=== PATIENT | female | born 1970 | race Caucasian/White ===

== ENCOUNTER 2019-01-12 15:51 | Emergency (ER) | payer OTHER ==
[~2019-01-12] VITALS: Ht 162.6 cm; Wt 72.6 kg
--- OUTSIDE RECORDS SUMMARY | ~2019-01-12 | XMS | Encounter Summary ---
Demographics + + + | Address | [address] | | | [place] [address] | + + + | Home Phone | | + + + | Preferred Language | Unknown | + + + | Marital Status | | + + + | Presybeterian Affiliation | Unknown | + + + | Race | Unknown | + + + | Ethnic Group | Unknown | + + + Author + + + | Author | [facility] | | | and Michaelana | + + + | Organization | [facility] | | | and Michaelana | + + + | Address | Unknown | + + + | Phone | Unavailable | + + + Support + + +---------+ + | Name | Relationship | Address | Phone | + + +---------+ + | Benedicto Bain | ECON | Unknown | | + + +---------+ + | Selene Cohen | ECON | Unknown | | + + +---------+ + Care Team Providers + +------+ + | Care University Relations Vice President Name | Role | Phone | + +------+ + | Selene Francis PA-C | PCP | | + +------+ + Reason for Referral Diagnostic/Screening (Routine) +--------+--------+ + + + + | Status | Reason | Specialty | Diagnoses / | Referred By | Referred To | | | | | Procedures | Contact | Contact | +--------+--------+ + + + + | Closed | | Radiology | Diagnoses | | [facility] | | | | | Elevated | [place], | [address] | | | | | liver | [place], | [place], | | | | | enzymes | [employer] [address] | [place] | | | | | Esophageal | [address], [place] | [address] | | | | | varices | [address] [place] | Phone: | | | | | without | [place], [place] | [phone] | | | | | bleeding, | [address] | Fax: | | | | | unspecified | Phone: | [phone] | | | | | esophageal | [phone] | | | | | | varices type | Fax: | | | | | | (HCC) | [phone] | | | | | | Portal | | | | | | | hypertension | | | | | | | (HCC) | | | | | | | Abnormal CT | | | | | | | of liver | | | | | | | Procedures | | | | | | | MRI Liver w | | | | | | | wo Contrast | | | | | | | [place] MRI, | | | | | | | ABDOMEN, | | | | | | | COMBO | | | +--------+--------+ + + + + Diagnostic/Screening (Routine) +--------+--------+ + + + + | Status | Reason | Specialty | Diagnoses / | Referred By | Referred To | | | | | Procedures | Contact | Contact | +--------+--------+ + + + + | Closed | | Radiology | Diagnoses | | [facility] | | | | | Elevated | [place], | [address] | | | | | liver | [place], | [place], | | | | | enzymes | [employer] [address] | [place] | | | | | Esophageal | [place], [place] | [address] | | | | | varices | [address] | Phone: | | | | | without | [place], [place] | [phone] | | | | | bleeding, | [address] | Fax: | | | | | unspecified | Phone: | [phone] | | | | | esophageal | [phone] | | | | | | varices type | Fax: | | | | | | (HCC) | [phone] | | | | | | Portal | | | | | | | hypertension | | | | | | | (HCC) | | | | | | | Abnormal CT | | | | | | | of liver | | | | | | | Procedures | | | | | | | MRI Liver w | | | | | | | wo Contrast | | | | | | | GA MRI, | | | | | | | ABDOMEN, | | | | | | | COMBO | | | +--------+--------+ + + + + Reason for Visit Diagnostic/Screening (Routine) +--------+--------+ + + + + | Status | Reason | Specialty | Diagnoses / | Referred By | Referred To | | | | | Procedures | Contact | Contact | +--------+--------+ + + + + | Closed | | Radiology | Diagnoses | | [facility] | | | | | Elevated | [place], | [address] | | | | | liver | [place], | [place], | | | | | enzymes | [employer] [address] | [place] | | | | | Esophageal | [place], [place] | [address] | | | | | varices | [address] | Phone: | | | | | without | [place], [place] | [phone] | | | | | bleeding, | [address] | Fax: | | | | | unspecified | Phone: | [phone] | | | | | esophageal | [phone] | | | | | | varices type | Fax: | | | | | | (HCC) | [phone] | | | | | | Portal | | | | | | | hypertension | | | | | | | (HCC) | | | | | | | Abnormal CT | | | | | | | of liver | | | | | | | Procedures | | | | | | | MRI Liver w | | | | | | | wo Contrast | | | | | | | [place] MRI, | | | | | | | ABDOMEN, | | | | | | | COMBO | | | +--------+--------+ + + + + Encounter Details +--------+ + + + + | Date | Type | Department | Care Team | Description | +--------+ + + + + | 01/12/ | Hospital | [facility] | [facility], | Elevated liver | | 2019 | Encounter | [facility] MRI [address] | [place], EX[employer] [address] | enzymes; Esophageal | | | | [address] [place], | [place], [place] [address] | varices without | | | | [place] [address] | [place], [place] | bleeding, | | | | [phone] | [address] | unspecified | | | | | | esophageal varices | | | | | | type (HCC); Portal | | | | | | hypertension (HCC); | | | | | | Abnormal CT of liver | +--------+ + + + + Social History + +-------+ +--------+------+ | Tobacco Use | Types | Packs/Day | Years | Date | | | | | Used | | + +-------+ +--------+------+ | Never Smoker | | | | | + +-------+ +--------+------+ + +---+---+---+ | Smokeless Tobacco: | | | | | Never Used | | | | + +---+---+---+ + + +---------+ + | Alcohol Use | Drinks/We | oz/Week | Comments | | | ek | | | + + +---------+ + | Yes | | | once a month at the most | + + +---------+ + + + + | Sex Assigned at | Date Recorded | | | | + + + | Not on file | | + + + + + + + | Job Start Date | Occupation | Industry | + + + + | Not on file | Not on file | Not on file | + + + + + + + + | Travel History | Travel Start | Travel End | + + + + + + | No recent travel history available. | + + documented as of this encounter Plan of Treatment Not on filedocumented as of this encounter Procedures + +--------+ + + + | Procedure Name | Priori | Date/Time | Associated Diagnosis | Comments | | | ty | | | | + +--------+ + + + | MRI LIVER W WO | Routin | 01/12/2019 | Elevated liver | Results for this | | CONTRAST | e | 8:18 PDT | enzymes Esophageal | procedure are in the | | | | | varices without | results section. | | | | | bleeding, | | | | | | unspecified | | | | | | esophageal varices | | | | | | type (HCC) Portal | | | | | | hypertension (HCC) | | | | | | Abnormal CT of liver | | + +--------+ + + + documented in this encounter Results MRI Liver w wo Contrast (01/12/2019 8:18 PDT) + + | Specimen | + + | | + + + + + | Impressions | Performed At | + + + | Cirrhotic appearing liver with no definite focal lesion. | [facility] | | Findings of portal venous hypertension with significant narrowing of | | | the portal veins showing likely cavernous transformation, multiple | | | varices, and splenomegaly. Moderate ascites. Dictated and | | | Signed by: Jose Mcdowell MD Electronically signed: 01/12/2019 9:19 | | | AM | | + + + + + + | Narrative | Performed At | + + + | MRI LIVER W WO CONTRAST 01/12/2019 7:45 AM HISTORY: Abnormal CT | [facility] | | liver. COMPARISON: CT scan of the abdomen dated 01/08/2019. | | | PROTOCOL: Coronal T2, axial T2, axial T2 fat sat, axial T1 in phase | | | imaging, axial T1 out of phase imaging, axial diffusion weighted, | | | axial T1, axial T1 postcontrast, coronal T1 postcontrast, sagittal T1 | | | post contrast. Postcontrast images were acquired in the arterial, | | | portal venous, delayed, and hepatobiliary phases. The patient was | | | administered 8 cc Eovist. FINDINGS: Heart size is at the upper | | | limits of normal. The liver has a cirrhotic appearance with | | | nodular contour. No definite focal lesion is seen. The gallbladder is | | | surgically absent. Biliary ducts are unremarkable. The spleen is | | | significantly enlarged measuring 18.7 cm craniocaudally. The | | | pancreas demonstrates normal parenchyma and a normal pancreatic duct. | | | Adrenal glands are normal. The right kidney and visualized ureter | | | are normal. The left kidney and visualized ureter are normal. | | | The stomach is normal. Imaged small bowel and colon demonstrate no | | | acute findings. Aorta is nonaneurysmal. IVC is unremarkable. The | | | portal veins appear to be significantly thinned with likely cavernous | | | transformation. Multiple varices are observed medial to the spleen | | | and in the upper abdomen. No enlarged lymph nodes are visualized | | | within the omentum or retroperitoneum. There is moderate ascites. | | | Body wall soft tissue structures are normal. There are no acute | | | osseous abnormalities. | | + + + + + | Procedure Note | + + | Guerrero, Rad Results In - 01/12/2019 0922 PDT MRI LIVER W WO CONTRAST 01/12/2019 7:45 AM | | | | HISTORY: Abnormal CT liver. | | | | COMPARISON: CT scan of the abdomen dated 01/08/2019. | | | | PROTOCOL: Coronal T2, axial T2, axial T2 fat sat, axial T1 in phase imaging, | | axial T1 out of phase imaging, axial diffusion weighted, axial T1, axial T1 | | postcontrast, coronal T1 postcontrast, sagittal T1 post contrast. Postcontrast | | images were acquired in the arterial, portal venous, delayed, and hepatobiliary | | phases. The patient was administered 8 cc Eovist. | | | | FINDINGS: | | Heart size is at the upper limits of normal. | | | | The liver has a cirrhotic appearance with nodular contour. No definite focal | | lesion is seen. The gallbladder is surgically absent. Biliary ducts are | | unremarkable. | | | | The spleen is significantly enlarged measuring 18.7 cm craniocaudally. The | | pancreas demonstrates normal parenchyma and a normal pancreatic duct. Adrenal | | glands are normal. | | | | The right kidney and visualized ureter are normal. | | | | The left kidney and visualized ureter are normal. | | | | The stomach is normal. Imaged small bowel and colon demonstrate no acute | | findings. | | | | Aorta is nonaneurysmal. IVC is unremarkable. The portal veins appear to be | | significantly thinned with likely cavernous transformation. Multiple varices are | | observed medial to the spleen and in the upper abdomen. No enlarged lymph nodes | | are visualized within the omentum or retroperitoneum. | | | | There is moderate ascites. | | | | Body wall soft tissue structures are normal. There are no acute osseous | | abnormalities. | | | | IMPRESSION: | | Cirrhotic appearing liver with no definite focal lesion. | | | | Findings of portal venous hypertension with significant narrowing of the portal | | veins showing likely cavernous transformation, multiple varices, and | | splenomegaly. | | | | Moderate ascites. | | | | Dictated and Signed by: Jose Mcdowell MD | | Electronically signed: 01/12/2019 9:19 AM | + + + +---------+ + + | Performing | Address | City/State/Zipcode | Phone Number | | Organization | | | | + +---------+ + + | [facility] | | | | + +---------+ + + documented in this encounter Visit Diagnoses + + | Diagnosis | + + | Elevated liver enzymes Nonspecific elevation of levels of transaminase or lactic acid | | dehydrogenase (LDH) | + + | Esophageal varices without bleeding, unspecified esophageal varices type (HCC) | + + | Portal hypertension (HCC) Portal hypertension | + + | Abnormal CT of liver Nonspecific abnormal results of liver function study | + + documented in this encounter Administered Medications + +--------+ +-------+------+------+ | Medication Order | MAR | Action | Dose | Rate | Site | | | Action | Date | | | | + +--------+ +-------+------+------+ | gadoxetate (EOVIST) injection 8 | Given | 01/13/20 | 8 mLs | | | | mL 8 mL, Intravenous, ONCE PRN, | | 19 8:20 | | | | | Other, Starting 01/12/19 at | | PDT | | | | | 0820, For 1 dose, MRI | | | | | | + +--------+ +-------+------+------+ +---+---+ | | | +---+---+ documented in this encounter"
--- OUTSIDE RECORDS SUMMARY | ~2019-01-12 | XMS | Encounter Summary ---
Demographics + + + | Address | [address] | | | [place] [address] | + + + | Home Phone | | + + + | Preferred Language | Unknown | + + + | Marital Status | | + + + | Confucianist Affiliation | Unknown | + + + | Race | Unknown | + + + | Ethnic Group | Unknown | + + + Author + + + | Author | [facility] | | | and Michaelana | + + + | Organization | [facility] | | | and Michaelana [...] Team Providers + +------+ + | Care Oil Well Driller Name | Role | Phone | + +------+ + | Selene Francis PA-C | PCP | | + +------+ + Encounter Details +--------+ + + + + | Date | Type | Department | Care Team | Description | +--------+ + + + + | 10/10/ | Abstract | [facility] | Tanya | | | 2019 | | GASTROENTEROLOGY | MD [address] | | | | | [address] | Emeka Lamar | | | | | [address] | [place] [address] | | | | | [address] | | | | | | [phone] | | | +--------+ + + + [...] | + +--------+ + + + | EXTERNAL: | Routin | 12/25/2018 | | Results for this | | COLONOSCOPY | e | | | procedure are in the | | | | | | results section. | + +--------+ + + + documented in this encounter Results EXTERNAL: COLONOSCOPY (12/25/2018) + + + + + + | Component | Value | Ref Range | Performed | Pathologist | | | | | At | Signature | + + + + + + | Colonoscopy | See Full Report~ [facility] | | | | | | Dr. Nelson | | | | | Impression, | | | | | | External | | | | | + + + + + + documented in this encounter Visit Diagnoses Not on filedocumented in this encounter"
--- OUTSIDE RECORDS SUMMARY | ~2019-01-12 | XMS | Encounter Summary ---
Demographics + + + | Address | [address] | | | [place] [address] | + + + | Home Phone | | + + + | Preferred Language | Unknown | + + + | Marital Status | | + + + | Buddhism Affiliation | Unknown | + + + | Race | Unknown | + + + | Ethnic Group | Unknown | + + + Author + + + | Author | [facility] | | | and Michaelana | + + + | Organization | [facility] | | | and Michaelana [...] Team Providers + +------+ + | Care Awning Assembler Name | Role | Phone | + +------+ + | Selene Francis PA-C | PCP | | + +------+ + Reason for Visit Evaluate & Treat (Routine) + +--------+ + + + + | Status | Reason | Specialty | Diagnoses / | Referred By | Referred To | | | | | Procedures | Contact | Contact | + +--------+ + + + + | Authorized | | Gastroenterol | Diagnoses | Tito, | Leslie, | | | | ogy | Functional | [facility] | Deny Brody MD | | | | | diarrhea | [address] | [address], | | | | | Procedures | [place] | [place] [address] | | | | | CLINICAL ANALYST OFFICE | [place] [address] | [place], | | | | | VISIT | [place], | [place] [address] | | | | | | [place] [address] | Phone: | | | | | | Phone: | [phone] | | | | | | [phone] | Fax: | | | | | | Fax: | [phone] | | | | | | [phone] | | + +--------+ + + + + Encounter Details +--------+---------+ + + + | Date | Type | Department | Care Team | Description | +--------+---------+ + + + | 12/18/ | Office | [facility] | Melanie, | Diarrhea, | | 2019 | Visit | GASTROENTEROLOGY | BRIAN Dickson [address] | unspecified type | | | | [address] [place] | [place], [place] [address] | (Primary Dx); Fecal | | | | [address] [place], [place] | [place], [place] | urgency; Abdominal | | | | [address] | [address] | cramping; Heartburn; | | | | [phone] | | Black stool | +--------+---------+ + + + Social History + +-------+ +--------+------+ | Tobacco Use | Types | Packs/Day | Years | Date | | | | | Used | | + +-------+ +--------+------+ | Never Smoker | | | | | + +-------+ +--------+------+ + +---+---+---+ | Smokeless Tobacco: | | | | | Never Used | | | | + +---+---+---+ + + + | Sex Assigned at [...] Filed Vital Signs + + + + | Vital Sign | Reading | Time Taken | + + + + | Blood Pressure | 124/82 | 12/18/2018755 PDT | + + + + | Pulse | 77 | 12/18/2018755 PDT | + + + + | Temperature | 36.6 C (97.9 F) | 12/18/2018755 PDT | + + + + | Respiratory Rate | 14 | 12/18/2018755 PDT | + + + + | Oxygen Saturation | 99% | 12/18/2018755 PDT | + + + + | Inhaled Oxygen | - | - | | Concentration | | | + + + + | Weight | 73.6 kg (162 lb 4.1 | 12/18/2018755 PDT | | | oz) | | + + + + | Height | 162.6 cm (5' 4") | 12/18/2018755 PDT | + + + + | Body Mass Index | 27.85 | 12/18/2018755 PDT | + + + + documented in this encounter Patient Instructions Patient Instructions Yessi Navarro ARNP - 12/18/2018 8:00 PDTStart psyllium (Metamu cil) once daily. If psyllium not helping completely, try dicyclomine as needed. documented in this encounter Progress Notes Chelita Rordiguez RN - 12/18/2018 0800 PDTScheduled patient for EGD/Colon IVCS with Dr. Miguelito rich on Tuesday12/25/18. Reviewed medications and allergies, bowel prep instructions and proced ure instructions. Sent prescription to [facility] in [place]. Yessi VegaBRIAN - 12/18/2018 0800 P DT PATIENT NAME: Grecia Bain : 1970: AGE: 48 y.o. REFERRED BY: Selene Francis PA-C PRIMARY CARE: Selene Francis PA-C Subjective: CHIEF COMPLAINT: Grecia Bain is a 48 y.o. female referred by Selene Francis PA-C for evaluation and treatme nt of diarrhea and abdominal pain. HISTORY OF PRESENT ILLNESS: Patient states that about 2 months ago she started to have diarrhea. She has not been able to associate with any certain foods. She has issues with the diarrhea about once every week. There have been 8 issues over the last 2 months. She notes that the episodes are urgent liq uid diarrhea. There is no warning. It can come anytime throughout the days. She has taken Im odium to help. She states that there was 1 episode with diarrhea even after taking Imodium. Denies blood in the stool. She reports that between epidose of uncontrolled diarrhea, she has soft or diarrheal stools . She typically has 2-3 BM per day. There is typically not abdominal discomfort associated w ith these stools. Starting in August, the patient also reports increasing heartburn symptoms. She noted signif icant epigastric discomfort she was also having intermittent black stools at the time. She had been associated in the black stools with dietary changes. Denies the use of Pepto-Bismo l. Heartburn has improved since this time. She has started a dietary change to the Optivia diet. About 4 months ago. Denies family history of colon cancer. Denies personal or family history of autoimmune diseases. She denies new rashes, mouth sore s, or joint pains. MEDICAL, SURGICAL, AND PERSONAL HISTORY: BP 124/82 | Pulse 77 | Temp 36.6 C (97.9 F) (Temporal) | Resp 14 | Ht 1.626 m (5' 4 ") | Wt 73.6 kg (162 lb 4.1 oz) | SpO2 99% | BMI 27.85 kg/m No Known Allergies Past Medical History: Diagnosis Date Cervicalgia Diarrhea Encopresis Functional diarrhea HTN (hypertension) Spinal enthesopathy of cervical region (HCC) Urge and stress incontinence UTI (urinary tract infection) Vitamin D deficiency Past Surgical History: Procedure Laterality Date KNEE SURGERY Left 2012 Partial PARTIAL HYSTERECTOMY 2013 Family History Problem Relation Age of Onset [...] Not on file Tobacco Use Smoking status: Not on file Substance and Sexual Activity Alcohol use: Not on file Drug use: Not on file Sexual activity: Not on file Other Topics Concern Not on file Social History Narrative Not on file Review of Systems Constitutional: Negative for diaphoresis, fatigue, fever and unexpected weight change. HENT: Negative for congestion, hearing loss, mouth sores, rhinorrhea and trouble swallowing . Eyes: Negative for redness and visual disturbance. Respiratory: Negative for cough, choking, chest tightness, shortness of breath and wheezing . Cardiovascular: Negative for chest pain, palpitations and leg swelling. Gastrointestinal: Positive for abdominal pain and diarrhea. Negative for abdominal distenti on, anal bleeding, blood in stool, constipation, nausea, rectal pain and vomiting. Complains of heartburn and black stools. Endocrine: Denies enlarged thyroid Genitourinary: Negative for dysuria, flank pain and frequency. Musculoskeletal: Negative for arthralgias, back pain and joint swelling. Skin: Negative for color change and rash. Neurological: Negative for seizures, syncope, weakness, numbness and headaches. Hematological: Does not bruise/bleed easily. Denies anemia or enlarged lymph glands. Psychiatric/Behavioral: Negative for dysphoric mood. The patient is not nervous/anxious. Objective: Physical Exam Constitutional: She is oriented to person, place, and time. She appears well-developed and well-nourished. HENT: Head: Normocephalic and atraumatic. Eyes: EOM are normal. No scleral icterus. Neck: Normal range of motion. Neck supple. Cardiovascular: Normal rate, regular rhythm and normal heart sounds. Pulmonary/Chest: Effort normal and breath sounds normal. No respiratory distress. She has n o wheezes. Abdominal: Soft. Normal appearance and bowel sounds are normal. She exhibits no ascites and no mass. There is no splenomegaly or hepatomegaly. There is tenderness in the periumbilical area. There is no rigidity, no rebound, no guarding and negative Keller's sign. Musculoskeletal: Normal range of motion. She exhibits no edema or deformity. Neurological: She is alert and oriented to person, place, and time. Skin: Skin is warm and dry. No rash noted. Psychiatric: She has a normal mood and affect. Her behavior is normal. Nursing note and vitals reviewed. Abstract on 12/07/2018 Component Date Value Ref [...] 11/07/2018 6 0 - 20 mm/hr Final Assessment: 1. Diarrhea, unspecified type 2. Fecal urgency 3. Abdominal cramping 4. Heartburn 5. Black stool Plan: Patient to have EGD and colonoscopy for further evaluation. The procedural techniques, risk s, indications, and alternatives were discussed. Among the risks, are perforation, bleeding , infection, allergic/adverse reactions to medications, and cardiovascular complications. E ach of these could result in hospitalization, additional procedures (including surgery), or other life threatening complications. Patient verbalized understanding. Risk factors to col o-rectal cancer discussed with patient including smoking, obesity, excessive red meat ingest ion, advancing age and first degree family relative with history of colo-rectal cancer discu ssed with patient. Patient to call with any questions or concerns prior to procedure. Start dissolvable fiber supplement daily. Patient given a prescription for Bentyl to help with abdominal pain. Will follow up with results. Patient is [...] its content.Electronically signed by BRIAN Mancilla at 12/18 8:40 PDTdocumented in this encounter Plan of Treatment Not on filedocumented as of this encounter Visit Diagnoses + + | Diagnosis | + + | Diarrhea, unspecified type - Primary | + + | Fecal urgency | + + | Abdominal cramping Abdominal pain, unspecified site | + + | Heartburn | + + | Black stool Nonspecific abnormal finding in stool contents | + + documented in this encounter
--- OUTSIDE RECORDS SUMMARY | ~2019-01-12 | XMS | Encounter Summary ---
Demographics + + + | Address | [address] | | | [place] [address] | + + + | Home Phone | | + + + | Preferred Language | Unknown | + + + | Marital Status | | + + + | Zoroastrian Affiliation | Unknown | + + + | Race | Unknown | + + + | Ethnic Group | Unknown | + + + Author + + + | Author | [facility] | | | and Michaelana | + + + | Organization | [facility] | | | and [...] Team Providers + +------+ + | Care Telephone Switchboard Operator Name | Role | Phone | [...] | | unspecified | | [address], | | | | | type Fecal | | [address] | | | | | urgency | | [place], | | | | | Abdominal | | [place] [address] | | | | | cramping | | Phone: | | | | | Heartburn | | [phone] | | | | | Black stool | | Fax: | | | | | Procedures | | [phone] | | | | | IN | | | | | | | ESOPHAGOGAST | | | | | | | RODUODENOSCO | | | | | | | PY TRANSORAL | | | | | | | DIAGNOSTIC | | | | | | | IN EGD | | | | | | | TRANSORAL | | | | | | | BIOPSY | | | | | | | SINGLE/MULTI | | | | | | | PLE IN | | | | | | | COLONOSCOPY | | | | | | | FLX DX | | | | | | | W/COLLJ SPEC | | | | | | | WHEN PFRMD | | | | | | | IN | | | | | | | COLONOSCOPY | | | | | | | W/BIOPSY | | | | | | | SINGLE/MULTI | | | | | | | PLE IN | | | | | | | [...] + + | 12/25/ | Hospital | [facility] | Deny Nelson MD | Diarrhea, | | 2019 | Encounter | [facility] | [address], [place] | unspecified type; | | | | [address] | [address] [place], [place] | Fecal urgency; | | | | [place] | [address] | Abdominal cramping; | | | | [address] | | Heartburn; Black | | | | [phone] | | stool | +--------+ + + [...] | Blood Pressure | 110/65 | 12/25/2018 1145 PDT | + + + + | Pulse | 77 | 12/25/2018 1155 PDT | + + + + | Temperature | 36.2 C (97.2 F) | 12/25/2018 1012 PDT | + + + + | Respiratory Rate | 17 | 12/25/2018 1110 PDT | + + + + | Oxygen Saturation | 97% | 12/25/2018 1155 PDT | + + + + | Inhaled Oxygen | - | - | | Concentration | | | + + + + | Weight | 70.6 kg (155 lb 10.3 | 12/25/2018 1012 PDT | | | oz) | | + + + + | Height | 162.6 cm (5' 4") | 12/25/2018 1012 PDT | + + + + | Body Mass Index | 26.72 | 12/25/2018 1012 PDT | + + + + documented in this encounter Discharge Instructions Instructions Marti Carmichael RN - 12/25/2018 Recovery After Procedural Sedation [...] You can't be awakened Date Last Reviewed: 01/06/201619998744-1814 [employer] [address] [place] [address], [place] [address]. All righ ts reserved. This information is [...] daily | tablet | | 19 | | | tablet | as needed (abdominal [...] Results for this | | | | 0:00 PDT | | procedure are in the | | | | | | results section. | + +--------+ + + + | COLONOSCOPY | | 12/25/2018 | Diarrhea, | | | | | 11:05 PDT | unspecified type | | | | | | Fecal urgency | | | | | | Abdominal cramping | | | | | | Heartburn Black | | | | | | stool | | + +--------+ + + + | EGD | | 12/25/2018 | Diarrhea, | | | | | 11:05 PDT | unspecified type | | | | | | Fecal urgency | | | | | | Abdominal cramping | | | | | | Heartburn Black | | | | | | stool | | + +--------+ + + + | LACTOFERRIN, FECAL, | Routin | 12/25/2018 | | Results for this | | QUAL | e | 11:03 PDT | | procedure are in the | | | | | | results section. | + +--------+ + + + | CLOSTRIDIOIDES | Routin | 12/25/2018 | | Results for this | | DIFFICILE NAAT | e | 11:02 PDT | | procedure are in the | | REFLEX | | | | results section. | + +--------+ + + + | STOOL PATHOGENS, | Routin | 12/25/2018 | | Results for this | | NAAT, 6 TO 11 | e | 11:02 PDT | | procedure are in the | | TARGETS | | | | results section. | + +--------+ + + + | CLOSTRIDIOIDES | Routin | 12/25/2018 | | Results for this | | DIFFICILE NAAT | e | 11:02 PDT | | procedure are in the | | REFLEX TO TOX AG | | | | results section. | + +--------+ + + + | RESULT | Routin | 12/25/2018 | | Results for this | | (NON-ORD)[facility] | e | 11:02 PDT | | procedure are in the | | | | | | results section. | + +--------+ + + + | OVA AND PARASITE | Routin | 12/25/2018 | | Results for this | | EXAMINATION | e | 11:02 PDT | | procedure are in the | | | | | | results section. | + +--------+ + + + | CRYPTOSPORIDIUM AG | Routin | 12/25/2018 | | Results for this | | | e | 11:02 PDT | | procedure are in the | | | | | | results section. | + +--------+ + + + | GIARDIA AG, EIA, | Routin | 12/25/2018 | | Results for this | | STOOL | e | 11:02 PDT | | procedure are in the | | | | | | results section. | + +--------+ + + + | HELICOBACTER PYLORI | Routin | 12/25/2018 | | Results for this | | BIOPSY | e | 10:47 PDT | | procedure are in the | | | | | | results section. | + +--------+ + + + | EGD | Routin | 12/25/2018 | | Results for this | | | e | 10:30 PDT | | procedure are in the | | | | | | results section. | + +--------+ + + + | COLONOSCOPY | Routin | 12/25/2018 | | Results for this | | | e | 10:28 PDT | | procedure are in the | | | | | | results section. | + +--------+ + + + | SURGICAL PATHOLOGY | Routin | 12/25/2018 | | Results for this | | EXAM | e | 0:00 PDT | | procedure are in the | | | | | | results section. | + +--------+ + + + documented in this encounter Results LABS - EXTERNAL SCAN (01/02/2019 0:00 PDT) + + + | Narrative | Performed At | + + + | Ordered by an | | | unspecified provider. | | + + + Lactoferrin, Fecal, Qual (12/25/2018 11:03 PDT) + + + + + + | Component | Value | Ref Range | Performed | Pathologist | | | | | At | Signature | + + + + + + | Lactoferrin | Negative | Negative | [facility] | | | , Qual | | | [facility] | | | | | | MEDICAL | | | | | | CENTER - | | | | | | LABORATORY | | + + + + + + + + | Specimen | + + | Stool | + + + + + + + | Performing | Address | City/State/Zipcode | Phone Number | | Organization | | | | + + + + + | [facility] | [address] | [place] | [phone] | | [facility] | | [address] | | | - LABORATORY | | | | + + + + + RESULT REFLEX (12/25/2018 11:02 PDT) + + + + + + [...] | Specimen | + + | Stool | + + + + + | Narrative | Performed At | + + + | Performed at: 01 - [address] [address], | REFERENCE LAB | | [place] [id number] Electrical Products Engineer: Анна Oscar MD, | [facility] | | Phone: [phone] | | + + + + + + + + | Performing | Address | City/State/Zipcode | Phone Number | | Organization | | | | + + + + + | REFERENCE LAB | [address] | [place] [address] | [phone] | | [facility] | [address] | | | + + + + + Clostridioides difficile NAAT Reflex (12/25/2018 11:02 PDT) + + + + + + [...] | Specimen | + + | Stool | + + + + + + + | Performing | Address | City/State/Zipcode | Phone Number | | Organization | | | | + + + + + | [facility] | [address] | [place] | [phone] | | [facility] | | [address] | | | - LABORATORY | | | | + + + + + Ova and Parasite Examination (12/25/2018 11:02 PDT) + + + + + + [...] | Specimen | + + | Stool | + + + + + | Narrative | Performed At | + + + | Performed at: 01 - [facility] [address], | REFERENCE LAB | | [place] [id number] Electrical Products Engineer: Анна Oscar MD, | [facility] | | Phone: [phone] | | + + + + + + + + | Performing | Address | City/State/Zipcode | Phone Number | | Organization | | | | + + + + + | REFERENCE LAB | [address] | [place] [address] | [phone] | | [facility] | [address] | | | + + + + + Stool Pathogens, NAAT (12/25/2018 11:02 PDT) + + + + + + [...] | Specimen | + + | Stool | + + + + + + + | Performing | Address | City/State/Zipcode | Phone Number | | Organization | | | | + + + + + | [facility] | [address] | [place] | [phone] | | [facility] | | [address] | | | - LABORATORY | | | | + + + + + Giardia Ag, EIA, Stool (12/25/2018 11:02 PDT) + + + + + + | Component | Value | Ref Range | Performed | Pathologist | | | | | At | Signature | + + + + + + | Giardia | Negative | Negative | [facility] | | | Antigen, | | | [facility] | | | Stool | | | MEDICAL | | | | | | CENTER - | | | | | | LABORATORY | | + + + + + + + + | Specimen | + + | Stool | + + + + + + + | Performing | Address | City/State/Zipcode | Phone Number | | Organization | | | | + + + + + | [facility] | [address] | [place] | [phone] | | [facility] | | [address] | | | - LABORATORY | | | | + + + + + Cryptosporidium Ag (12/25/2018 11:02 PDT) + + + + + + | Component | Value | Ref Range | Performed | Pathologist | | | | | At | Signature | + + + + + + | Cryptospori | Negative | Negative | [facility] | | | dium | | | [facility] | | | Antigen | | | MEDICAL | | | | | | CENTER - | | | | | | LABORATORY | | + + + + + + + + | Specimen | + + | Stool | + + + + + + + | Performing | Address | City/State/Zipcode | Phone Number | | Organization | | | | + + + + + | [facility] | [address] | [place] | [phone] | | [facility] | | [address] | | | - LABORATORY | | | | + + + + + Helicobactor pylori Biopsy (12/25/2018 10:47 PDT) + + + + + + [...] | Specimen | + + | Tissue | + + + + + + + | Performing | Address | City/State/Zipcode | Phone Number | | Organization | | | | + + + + + | [facility] | [address] | [place] | [phone] | | [facility] | | [address] | | | - LABORATORY | | | | + + + + + EGD (12/25/2018 10:30 PDT) + + | Specimen | + + | | + + + + ---+ | Narrative | Performed At | + + ---+ | | [facility] | | GastroenterologyPatient Name: Grecia BainProcedure Date: 12/25/2018 | [facility] | | 10:30 AMMRN: [id number] #: [id number] of : | | | 1970Admit Type: AmbulatoryAge: 48Room: Endo Room 1Gender: | | | FemaleNote Status: FinalizedAttending MD: Deny Nelson , | | | MDProcedure: Upper GI | | | endoscopyIndications: Generalized abdominal pain, | | | DiarrheaProviders: Deny Nelson MD, Vanna Castro, | | | RN, Briana Constantino RN, Vianey | | | Leana Burns RN, Brittany Lopez RN, | | | Marc Marrero CMA, Baldemar | | | Gordo, TechnicianReferring MD: Selene Francis (Referring | | | MD)Medicines: Midazolam 5 mg IV, Meperidine 100 mg IV, | | | Benzocaine spray, Oxygen 4 | | | liters/min nasocannulaComplications: No immediate | | | complications. Estimated blood loss: Minimal.Procedure: | | | Pre-Anesthesia Assessment: - Prior to the procedure, a History | | | and Physical was performed, and patient medications, | | | allergies and sensitivities were reviewed. The patient's | | | tolerance of previous anesthesia was reviewed. - Prior to the | | | procedure, a History and Physical was performed, and patient | | | medications and allergies were reviewed. The patient is | | | competent. The risks and benefits of the procedure and the sedation | | | options and risks were discussed with the patient. All | | | questions were answered and informed consent was obtained. | | | Patient identification and proposed procedure were verified | | | by the physician, the nurse and the dye penetrant testing technician in the | | | endoscopy suite. Mental Status Examination: alert and | | | oriented. Airway Examination: normal oropharyngeal airway and neck | | | mobility and Mallampati Class II (the uvula but not tonsillar | | | pillars visualized). Respiratory Examination: clear to | | | auscultation. CV Examination: normal. Prophylactic | | | Antibiotics: The patient does not require prophylactic | | | antibiotics. Prior Anticoagulants: The patient has taken no | | | previous anticoagulant or antiplatelet agents. ASA Grade | | | Assessment: II - A patient with mild systemic disease. After reviewing | | | the risks and benefits, the patient was deemed in | | | satisfactory condition to undergo the procedure. The | | | anesthesia plan was to use moderate sedation / analgesia | | | (conscious sedation). Immediately prior to administration of | | [...] After reviewing the risks and benefits, the | | | patient was deemed in satisfactory condition to undergo the | | | procedure. - Immediately prior to administration of | | | medications, the patient was re-assessed for adequacy to | | | receive sedatives. - The heart rate, respiratory rate, oxygen | | | saturations, blood pressure, adequacy of pulmonary | | | ventilation, and response to care were monitored throughout | | | the procedure. - The physical status of the patient was | | | re-assessed after the procedure. After obtaining informed | | | consent, the endoscope was passed under direct vision. | | | Throughout the procedure, the patient's blood pressure, pulse, | | | and oxygen saturations were monitored continuously. The | | | Endoscope was introduced through the mouth, and advanced to | | | the third part of duodenum. The upper GI endoscopy was | | | accomplished without difficulty. The patient tolerated the | | | procedure well.Findings: The cricopharyngeus, upper third of | | | the esophagus and middle third of the esophagus were | | | normal. Grade II varices were found in the lower third of the | | | esophagus from 30-35 cm. They were medium in size. | | | The Z-line was regular and was found 35 cm from the incisors. | | | Moderate portal hypertensive gastropathy was found in the | | | cardia. Localized mildly erythematous mucosa without bleeding | | | was found in the gastric antrum. Biopsies were taken with a | | | cold forceps for Helicobacter pylori testing using CLOtest. | | | Verification of patient identification for the specimen was | | | done. Estimated blood loss was minimal. The duodenal bulb, | | | first portion of the duodenum, second portion of the | | | duodenum, area of the papilla and third portion of the duodenum were | | | normal. Biopsies for histology were taken with a cold forceps | | | for evaluation of celiac disease. Verification of patient | | | identification for the specimen was done. Estimated blood | | | loss was minimal. The retroflexed view confirmed previous | | | findings,Impression: - Normal cricopharyngeus, upper third of | | | esophagus and middle third of esophagus. - Grade II | | | esophageal varices. - Z-line regular, 35 cm from the | | | incisors. - Portal hypertensive gastropathy. - | | | Erythematous mucosa in the antrum. Biopsied. - Normal duodenal | | | bulb, first portion of the duodenum, second portion of the | | | duodenum, area of the papilla and third portion of the duodenum. | | | Biopsied. - The retroflexed view confirmed previous | | | findings,Recommendation: - Patient has a contact number | | | available for emergencies. The signs and symptoms of | | | potential delayed complications were discussed with the | | | patient. Return to normal activities tomorrow. Written discharge | | | instructions were provided to the patient. - | | | Discharge patient to home (ambulatory). - Resume previous diet | | | today. - Perform a colonoscopy today. - Continue | | | present medications. - No aspirin, ibuprofen, naproxen, or | | | other non-steroidal anti-inflammatory drugs for 7 days after | | | biopsy. - Await pathology results. - Return to nurse | | | practitioner at appointment to be scheduled. - Telephone GI | | | clinic for pathology results in 1 week.Deny Nelson MD12/25/2018 | | | 11:22:55 AMThis report has been signed electronically.Number of | | | Addenda: 0Note Initiated On: 12/25/2018 10:30 AMScope In: 10:47:23 | | | AMScope Out: 10:53:30 AM [facility], | | | [address] [place] [address] | | | - Await pathology results. [...] |Scope Out: 10:53:30 AM | | | [facility], [address], [place] | | | [address] | | + + ---+ + +---------+ + + | Performing | Address | City/State/Zipcode | Phone Number | | Organization | | | | + +---------+ + + | [facility] [place] | | | | + +---------+ + + COLONOSCOPY (12/25/2018 10:28 PDT) + + | Specimen | + + | | + + + + ---+ | Narrative | Performed At | + + ---+ | | [facility] | | GastroenterologyPatient Name: Grecia BainProshady Date: 12/25/2018 | [place] | | 10:28 AMMRN: [id number] #: [id number] of : | | | 1970Admit Type: AmbulatoryAge: 48Room: Endo Room 1Gender: | | | FemaleNote Status: FinalizedAttending MD: Deny Nelson , | | | MDProcedure: ColonoscopyIndications: | | | Chronic diarrheaProviders: Deny Nelson MD, [facility] | | | NIKA Castro, Briana Constantino, | | | RN, Vianey Burns RN, Marc Marrero CMA, Baldemar | | | Gordo TechnicianReferring | | | MD: Selene Francis (Referring MD)Medicines: | | | Midazolam 5 mg IV, Meperidine 100 mg IV, Oxygen 4 | | | liters/min | | | nasocannulaComplications: No immediate complications. | | | Estimated blood loss: Minimal.Procedure: Pre-Anesthesia | | | Assessment: - Prior to the procedure, a History and Physical | | | was performed, and patient medications, allergies and | | | sensitivities were reviewed. The patient's tolerance of | | | previous anesthesia was reviewed. - Prior to the procedure, a | | | History and Physical was performed, and patient medications | | | and allergies were reviewed. The patient is competent. The | | | risks and benefits of the procedure and the sedation options | | | and risks were discussed with the patient. All questions were | | | answered and informed consent was obtained. Patient identification | | | and proposed procedure were verified by the physician, the | | | nurse and the dye penetrant testing technician. Prophylactic Antibiotics: The | | | patient does not require prophylactic antibiotics. Prior | | | Anticoagulants: The patient has taken no previous | | | anticoagulant or antiplatelet agents. ASA Grade Assessment: II | | | - A patient with mild systemic disease. After reviewing the | | | risks and benefits, the patient was deemed in satisfactory | | | condition to undergo the procedure. The anesthesia plan was | | | to use moderate sedation / analgesia (conscious sedation). | | | Immediately prior to administration of medications, the | | | patient was re-assessed for adequacy to receive sedatives. | | | The heart rate, respiratory rate, oxygen saturations, blood | | | pressure, adequacy of pulmonary ventilation, and response to care were | | | monitored throughout the procedure. The physical status of | | | the patient was re-assessed after the procedure. - | | | After reviewing the risks and benefits, the patient was deemed in | | | satisfactory condition to undergo the procedure. - | | | Immediately prior to administration of medications, the patient was | | | re-assessed for adequacy to receive sedatives. - The | | | heart rate, respiratory rate, oxygen saturations, blood pressure, | | | adequacy of pulmonary ventilation, and response to care were | | | monitored throughout the procedure. - The physical | | | status of the patient was re-assessed after the procedure. | | | After I obtained informed consent, the scope was passed under direct | | | vision. Throughout the procedure, the patient's blood | | | pressure, pulse, and oxygen saturations were monitored | | | continuously. The Colonoscope was introduced through the anus | | | and advanced to the cecum, identified by the appendiceal | | | orifice, ileocecal valve and palpation. The colonoscopy was | | | performed without difficulty. The patient tolerated the procedure | | | well. The quality of the bowel preparation was | | | excellent.Findings: The perianal and digital rectal | | | examinations were normal. Pertinent negatives include normal | | | sphincter tone and no palpable rectal lesions. [...] for the specimen was done. Estimated blood | | | loss was minimal. The retroflexed view of the distal rectum | | | and anal verge was normal and showed no anal or rectal | | | abnormalities.Impression: - The entire examined colon is | | | normal. Biopsied. - The distal rectum and anal verge are | | | normal on retroflexion view.Recommendation: - Patient has a | | | contact number available for emergencies. The signs and | | | symptoms of potential delayed complications were discussed with the | | | patient. Return to normal activities tomorrow. Written | | | discharge instructions were provided to the patient. | | | - Discharge patient to home (ambulatory). - Resume previous | | | diet today. - Continue present medications. - No | | | aspirin, ibuprofen, naproxen, or other non-steroidal | | | anti-inflammatory drugs for 7 days after biopsy. - Await | | | pathology results. - Return to nurse practitioner at | | | appointment to be scheduled. - Telephone GI [...] Scope In: 10:55:28 AMScope Out: 11:09:49 AM [facility]. | | | [facility], [address] [place] [address] | | | [phone] | | | - Telephone GI clinic [...] |Scope Out: 11:09:49 AM | | | [facility]. [facility], [facility] [address], [place] | | | [address] | | + + ---+ + +---------+ + + | Performing | Address | City/State/Zipcode | Phone Number | | Organization | | | | + +---------+ + + | [facility] [place] | | | | + +---------+ + + Surgical Pathology Exam (12/25/2018 0:00 PDT) + + | Specimen | + + | | + + + + + | Narrative | Performed At | + + + | SPECIMEN(S): A DUODENAL BIOPSY SPECIMEN(S): B RANDOM COLON BIOPSY | [facility] | | SPECIMEN SOURCE: A. DUODENAL [...] Duodenal biopsy: - Benign duodenal mucosa with | | | focal mild acute duodenitis. - Preserved villous architecture. | | | - Negative for atypical features. B. Random colon biopsy: | | | - Benign colonic mucosa, negative for specific diagnostic | | | abnormality. JVR:[facility]:C2NR GROSS DESCRIPTION: Two specimens | | | are received in two containers, labeled "SC." A. The specimen, | | | labeled "SC, duodenal biopsy," is received in formalin and consists of | | | six, 0.3 to 0.4 cm hogan-pink fragments. Specimen is entirely | | | submitted in cassette (A1). B. The specimen, labeled "SC, | | | random colon biopsy," is received in formalin and consists of five, | | | 0.2 to 0.4 cm hogan fragments. Specimen is entirely submitted in | | | cassette (B1). AM (under the direct supervision of a pathologist) | | | The Gross Description was prepared using a voice recognition | | | system. The report was reviewed for accuracy; however, sound-alike | | | word errors, addition and/or deletions may occur. If there is any | | | question about this report, please contact Client Services. | | | PERFORMING LABORATORY: The technical component was performed by | | | [facility], [address] [place] [address] (Medical | | | Director: Shavonne Mathias MD; IA# [id number]). Professional | | | interpretation was performed by Nadir Lomeli | | | [facility], [address] [facility] [place], [place] | | | [address] (Wireline Supervisor: Deonte Marquez M.D.). | | | Diagnostician: Deonte Marquez MD Pathologist Electronically | | | Signed 12/26/2018 | | + + + + +---------+ + + | Performing | Address | City/State/Zipcode | Phone Number | | Organization | | | | + +---------+ + + | [facility] | | | | | [place] | | | | + +---------+ + [...] | | CONTINUOUS, Starting 12/25/18 | | PDT | | | | | at 1045, Pre-op | | | | | | + +---------+ +--------+-------+--------+ +---+---+ | | | +---+---+ + +-------+ +-------+---+---+ | meperidine (DEMEROL) 50 mg/mL | Given | 12/26/19 | 50 mg | | | | injection PRN, Starting Mon | | 19 10:44 | | | | | 12/25/18 at 1044 | | PDT | | | | + +-------+ +-------+---+---+ +-------+ +-------+---+---+ | Given | 12/26/19 | 50 mg | | | | | 19 10:44 | | | | | | PDT | | | | +-------+ +-------+---+---+ +---+---+ | | | +---+---+ + +-------+ +------+---+---+ | midazolam (VERSED) 5 mg/mL | Given | 12/26/19 | 1 mg | | | | injection PRN, Starting Mon | | 19 11:00 | | | | | 12/25/18 at 1046 | | PDT | | | | + +-------+ +------+---+---+ +-------+ +------+---+---+ | Given | 12/26/19 | 1 mg | | | | | 19 10:58 | | | | | | PDT | | | | +-------+ +------+---+---+ | Given | 12/26/19 | 1 mg | | | | | 19 10:54 | | | | | | PDT | | | | +-------+ +------+---+---+ [...]
--- OUTSIDE RECORDS SUMMARY | ~2019-01-12 | XMS | Encounter Summary ---
Demographics + + + | Address | [address] | | | [place] [address] | + + + | Home Phone | | + + + | Preferred Language | Unknown | + + + | Marital Status | | + + + | Temple Affiliation | Unknown | + + + | Race | Unknown | + + + | Ethnic Group | Unknown | + + + Author + + + | Author | [facility] | | | and Michaelana | + + + | Organization | [facility] | | | and Michaelana [...] Team Providers + +------+ + | Care House Registry Rn Name | Role | Phone | + +------+ + | Selene Francis PA-C | PCP | | + +------+ + Reason for Visit +--------+ + | Reason | Comments | +--------+ + | Other | CT | +--------+ + Encounter Details +--------+ + + + + | Date | Type | Department | Care Team | Description | +--------+ + + + + | 01/04/ | Telephone | [facility] [place] | [place], | Other ([place] ) | | 2019 | | GASTROENTEROLOGY | BRIAN Dickson [address] | | | | | [address] [place] | [place], [address] | | | | | [address] [place], [place] | [place], [place] | | | | | [address] | [address] | | | | | [phone] | | | +--------+ + + + [...]
--- OUTSIDE RECORDS SUMMARY | ~2019-01-12 | XMS | Encounter Summary ---
Demographics + + + | Address | [address] | | | [place] [address] | + + + | Home Phone | | + + + | Preferred Language | Unknown | + + + | Marital Status | | + + + | Sikh Affiliation | Unknown | + + + | Race | Unknown | + + + | Ethnic Group | Unknown | + + + Author + + + | Author | [facility] | | | and Michaelana | + + + | Organization | [facility] | | | and Michaelana [...] Team Providers + +------+ + | Care Package Car Driver Name | Role | Phone | + [...] [address] [place] | [place], [address] | | | | | [address] [place], [place] | [place], [place] | | | | | [address] | [address] | | | | | [phone] | | | +--------+ + + + [...]
--- OUTSIDE RECORDS SUMMARY | ~2019-01-12 | XMS | Encounter Summary ---
Demographics + + + | Address | [address] | | | [place] [address] | + + + | Home Phone | | + + + | Preferred Language | Unknown | + + + | Marital Status | | + + + | Rastafarian Affiliation | Unknown | + + + | Race | Unknown | + + + | Ethnic Group | Unknown | + + + Author + + + | Author | [facility] | | | and Michaelana | + + + | Organization | [facility] | | | and Michaelana [...] Team Providers + +------+ + | Care Fire Adjuster Name | Role | Phone | + [...] | | Elevated | [place], | [address] [place] | | | | | liver | [place], | [place], | | | | | enzymes | DESK EDITOR [address] | [place] [address] | | | | | Esophageal | [place], [place] | Phone: | | | | | varices | [address] [place] | [phone] | | | | | without | [place] | Fax: | | | | | bleeding, | [address] | [phone] | | | | | unspecified | Phone: | | | | | | esophageal | [phone] | | | | | | varices type | Fax: | | | | | | (HCC) | [phone] | | | | | | Portal [...] | | | | | | | [place] CT SCAN | | | | | | | OF ABDOMEN | | | | | | | CONTRAST | | | +--------+--------+ + + + + Diagnostic/Screening (Emergency) +--------+--------+ [...] | | Elevated | [place], | [address] [place] | | | | | liver | [place], | [place], | | | | | enzymes | DESK EDITOR [address] | [place] [address] | | | | | Esophageal | [place], [place] | Phone: | | | | | varices | [address] [place] | [phone] | | | | | without | [place] | Fax: | | | | | bleeding, | [address] | [phone] | | | | | unspecified | Phone: | | | | | | esophageal | [phone] | | | | | | varices type | Fax: | | | | | | (HCC) | [phone] | | | | | | Portal [...] | | | | | | | [place] CT SCAN | | | | | [...] | | Elevated | [place], | [address] [place] | | | | | liver | [place], | [place], | | | | | enzymes | DESK EDITOR [address] | [place] [address] | | | | | Esophageal | [place], [place] | Phone: | | | | | varices | [address] [place] | [phone] | | | | | without | [place] | Fax: | | | | | bleeding, | [address] | [phone] | | | | | unspecified | Phone: | | | | | | esophageal | [phone] | | | | | | varices type | Fax: | | | | | | (HCC) | [phone] | | | | | | Portal [...] | | | | | | | [place] CT SCAN | | | | | | | OF ABDOMEN | | | | | | | CONTRAST | | | +--------+--------+ + + + + Encounter Details +--------+ + + + + | Date | Type | Department | Care Team | Description | +--------+ + + + + | 01/08/ | Hospital | [facility] | [facility], | Elevated liver | | 2019 | Encounter | MED CTR CT [address] | [place], DESK EDITOR [address] | enzymes; Esophageal | | | | [place], | [place], [address] | varices without | | | | [place] [address] | [place], [place] | bleeding, | | | | [phone] | [address] | unspecified | | | | | [...] for this | | CONTRAST | | 13:40 PDT | enzymes Esophageal | procedure are [...] encounter Results CT Abdomen w Contrast (01/08/2019 13:40 PDT) + + | Specimen | + [...] | Guerrero, Rad Results In - 01/08/2019 1509 PDT | | TECHNIQUE: After administration of [...] 85 mL 85 mL, | | 19 13:39 | | | | | Intravenous, ONCE PRN, Other, for | | PDT | | | | | imaging CT study, Starting Mon | | | | | | | 01/08/19 at 1343, For 1 dose, | | | | | | | Radiology | | | | | | + +--------+ +--------+------+------+ +---+---+ | | | +---+---+ documented in this encounter"
--- OUTSIDE RECORDS SUMMARY | ~2019-01-12 | XMS | Clinical Summary ---
Demographics + + + | Address | [address] | | | [place] [address] | + + + | Home Phone | | + + + | Preferred Language | Unknown | + + + | Marital Status | | + + + | Alevism Affiliation | Unknown | + + + | Race | Unknown | + + + | Ethnic Group | Unknown | + + + Author + + + | Author | [facility] | | | and Michaelana | + + + | Organization | [facility] | | | and Michaelana [...] Team Providers + +------+ + | Care Harness Installer Name | Role | Phone | + +------+ + | Selene Farncis PA-C | PCP | | + +------+ [...] | | + + + +---------+------+------+-------+ | ibuprofen (ADVIL, | Take 200 mg by mouth | | 0 | | | Activ | | MOTRIN) 200 mg | EVERY 4 TO 6 HOURS | | | | | e | | tablet | NEEDED for Pain. | | | | | | + + + +---------+------+------+-------+ | dicyclomine | Take 1 tablet by | 120 | 2 | 09/3 | | Activ | | (BENTYL) 20 MG | mouth 4 times daily | tablet | | 0/20 | | e | | tablet | as needed (abdominal | | | 19 | | | | | cramping.). | | | | | | + + + +---------+------+------+-------+ | CALCIUM PO | Take 1 tablet by | | 0 | | | Activ | | | mouth Daily. | | | | | e | + + + +---------+------+------+-------+ | Multiple | Take by mouth | | 0 | | | Activ | | Vitamins-Minerals | nightly. | | | | | e | | (EMERGEN-C IMMUNE | | | | | | | | PO) | | | | | | | + + + +---------+------+------+-------+ | cholestyramine | Take 1 packet by | 180 | 3 | 10/1 | | Activ | | light (QUESTRAN) 4 g | mouth 2 times daily. | tablet | | 5/20 | | e | | packet | Recommended it be | | | 19 | | | | | taken with Metamucil | | | | | | | | if it causes | | | | | | | | constipation. | | | | | | + + + +---------+------+------+-------+ | propranolol | Take 1 tablet by | 90 | 2 | 10/1 | | Activ | | (INDERAL) 20 MG | mouth nightly. | tablet | | 5/20 | | e | | tablet | | | | 19 | | | + + + +---------+------+------+-------+ | sodium | Take 177 mLs by | 1 kit | 0 | 09/3 | 10/0 | Disco | | sulfate-potassium | mouth every 12 | | | 0/20 | 7/20 | ntinu | | sulfate-magnesium | hours. Take 1st | | | 19 | 19 | ed | | sulfate (SUPREP) | bottle of prep at 4 | | | | | | | oral solution | pm. Take 2nd bottle | | | | | | | | of prep at 8 pm. | | | | | | + + + +---------+------+------+-------+ | ondansetron | Take 1 tablet by | 2 | 0 | 09/3 | 10/0 | Disco | | (ZOFRAN) 4 mg tablet | mouth See Admin | tablet | | 0/20 | 7/20 | ntinu | | | Instructions. If | | | 19 | 19 | ed | | | Nausea stop bowel | | | | | | | | prep take 1 tablet | | | | | | | | wait 30 min. Resume | | | | | | | | prep may repeat X1 | | | | | | + + + +---------+------+------+-------+ Active Problems + + + | Problem | Noted Date | + + + | Diarrhea, unspecified type | 12/18/2018 | + + + + + | Overview: Added automatically from request for surgery | | [id number] | + + + + + | Fecal urgency | 12/18/2018 | + + + + + | Overview: Added automatically from request for surgery | | [id number] | + + + + + | Abdominal cramping | 12/18/2018 | + + + + + | Overview: Added automatically from request for surgery | | [id number] | + + + + + | Heartburn | 12/18/2018 | + + + + + | Overview: Added automatically from request for surgery | | [id number] | + + + + + | Black stool | 12/18/2018 | + + + + + | Overview: Added automatically from request for surgery | | [id number] | + + Encounters +--------+ + + + + | Date | Type | Specialty | Care Team | Description | +--------+ + + + + | 01/12/ | Hospital | Radiology | [facility], | Elevated liver | | 2019 | Encounter | | BRIAN Dickson | [...] | 01/09/ | Telephone | Gastroenterology | [facility], | MRI Recommendation | | 2018 | | | BRIAN Dickson | | +--------+ + + + + | 01/08/ | Hospital | Radiology | [facility], | Elevated liver | | 2018 [...] | 01/04/ | Telephone | Gastroenterology | [facility], | Other (CT ) | | 2018 | | | BRIAN Dickson | | +--------+ + + + + | 01/02/ | Office | Gastroenterology | [facility], | Elevated liver | | 2019 [...] | 01/02/ | Documentati | Gastroenterology | [facility], | | | 2018 | on | | BRIAN Dickson | [...] | 12/18/ | Office | Gastroenterology | [facility] | Diarrhea, | | 2018 | Visit | | BRIAN Dickson | unspecified type | | | | | | (Primary Dx); Fecal | | | | | | urgency; Abdominal | | | | | | cramping; Heartburn; | | | | | | Black stool | +--------+ + + + + | 12/07/ | Abstract | Gastroenterology | Tanya, | | | 2018 | | | MD Rohan | | +--------+ + + + + from [...] + | Blood Pressure | 138/72 | 01/02/20191022 PDT | + + + + | Pulse | 83 | 01/02/20191022 PDT | + + + + | Temperature | 36.5 C (97.7 F) | 01/02/20191022 PDT | + + + + | Respiratory Rate | 14 | 01/02/20191022 PDT | + + + + | Oxygen Saturation | 97% | 01/02/20191022 PDT | + + + + | Inhaled Oxygen | - | - | | Concentration | | | + + + + | Weight | 72.6 kg (160 lb 0.9 | 01/02/20191022 PDT | | | oz) | | + + + + | Height | 162.6 cm (5' 4") | 12/25/2018 1012 PDT | + + + + | Body Mass Index | 27.47 | 12/25/2018 1012 PDT | + + + + Plan of Treatment + + + + + | Health Maintenance | Due Date | Last Done | Comments | + + + + + | Vaccine: | | | | | Dtap/Tdap/Td (1 - | 2 | | | | Tdap) | | | | + + + + + | Cervical Cancer | | | | | Screening (Pap) | 3 | | | + + + + + | Breast Cancer | | | | | Screening | 8 | | | + + + + + | Vaccine: Influenza | | 12/22/2017, 12/29/2016, | | | (#1) | 9 | 12/27/2014, Additional history | | | | | [...] | LABS - EXTERNAL SCAN | | 11/13/2018 | | Results for this [...] | LABS - EXTERNAL SCAN | | 11/13/2018 | | Results for this [...] + + from Last 3 Months Results MRI Liver w wo Contrast (01/12/2019 [...] + + CT Abdomen w Contrast (01/08/2019 13:40 PDT) [...] +---------+ + + LABS - EXTERNAL SCAN (01/02/2019 0:00 PDT)Only the most recent of 4 results within the is included. + + + | Narrative [...] + | [facility] | [address] | [place] | [phone] | | [facility] | | [address] | | | - LABORATORY | | [...] difficile, | Toxigenic C. difficile | | [facility] | | | Interp | detected. Consider [...] | | | difficile, | | | STTracie JONATHAN | | | NAAT | | [...] + | [facility] | [address] | [place] | [phone] | | [facility] | | [address] | | | - LABORATORY | | [...] [address] | [place] | [phone] | | [facility] | | [address] | | | - LABORATORY | | [...] + + | Performed at: 01 - [facility] [address], | REFERENCE LAB | | [place] [id number] Waste Specialist: Анна Oscar MD, | [facility] | | Phone: [phone] | | + + + + + + + + | Performing | Address | City/State/Zipcode | Phone Number | | Organization | | | | + + + + + | REFERENCE LAB | [address] | [place] [address] | [phone] | | [facility] | Nallely Negrete | | | + + + + [...] + + | Performed at: 01 - [facility] [address], | REFERENCE LAB | | [place], [place] [id number] Waste Specialist: Анна Oscar MD, | [facility] | | Phone: [phone] | | + + + + + + + + | Performing | Address | City/State/Zipcode | Phone Number | | Organization | | | | + + + + + | REFERENCE LAB | [address] | [place] [address] | [phone] | | [facility] | [address] | | | + [...] + | [facility] | [address] | [place] | [phone] | | [facility] | | [address] | | | - LABORATORY | | [...] [address] | [place] | [phone] | | [facility] | | [address] | | | - LABORATORY | | [...] | r pylori Ag | | | ST[facility]ie JONATHAN | | | | | | [...] [address] | [place] | [phone] | | [facility] | | [address] | | | - LABORATORY | | | | + + + + + EGD (12/25/2018 10:30 PDT) + + | Specimen | + + | | + + + + ---+ | Narrative | Performed At | + + ---+ | | [facility] | | GastroenterologyPatient Name: Grecia BainProshady Date: 12/25/2018 | [facility] | | 10:30 AMMRN: [id number] #: [id number] of : | | | 1970Admit Type: [...] by the physician, the nurse and the fabrication technician in the | | | endoscopy [...] | | | AMScope Out: 10:53:30 AM [facility], | | | [facility] [place] [address] | | | - Await pathology results. [...] |Scope Out: 10:53:30 AM | | | [facility], [address] [place], [place] | | | [address] | | + + ---+ + +---------+ [...] BainTyrel Date: 12/25/2018 | [facility] | | 10:28 AMMRN: [id number] #: [id number] of : | | | 1970Admit Type: AmbulatoryAge: 48Room: Endo Room 1Gender: | | | FemaleNote Status: FinalizedAttending MD: Deny Nelson , | | | MDProcedure: ColonoscopyIndications: | | | Chronic diarrheaProviders: Deny Nelson MD, Vanna | | | NIKA Castro, Briana Constantino, | | | RN, Vianey Burns RN, Marc Marrero CMA, Baldemar | | | Gordo, TechnicianReferring | | | MD: Selene Francis [...] the | | | nurse and the fabrication technician. Prophylactic Antibiotics: The | | | [...] Scope In: 10:55:28 AMScope Out: 11:09:49 AM [facility]. | | | [facility], [address] [place] [address] | | | [phone] | | | - Telephone GI clinic [...] |Scope Out: 11:09:49 AM | | | [facility]. [facility], [address] [place] [address] | | | [address] | | + + ---+ + +---------+ [...] + | Colonoscopy | See Full Report~ [facility] | | | | | | Dr. Nelson | | | | | Impression, | | | | | | External | | | | | + + + + + + Surgical Pathology Exam (12/25/2018 0:00 [...] for specific diagnostic | | | abnormality. JVR:[facility]:C2NR GROSS DESCRIPTION: Two specimens | | | [...] component was performed by | | | [facility], [address] [place] [address] (Medical | | | Director: Shavonne Mathias MD; CLIA# [id number]). Professional | | | interpretation was performed by [facility] [place] | | | [address] | | | [address] (Video Network Engineer: Deonte Marquez M.D.). | | | Diagnostician: Deonte Marquez MD Pathologist Electronically | | | Signed 12/26/2018 | | + + + + +---------+ + + | Performing | Address | City/State/Zipcode | Phone Number | | Organization | | | | + +---------+ + + | [facility] | | | | | Station X | | | | + +---------+ + + PH, Stool (12/07/2018)Only the most recent of 2 results within the time period is included. + + | Specimen | + + [...] + + | Stool | + + Clostridium difficile (11/13/2018) + [...] + + | Stool | + + Electrolytes, Stool (11/13/2018) + [...] + + | Stool | + + Fecal leukocytes (11/13/2018) + [...] + + | Stool | + + Culture, Stool (11/13/2018) + [...] + + | Stool | + + Osmolality, Stool (11/13/2018) + [...] + + | Stool | + + External Lab: BUN (11/07/2018) [...] + +---------+ + + External Lab: Iron Total (11/07/2018) [...] | + +---------+ + + External Lab: TSH (11/07/2018) + +-------+ + + + | [...] | | | + +---------+ + + Tissue Transglutaminase (IgA + IgG) [...] + + | Blood | + + Lipid Panel (11/07/2018) + +---------+ [...] + + | Blood | + + Sedimentation Rate (11/07/2018) + [...] + + | Blood | + + from Last 3 Months Insurance [...] + +------+ | MODA | MODA | [id number] | | [phone] | [address] | PPO | | | [employer] | | [address] 9 | [address] | | | | [place] | | esent | | [place], | | | | [place] | | | | [place] [address] | | + +--------+ +--------+ + +------+ | [facility] | PHP | [id number] | 03/21/19 | [phone] | | PPO | | PLAN | [...] Person | Self | [birth year] | [address] | | | pearl/Reymundo | | 1971 | [phone] | [place] [address] | | | prabhjot | | | 7 (Home) | | | | | | | [phone] | | | | | | | 9 (Work) | | + +--------+ +--------+ + + Advance Directives Patient has advance care planning documents on file. For more information, please contact:[facility] [place] [address]
--- OUTSIDE RECORDS SUMMARY | ~2019-01-12 | XMS | Encounter Summary ---
Demographics + + + | Address | [address] | | | [place] [address] | + + + | Home Phone | | + + + | Preferred Language | Unknown | + + + | Marital Status | | + + + | Baptist Affiliation | Unknown | + + + | Race | Unknown | + + + | Ethnic Group | Unknown | + + + Author + + + | Author | [facility] | | | and Michaelana | + + + | Organization | [facility] | | | and Michaelana [...] Team Providers + +------+ + | Care Land Management Forester Name | Role | Phone | + [...] | Elevated | [place], | [address] | | | | | liver | [place], | [place], | | | | | enzymes | AUTO MECHANICS TEACHER [address] | [place] | | | | | Esophageal | [place], [place] | [address] | | | | | varices | [address] [place] | Phone: | | | | | without | [place], [place] | [phone] | | | | | bleeding, | [address] | Fax: | | | | | unspecified | Phone: | [phone] | | | | | esophageal | [phone] | | | | | | varices type | Fax: | | | | | | (HCC) | [phone] | | | | | | Portal [...] | | | | | | [place] MRI, | | | | | | [...] | Elevated | [place], | [address] | | | | | liver | [place], | [place], | | | | | enzymes | AUTO MECHANICS TEACHER [address] | [place] | | | | | Esophageal | [place], [place] | [address] | | | | | varices | [address] [place] | Phone: | | | | | without | [place], [place] | [phone] | | | | | bleeding, | [address] | Fax: | | | | | unspecified | Phone: | [phone] | | | | | esophageal | [phone] | | | | | | varices type | Fax: | | | | | | (HCC) | [phone] | | | | | | Portal [...] | | | | | | [place] MRI, | | | | | | [...] | Elevated | [place], | [address] | | | | | liver | [place], | [place], | | | | | enzymes | AUTO MECHANICS TEACHER [address] | [place] | | | | | Esophageal | [place], [place] | [address] | | | | | varices | [address] [place] | Phone: | | | | | without | [place] | [phone] | | | | | bleeding, | [address] | Fax: | | | | | unspecified | Phone: | [phone] | | | | | esophageal | [phone] | | | | | | varices type | Fax: | | | | | | (HCC) | [phone] | | | | | | Portal [...] | | | | | | [place] MRI, | | | | | | | ABDOMEN, | | | | | | | COMBO | | | +--------+--------+ + + + + Encounter Details +--------+ + + + + | Date | Type | Department | Care Team | Description | +--------+ + + + + | 01/12/ | Hospital | [facility] | [facility], | Elevated liver | | 2019 | Encounter | MED CTR MRI [address] | [place], AUTO MECHANICS TEACHER [address] | enzymes; Esophageal | | | | [place], | [place], [address] | varices without | | | | [place] [address] | [place] | bleeding, | | | | [phone] | [address] | unspecified | | | | | [...] 01/12/2019 7:45 AM HISTORY: Abnormal CT | [facility] | | liver. COMPARISON: CT scan [...]
--- OUTSIDE RECORDS SUMMARY | ~2019-01-12 | XMS | Encounter Summary ---
Demographics + + + | Address | [address] | | | [place] [address] | + + + | Home Phone | | + + + | Preferred Language | Unknown | + + + | Marital Status | | + + + | Gnosticism Affiliation | Unknown | + + + | Race | Unknown | + + + | Ethnic Group | Unknown | + + + Author + + + | Author | [facility] | | | and Michaelana | + + + | Organization | [facility] | | | and Michaelana [...] Team Providers + +------+ + | Care Band Teacher Name | Role | Phone | [...] | | | [address] [facility] | [place] | | | | | [address] [place] | [place] [address] | | | | | [address] | | | | | | [phone] | | | +--------+ + + + [...] + | Colonoscopy | See Full Report~ [facility] | | | | | | Dr. Nelson | | | | | Impression, | | | | | | External | | | | | + + + + + + documented in this encounter Visit Diagnoses Not on filedocumented in this encounter"
--- OUTSIDE RECORDS SUMMARY | ~2019-01-12 | XMS | Encounter Summary ---
Demographics + + + | Address | [address] | | | [place] [address] | + + + | Home Phone | | + + + | Preferred Language | Unknown | + + + | Marital Status | | + + + | Taoism Affiliation | Unknown | + + + | Race | Unknown | + + + | Ethnic Group | Unknown | + + + Author + + + | Author | [facility] | | | and Michaelana | + + + | Organization | [facility] | | | and [...] Team Providers + +------+ + | Care V Belt Finisher Name | Role | Phone | + [...] | | Elevated | [place], | [address] | | | | | liver | [place], | [place], | | | | | enzymes | FITTER MECHANIC [address] | [place] [address] | | | | | Esophageal | [place], [place] | Phone: | | | | | varices | [address] [place] | [phone] | | | | | without | [place], [place] | Fax: | | | | | bleeding, | [address] | [phone] | | | | | unspecified | Phone: | | | | | | esophageal | [phone] | | | | | | varices type | Fax: | | | | | | (HCC) | [phone] | | | | | | Portal [...] | | | | | | IN CT SCAN | | | | | [...] | | Elevated | [place], | [address] | | | | | liver | [place], | [place], | | | | | enzymes | FITTER MECHANIC [address] | [place] [address] | | | | | Esophageal | [place], [place] | Phone: | | | | | varices | [address] [place] | [phone] | | | | | without | [place], [place] | Fax: | | | | | bleeding, | [address] | [phone] | | | | | unspecified | Phone: | | | | | | esophageal | [phone] | | | | | | varices type | Fax: | | | | | | (HCC) | [phone] | | | | | | Portal [...] | | | | | | IN CT SCAN | | | | | [...] | | Elevated | [place], | [address] | | | | | liver | [place], | [place], | | | | | enzymes | FITTER MECHANIC [address] | [place] [address] | | | | | Esophageal | [place], [place] | Phone: | | | | | varices | [address] [place] | [phone] | | | | | without | [place], [place] | Fax: | | | | | bleeding, | [address] | [phone] | | | | | unspecified | Phone: | | | | | | esophageal | [phone] | | | | | | varices type | Fax: | | | | | | (HCC) | [phone] | | | | | | Portal [...] | | | | | | IN CT SCAN | | | | | | | OF ABDOMEN | | | | | | | CONTRAST | | | +--------+--------+ + + + + Encounter Details +--------+ + + + + | Date | Type | Department | Care Team | Description | +--------+ + + + + | 01/08/ | Hospital | [facility] | [facility], | Elevated liver | | 2019 | Encounter | [facility] [address] | [place], [employer] [address] | enzymes; Esophageal | | | | [place], | [place], [address] | varices without | | | | [place] [address] | [place], [place] | bleeding, | | | | [phone] | [id number] | unspecified | | | | | [...]
--- OUTSIDE RECORDS SUMMARY | ~2019-01-12 | XMS | Encounter Summary ---
Demographics + + + | Address | [address] | | | [place] [address] | + + + | Home Phone | | + + + | Preferred Language | Unknown | + + + | Marital Status | | + + + | Orthodox Affiliation | Unknown | + + + | Race | Unknown | + + + | Ethnic Group | Unknown | + + + Author + + + | Author | [facility] | | | and Michaelana | + + + | Organization | [facility] | | | and [...] Team Providers + +------+ + | Care Torch Heater Name | Role | Phone | + +------+ + | Selene Francis PA-C | PCP | | + +------+ + Encounter Details +--------+ + + + + | Date | Type | Department | Care Team | Description | +--------+ + + + + | 01/02/ | Documentati | [facility] [place] | [facility], | | | 2019 | on | GASTROENTEROLOGY | BRIAN Dickson [address] | | | | | [address] [place] | [place], [place] | | | | | [address] [place], [place] | [place], [place] | | | | | [address] | [address] | | | | | [phone] | | | +--------+ + + + [...] Progress Notes Faiza Ta CMA - 01/02/2019 1154 PDTLinked Brittany Jefferson in referral and let her k now this patient is needing a STAT CT so that she can work the referral now. She agreed. Eloisa bojorquez faxed lab orders to Jessica Cesar. documented in this encounter Plan of Treatment Not on filedocumented as of this encounter Visit Diagnoses Not on filedocumented in this encounter"
--- OUTSIDE RECORDS SUMMARY | ~2019-01-12 | XMS | Encounter Summary ---
Demographics + + + | Address | [address] | | | [place] [address] | + + + | Home Phone | | + + + | Preferred Language | Unknown | + + + | Marital Status | | + + + | Jew Affiliation | Unknown | + + + | Race | Unknown | + + + | Ethnic Group | Unknown | + + + Author + + + | Author | [facility] | | | and Michaelana | + + + | Organization | [facility] | | | and [...] Team Providers + +------+ + | Care Ceiling Insulation Blower Name | Role | Phone | + [...] | | unspecified | | [address], | | | | | type Fecal | | [place] | | | | | urgency | | [place], | | | | | Abdominal | | [place] [address] | | | | | cramping | | Phone: | | | | | Heartburn | | [phone] | | | | | Black stool | | Fax: | | | | | Procedures | | [phone] | | | | | DC | | | | | | | ESOPHAGOGAST | | | | | | | RODUODENOSCO | | | | | | | PY TRANSORAL | | | | | | | DIAGNOSTIC | | | | | | | DC EGD | | | | | | | TRANSORAL | | | | | | | BIOPSY | | | | | | | SINGLE/MULTI | | | | | | | PLE DC | | | | | | | COLONOSCOPY | | | | | | | FLX DX | | | | | | | W/COLLJ SPEC | | | | | | | WHEN PFRMD | | | | | | | DC | | | | | | | COLONOSCOPY | | | | | | | W/BIOPSY | | | | | | | SINGLE/MULTI | | | | | | | PLE DC | | | | | | | [...] + + | 12/25/ | Hospital | [facility] | Deny Nelson MD | Diarrhea, | | 2019 | Encounter | MED CTR MP INTRA OP | [address], [place] | unspecified type; | | | | [address] | [address] [place], [place] | Fecal urgency; | | | | [place], [place] | [address] | Abdominal cramping; | | | | [address] | | Heartburn; Black | | | | [phone] | | stool | +--------+ + + [...] You can't be awakened Date Last Reviewed: 01/06/201619996812-1387 [employer]. [address] [place] [address], [place] [address]. All righ ts reserved. This information is [...] + | [address] | [address] | [place] | [phone] | | [facility] | | [address] | | | - LABORATORY | | [...] | REFERENCE LAB | | [place] [phone] Food Service Driver: Анна Oscar MD, | [facility] | | Phone: [phone] | | + + + + + + + + | Performing | Address | City/State/Zipcode | Phone Number | | Organization | | | | + + + + + | REFERENCE LAB | [address] | [place] [address] | [phone] | | [facility] | Drive [...] + | [address] | [address] | [place] | [phone] | | [facility] | | [address] | | | - LABORATORY | | [...] | REFERENCE LAB | | [place] [phone] Food Service Driver: Анна Oscar MD, | [facility] | | Phone: [phone] | | + + + + + + + + | Performing | Address | City/State/Zipcode | Phone Number | | Organization | | | | + + + + + | REFERENCE LAB | [address] | [place] [address] | [phone] | | [facility] | Drive [...] + | [address] [facility] | [address] | [place] | [phone] | | [facility] | | [address] | | | - LABORATORY | | [...] [address] | [place] | [phone] | | [facility] | | [address] | | | - LABORATORY | | [...] | | | dium | | | [facility] | | | Antigen | [...] | + + + + + | [address] | [address] | [place] | [phone] | | [facility] | | [address] | | | - LABORATORY | | [...] + | [facility] [facility] | [address] | [place] | [phone] | | [facility] | | [address] | | | - LABORATORY | | | | + + + + + EGD (12/25/2018 10:30 PDT) + + | Specimen | + + | | + + + + ---+ | Narrative | Performed At | + + ---+ | | [facility] | | GastroenterologyPatient Name: Grecia BainProcedure Date: 12/25/2018 | [facility] | | 10:30 AMMRN: [id number] #: [id number] of : | | | 1970Admit Type: [...] by the physician, the nurse and the conveyor technician in the | | | endoscopy [...] | | | AMScope Out: 10:53:30 AM [facility], | | | [address] [place] [address] | | | - Await pathology results. [...] |Scope Out: 10:53:30 AM | | | [facility], [address] [place], [place] | | | [address] | | + + ---+ + +---------+ [...] 12/25/2018 | [facility] | | 10:28 AMMRN: [id number] #: [id number] of : | | | 1970Admit Type: Amb[age]Age: 48Room: Endo Room 1Gender: | | | FemaleNote Status: FinalizedAttending MD: Deny Nelson , | | | MDProcedure: ColonoscopyIndications: | | | Chronic diarrheaProviders: Deny Nelson MD, [facility] | | | NIKA Castro, Briana Constantino, [...] the | | | nurse and the conveyor technician. Prophylactic Antibiotics: The | | | [...] Scope In: 10:55:28 AMScope Out: 11:09:49 AM [facility]. | | | [facility], [address] [place] [address] | | | [phone] | | | - Telephone GI clinic [...] |Scope Out: 11:09:49 AM | | | [facility]. [facility], [facility] [address] [place], [place] | | | [address] | | + + ---+ + +---------+ [...] BIOPSY SPECIMEN(S): B RANDOM COLON BIOPSY | [place] [facility] | | SPECIMEN SOURCE: A. DUODENAL [...] for specific diagnostic | | | abnormality. JVR:[facility]:C2NR GROSS DESCRIPTION: Two specimens | | | [...] component was performed by | | | [employer], [address] [place] [address] (Medical | | | Director: Shavonne Mathias MD; IA# [id number]). Professional | | | interpretation was performed by Nadir Lomeli | | | [facility], [address] [place], [place] | | | [address] (Supervisor Welding Equipment Repairer: Deonte Marquez M.D.). | | | Diagnostician: Deonte Marquze MD Pathologist Electronically | | | Signed [...]
--- OUTSIDE RECORDS SUMMARY | ~2019-01-12 | XMS | Encounter Summary ---
Demographics + + + | Address | [address] | | | [place] [address] | + + + | Home Phone [...] Author | [facility] | | | and Michaelana | + + + | Organization | [facility] | | | and Michaelana [...] Team Providers + +------+ + | Care Transportation Dispatcher Name | Role | Phone | + [...] | | unspecified | | [address], | | | | | type Fecal | | [place] | | | | | urgency | | [place], | | | | | Abdominal | | [place] [address] | | | | | cramping | | Phone: | | | | | Heartburn | | [phone] | | | | | Black stool | | Fax: | | | | | Procedures | | [phone] | | | | | [place] | [...] | | | | | [place] | | | | | | [...] | | | | | [place]LE [place] | | | | | | [...] + + | 12/25/ | Surgery | [facility] | Deny Nelson MD | EGD | | 2019 | | MED CTR MP INTRA OP | [address], [place] | | | | | [address] | [address] [place], [place] | | | | | [place], [place] | [address] | | | | | [address] | | | | | | [phone] | | | +--------+---------+ + + + [...] + + | Pulse | 77 | 12/25/20181154 PDT | + + + + | Temperature | 36.2 C (97.2 F) | 12/25/20181011 PDT | + + + + | Respiratory Rate | 17 | 12/25/20180 PDT | + + + + | Oxygen Saturation | 97% | 12/25/20181154 PDT | + + + + | Inhaled Oxygen | - | - | | Concentration | | | + + + + | Weight | 70.6 kg (155 lb 10.3 | 12/25/20181011 PDT | | | oz) | | [...] You can't be awakened Date Last Reviewed: 01/06/201619991207-0074 [employer]. [address] [place] [address]. All righ ts reserved. This information is [...] [address] | [place] | [phone] | | [facility] | | [address] | | | - LABORATORY | | [...] + + | Performed at: 01 - [facility] [address] [address], | REFERENCE LAB | | [place], [place] [id number] Senior Mobile Web Developer: Анна Oscar MD, | [facility] | | Phone: [phone] | | + + + + + + + + | Performing | Address | City/State/Zipcode | Phone Number | | Organization | | | | + + + + + | REFERENCE LAB | [address] | [place] [address] | [phone] | | [facility] | Drive [...] ST. | [address] | [place], [place] | [phone] | | [facility] | | [address] | | | - LABORATORY | | [...] + + | Performed at: 01 - [facility] [address], | REFERENCE LAB | | [place], [place] [id number] Senior Mobile Web Developer: Анна Oscar MD, | [facility] | | Phone: [phone] | | + + + + + + + + | Performing | Address | City/State/Zipcode | Phone Number | | Organization | | | | + + + + + | REFERENCE LAB | [address] | [place] [address] | [phone] | | [facility] | Drive [address] | [place] | [phone] | | [facility] | | [address] | | | - LABORATORY | | [...] | | Antigen, | | | [address] | | | Stool | | [...] [address] | [place] | [phone] | | [facility] | | [address] | | | - LABORATORY | | [...] [address] | [place] | [phone] | | [facility] | | [address] | | | - LABORATORY | | [...] r pylori Ag | | | [address] | | [...] [address] | [place] | [phone] | | [facility] | | [address] | | | - LABORATORY | | | | + + + + + EGD (12/25/2018 10:30 PDT) + + | Specimen | + + | | + + + + ---+ | Narrative | Performed At | + + ---+ | | [facility] | | GastroenterologyPatient Name: Grecia BainProcedure Date: 12/25/2018 | [facility] | | 10:30 AMMRN: [id number] #: [id number] of : | | | 1970Admit Type: [...] CMA, Baldemar | | | Gordo TechnicianReferring MD: [...] by the physician, the nurse and the coding technician in the | | | endoscopy [...] | | | AMScope Out: 10:53:30 AM [facility], | | | [address] [place] [address] | | | - Await pathology results. [...] |Scope Out: 10:53:30 AM | | | [facility], [address] [place] [address] | | | [address] | | + + ---+ + +---------+ [...] 12/25/2018 | [facility] | | 10:28 AMMRN: [id number] #: [id number] of : | | | 1970Admit Type: [...] the | | | nurse and the coding technician. Prophylactic Antibiotics: The | | | [...] AM [facility]. | | | [facility], [address] [place] [address] | | | [phone] | | | - Telephone GI clinic [...] AM | | | [facility]. [facility], [facility] [address] [place], [place] | | | [address] | | + + ---+ + +---------+ [...] BIOPSY SPECIMEN(S): B RANDOM COLON BIOPSY | [place] [facility] | | SPECIMEN SOURCE: A. DUODENAL [...] for specific diagnostic | | | abnormality. JVR:[facility]:C2NR GROSS DESCRIPTION: Two specimens | | | [...] component was performed by | | | [facility], [address] [place] [address] (Medical | | | Director: Shavonne Mathias MD; IA# [id number]). Professional | | | interpretation was [facility] by [facility] | | | [address] | | | [address] (Eyeglass Lens Cutter: Ruth Batista. | | | Diagnostician: Deonte Marquez MD [...]
--- OUTSIDE RECORDS SUMMARY | ~2019-01-12 | XMS | Encounter Summary ---
Demographics + + + | Address | [address] | | | [place] [address] | + + + | Home Phone | | + + + | Preferred Language | Unknown | + + + | Marital Status | | + + + | Church Affiliation | Unknown | + + + | Race | Unknown | + + + | Ethnic Group | Unknown | + + + Author + + + | Author | [facility] | | | and Michaelana | + + + | Organization | [facility] | | [...] Team Providers + +------+ + | Care Personal Carer Name | Role | Phone | + [...] | | | | [address] [facility] | [place] | | | | | [address] | [place] [address] | | | | | [address] | | | | | | [phone] | | | +--------+ + + + [...] + + | Stool | + + PH, Stool (11/13/2018) + [...] + + + + | Result | 8- No White Blood | | | | | | Cells Seen. | | | | + + + + + + + + | Specimen | + + | Stool | + + Sedimentation Rate (11/07/2018) + [...]
--- OUTSIDE RECORDS SUMMARY | ~2019-01-12 | XMS | Encounter Summary ---
Demographics + + + | Address | [address] | | | [place] [address] | + + + | Home Phone | | + + + | Preferred Language | Unknown | + + + | Marital Status | | + + + | Nondenominational Affiliation | Unknown | + + + | Race | Unknown | + + + | Ethnic Group | Unknown | + + + Author + + + | Author | [facility] | | | and Michaelana | + + + | Organization | [facility] | | | and Michealana | + + + | Address | [...] Team Providers + +------+ + | Care Porcelain Enamel Installer Name | Role | Phone | [...] + + | 01/09/ | Telephone | [facility] [place] | [facility], | MRI Recommendation | | 2019 | | GASTROENTEROLOGY | BRIAN Dickson [address] | | | | | [address] [place] | [place], [address] | | | | | [address] [place], [place] | [place], [place] | | | | | [address] | [address] | | | | | [phone] | | | +--------+ + + + [...]
--- OUTSIDE RECORDS SUMMARY | ~2019-01-12 | XMS | Encounter Summary ---
Demographics + + + | Address | [address] | | | [place] [address] | + + + | Home Phone [...] Author | [facility] | | | and Michaelana | + + + | Organization | [facility] | [...] Team Providers + +------+ + | Care Chief Lifestyle Officer Name | Role | Phone | + +------+ + | Selene Francis PA-C | PCP | | + +------+ + Encounter Details +--------+ + + + + | Date | Type | Department | Care Team | Description | +--------+ + + + + | 01/02/ | Documentati | [facility] [place] | [facility], | | | 2019 | on | GASTROENTEROLOGY | BRIAN Dickson [address] | | | | | [address] [place] | [place], [address] | | | | | [address] [place], [place] | [place], [place] | | | | | [address] | [address] | | | | | [phone] | | | +--------+ + + + [...]
--- OUTSIDE RECORDS SUMMARY | ~2019-01-12 | XMS | Encounter Summary ---
Demographics + + + | Address | [address] | | | [place] [address] | + + + | Home Phone [...] [facility] | | | and Michaelana | + + + | Organization | [facility] | | | and [...] Team Providers + +------+ + | Care Rigging Helper Name | Role | Phone | [...] | | | | [address] [facility] | [place] | | | | | [address] | [place] [address] | | | | | [address] | | | | | | [phone] | | | +--------+ + + + [...]
--- OUTSIDE RECORDS SUMMARY | ~2019-01-12 | XMS | Encounter Summary ---
Demographics + + + | Address | [address] | | | [place] [address] | + + + | Home Phone | | + + + | Preferred Language | Unknown | + + + | Marital Status | | + + + | Presybeterian Affiliation | Unknown | + + + | Race | Unknown | + + + | Ethnic Group | Unknown | + + + Author + + + | Author | [facility] | | | and Michaelana | + + + | Organization | [facility] | | | [...] Team Providers + +------+ + | Care Hand Clerical Verifier Name | Role | Phone | + [...] | diarrhea | [address] | [address], | | | | | Procedures | [place] | [address] | | | | | HAND FILER BALANCE WHEEL OFFICE | [address] | [place], | | | | | VISIT | [place], | [place] [address] | | | | | | [place] [address] | Phone: | | | | | | Phone: | [phone] | | | | | | [phone] | Fax: | | | | | | Fax: | [phone] | | | | | | [phone] | | + +--------+ + + + + Encounter Details +--------+---------+ + + + | Date | Type | Department | Care Team | Description | +--------+---------+ + + + | 12/18/ | Office | [facility] | Melanie, | Diarrhea, | | 2019 | Visit | GASTROENTEROLOGY | BRIAN Dickson [address] | unspecified type | | | | [address] [place] | [place], [place] [address] | (Primary Dx); Fecal | | | | [address] [place], [place] | [place], [place] | urgency; Abdominal | | | | [address] | [address] | cramping; Heartburn; | | | | [phone] | | Black stool | +--------+---------+ + [...] Progress Notes Chelita Rodriguez RN - 12/18/2018 0800 PDTScheduled patient for EGD/Colon IVCS with Dr. Miguelito rich on Tuesday12/25/18. Reviewed medications and allergies, bowel prep instructions and proced ure instructions. Sent prescription to [facility] in [place]. Yessi VegaBRIAN - 12/18/2018 0800 P DT [...]
--- OUTSIDE RECORDS SUMMARY | ~2019-01-12 | XMS | Encounter Summary ---
Demographics + + + | Address | [address] | | | [place] [address] | + + + | Home Phone [...] | Author | [facility] | | | and Michaelana | + + + | Organization | [facility] | [...] Team Providers + +------+ + | Care Sociology Professor Name | Role | Phone | + [...] | Elevated | [place], | [address] | | | | | liver | [place], | [place], | | | | | enzymes | MACHINE ADJUSTER HELPER [address] | [place] | | | | | Esophageal | [place], [place] | [address] | | | | | varices | [address] [place] | Phone: | | | | | without | [place], [place] | [phone] | | | | | bleeding, | [address] | Fax: | | | | | unspecified | Phone: | [phone] | | | | | esophageal | [phone] | | | | | | varices type | Fax: | | | | | | (HCC) | [phone] | | | | | | Portal [...] | | | | | | [place] MRI, | | | | | | [...] | varices | [place], | [address] | | | | | without | MACHINE ADJUSTER HELPER [address] | [place], | | | | | bleeding, | [place], [place] | [place] | | | | | unspecified | [address] | [address] | | | | | esophageal | [place] | Phone: | | | | | varices type | [address] | [phone] | | | | | (HCC) | Phone: | Fax: | | | | | Portal | [phone] | [phone] | | | | | hypertension | Fax: | | | | | | (HCC) | [phone] | | | | | | Diarrhea, [...] | | | | | | [place] SONO | | | | | | | GUIDE NEEDLE | | | | | | | BIOPSY [place] | | | | | | [...] | | Elevated | [place], | [address] | | | | | liver | Y[place]i, | [place], | | | | | enzymes | MACHINE ADJUSTER HELPER [address] | [place] [address] | | | | | Esophageal | [place], [place] | Phone: | | | | | varices | [address] | [phone] | | | | | without | [place] | Fax: | | | | | bleeding, | [address] | [phone] | | | | | unspecified | Phone: | | | | | | esophageal | [phone] | | | | | | varices type | Fax: | | | | | | (HCC) | [phone] | | | | | | Portal [...] | | | | | | [place] CT SCAN | | | | | [...] | diarrhea | [address] | [address], | | | | | Procedures | [place] | [place] [address] | | | | | PERSONNEL OFFICER OFFICE | [address] | [place], | | | | | VISIT | ER[place] | [place] [address] | | | | | | [place] [address] | Phone: | | | | | | Phone: | [phone] | | | | | | [phone] | Fax: | | | | | | Fax: | [phone] | | | | | | [phone] | | + +--------+ + + + [...] [address] [place] | [place], [place] [address] | Dx); Esophageal | | | | [address] [place] | [place] | varices without | | | | [address] | [address] | bleeding, | | | | [phone] | | unspecified | | | | [...] + | Blood Pressure | 138/72 | 01/02/20193 PDT | + + + + | Pulse | 83 | 01/02/2019 1023 PDT | + + + + | Temperature | 36.5 C (97.7 F) | 01/02/2019 1023 PDT | + + + + | [...] | Height | - | - | + + + + | Body Mass Index | 27.47 | 12/25/2018 1012 PDT | + + + + documented in this encounter Progress Notes Melanie Yessi, MACHINE ADJUSTER HELPER - 01/02/2019 1030 PDTFormatting of this note might be different f rom the original. PATIENT NAME: Grecia Bain : [...] Procedure: COLONOSCOPY; Surgeon: Deny Nelson MD; Location: [facility] MEDICAL PROCEDURE UNIT KNEE SURGERY Left 2012 Partial PARTIAL HYSTERECTOMY 2013 UPPER GASTROINTESTINAL ENDOSCOPY N/A 12/25/2018 Procedure: EGD; Surgeon: Deny Nelson MD; Location: [facility] MEDICAL PROCEDURE UNIT Family History [...] Colonoscopy Impression, External 12/25/2018 See Full Report~ [facility] Dr. Nelson Final Admission on 12/25/2018, Discharged [...] Hepatitis B Surface Ag Hepatitis C Ab Jlrue-0-Chwuszmylkq, Total Mitochondrial Ab, M2 Antinuclear Ab, Titer [...] Hepatitis B Surface Ag Hepatitis C Ab Jykbu-1-Bytczntxjyx, Total Mitochondrial Ab, M2 Antinuclear Ab, Titer [...] Hepatitis B Surface Ag Hepatitis C Ab Olrap-6-Jbetkesrnow, Total Mitochondrial Ab, M2 Antinuclear Ab, Titer [...] Hepatitis B Surface Ag Hepatitis C Ab Lfdrm-2-Igpgqmqywkf, Total Mitochondrial Ab, M2 Antinuclear Ab, Titer [...] content.Electronically signed by BRIAN Mancilla at 01/02 15:49 PDTdocumented in this encounter Plan of Treatment + +--------+ + + | Name | Priori | Associated Diagnoses | Order Schedule | | | ty | | | + +--------+ + + | Hepatitis A Ab, IgM | Routin | Elevated liver | Expected: | | | e | enzymes Esophageal | 01/02/2019, Expires: | | | | varices without | 04/04/2019 | | | | bleeding, | | | | | unspecified | | | | | esophageal varices | | | | | type (HCC) Portal | | | | | hypertension (HCC) | | | | | Diarrhea, | | | | | unspecified type | | + +--------+ + + | Hepatitis B Core Ab, IgM | Routin | Elevated liver | Expected: | | | e | enzymes Esophageal | 01/02/2019, Expires: | | | | varices without | 05/02/2019 | | | | bleeding, | | | | | unspecified | | | | | esophageal varices | | | | | type (HCC) Portal | | | | | hypertension (HCC) | | | | | Diarrhea, | | | | | unspecified type | | + +--------+ + + | Hepatitis B Surface Ab | Routin | Elevated liver | Expected: | | | e | enzymes Esophageal | 01/02/2019, Expires: | | | | varices without | 05/02/2019 | | | | bleeding, | | | | | unspecified | | | | | esophageal varices | | | | | type (HCC) Portal | | | | | hypertension (HCC) | | | | | Diarrhea, | | | | | unspecified type | | + +--------+ + + | Hepatitis B Surface Ag | Routin | Elevated liver | Expected: | | | e | enzymes Esophageal | 01/02/2019, Expires: | | | | varices without | 05/02/2019 | | | | bleeding, | | | | | unspecified | | | | | esophageal varices | | | | | type (HCC) Portal | | | | | hypertension (HCC) | | | | | Diarrhea, | | | | | unspecified type | | + +--------+ + + | Hepatitis C Ab | Routin | Elevated liver | Expected: | | | e | enzymes Esophageal | 01/02/2019, Expires: | | | | varices without | 05/02/2019 | | | | bleeding, | | | | | unspecified | | | | | esophageal varices | | | | | type (HCC) Portal | | | | | hypertension (HCC) | | | | | Diarrhea, | | | | | unspecified type | | + +--------+ + + | Rvkue-9-Vzyywexwcdu, Total | Routin | Elevated liver | Expected: | | | e | enzymes Esophageal | 01/02/2019, Expires: | | | | varices without | 05/02/2019 | | | | bleeding, | | | | | unspecified | | | | | esophageal varices | | | | | type (HCC) Portal | | | | | hypertension (HCC) | | | | | Diarrhea, | | | | | unspecified type | | + +--------+ + + | Mitochondrial Ab, M2 | Routin | Elevated liver | Expected: | | | e | enzymes Esophageal | 01/02/2019, Expires: | | | | varices without | 04/04/2019 | | | | bleeding, | | | | | unspecified | | | | | esophageal varices | | | | | type (HCC) Portal | | | | | hypertension (HCC) | | | | | Diarrhea, | | | | | unspecified type | | + +--------+ + + | Antinuclear Ab, Titer + Pattern | Routin | Elevated liver | Expected: | | | e | enzymes Esophageal | 01/02/2019, Expires: | | | | varices without | 04/04/2019 | | | | bleeding, | | | | | unspecified | | | | | esophageal varices | | | | | type (HCC) Portal | | | | | hypertension (HCC) | | | | | Diarrhea, | | | | | unspecified type | | + +--------+ + + | Smooth Muscle Ab | Routin | Elevated liver | Expected: | | | e | enzymes Esophageal | 01/02/2019, Expires: | | | | varices without | 05/05/2019 | | | | bleeding, | | | | | unspecified | | | | | esophageal varices | | | | | type (HCC) Portal | | | | | hypertension (HCC) | | | | | Diarrhea, | | | | | unspecified type | | + +--------+ + + | Immunoglobulin G | Routin | Elevated liver | 1 Occurrences | | | e | enzymes Esophageal | starting 01/02/2019 | | | | varices without | until 01/03/2020 | | | | bleeding, | | | | | unspecified | | | | | esophageal varices | | | | | type (HCC) Portal | | | | | hypertension (HCC) | | | | | Diarrhea, | | | | | unspecified type | | + +--------+ + + | Liver and Kidney Microsome Type 1 | Routin | Elevated liver | 1 Occurrences | | Ab | e | enzymes Esophageal | starting 01/02/2019 | | | | varices without | until 01/03/2020 | | | | bleeding, | | | | | unspecified | | | | | esophageal varices | | | | | type (HCC) Portal | | | | | hypertension (HCC) | | | | | Diarrhea, | | | | | unspecified type | | + +--------+ + + | Ceruloplasmin | Routin | Elevated liver | Expected: | | | e | enzymes Esophageal | 01/02/2019, Expires: | | | | varices without | 05/02/2019 | | | | bleeding, | | | | | unspecified | | | | | esophageal varices | | | | | type (HCC) Portal | | | | | hypertension (HCC) | | | | | Diarrhea, | | | | | unspecified type | | + +--------+ + + | Protime INR | Routin | Elevated liver | Expected: | | | e | enzymes Esophageal | 01/02/2019, Expires: | | | | varices without | 05/02/2019 | | | | bleeding, | | | | | unspecified | | | | | esophageal varices | | | | | type (HCC) Portal | | | | | hypertension (HCC) | | | | | Diarrhea, | | | | | unspecified type | | + +--------+ + + | Alpha Fetoprotein, Tumor Marker | Routin | Elevated liver | Expected: | | | e | enzymes Esophageal | 01/02/2019, Expires: | | | | varices without | 05/02/2019 | | | | bleeding, | | | | | unspecified | | | | | esophageal varices | | | | | type (HCC) Portal | | | | | hypertension (HCC) | | | | | Diarrhea, | | | | | unspecified type | | + +--------+ + + | CBC with Differential | Routin | Elevated liver | 1 Occurrences | | | e | enzymes Esophageal | starting 01/02/2019 | | | | varices without | until 05/02/2019 | | | | bleeding, | | | | | unspecified | | | | | esophageal varices | | | | | type (HCC) Portal | | | | | hypertension (HCC) | | | | | Diarrhea, | | | | | unspecified type | | + +--------+ + + | Comprehensive Metabolic Panel | Routin | Elevated liver | Expected: | | | e | enzymes Esophageal | 01/02/2019, Expires: | | | | varices without | 05/02/2019 | | | | bleeding, | | | | | unspecified | | | | | esophageal varices | | | | | type (HCC) Portal | | | | | hypertension (HCC) | | | | | Diarrhea, | | | | | unspecified type | | + +--------+ + + | US Guided Liver Biopsy | Routin | Elevated liver | Expected: | | | e | enzymes Esophageal | 01/02/2019, Expires: | | | | varices without | 05/02/2019 | | | | bleeding, | | | | | unspecified | | | | | esophageal varices | | | | | type (HCC) Portal | | | | | hypertension (HCC) | | | | | Diarrhea, | | | | | unspecified type | | + +--------+ + + + +--------+ + + | Name | Priori | Associated Diagnoses | Order Schedule | | | ty | | | + +--------+ + + | Referral Liver Biopsy | Routin | Esophageal varices | Expected: 01/09/2019 | | | e | without bleeding, | (Approximate), | | | | unspecified | Expires: 01/02/2020 | | | | esophageal varices | | | | | type (HCC) Portal | | | | | hypertension (HCC) | | | | | Diarrhea, | | | | | unspecified type | | | | | Left upper quadrant | | | | | abdominal tenderness | | | | | without rebound | | | | | tenderness | | + +--------+ + + documented as of [...]
--- OUTSIDE RECORDS SUMMARY | ~2019-01-12 | XMS | Encounter Summary ---
Demographics + + + | Address | [address] | | | [place] [address] | + + + | Home Phone | | + + + | Preferred Language | Unknown | + + + | Marital Status | | + + + | Hinduism Affiliation | Unknown | + + + | Race | Unknown | + + + | Ethnic Group | Unknown | + + + Author + + + | Author | [facility] | | | and Michaelana | + + + | Organization | [facility] | | | and Michaelana [...] Team Providers + +------+ + | Care Cloth Washer Name | Role | Phone | + [...] | Elevated | [place], | [address] | | | | | liver | [place], | [place], | | | | | enzymes | CORROSION CONTROL ENGINEER [address] | [place] | | | | | Esophageal | [place], [place] | [address] | | | | | varices | [address] | Phone: | | | | | without | [place], [place] | [phone] | | | | | bleeding, | [address] | Fax: | | | | | unspecified | Phone: | [phone] | | | | | esophageal | [phone] | | | | | | varices type | Fax: | | | | | | (HCC) | [phone] | | | | | | Portal [...] | | | | | | | [place] MRI, | | | | | | [...] | varices | [place], | [address] | | | | | without | CORROSION CONTROL ENGINEER [address] | [place], | | | | | bleeding, | [place], [place] | [place] | | | | | unspecified | [address] [place] | [address] | | | | | esophageal | [place] | Phone: | | | | | varices type | [address] | [phone] | | | | | (HCC) | Phone: | Fax: | | | | | Portal | [phone] | [phone] | | | | | hypertension | Fax: | | | | | | (HCC) | [phone] | | | | | | Diarrhea, [...] | | | | | | | [place] SONO | | | | | | | GUIDE NEEDLE | | | | | | | BIOPSY [place] | | | | | | | [...] | | Elevated | [place], | [address] | | | | | liver | [place], | [place], | | | | | enzymes | CORROSION CONTROL ENGINEER [address] | [place] [address] | | | | | Esophageal | [place], [place] | Phone: | | | | | varices | [address] [place] | [phone] | | | | | without | [place], [place] | Fax: | | | | | bleeding, | [address] | [phone] | | | | | unspecified | Phone: | | | | | | esophageal | [phone] | | | | | | varices type | Fax: | | | | | | (HCC) | [phone] | | | | | | Portal [...] | | | | | | | [place] CT SCAN | | | | | [...] | diarrhea | 1100 | [address], | | | | | Procedures | [place] | [place] [address] | | | | | SWEAT BAND SEPARATOR OFFICE | [address] | [place], | | | | | VISIT | [place] | [place] [address] | | | | | | [place] [address] | Phone: | | | | | | Phone: | [phone] | | | | | | [phone] | Fax: | | | | | | Fax: | [phone] | | | | | | [phone] | | + +--------+ + + + [...] [address] [place] | [place], [place] [address] | Dx); Esophageal | | | | [address] | [place] | varices without | | | | [address] | [address] | bleeding, | | | | [phone] | | unspecified | | | | [...] in this encounter Progress Notes Melanie Yessi, CORROSION CONTROL ENGINEER - 01/02/2019 1030 PDTFormatting of this note [...] Procedure: COLONOSCOPY; Surgeon: Deny Nelson MD; Location: [facility] MEDICAL PROCEDURE UNIT KNEE SURGERY Left 2012 Partial PARTIAL HYSTERECTOMY 2013 UPPER GASTROINTESTINAL ENDOSCOPY N/A 12/25/2018 Procedure: EGD; Surgeon: Deny Nelson MD; Location: [facility] MEDICAL PROCEDURE UNIT Family History Problem [...] Colonoscopy Impression, External 12/25/2018 See Full Report~ [facility] Dr. Nelson Final Admission on 12/25/2018, [...] Hepatitis B Surface Ag Hepatitis C Ab Otpnm-9-Fhbeucucuei, Total Mitochondrial Ab, M2 Antinuclear Ab, Titer [...] Hepatitis B Surface Ag Hepatitis C Ab Jtilc-0-Ofkmmydkpji, Total Mitochondrial Ab, M2 Antinuclear Ab, Titer [...] Hepatitis B Surface Ag Hepatitis C Ab Jafyj-3-Dlyuptndsty, Total Mitochondrial Ab, M2 Antinuclear Ab, Titer [...] Hepatitis B Surface Ag Hepatitis C Ab Ynmaf-0-Yrmgneweyvn, Total Mitochondrial Ab, M2 Antinuclear Ab, Titer [...] | | + +--------+ + + | Fpfne-8-Yqmycygaoio, Total | Routin | Elevated liver | [...]
--- OUTSIDE RECORDS SUMMARY | ~2019-01-12 | XMS | Clinical Summary ---
Demographics + + + | Address | [address] | | | [place] [address] | + + + | Home Phone [...] | [facility] | | | and Michaelana | + + + | Organization | [facility] | | | and Michaelana | [...] Team Providers + +------+ + | Care Incoming Freight Clerk Name | Role | Phone | [...] automatically from request for surgery | | [id number] | + + + + + | Fecal urgency | 12/18/2018 | + + + + + | Overview: Added automatically from request for surgery | | [id number] | + + + + + | Abdominal cramping | 12/18/2018 | + + + + + | Overview: Added automatically from request for surgery | | [id number] | + + + + + | Heartburn | 12/18/2018 | + + + + + | Overview: Added automatically from request for surgery | | [id number] | + + + + + | Black stool | 12/18/2018 | + + + + + | Overview: Added automatically from request for surgery | | [id number] | + + Encounters +--------+ + + + + | Date | Type | Specialty | Care Team | Description | +--------+ + + + + | 01/12/ | Hospital | Radiology | [facility], | Elevated liver | | [...] | 01/09/ | Telephone | Gastroenterology | [facility], | MRI Recommendation | | 2018 | | | BRIAN Dickson | | +--------+ + + + + | 01/08/ | Hospital | Radiology | [facility], | Elevated liver | | 2018 [...] | 01/04/ | Telephone | Gastroenterology | [facility], | Other (CT ) | | 2018 | | | BRIAN Dickson | | +--------+ + + + + | 01/02/ | Office | Gastroenterology | [facility], | Elevated liver | | [...] | 01/02/ | Documentati | Gastroenterology | [facility], | | | 2018 | on [...] | 12/18/ | Office | Gastroenterology | [facility] | Diarrhea, | | 2018 | [...] + | [facility] | [address] | [place] | [phone] | | [facility] | | [address] | | | - LABORATORY | | [...] difficile, | Toxigenic C. difficile | | [facility] | | | Interp | [...] [address] | [place] | [phone] | | [facility] | | [address] | | | - LABORATORY | | [...] [address] | [place] | [phone] | | [facility] | | [address] | | | - LABORATORY | | [...] | REFERENCE LAB | | [place] [id number] Solar System Installer: Анна Oscar MD, | [facility] | | Phone: [phone] | | + + + + + + + + | Performing | Address | City/State/Zipcode | Phone Number | | Organization | | | | + + + + + | REFERENCE LAB | [address] | [place] [address] | [phone] | | [facility] | [address] [...] [address], | REFERENCE LAB | | [place], [place] [id number] Solar System Installer: Анна Oscar MD, | [facility] | | Phone: [phone] | | + + + + + + + + | Performing | Address | City/State/Zipcode | Phone Number | | Organization | | | | + + + + + | REFERENCE LAB | [address] | [place] [address] | [phone] | | [facility] | Drive [...] + | [facility] | [address] | [place] | [phone] | | [facility] | | [address] | | | - LABORATORY | | [...] [address] | [place] | [phone] | | [facility] | | [address] | | | - LABORATORY | | [...] [address] | [place] | [phone] | | [facility] | | [address] | | | - LABORATORY | | | | + + + + + EGD (12/25/2018 10:30 PDT) + + | Specimen | + + | | + + + + ---+ | Narrative | Performed At | + + ---+ | | [facility] | | GastroenterologyPatient Name: Grecia BainProshady Date: 12/25/2018 | [facility] | | 10:30 AMMRN: [id number] #: [id number] of : | | | 1970Admit Type: [...] by the physician, the nurse and the coating technician in the | | | endoscopy [...] | | | AMScope Out: 10:53:30 AM [facility], | | | [facility] [place] [address] | | | - Await pathology results. [...] |Scope Out: 10:53:30 AM | | | [facility], [address] [place], [place] | | | [address] | | + + ---+ + +---------+ [...] 12/25/2018 | [facility] | | 10:28 AMMRN: [id number] #: [id number] of : | | | 1970Admit Type: [...] the | | | nurse and the coating technician. Prophylactic Antibiotics: The | | | [...] Scope In: 10:55:28 AMScope Out: 11:09:49 AM [facility]. | | | [facility], [address] [place] [address] | | | [phone] | | | - Telephone GI clinic [...] |Scope Out: 11:09:49 AM | | | [facility]. [facility], [address] [place] [address] | | | [address] | | + + ---+ + +---------+ [...] + | Colonoscopy | See Full Report~ [facility] | | | | | | [...] for specific diagnostic | | | abnormality. JVR:[facility]:C2NR GROSS DESCRIPTION: Two specimens | | [...] component was performed by | | | [facility], [address] [place] [address] (Medical | | | Director: Shavonne Mathias MD; CLIA# [id number]). Professional | | | interpretation was performed by [facility] | | | [address] | | | [address] (Mapping Pilot: Deonte Marquez M.D.). | | | Diagnostician: Deonte Marquez MD Pathologist Electronically | | | Signed 12/26/2018 | | + + + + +---------+ + + | Performing | Address | City/State/Zipcode | Phone Number | | Organization | | | | + +---------+ + + | [facility] | | | | | [place] | | | | + +---------+ + [...] + +------+ | MODA | MODA | [id number] | | [phone] | [address] | PPO | | | [employer] | | [phone] | | | | [place] | | esent | | [place], | | | | [place] | | | | [place] [address] | | + +--------+ +--------+ + +------+ | [facility] | PHP | [id number] | 03/21/19 | [phone] | | PPO | | PLAN | [...] Person | Self | [birth year] | [address] | | | pearl/Reymundo | | 1971 | [phone] | [place] [address] | | | prabhjot | | | 7 (Home) | | | | | | | [phone] | | | | | | | 9 (Work) | | + +--------+ +--------+ + + Advance Directives Patient has advance care planning documents on file. For more information, please contact:[facility] [place] [address]
--- OUTSIDE RECORDS SUMMARY | ~2019-01-12 | XMS | Encounter Summary ---
Demographics + + + | Address | [address] | | | [place] [address] | + + + | Home Phone | | + + + | Preferred Language | Unknown | + + + | Marital Status | | + + + | Cheondoism Affiliation | Unknown | + + + | Race | Unknown | + + + | Ethnic Group | Unknown | + + + Author + + + | Author | [facility] | | | and Michaelana | + + + | Organization | [facility] | | | and Michaelana [...] Team Providers + +------+ + | Care Managing Partner Name | Role | Phone | + [...] | Telephone | [place] | [facility], | MRI Recommendation | | 2019 | | GASTROENTEROLOGY | BRIAN Dickson [address] | | | | | [address] [place] | [place], [place] [address] | | | | | [address] [place], [place] | [place], [place] | | | | | [address] | [address] | | | | | [phone] | | | +--------+ + + + [...]
--- OUTSIDE RECORDS SUMMARY | ~2019-01-12 | XMS | Encounter Summary ---
Demographics + + + | Address | [address] | | | [place] [address] | + + + | Home Phone [...] | Author | [facility] | | | and Michaelana | + + + | Organization | [facility] | | [...] Team Providers + +------+ + | Care Map Clerk Name | Role | Phone | [...] | | unspecified | | [address], | | | | | type Fecal | | [address] | | | | | urgency | | [place], | | | | | Abdominal | | [place] [address] | | | | | cramping | | Phone: | | | | | Heartburn | | [phone] | | | | | Black stool | | Fax: | | | | | Procedures | | [phone] | | | | | [place] | [...] | | | | | PLE [place] | | | | | | [...] | | | | | [place]LE [place] | | | | | | [...] + + | 12/25/ | Surgery | [facility] | Deny Nelson MD | EGD | | 2019 | | [facility] INTRA OP | [address], [place] | | | | | [address] | [address] [place], [place] | | | | | [place], [place] | [address] | | | | | [address] | | | | | | [phone] | | | +--------+---------+ + + + [...] You can't be awakened Date Last Reviewed: 01/06/201619990466-0519 [employer]. [address] [place] [id number]. All righ ts reserved. This information is [...] + | [address] [facility] | [address] | [place] | [phone] | | [facility] | | [address] | | | - LABORATORY | | [...] + + | Performed at: 01 - [facility] [address] [address], | REFERENCE LAB | | [place], [place] [id number] [employer] Architect: Анна Oscar MD, | [facility] | | Phone: [phone] | | + + + + + + + + | Performing | Address | City/State/Zipcode | Phone Number | | Organization | | | | + + + + + | REFERENCE LAB | [address] | [place] [address] | [phone] | | [facility] | [address] [...] [address] | [address] | [place], [place] | [phone] | | [facility] | | [address] | | | - LABORATORY | | [...] + + | Performed at: 01 - [facility] [address], | REFERENCE LAB | | [place], [place] [id number] [employer] Architect: Анна Oscar MD, | [facility] | | Phone: [phone] | | + + + + + + + + | Performing | Address | City/State/Zipcode | Phone Number | | Organization | | | | + + + + + | REFERENCE LAB | [address] | [place] [address] | [phone] | | [facility] | [address] [...] [address] | [place] | [phone] | | [facility] | | [address] | | | - LABORATORY | | [...] [address] | [place] | [phone] | | [facility] | | [address] | | | - LABORATORY | | [...] [address] | [place] | [phone] | | [facility] | | [address] | | | - LABORATORY | | [...] [address] | [place] | [phone] | | [facility] | | [address] | | | - LABORATORY | | | | + + + + + EGD (12/25/2018 10:30 PDT) + + | Specimen | + + | | + + + + ---+ | Narrative | Performed At | + + ---+ | | [facility] | | GastroenterologyPatient Name: Grecia BainProcedure Date: 12/25/2018 | [facility] | | 10:30 AMMRN: [id number] #: [id number] of : | | | 1970Admit Type: [...] by the physician, the nurse and the warehousing technician in the | | | endoscopy [...] | | | AMScope Out: 10:53:30 AM [facility], | | | [address] [place] [address] | | | - Await pathology results. [...] |Scope Out: 10:53:30 AM | | | [facility], [address] [place] [address] | | | [address] | | + + ---+ + +---------+ [...] 12/25/2018 | [facility] | | 10:28 AMMRN: [id number] #: [id number] of : | | | 1970Admit Type: [...] the | | | nurse and the warehousing technician. Prophylactic Antibiotics: The | | | [...] Scope In: 10:55:28 AMScope Out: 11:09:49 AM [facility]. | | | [facility], [address] [place] [address] | | | [phone] | | | - Telephone GI clinic [...] |Scope Out: 11:09:49 AM | | | [facility]. [facility], [facility] [place], [place] | | | [address] | | + + ---+ + +---------+ [...] BIOPSY SPECIMEN(S): B RANDOM COLON BIOPSY | [place] [facility] | | SPECIMEN SOURCE: A. DUODENAL [...] for specific diagnostic | | | abnormality. JVR:[facility]:C2NR GROSS DESCRIPTION: Two specimens | | [...] component was performed by | | | [facility], [address] [place] [address] (Medical | | | Director: Shavonne Mathias MD; IA# [id number]). Professional | | | [facility] | | | [address] | | | [address] (Chicken And Fish Butcher: Ruth Batista. | | | Diagnostician: Deonte [...]
[2019-01-12] MEDS ORDERED: PROPRANOLOL HCL20 MG PO (16:22)
== END 2019-01-12 17:44 | disposition short-term general hospital (02) ==
LOC: ED 15:51
DX: K92.0 Hematemesis (principal); K22.8 Other specified diseases of esophagus
CPT/HCPCS: 80053; 85025; 85610; 85730; 86850; 86900; 86901; 96365; 96375; 99291; C9113; J0696; J2354; J2405; J7030; J7050

== ENCOUNTER 2019-02-23 07:19 | Emergency (ER) | payer OTHER ==
[~2019-02-23] VITALS: Ht 162.6 cm; Wt 68.0 kg
--- OUTSIDE RECORDS SUMMARY | ~2019-02-23 | XMS | Encounter Summary ---
Demographics + + + | Address | [address] | | | [place] [address] | + + + | Home Phone | | + + + | Preferred Language | Unknown | + + + | Marital Status | | + + + | Orthodoxy Affiliation | Unknown | + + + | Race | Unknown | + + + | Ethnic Group | Unknown | + + + Author + + + | Author | [facility] | | | and [place] | + + + | Organization | [facility] | | | and [place] [...] Team Providers + +------+ + | Care Principal Accounts Clerk Name | Role | Phone | + +------+ + | Selene Francis PA-C | PCP | | + +------+ + Encounter Details +--------+ + + + + | Date | Type | Department | Care Team | Description | +--------+ + + + + | 12/07/ | Abstract | [facility] | Provider, | | | 2019 | | GASTROENTEROLOGY | MD [address] | | | | | [address] [facility] | Emeka Lamar | | | | | [address] [place] | [place] [address] | | | | | [address] | | | | | | [phone] | | | +--------+ + + + [...] | + +--------+ + + + | PH, STOOL | Routin | 12/07/2018 | | Results for this | | | e | | | procedure are in the | | | | | | results section. | + +--------+ + + + | CALPROTECTIN, STOOL | Routin | 11/13/2018 | | Results for this | | | e | | | procedure are in the | | | | | | results section. | + +--------+ + + + | CLOSTRIDIUM | Routin | 11/13/2018 | | Results for this | | DIFFICILE | e | | | procedure are in the | | | | | | results section. | + +--------+ + + + | ELECTROLYTES, STOOL | Routin | 11/13/2018 | | Results for this | | | e | | | procedure are in the | | | | | | results section. | + +--------+ + + + | FECAL LEUKOCYTES | ISSA | 11/13/2018 | | Results for this | | | | | | procedure are in the | | | | | | results section. | + +--------+ + + + | CULTURE, STOOL | Routin | 11/13/2018 | | Results for this | | | e | | | procedure are in the | | | | | | results section. | + +--------+ + + + | OSMOLALITY, STOOL | Routin | 11/13/2018 | | Results for this | | | e | | | procedure are in the | | | | | | results section. | + +--------+ + + + | PH, STOOL | Routin | 11/13/2018 | | Results for this | | | e | | | procedure are in the | | | | | | results section. | + +--------+ + + + | EXTERNAL LAB: BUN | Routin | 11/07/2018 | | Results for this | | | e | | | procedure are in the | | | | | | results section. | + +--------+ + + + | EXTERNAL LAB: | Routin | 11/07/2018 | | Results for this | | GLUCOSE | e | | | procedure are in the | | | | | | results section. | + +--------+ + + + | EXTERNAL LAB: GGT | Routin | 11/07/2018 | | Results for this | | | e | | | procedure are in the | | | | | | results section. | + +--------+ + + + | EXTERNAL LAB: ALT | Routin | 11/07/2018 | | Results for this | | | e | | | procedure are in the | | | | | | results section. | + +--------+ + + + | EXTERNAL LAB: AST | Routin | 11/07/2018 | | Results for this | | | e | | | procedure are in the | | | | | | results section. | + +--------+ + + + | EXTERNAL LAB: | Routin | 11/07/2018 | | Results for this | | ALKALINE PHOSPHATASE | e | | | procedure are in the | | | | | | results section. | + +--------+ + + + | EXTERNAL LAB: | Routin | 11/07/2018 | | Results for this | | BILIRUBIN, TOTAL | e | | | procedure are in the | | | | | | results section. | + +--------+ + + + | EXTERNAL LAB: | Routin | 11/07/2018 | | Results for this | | ALBUMIN | e | | | procedure are in the | | | | | | results section. | + +--------+ + + + | EXTERNAL LAB: | Routin | 11/07/2018 | | Results for this | | PROTEIN, TOTAL | e | | | procedure are in the | | | | | | results section. | + +--------+ + + + | EXTERNAL LAB: | Routin | 11/07/2018 | | Results for this | | CALCIUM | e | | | procedure are in the | | | | | | results section. | + +--------+ + + + | EXTERNAL LAB: CARBON | Routin | 11/07/2018 | | Results for this | | DIOXIDE | e | | | procedure are in the | | | | | | results section. | + +--------+ + + + | EXTERNAL LAB: | Routin | 11/07/2018 | | Results for this | | CHLORIDE | e | | | procedure are in the | | | | | | results section. | + +--------+ + + + | EXTERNAL LAB: | Routin | 11/07/2018 | | Results for this | | POTASSIUM | e | | | procedure are in the | | | | | | results section. | + +--------+ + + + | EXTERNAL LAB: SODIUM | Routin | 11/07/2018 | | Results for this | | | e | | | procedure are in the | | | | | | results section. | + +--------+ + + + | EXTERNAL LAB: IRON | Routin | 11/07/2018 | | Results for this | | TOTAL | e | | | procedure are in the | | | | | | results section. | + +--------+ + + + | EXTERNAL LAB: IRON | Routin | 11/07/2018 | | Results for this | | SATURATION | e | | | procedure are in the | | | | | | results section. | + +--------+ + + + | EXTERNAL LAB: IRON | Routin | 11/07/2018 | | Results for this | | BINDING CAPACITY | e | | | procedure are in the | | | | | | results section. | + +--------+ + + + | EXTERNAL LAB: | Routin | 11/07/2018 | | Results for this | | FERRITIN | e | | | procedure are in the | | | | | | results section. | + +--------+ + + + | EXTERNAL LAB: CBC | Routin | 11/07/2018 | | Results for this | | | e | | | procedure are in the | | | | | | results section. | + +--------+ + + + | EXTERNAL LAB: TSH | Routin | 11/07/2018 | | Results for this | | | e | | | procedure are in the | | | | | | results section. | + +--------+ + + + | EXTERNAL LAB: EGFR | Routin | 11/07/2018 | | Results for this | | | e | | | procedure are in the | | | | | | results section. | + +--------+ + + + | EXTERNAL LAB: | Routin | 11/07/2018 | | Results for this | | CREATININE | e | | | procedure are in the | | | | | | results section. | + +--------+ + + + | TISSUE | Routin | 11/07/2018 | | Results for this | | TRANSGLUTAMINASE | e | | | procedure are in the | | (IGA + IGG) | | | | results section. | + +--------+ + + + | LIPID PANEL | Routin | 11/07/2018 | | Results for this | | | e | | | procedure are in the | | | | | | results section. | + +--------+ + + + | SEDIMENTATION RATE | Routin | 11/07/2018 | | Results for this | | | e | | | procedure are in the | | | | | | results section. | + +--------+ + + + | CBC WITH | Routin | 11/07/2018 | | Results for this | | DIFFERENTIAL | e | | | procedure are in the | | | | | | results section. | + +--------+ + + + | C-REACTIVE PROTEIN | Routin | 11/07/2018 | | Results for this | | | e | | | procedure are in the | | | | | | results section. | + +--------+ + + + | COMPREHENSIVE | Routin | 11/07/2018 | | Results for this | | METABOLIC PANEL | e | | | procedure are in the | | | | | | results section. | + +--------+ + + + documented in this encounter Results PH, Stool (12/07/2018) + + | Specimen | + + | Stool - Stool | | specimen (specimen) | + + + + + | Narrative | Performed At | + + + | ERROR- DUPLICATE | | + + + Calprotectin, Stool (11/13/2018) + +-------+ + + + | Component | Value | Ref Range | Performed | Pathologist | | | | | At | Signature | + +-------+ + + + | CALPROTECTI | <16 | | | | | N FECAL | | | | | + +-------+ + + + + + | Specimen | + + | Stool - Stool | | specimen (specimen) | + + Clostridium difficile (11/13/2018) + + + + + + | Component | Value | Ref Range | Performed | Pathologist | | | | | At | Signature | + + + + + + | C DIFFICILE | Negative | | | | | | | | | | | INTERPRETAT | | | | | | ION | | | | | + + + + + + + + | Specimen | + + | Stool - Stool | | specimen (specimen) | + + Osmolality, Stool (11/13/2018) + +-------+ + + + | Component | Value | Ref Range | Performed | Pathologist | | | | | At | Signature | + +-------+ + + + | OSMO STOOL | 292 | 275 - 300 | | | + +-------+ + + + + + | Specimen | + + | Stool - Stool | | specimen (specimen) | + + Electrolytes, Stool (11/13/2018) + +-------+ + + + | Component | Value | Ref Range | Performed | Pathologist | | | | | At | Signature | + +-------+ + + + | Electrolyte | 96 | | | | | s, Fecal | | | | | + +-------+ + + + + + | Specimen | + + | Stool - Stool | | specimen (specimen) | + + PH, Stool (11/13/2018) + +-------+ + + + | Component | Value | Ref Range | Performed | Pathologist | | | | | At | Signature | + +-------+ + + + | PH STOOL | 8.5 | | | | + +-------+ + + + + + | Specimen | + + | Stool - Stool | | specimen (specimen) | + + Culture, Stool (11/13/2018) + + + + + + | Component | Value | Ref Range | Performed | Pathologist | | | | | At | Signature | + + + + + + | Result | 11/14/18- Normal Glory | | | | | | after overnight | | | | | | incubation. | | | | + + + + + + | Result | 11/15/18- No change in | | | | | | growth. No Salmonella, | | | | | | Shigella, Escherichia | | | | | | coli O157, | | | | | | Campylobacter, or | | | | | | Yersinia iscolaged. Not | | | | | | specificially tstd for | | | | | | other enteric pathogens. | | | | + + + + + + + + | Specimen | + + | Stool - Stool | | specimen (specimen) | + + Fecal leukocytes (11/13/2018) + + + + + + | Component | Value | Ref Range | Performed | Pathologist | | | | | At | Signature | + + + + + + | Result | 11-13-18- No White Blood | | | | | | Cells Seen. | | | | + + + + + + + + | Specimen | + + | Stool - Stool | | specimen (specimen) | + + Sedimentation Rate (11/07/2018) + +-------+ + + + | Component | Value | Ref Range | Performed | Pathologist | | | | | At | Signature | + +-------+ + + + | ESR | 6 | 0 - 20 mm/hr | | | + +-------+ + + + + + | Specimen | + + | Blood | + + CBC with Differential (11/07/2018) + +-------+ + + + | Component | Value | Ref Range | Performed | Pathologist | | | | | At | Signature | + +-------+ + + + | MCH | 27 | 27 - 33 | | | + +-------+ + + + | MCHC | 31 | 30 - 36 | | | + +-------+ + + + | Basophils % | 1.2 | 0 - 2 | | | + +-------+ + + + + + | Specimen | + + | Blood | + + Tissue Transglutaminase (IgA + IgG) (11/07/2018) + +-------+ + + + | Component | Value | Ref Range | Performed | Pathologist | | | | | At | Signature | + +-------+ + + + | Tissue | 0.3 | 0 - 7 | | | | Transglutam | | | | | | inase IgA | | | | | + +-------+ + + + | Tissue | <0.6 | 0 - 7 | | | | Transglutam | | | | | | inase IgG | | | | | + +-------+ + + + + + | Specimen | + + | Blood | + + C-Reactive Protein (11/07/2018) + +-------+ + + + | Component | Value | Ref Range | Performed | Pathologist | | | | | At | Signature | + +-------+ + + + | CRP | 2.5 | 0 - 5 mg/L | | | + +-------+ + + + + + | Specimen | + + | Blood | + + Comprehensive Metabolic Panel (11/07/2018) + +-------+ + + + | Component | Value | Ref Range | Performed | Pathologist | | | | | At | Signature | + +-------+ + + + | Anion Gap | 15 | 7 - 21 mmol/L | | | + +-------+ + + + | BUN/Creatin | 21 | 6 - 28.6 | | | | ine Ratio | | | | | + +-------+ + + + | Globulin | 2.1 | 1.8 - 3.5 | | | + +-------+ + + + | Albumin/Rosanna | 2 | 1.1 - 2.4 | | | | bulin Ratio | | | | | + +-------+ + + + + + | Specimen | + + | Blood | + + External Lab: BUN (11/07/2018) + +-------+ + + + | Component | Value | Ref Range | Performed | Pathologist | | | | | At | Signature | + +-------+ + + + | BUN, | 13 | 6 - 23 | EXTERNAL | | | External | | | LAB | | + +-------+ + + + + +---------+ + + | Performing | Address | City/State/Zipcode | Phone Number | | Organization | | | | + +---------+ + + | EXTERNAL LAB | | | | + +---------+ + + External Lab: Glucose (11/07/2018) + +-------+ + + + | Component | Value | Ref Range | Performed | Pathologist | | | | | At | Signature | + +-------+ + + + | Glucose, | 96 | 70 - 100 | EXTERNAL | | | External | | | LAB | | + +-------+ + + + + +---------+ + + | Performing | Address | City/State/Zipcode | Phone Number | | Organization | | | | + +---------+ + + | EXTERNAL LAB | | | | + +---------+ + + External Lab: GGT (11/07/2018) + +--------+ + + + | Component | Value | Ref Range | Performed | Pathologist | | | | | At | Signature | + +--------+ + + + | GGT, | 85 (A) | 5 - 80 | EXTERNAL | | | External | | | LAB | | + +--------+ + + + + +---------+ + + | Performing | Address | City/State/Zipcode | Phone Number | | Organization | | | | + +---------+ + + | EXTERNAL LAB | | | | + +---------+ + + External Lab: ALT (11/07/2018) + +--------+ + + + | Component | Value | Ref Range | Performed | Pathologist | | | | | At | Signature | + +--------+ + + + | ALT, | 55 (A) | 7 - 52 | EXTERNAL | | | External | | | LAB | | + +--------+ + + + + +---------+ + + | Performing | Address | City/State/Zipcode | Phone Number | | Organization | | | | + +---------+ + + | EXTERNAL LAB | | | | + +---------+ + + External Lab: AST (11/07/2018) + +--------+ + + + | Component | Value | Ref Range | Performed | Pathologist | | | | | At | Signature | + +--------+ + + + | AST, | 46 (A) | 13 - 39 | EXTERNAL | | | External | | | LAB | | + +--------+ + + + + +---------+ + + | Performing | Address | City/State/Zipcode | Phone Number | | Organization | | | | + +---------+ + + | EXTERNAL LAB | | | | + +---------+ + + External Lab: Alkaline Phosphatase (11/07/2018) + +---------+ + + + | Component | Value | Ref Range | Performed | Pathologist | | | | | At | Signature | + +---------+ + + + | ALP, | 260 (A) | 31 - 130 | EXTERNAL | | | External | | | LAB | | + +---------+ + + + + +---------+ + + | Performing | Address | City/State/Zipcode | Phone Number | | Organization | | | | + +---------+ + + | EXTERNAL LAB | | | | + +---------+ + + External Lab: Bilirubin, Total (11/07/2018) + +-------+ + + + | Component | Value | Ref Range | Performed | Pathologist | | | | | At | Signature | + +-------+ + + + | Bilirubin, | 0.7 | 0 - 1.2 | EXTERNAL | | | Total, | | | LAB | | | External | | | | | + +-------+ + + + + +---------+ + + | Performing | Address | City/State/Zipcode | Phone Number | | Organization | | | | + +---------+ + + | EXTERNAL LAB | | | | + +---------+ + + External Lab: Albumin (11/07/2018) + +-------+ + + + | Component | Value | Ref Range | Performed | Pathologist | | | | | At | Signature | + +-------+ + + + | Albumin, | 4.3 | 3.5 - 5 | EXTERNAL | | | External | | | LAB | | + +-------+ + + + + +---------+ + + | Performing | Address | City/State/Zipcode | Phone Number | | Organization | | | | + +---------+ + + | EXTERNAL LAB | | | | + +---------+ + + External Lab: Protein, Total (11/07/2018) + +-------+ + + + | Component | Value | Ref Range | Performed | Pathologist | | | | | At | Signature | + +-------+ + + + | Protein, | 6.4 | 6 - 8.3 | EXTERNAL | | | Total, | | | LAB | | | External | | | | | + +-------+ + + + + +---------+ + + | Performing | Address | City/State/Zipcode | Phone Number | | Organization | | | | + +---------+ + + | EXTERNAL LAB | | | | + +---------+ + + External Lab: Calcium (11/07/2018) + +-------+ + + + | Component | Value | Ref Range | Performed | Pathologist | | | | | At | Signature | + +-------+ + + + | Calcium, | 9.4 | 8.5 - 10.3 | EXTERNAL | | | External | | | LAB | | + +-------+ + + + + +---------+ + + | Performing | Address | City/State/Zipcode | Phone Number | | Organization | | | | + +---------+ + + | EXTERNAL LAB | | | | + +---------+ + + External Lab: Carbon Dioxide (11/07/2018) + +-------+ + + + | Component | Value | Ref Range | Performed | Pathologist | | | | | At | Signature | + +-------+ + + + | Carbon | 24 | 19 - 31 | EXTERNAL | | | Dioxide, | | | LAB | | | External | | | | | + +-------+ + + + + +---------+ + + | Performing | Address | City/State/Zipcode | Phone Number | | Organization | | | | + +---------+ + + | EXTERNAL LAB | | | | + +---------+ + + External Lab: Chloride (11/07/2018) + +-------+ + + + | Component | Value | Ref Range | Performed | Pathologist | | | | | At | Signature | + +-------+ + + + | Chloride, | 107 | 95 - 112 | EXTERNAL | | | External | | | LAB | | + +-------+ + + + + +---------+ + + | Performing | Address | City/State/Zipcode | Phone Number | | Organization | | | | + +---------+ + + | EXTERNAL LAB | | | | + +---------+ + + External Lab: Potassium (11/07/2018) + +-------+ + + + | Component | Value | Ref Range | Performed | Pathologist | | | | | At | Signature | + +-------+ + + + | Potassium, | 4.2 | 3.6 - 5.1 | EXTERNAL | | | External | | | LAB | | + +-------+ + + + + +---------+ + + | Performing | Address | City/State/Zipcode | Phone Number | | Organization | | | | + +---------+ + + | EXTERNAL LAB | | | | + +---------+ + + External Lab: Sodium (11/07/2018) + +-------+ + + + | Component | Value | Ref Range | Performed | Pathologist | | | | | At | Signature | + +-------+ + + + | Sodium, | 142 | 132 - 143 | EXTERNAL | | | External | | | LAB | | + +-------+ + + + + +---------+ + + | Performing | Address | City/State/Zipcode | Phone Number | | Organization | | | | + +---------+ + + | EXTERNAL LAB | | | | + +---------+ + + External Lab: CBC (11/07/2018) + + + + + + | Component | Value | Ref Range | Performed | Pathologist | | | | | At | Signature | + + + + + + | WBC, | 7.4 | 4.5 - 11 | EXTERNAL | | | External | | | LAB | | + + + + + + | HGB, | 11.3 (A) | 12 - 16 | EXTERNAL | | | External | | | LAB | | + + + + + + | HCT, | 35.9 (A) | 36 - 45 | EXTERNAL | | | External | | | LAB | | + + + + + + | PLT, | 410 | 140 - 440 | EXTERNAL | | | External | | | LAB | | + + + + + + | Neutrophils | 78 | 39 - 80 | EXTERNAL | | | %, | | | LAB | | | External | | | | | + + + + + + | Lymphocytes | 10.3 (A) | 24 - 44 | EXTERNAL | | | %, | | | LAB | | | External | | | | | + + + + + + | Monocytes | 7.1 | 0 - 12 | EXTERNAL | | | %, External | | | LAB | | + + + + + + | Eosinophils | 3.4 | 0 - 6 | EXTERNAL | | | %, | | | LAB | | | External | | | | | + + + + + + | RBC, | 4.18 | 3.8 - 5.1 | EXTERNAL | | | External | | | LAB | | + + + + + + | MCV, | 86 (A) | 35 - 45 | EXTERNAL | | | External | | | LAB | | + + + + + + | RDW, | 17.5 (A) | 10.5 - 15 | EXTERNAL | | | External | | | LAB | | + + + + + + + +---------+ + + | Performing | Address | City/State/Zipcode | Phone Number | | Organization | | | | + +---------+ + + | EXTERNAL LAB | | | | + +---------+ + + External Lab: DELL (11/07/2018) + +-------+ + + + | Component | Value | Ref Range | Performed | Pathologist | | | | | At | Signature | + +-------+ + + + | TSH, | 1.48 | 0.27 - 4.2 | EXTERNAL | | | External | | | LAB | | + +-------+ + + + + + | Specimen | + + | Blood | + + + +---------+ + + | Performing | Address | City/State/Zipcode | Phone Number | | Organization | | | | + +---------+ + + | EXTERNAL LAB | | | | + +---------+ + + External Lab: eGFR (11/07/2018) + +-------+ + + + | Component | Value | Ref Range | Performed | Pathologist | | | | | At | Signature | + +-------+ + + + | eGFR, | >60 | 60 - 99,999 | EXTERNAL | | | External | | | LAB | | + +-------+ + + + + + | Specimen | + + | Blood | + + + +---------+ + + | Performing | Address | City/State/Zipcode | Phone Number | | Organization | | | | + +---------+ + + | EXTERNAL LAB | | | | + +---------+ + + External Lab: Creatinine (11/07/2018) + +-------+ + + + | Component | Value | Ref Range | Performed | Pathologist | | | | | At | Signature | + +-------+ + + + | Creatinine, | 0.62 | 0.6 - 1.35 | EXTERNAL | | | External | | | LAB | | + +-------+ + + + + + | Specimen | + + | Blood | + + + +---------+ + + | Performing | Address | City/State/Zipcode | Phone Number | | Organization | | | | + +---------+ + + | EXTERNAL LAB | | | | + +---------+ + + Lipid Panel (11/07/2018) + +---------+ + + + | Component | Value | Ref Range | Performed | Pathologist | | | | | At | Signature | + +---------+ + + + | TIBC | 544 (A) | 245 - 400 ug/dL | | | + +---------+ + + + | TRANSFERRIN | 288.2 | 192.0 - 382.0 | | | | | | mg/dL | | | + +---------+ + + + + + | Specimen | + + | Blood | + + External Lab: Iron Total (11/07/2018) + + + + + + | Component | Value | Ref Range | Performed | Pathologist | | | | | At | Signature | + + + + + + | Iron, | 21.61 (A) | 37 - 160 | EXTERNAL | | | External | | | LAB | | + + + + + + + + | Specimen | + + | | + + + +---------+ + + | Performing | Address | City/State/Zipcode | Phone Number | | Organization | | | | + +---------+ + + | EXTERNAL LAB | | | | + +---------+ + + External Lab: Iron Saturation (11/07/2018) + +-------+ + + + | Component | Value | Ref Range | Performed | Pathologist | | | | | At | Signature | + +-------+ + + + | Iron | 4 (A) | 20 - 55 | EXTERNAL | | | Saturation, | | | LAB | | | External | | | | | + +-------+ + + + + + | Specimen | + + | | + + + +---------+ + + | Performing | Address | City/State/Zipcode | Phone Number | | Organization | | | | + +---------+ + + | EXTERNAL LAB | | | | + +---------+ + + External Lab: Iron Binding Capacity (11/07/2018) + +-------+ + + + | Component | Value | Ref Range | Performed | Pathologist | | | | | At | Signature | + +-------+ + + + | Iron | 522 | | EXTERNAL | | | Binding | | | LAB | | | Capacity, | | | | | | External | | | | | + +-------+ + + + + + | Specimen | + + | | + + + +---------+ + + | Performing | Address | City/State/Zipcode | Phone Number | | Organization | | | | + +---------+ + + | EXTERNAL LAB | | | | + +---------+ + + External Lab: Ferritin (11/07/2018) + + + + + + | Component | Value | Ref Range | Performed | Pathologist | | | | | At | Signature | + + + + + + | Ferritin, | 12.78 (A) | 13 - 150 | EXTERNAL | | | External | | | LAB | | + + + + + + + + | Specimen | + + | | + + + +---------+ + + | Performing | Address | City/State/Zipcode | Phone Number | | Organization | | | | + +---------+ + + | EXTERNAL LAB | | | | + +---------+ + + documented in this encounter Visit Diagnoses Not on filedocumented in this encounter"
--- OUTSIDE RECORDS SUMMARY | ~2019-02-23 | XMS | Encounter Summary ---
Demographics + + + | Address | [address] | | | [place] [address] | + + + | Home Phone | | + + + | Preferred Language | Unknown | + + + | Marital Status | | + + + | Episcopalian Affiliation | Unknown | + + + | Race | Unknown | + + + | Ethnic Group | Unknown | + + + Author + + + | Author | [facility] | | | and Michaelana | + + + | Organization | [facility] | | | and [...] Team Providers + +------+ + | Care Retail Office Associate Name | Role | Phone | + [...] | Elevated | [place], | [address] | | | | | liver | [place], | [place], | | | | | enzymes | [employer] [address] | [place] | | | | | Esophageal | [place], [place] | [address] | | | | | varices | [address] [place] | Phone: | | | | | without | [place], [place] | [phone] | | | | | bleeding, | [address] | Fax: | | | | | unspecified | Phone: | [phone] | | | | | esophageal | [phone] | | | | | | varices type | Fax: | | | | | | (HCC) | [phone] | | | | | | Portal [...] | | | | | | CT MRI, | | | | | | | ABDOMEN, | | | | | | | COMBO | | | +--------+--------+ + + + + Evaluate & Treat (Routine) + + + + + + + | Status | Reason | Specialty | Diagnoses / | Referred By | Referred To | | | | | Procedures | Contact | Contact | + + + + + + + | Authorized | Specialty | Gastroenterol | Diagnoses | | [facility] | | | Services | ogy / | Esophageal | [place], | Ultrasound | | | Required | Radiology | varices | [place], | [address] | | | | | without | [employer] [address] | [place], | | | | | bleeding, | [place], [place] | [place] | | | | | unspecified | [address] | [address] | | | | | esophageal | [place], [place] | Phone: | | | | | varices type | [address] | [phone] | | | | | (HCC) | Phone: | Fax: | | | | | Portal | [phone] | [phone] | | | | | hypertension | Fax: | | | | | | (HCC) | [phone] | | | | | | Diarrhea, [...] | | | | | | CT SONO | | | | | | | GUIDE NEEDLE | | | | | | | BIOPSY CT | | | | | | | BIOPSY LIVER | | | | | | | NEEDLE | | | | | | | PERCUTANEOUS | | | + + + + + + + Diagnostic/Screening (Emergency) +--------+--------+ + + + + | Status | Reason | Specialty | Diagnoses / | Referred By | Referred To | | | | | Procedures | Contact | Contact | +--------+--------+ + + + + | Closed | | Radiology | Diagnoses | | [facility] [address] | | | | | Elevated | [place], | [address] | | | | | liver | [place], | [place], | | | | | enzymes | [employer] [address] | [place] [address] | | | | | Esophageal | [place], [place] | Phone: | | | | | varices | [address] | [phone] | | | | | without | [place], [place] | Fax: | | | | | bleeding, | [address] | [phone] | | | | | unspecified | Phone: | | | | | | esophageal | [phone] | | | | | | varices type | Fax: | | | | | | (HCC) | [phone] | | | | | | Portal [...] | | | | | | CT CT SCAN | | | | | | | OF ABDOMEN | | | | | | | CONTRAST | | | +--------+--------+ + + + + Reason for Visit + + + | Reason | Comments | + + + | Follow-up | | + + + Evaluate & Treat (Routine) + +--------+ + + + + | Status | Reason | Specialty | Diagnoses / | Referred By | Referred To | | | | | Procedures | Contact | Contact | + +--------+ + + + + | Authorized | | Gastroenterol | Diagnoses | Tito | [place], | | | | ronny | Functional | [place] | Deny Brody MD | | | | | diarrhea | [address] | [address], | | | | | Procedures | [place] | [address] | | | | | COUNTER ATTENDANT OFFICE | [address] | [place], | | | | | VISIT | [place], | [place] [address] | | | | | | [place] [address] | Phone: | | | | | | Phone: | [phone] | | | | | | [phone] | Fax: | | | | | | Fax: | [phone] | | | | | | [phone] | | + +--------+ + + + + Encounter Details +--------+---------+ + + + | Date | Type | Department | Care Team | Description | +--------+---------+ + + + | 01/02/ | Office | [facility] [place] | [place], | Elevated liver | | 2019 | Visit | GASTROENTEROLOGY | BRIAN Dickson [address] | enzymes (Primary | | | | [address] [place] | [place], [place] [address] | Dx); Esophageal | | | | [address] | [place] | varices without | | | | [address] | [address] | bleeding, | | | | [phone] | | unspecified | | | | [...] | | | CT of liver | +--------+---------+ + + + Social History [...] + + + | Blood Pressure | 138/72 | 01/02/2019 10:23 AM | | | | | PDT | | + + + + + | Pulse | 83 | 01/02/2019 10:23 AM | | | | | PDT | | + + + + + | Temperature | 36.5 C (97.7 F) | 01/02/2019 10:23 AM | | | | | PDT | | + + + + + | Respiratory Rate | 14 | 01/02/2019 10:23 AM | | | | | PDT | | + + + + + | Oxygen Saturation | 97% | 01/02/2019 10:23 AM | | | | | PDT | | + + + + + | Inhaled Oxygen | - | - | | | Concentration | | | | + + + + + | Weight | 72.6 kg (160 lb 0.9 | 01/02/2019 10:23 AM | | | | oz) | PDT | | + + + + + | Height | - | - | | + + + + + | Body Mass Index | 27.47 | 12/25/2018 10:12 AM | | | | | PDT | | + + + + + documented in this encounter Progress Notes Yessi Navarro ARNP - 01/02/2019 10:30 AM PDTFormatting of this note might be differe nt from the original. PATIENT NAME: Grecia Bain : 1970: AGE: 48 y.o. REFERRED BY: Selene Francis PA-C PRIMARY CARE: Selene Francis PA-C Subjective: CHIEF COMPLAINT: Grecia Bain is a 48 y.o. female is here for a follow up. She is being seen today for follow up EGD and colonoscopy for diarrhea. HISTORY OF PRESENT ILLNESS: Patient here for follow up of EGD and colonoscopy. Patient denies any history of alcohol abuse. Denies personal or family history of autoimmune diseases. There is no known use or hepatotoxic medications or supplements. She gets mouth sores about 2 times per year. She continues to have issues with diarrhea. She has tried the bentyl and psyllium. The psyl lium caused worsening diarrhea. She has 5-6 loose stools per day. There are still days with uncontrolled diarrhea that causes fecal incontinence. There is no history diabetes or elevated cholesterol. Denies ascites, jaundice, hematemesis, peripheral edema, sleep changes, or confusion. MEDICAL, SURGICAL, AND PERSONAL HISTORY BP 138/72 | Pulse 83 | Temp 36.5 C (97.7 F) (Temporal) | Resp 14 | Wt 72.6 kg (160 lb 0.9 oz) | SpO2 97% | BMI 27.47 kg/m No Known Allergies Past Medical History: Diagnosis Date Cervicalgia Diarrhea Encopresis Functional diarrhea HTN (hypertension) PONV (postoperative nausea and vomiting) Spinal enthesopathy of cervical region (HCC) Urge and stress incontinence UTI (urinary tract infection) Vitamin D deficiency Wears contact lenses Past Surgical History: Procedure Laterality Date COLONOSCOPY N/A 12/25/2018 Procedure: COLONOSCOPY; Surgeon: Deny Nelson MD; Location: [facility] KNEE SURGERY Left 2012 Partial PARTIAL HYSTERECTOMY 2013 UPPER GASTROINTESTINAL ENDOSCOPY N/A 12/25/2018 Procedure: EGD; Surgeon: Deny Nelson MD; Location: [facility] Family History Problem Relation Age of Onset Heart attack Father Other (see comment) Father Pre-Diabetic Other (see comment) Sister Benign Lump removed from breast Prostate cancer Maternal Grandfather Heart attack Paternal Grandfather Social History Socioeconomic History Marital status: Spouse name: Not on file Number of children: Not on file Years of education: Not on file Highest education level: Not on file Social Needs Financial resource strain: Not on file Food insecurity - worry: Not on file Food insecurity - inability: Not on file Transportation needs - medical: Not on file Transportation needs - non-medical: Not on file Occupational History Not on file Tobacco Use Smoking status: Never Smoker Smokeless tobacco: Never Used Substance and Sexual Activity Alcohol use: Yes Comment: once a month at the most Drug use: Never Sexual activity: Not on file Other Topics Concern Not on file Social History Narrative Not on file Review of Systems Constitutional: Negative for chills, fever and unexpected weight change. Respiratory: Negative for cough, shortness of breath and wheezing. Cardiovascular: Negative for chest pain, palpitations and leg swelling. Gastrointestinal: Negative except as stated above Objective: Physical Exam Constitutional: She is oriented to person, place, and time. She appears well-developed and well-nourished. HENT: Head: Normocephalic and atraumatic. Abdominal: Soft. Bowel sounds are normal. She exhibits no ascites. There is no splenomegaly or hepatomegaly. There is tenderness in the left upper quadrant. There is no rebound, no gu arding and negative Keller's sign. Palpable abnormality in the LUQ. Possible splenomegaly vs mass. Musculoskeletal: Normal range of motion. She exhibits no edema or deformity. Neurological: She is alert and oriented to person, place, and time. Skin: Skin is warm and dry. Psychiatric: She has a normal mood and affect. Her speech is normal and behavior is normal. Nursing note and vitals reviewed. Abstract on 12/28/2018 Component Date Value Ref Range Status Colonoscopy Impression, External 12/25/2018 See Full Report~ [facility] Dr. Nelson Final Admission on 12/25/2018, Discharged on 12/25/2018 Component Date Value Ref Range Status Helicobacter pylori Ag 12/25/2018 Negative Negative Final Cryptosporidium Antigen 12/25/2018 Negative Negative Final Campylobacter, NAAT 12/25/2018 Not Detected Not Detected Final Salmonella, NAAT 12/25/2018 Not Detected Not Detected Final Shigella NAAT 12/25/2018 Not Detected Not Detected Final Vibrio, NAAT 12/25/2018 Not Detected Not Detected Final Yersinia enterocolitica, NAAT 12/25/2018 Not Detected Not Detected Final Shigatoxin 1 12/25/2018 Negative Negative Final Shigatoxin 2 12/25/2018 Negative Negative Final Giardia Antigen, Stool 12/25/2018 Negative Negative Final Lactoferrin, Qual 12/25/2018 Negative Negative Final Ova + Parasite Exam 12/25/2018 Final report Final These results were obtained using wet preparation(s) and trichrome stained smear. This test does not include testing for Cryptosporidium parvum, Cyclospora, or Microsporidia. C. difficile, Interp 12/25/2018 Negative Negative Final No Toxigenic C. difficile detected. Consider other causes of Diarrhea. Repeat testing shoul d not be performed within 7 days. C. difficile, NAAT 12/25/2018 Negative Final Result 12/25/2018 Comment Final No ova, cysts, or parasites seen. One negative specimen does not rule out the possibility of a parasitic infection. Abstract on 12/07/2018 Component Date Value Ref Range Status Ferritin, External 11/07/2018 12.78* 13 - 150 Final Iron Binding Capacity, External 11/07/2018 522 Final Iron Saturation, External 11/07/2018 4* 20 - 55 Final Iron, External 11/07/2018 21.61* 37 - 160 Final TIBC 11/07/2018 544* 245 - 400 ug/dL Final TRANSFERRIN 11/07/2018 288.2 192.0 - 382.0 mg/dL Final Result 11/13/2018 11-13-18- No White Blood Cells Seen. Final Result 11/13/2018 11/14/18- Normal Glory after overnight incubation. Final Result 11/13/2018 11/15/18- No change in growth. No Salmonella, Shigella, Escherichia co li O157, Campylobacter, or Yersinia iscolaged. Not specificially tstd for other enteric path ogens. Final PH STOOL 11/13/2018 8.5 Final Electrolytes, Fecal 11/13/2018 96 Final OSMO STOOL 11/13/2018 292 275 - 300 Final C DIFFICILE INTERPRETATION 11/13/2018 Negative Final CALPROTECTIN FECAL 11/13/2018 <16 Final Creatinine, External 11/07/2018 0.62 0.6 - 1.35 Final eGFR, External 11/07/2018 >60 60 - 99,999 Final TSH, External 11/07/2018 1.48 0.27 - 4.2 Final WBC, External 11/07/2018 7.4 4.5 - 11 Final HGB, External 11/07/2018 11.3* 12 - 16 Final HCT, External 11/07/2018 35.9* 36 - 45 Final PLT, External 11/07/2018 410 140 - 440 Final Neutrophils %, External 11/07/2018 78 39 - 80 Final Lymphocytes %, External 11/07/2018 10.3* 24 - 44 Final Monocytes %, External 11/07/2018 7.1 0 - 12 Final Eosinophils %, External 11/07/2018 3.4 0 - 6 Final RBC, External 11/07/2018 4.18 3.8 - 5.1 Final MCV, External 11/07/2018 86* 35 - 45 Final RDW, External 11/07/2018 17.5* 10.5 - 15 Final Sodium, External 11/07/2018 142 132 - 143 Final Potassium, External 11/07/2018 4.2 3.6 - 5.1 Final Chloride, External 11/07/2018 107 95 - 112 Final Carbon Dioxide, External 11/07/2018 24 19 - 31 Final Calcium, External 11/07/2018 9.4 8.5 - 10.3 Final Protein, Total, External 11/07/2018 6.4 6 - 8.3 Final Albumin, External 11/07/2018 4.3 3.5 - 5 Final Bilirubin, Total, External 11/07/2018 0.7 0 - 1.2 Final ALP, External 11/07/2018 260* 31 - 130 Final AST, External 11/07/2018 46* 13 - 39 Final ALT, External 11/07/2018 55* 7 - 52 Final GGT, External 11/07/2018 85* 5 - 80 Final Glucose, External 11/07/2018 96 70 - 100 Final BUN, External 11/07/2018 13 6 - 23 Final Anion Gap 11/07/2018 15 7 - 21 mmol/L Final BUN/Creatinine Ratio 11/07/2018 21 6 - 28.6 Final Globulin 11/07/2018 2.1 1.8 - 3.5 Final Albumin/Globulin Ratio 11/07/2018 2 1.1 - 2.4 Final CRP 11/07/2018 2.5 0 - 5 mg/L Final Tissue Transglutaminase IgA 11/07/2018 0.3 0 - 7 Final Tissue Transglutaminase IgG 11/07/2018 <0.6 0 - 7 Final MCH 11/07/2018 27 27 - 33 Final MCHC 11/07/2018 31 30 - 36 Final Basophils % 11/07/2018 1.2 0 - 2 Final ESR 11/07/2018 6 0 - 20 mm/hr Final EGD 12/25/2018: Impression: - Normal cricopharyngeus, upper third of esophagus and middle third of esophagus. - Grade II esophageal varices. - Z-line regular, 35 cm from the incisors. - Portal hypertensive gastropathy. - Erythematous mucosa in the antrum. Biopsied. - Normal duodenal bulb, first portion of the duodenum, second portion of the duodenum, area of the papilla and third portion of the duodenum. Biopsied. - The retroflexed view confirmed previous findings, Colonoscopy 12/25/2018: Impression: - The entire examined colon is normal. Biopsied. - The distal rectum and anal verge are normal on retroflexion view. Pathology : FINAL PATHOLOGIC DIAGNOSIS: A. Duodenal biopsy: - Benign duodenal mucosa with focal mild acute duodenitis. - Preserved villous architecture. - Negative for atypical features. B. Random colon biopsy: - Benign colonic mucosa, negative for specific diagnostic abnormality. Assessment: 1. Elevated liver enzymes Hepatitis A Ab, IgM Hepatitis B Core Ab, IgM Hepatitis B Surface Ab Hepatitis B Surface Ag Hepatitis C Ab [id number], Total Mitochondrial Ab, M2 Antinuclear Ab, Titer + Pattern Smooth Muscle Ab Immunoglobulin G Liver and Kidney Microsome Type 1 Ab Ceruloplasmin Protime INR Alpha Fetoprotein, Tumor Marker CBC with Differential Comprehensive Metabolic Panel US Guided Liver Biopsy CT Abdomen w Contrast CANCELED: Referral Liver Biopsy 2. Esophageal varices without bleeding, unspecified esophageal varices type (HCC) Hepatiti s A Ab, IgM Hepatitis B Core Ab, IgM Hepatitis B Surface Ab Hepatitis B Surface Ag Hepatitis C Ab [id number], Total Mitochondrial Ab, M2 Antinuclear Ab, Titer + Pattern Smooth Muscle Ab Immunoglobulin G Liver and Kidney Microsome Type 1 Ab Ceruloplasmin Protime INR Alpha Fetoprotein, Tumor Marker CBC with Differential Comprehensive Metabolic Panel US Guided Liver Biopsy CT Abdomen w Contrast Referral Liver Biopsy CANCELED: Referral Liver Biopsy 3. Portal hypertension (HCC) Hepatitis A Ab, IgM Hepatitis B Core Ab, IgM Hepatitis B Surface Ab Hepatitis B Surface Ag Hepatitis C Ab [id number], Total Mitochondrial Ab, M2 Antinuclear Ab, Titer + Pattern Smooth Muscle Ab Immunoglobulin G Liver and Kidney Microsome Type 1 Ab Ceruloplasmin Protime INR Alpha Fetoprotein, Tumor Marker CBC with Differential Comprehensive Metabolic Panel US Guided Liver Biopsy CT Abdomen w Contrast Referral Liver Biopsy CANCELED: Referral Liver Biopsy 4. Diarrhea, unspecified type Hepatitis A Ab, IgM Hepatitis B Core Ab, IgM Hepatitis B Surface Ab Hepatitis B Surface Ag Hepatitis C Ab [id number], Total Mitochondrial Ab, M2 Antinuclear Ab, Titer + Pattern Smooth Muscle Ab Immunoglobulin G Liver and Kidney Microsome Type 1 Ab Ceruloplasmin Protime INR Alpha Fetoprotein, Tumor Marker CBC with Differential Comprehensive Metabolic Panel US Guided Liver Biopsy CT Abdomen w Contrast Referral Liver Biopsy CANCELED: Referral Liver Biopsy 5. Left upper quadrant abdominal tenderness without rebound tenderness CT Abdomen w Contra st Referral Liver Biopsy CANCELED: Referral Liver Biopsy Plan: Ordered a STAT CT scan due to abnormality palpated in LUQ. Suspect mass vs speelenomegaly. Ordered labs to determine if evidence and/or cause of liver pathology present. Due to esophageal varices and portal hypertensive gastropathy, ordered liver biopsy to help determine cause of possible liver disease. Will follow up with results. Patient is to call with any question or concerns. Any fevers, chills, chest pain, SOB or other serious symptoms patient is to call the office or go to ER . CC: Selene Francis PA-C This note was dictated using voice recognition software. Please contact me if there are an y questions regarding its content.Electronically signed by BRIAN Mancilla at 01/02 3:49 PM PDTdocumented in this encounter Plan of Treatment + +---------+--------+ + + | Name | Type | Priori | Associated Diagnoses | Order Schedule | | | | ty | | | + +---------+--------+ + + | Hepatitis A Ab, IgM | Lab | Routin | Elevated liver | Expected: | | | | e | enzymes Esophageal | 01/02/2019, Expires: | | | | | varices without | 04/04/2019 | | | | | bleeding, | | | | | | unspecified | | | | | | esophageal varices | | | | | | type (HCC) Portal | | | | | | hypertension (HCC) | | | | | | Diarrhea, | | | | | | unspecified type | | + +---------+--------+ + + | Hepatitis B Core Ab, | Lab | Routin | Elevated liver | Expected: | | IgM | | e | enzymes Esophageal | 01/02/2019, Expires: | | | | | varices without | 05/02/2019 | | | | | bleeding, | | | | | | unspecified | | | | | | esophageal varices | | | | | | type (HCC) Portal | | | | | | hypertension (HCC) | | | | | | Diarrhea, | | | | | | unspecified type | | + +---------+--------+ + + | Hepatitis B Surface | Lab | Routin | Elevated liver | Expected: | | Ab | | e | enzymes Esophageal | 01/02/2019, Expires: | | | | | varices without | 05/02/2019 | | | | | bleeding, | | | | | | unspecified | | | | | | esophageal varices | | | | | | type (HCC) Portal | | | | | | hypertension (HCC) | | | | | | Diarrhea, | | | | | | unspecified type | | + +---------+--------+ + + | Hepatitis B Surface | Lab | Routin | Elevated liver | Expected: | | Ag | | e | enzymes Esophageal | 01/02/2019, Expires: | | | | | varices without | 05/02/2019 | | | | | bleeding, | | | | | | unspecified | | | | | | esophageal varices | | | | | | type (HCC) Portal | | | | | | hypertension (HCC) | | | | | | Diarrhea, | | | | | | unspecified type | | + +---------+--------+ + + | Hepatitis C Ab | Lab | Routin | Elevated liver | Expected: | | | | e | enzymes Esophageal | 01/02/2019, Expires: | | | | | varices without | 05/02/2019 | | | | | bleeding, | | | | | | unspecified | | | | | | esophageal varices | | | | | | type (HCC) Portal | | | | | | hypertension (HCC) | | | | | | Diarrhea, | | | | | | unspecified type | | + +---------+--------+ + + | [id number]-9-Kcgmnknqovo, | Lab | Routin | Elevated liver | Expected: | | Total | | e | enzymes Esophageal | 01/02/2019, Expires: | | | | | varices without | 05/02/2019 | | | | | bleeding, | | | | | | unspecified | | | | | | esophageal varices | | | | | | type (HCC) Portal | | | | | | hypertension (HCC) | | | | | | Diarrhea, | | | | | | unspecified type | | + +---------+--------+ + + | Mitochondrial Ab, M2 | Lab | Routin | Elevated liver | Expected: | | | | e | enzymes Esophageal | 01/02/2019, Expires: | | | | | varices without | 04/04/2019 | | | | | bleeding, | | | | | | unspecified | | | | | | esophageal varices | | | | | | type (HCC) Portal | | | | | | hypertension (HCC) | | | | | | Diarrhea, | | | | | | unspecified type | | + +---------+--------+ + + | Antinuclear Ab, | Lab | Routin | Elevated liver | Expected: | | Titer + Pattern | | e | enzymes Esophageal | 01/02/2019, Expires: | | | | | varices without | 04/04/2019 | | | | | bleeding, | | | | | | unspecified | | | | | | esophageal varices | | | | | | type (HCC) Portal | | | | | | hypertension (HCC) | | | | | | Diarrhea, | | | | | | unspecified type | | + +---------+--------+ + + | Smooth Muscle Ab | Lab | Routin | Elevated liver | Expected: | | | | e | enzymes Esophageal | 01/02/2019, Expires: | | | | | varices without | 05/05/2019 | | | | | bleeding, | | | | | | unspecified | | | | | | esophageal varices | | | | | | type (HCC) Portal | | | | | | hypertension (HCC) | | | | | | Diarrhea, | | | | | | unspecified type | | + +---------+--------+ + + | Immunoglobulin G | Lab | Routin | Elevated liver | 1 Occurrences | | | | e | enzymes Esophageal | starting 01/02/2019 | | | | | varices without | until 01/03/2020 | | | | | bleeding, | | | | | | unspecified | | | | | | esophageal varices | | | | | | type (HCC) Portal | | | | | | hypertension (HCC) | | | | | | Diarrhea, | | | | | | unspecified type | | + +---------+--------+ + + | Liver and Kidney | Lab | Routin | Elevated liver | 1 Occurrences | | Microsome Type 1 Ab | | e | enzymes Esophageal | starting 01/02/2019 | | | | | varices without | until 01/03/2020 | | | | | bleeding, | | | | | | unspecified | | | | | | esophageal varices | | | | | | type (HCC) Portal | | | | | | hypertension (HCC) | | | | | | Diarrhea, | | | | | | unspecified type | | + +---------+--------+ + + | Ceruloplasmin | Lab | Routin | Elevated liver | Expected: | | | | e | enzymes Esophageal | 01/02/2019, Expires: | | | | | varices without | 05/02/2019 | | | | | bleeding, | | | | | | unspecified | | | | | | esophageal varices | | | | | | type (HCC) Portal | | | | | | hypertension (HCC) | | | | | | Diarrhea, | | | | | | unspecified type | | + +---------+--------+ + + | Protime INR | Lab | Routin | Elevated liver | Expected: | | | | e | enzymes Esophageal | 01/02/2019, Expires: | | | | | varices without | 05/02/2019 | | | | | bleeding, | | | | | | unspecified | | | | | | esophageal varices | | | | | | type (HCC) Portal | | | | | | hypertension (HCC) | | | | | | Diarrhea, | | | | | | unspecified type | | + +---------+--------+ + + | Alpha Fetoprotein, | Lab | Routin | Elevated liver | Expected: | | Tumor Marker | | e | enzymes Esophageal | 01/02/2019, Expires: | | | | | varices without | 05/02/2019 | | | | | bleeding, | | | | | | unspecified | | | | | | esophageal varices | | | | | | type (HCC) Portal | | | | | | hypertension (HCC) | | | | | | Diarrhea, | | | | | | unspecified type | | + +---------+--------+ + + | CBC with | Lab | Routin | Elevated liver | 1 Occurrences | | Differential | | e | enzymes Esophageal | starting 01/02/2019 | | | | | varices without | until 05/02/2019 | | | | | bleeding, | | | | | | unspecified | | | | | | esophageal varices | | | | | | type (HCC) Portal | | | | | | hypertension (HCC) | | | | | | Diarrhea, | | | | | | unspecified type | | + +---------+--------+ + + | Comprehensive | Lab | Routin | Elevated liver | Expected: | | Metabolic Panel | | e | enzymes Esophageal | 01/02/2019, Expires: | | | | | varices without | 05/02/2019 | | | | | bleeding, | | | | | | unspecified | | | | | | esophageal varices | | | | | | type (HCC) Portal | | | | | | hypertension (HCC) | | | | | | Diarrhea, | | | | | | unspecified type | | + +---------+--------+ + + | US Guided Liver | Imaging | Routin | Elevated liver | Expected: | | Biopsy | | e | enzymes Esophageal | 01/02/2019, Expires: | | | | | varices without | 05/02/2019 | | | | | bleeding, | | | | | | unspecified | | | | | | esophageal varices | | | | | | type (HCC) Portal | | | | | | hypertension (HCC) | | | | | | Diarrhea, | | | | | | unspecified type | | + +---------+--------+ + + + + +--------+ + + | Name | Type | Priori | Associated Diagnoses | Order Schedule | | | | ty | | | + + +--------+ + + | Referral Liver | Outpatient | Routin | Esophageal varices | Expected: 01/09/2019 | | Biopsy | Referral | e | without bleeding, | (Approximate), | | | | | unspecified | Expires: 01/02/2020 | | | | | esophageal varices [...] | | | tenderness | | + + +--------+ + + documented as of this encounter Results MRI Liver w wo [...] diffusion weighted, axial T1, axial | | [id number], coronal T1 postcontrast, sagittal T1 post contrast. [...] | + + | Elevated liver enzymes - Primary Nonspecific elevation of levels of transaminase or | | lactic acid dehydrogenase (LDH) | + + | Esophageal varices without bleeding, unspecified esophageal varices type (HCC) | + + | Portal hypertension (HCC) Portal hypertension | + + | Diarrhea, unspecified type | + + | Left upper quadrant abdominal tenderness without rebound tenderness | + + | Abnormal CT of liver Nonspecific abnormal results of liver function study | + + documented in this encounter"
--- OUTSIDE RECORDS SUMMARY | ~2019-02-23 | XMS | Encounter Summary ---
Demographics + + + | Address | [address] | | | [place] [address] | + + + | Home Phone | | + + + | Preferred Language | Unknown | + + + | Marital Status | | + + + | Hindu Affiliation | Unknown | + + + | Race | Unknown | + + + | Ethnic Group | Unknown | + + + Author + + + | Author | [facility] | | | and Michaelana | + + + | Organization | [facility] | | | and [...] Team Providers + +------+ + | Care Counseling Director Name | Role | Phone | [...] | | unspecified | | [address], | | | | | type Fecal | | [address] | | | | | urgency | | [place], | | | | | Abdominal | | [place] [address] | | | | | cramping | | Phone: | | | | | Heartburn | | [phone] | | | | | Black stool | | Fax: | | | | | Procedures | | [phone] | | | | | [place] | | | | | | | ESOPHAGOGAST | | | | | | | RODUODENOSCO | | | | | | | PY TRANSORAL | | | | | | | DIAGNOSTIC | | | | | | | [place] EGD | | | | | | | TRANSORAL | | | | | | | BIOPSY | | | | | | | SINGLE/MULTI | | | | | | | PLE [place] | | | | | | | COLONOSCOPY | | | | | | | FLX DX | | | | | | | W/COLLJ SPEC | | | | | | | WHEN PFRMD | | | | | | | [place] | | | | | | | COLONOSCOPY | | | | | | | W/BIOPSY | | | | | | | SINGLE/MULTI | | | | | | | PLE [place] | | | | | | | [...] + + | 12/25/ | Surgery | [facility] | Deny Nelson MD | EGD | | 2019 | | MED CTR MP INTRA OP | [address], [place] | | | | | [address] | [address] [place], [place] | | | | | [place], [place] | [address] | | | | | [address] | | | | | | [phone] | | | +--------+---------+ + + + [...] You can't be awakened Date Last Reviewed: 01/06/201619991299-7530 [employer]. [address] [place] [address]. All righ ts reserved. This information is [...] Vitamins-Minerals | nightly. | | | | | | (EMERGEN-C IMMUNE | | | [...] [address] | [place] | [phone] | | [facility] | | [address] | | | - LABORATORY | | [...] [address], | REFERENCE LAB | | [place] [id number] Marriage Performer: Анна Oscar MD, Phone: | [facility] | | [phone] | | + + + + + + + + | Performing | Address | City/State/Zipcode | Phone Number | | Organization | | | | + + + + + | REFERENCE LAB | [address] | [place] [address] | [phone] | | [facility] | Drive [facility] | | | + + + + [...] [address] | [place] | [phone] | | [facility] | | [address] | | | - LABORATORY | | [...] | REFERENCE LAB | | [place] [id number] Marriage Performer: Анна Oscar MD, Phone: | [facility] | | [phone] | | + + + + + + + + | Performing | Address | City/State/Zipcode | Phone Number | | Organization | | | | + + + + + | REFERENCE LAB | [address] | [place] [address] | [phone] | | [facility] | Drive [...] ST. | [address] | [place], [place] | [phone] | | [facility] | | [address] | | | - LABORATORY | | [...] + | [facility] | [address] | [place] | [phone] | | [facility] | | [address] | | | - LABORATORY | | [...] | | | dium | | | STrTacie CASTILLO | | | Antigen | | [...] ST. | [address] | [place], [place] | [phone] | | [facility] | | [address] | | | - LABORATORY | | [...] + | [address] | [address] | [place] | [phone] | | [facility] | | [address] | | | - LABORATORY | | | | + + + + + EGD (12/25/2018 10:30 AM PDT) + + | Specimen | + + | | + + + + -+ | Narrative | Performed At | + + -+ | | [facility] | | GastroenterologyPatient Name: Grecia BainProcedure Date: 12/25/2018 | [facility] | | 10:30 AMMRN: [id number] #: [id number] of : | | | 1970Admit Type: [...] by the physician, the nurse and the bicycle technician in the | | | endoscopy [...] AMScope Out: | | | 10:53:30 AM [facility], [address] [facility], | | | [place] [address] | | | - Resume previous diet [...] |Scope Out: 10:53:30 AM | | | [facility], [address] , [place] | | | [address] | | + + -+ + +---------+ [...] 12/25/2018 | [facility] | | 10:28 AMMRN: [id number] #: [id number] of : | | | 1970Admit Type: AmbulatoryAge: 48Room: Endo Room 1Gender: | | | FemaleNote Status: FinalizedAttending MD: Deny Nelson , | | | MDProcedure: ColonoscopyIndications: Chronic | | | diarrheaProviders: Deny Nelson MD, Vanna Castro RN, | | | Briana Constantino RN, Vianey L. | | | NIKA Burns, Marc Marrero [...] by the physician, the nurse and the bicycle technician. | | | Prophylactic Antibiotics: The [...] Scope In: 10:55:28 AMScope Out: 11:09:49 AM [facility] | | | [facility], [address] [place] [address] | | | [phone] | | | anti-inflammatory drugs for 7 [...] Out: 11:09:49 AM | | | [facility], [address] [place] | | | [address] | | + + -+ + +---------+ [...] for specific diagnostic abnormality. | | | JVR:[facility]:C2NR GROSS DESCRIPTION: Two specimens are received [...] LABORATORY: The technical component was performed by [facility] | | | [employer], [address] [place] [address] (Software Packaging Engineer: | | | Shavonne Mathias MD; CLIA# [id number]). Professional interpretation was | | | performed by [facility], [facility] | | | [place], [address] [place] [address] (Medical | | | Director: Deonte Marquez M.D.). Diagnostician: Deonte Garcia | | | Alma RAY Pathologist Electronically Signed 12/26/2018 | | + + + + +---------+ + + | Performing | Address | City/State/[facility] | Phone Number | | [...] PRN, Nausea, Vomiting, | | | Starting Tue12/25/18 at 1153, | | | First line agent. Use PO option | | | unless NPO status or unable to | | | tolerate., Post-op/Phase II | | + +---+ | | | + +---+ documented in this encounter
--- OUTSIDE RECORDS SUMMARY | ~2019-02-23 | XMS | Encounter Summary ---
Demographics + + + | Address | [address] | | | [place] [address] | + + + | Home Phone | | + + + | Preferred Language | Unknown | + + + | Marital Status | | + + + | Yazidism Affiliation | Unknown | + + + | Race | Unknown | + + + | Ethnic Group | Unknown | + + + Author + + + | Author | [facility] | | | and Michaelana | + + + | Organization | [facility] | | | and [...] Team Providers + +------+ + | Care Electrical Timing Device Calibrator Name | Role | Phone | + [...] | | | | [address] [facility] | E[place]ka [place]ar | | | | | [address] [place] | [place] [address] | | | | | [address] | | | | | | [phone] | | | +--------+ + + + [...] + | Colonoscopy | See Full Report~ [facility] | | | | | | Dr. Nelson | | | | | Impression, | | | | | | External | | | | | + + + + + + documented in this encounter Visit Diagnoses Not on filedocumented in this encounter"
--- OUTSIDE RECORDS SUMMARY | ~2019-02-23 | XMS | Encounter Summary ---
Demographics + + + | Address | [address] | | | [place] [address] | + + + | Home Phone | | + + + | Preferred Language | Unknown | + + + | Marital Status | | + + + | Religion Affiliation | Unknown | + + + | Race | Unknown | + + + | Ethnic Group | Unknown | + + + Author + + + | Author | [facility] | | | and Michaelana | + + + | Organization | [facility] [...] Team Providers + +------+ + | Care Spot Welder Name | Role | Phone | + +------+ + | Selene Francis PA-C | PCP | | + +------+ + Reason for Visit + + + | Reason | Comments | + + + | MRI Recommendation | | + + + Encounter Details +--------+ + + + + | Date | Type | Department | Care Team | Description | +--------+ + + + + | 01/09/ | Telephone | [facility] [place] | [facility], | MRI Recommendation | | 2019 | | GASTROENTEROLOGY | BRIAN Dickson [address] | | | | | [address] [place] | [place], [address] | | | | | [address] [place], [place] | [place], [place] | | | | | [address] | [address] | | | | | [phone] | | | +--------+ + + + [...]
--- OUTSIDE RECORDS SUMMARY | ~2019-02-23 | XMS | Encounter Summary ---
Demographics + + + | Address | [address] | | | [place] [address] | + + + | Home Phone [...] | Organization | [facility] | | | and Michaelana | [...] Team Providers + +------+ + | Care Grease Maker Head Name | Role | Phone | + [...] | | varices | | [address], | | | | | without | | [place] | | | | | bleeding, | | [place], | | | | | unspecified | | [place] [address] | | | | | esophageal | | Phone: | | | | | varices type | | [phone] | | | | | (HCC) | | Fax: | | | | | Acute | | [phone] | | | | | gastrointest | [...] Description | +--------+---------+ + + + | 01/24/ | Surgery | [facility] | Deny Nelson MD | EGD | | 2019 | | MED CTR MP INTRA OP | [address], [place] | | | | | [address] | [address] [place] | | | | | [place], [place] | [address] | | | | | [address] | | | | | | [phone] | | | +--------+---------+ + + + [...] + + + | Blood Pressure | 116/75 | 01/24/2019 3:15 PM | | | | | PST | | + + + + + | Pulse | 72 | 01/24/2019 3:15 PM | | | | | PST | | + + + + + | Temperature | 36 C (96.8 F) | 01/24/2019 2:55 PM | | | | | PST | | + + + + + | Respiratory Rate | 12 | 01/24/2019 2:55 PM | | | | | PST | | + + + + + | Oxygen Saturation | 97% | 01/24/2019 3:15 PM | | | | | PST | | + + + + + | Inhaled Oxygen | - | - | | | Concentration | | | | + + + + + | Weight | 73.4 kg (161 lb 13.1 | 01/24/2019 11:49 AM | | | | oz) | PST | | + + + + + | Height | 162.6 cm (5' 4") | 01/24/2019 11:49 AM | | | | | PST | | + + + + + | Body Mass Index | 27.78 | 01/24/2019 11:49 AM | | | | | PST | | + + + + + documented in this encounter Discharge Instructions Instructions Deanna Webb RN - 01/24/2019 Recovery After Procedural Sedation (Adult) You have [...] You can't be awakened Date Last Reviewed: 01/06/201619991102-7233 [employer] [address] [place] [address]. All righ ts reserved. This information is [...] packet by | 180 | 3 | /15/20 | | | light (QUESTRAN) 4 g | mouth 2 times daily. | tablet | | 19 | | | packet | Recommended it be [...] + + + +---------+ + + | omeprazole | Take 40 mg by mouth | | 0 | | | | (PRILOSEC) 40 MG | every morning | | | | | | capsule | (before breakfast). | | | | | + + + +---------+ + + | potassium chloride | Take 20 mEq by mouth | | 0 | | | | (KLOR-CON) 10 MEQ | Daily. | | | | | | ER tablet | | | [...] + + documented in this encounter Results EGD (01/24/2019 2:31 PM PST) + + | Specimen | + + | | + + + + -+ | Narrative | Performed At | + + -+ | | [facility] | | GastroenterologyPatient Name: Grecia BainProcedure Date: 01/24/2019 | [facility] | | 2:31 PMMRN: [id number] #: [id number] of : | | | 1970Admit Type: AmbulatoryAge: 48Room: Endo Room 1Gender: | | | FemaleNote Status: FinalizedAttending MD: Deny Nelson , | | | MDProcedure: Upper GI endoscopyIndications: | | | Esophageal varices, Follow-up of esophageal varices, For | | | therapy of esophageal varicesProviders: | | | Deny Nelson MD, Briana Constantino RN, Baldemar Caro, | | | Converting Supervisor, Arturo Sommers MD (Anesthesia Staff)Referring | | [...] | | | the anesthesiologist and the chief technician x ray in the endoscopy suite. | | | [...] PMScope In: 2:44:21 PMScope Out: 2:52:03 PM [facility]. | | | [facility], [address] [place] [address] | | | [phone] | | | symptoms of potential delayed [...] |Scope Out: 2:52:03 PM | | | [facility]. [facility], [address] [place] [address] | | | [address] | | + + -+ + +---------+ [...] varices type (HCC) | + + | Acute gastrointestinal hemorrhage Hemorrhage of gastrointestinal tract, unspecified | + + | Portal hypertension (HCC) Portal hypertension | + + | Other diseases of stomach and duodenum | + + | Hematemesis, presence of nausea not specified | + + documented in this encounter Admitting Diagnoses + + | Diagnosis | + + | Esophageal varices without bleeding, unspecified esophageal varices type (HCC) | + + | Acute gastrointestinal hemorrhage Hemorrhage of gastrointestinal tract, unspecified | + + | Portal hypertension (HCC) Portal hypertension | + + | Other diseases of stomach and duodenum | + + | Hematemesis, presence of nausea not specified | + + documented in this encounter Administered Medications + +--------+---------+------+------+------+ | Medication Order | MAR | Action | Dose | Rate | Site | | | Action | Date | | | | + +--------+---------+------+------+------+ + +---+ | albuterol-ipratropium 2.5-0.5 | | | mg/3 mL nebulizer solution 3 mL | | | 3 mL, Nebulization, ONCE PRN, | | | Wheezing, Starting Tue01/24/19 at | | | 1149, For 1 dose, Pre-op | | + +---+ | | | + +---+ | albuterol-ipratropium 2.5-0.5 | | | mg/3 mL nebulizer solution 3 mL | | | 3 mL, Nebulization, ONCE PRN, | | | Wheezing, Shortness of Breath, | | | Starting 01/24/19 at 1459, For | | | 1 dose, Recovery/Phase I | | + +---+ | | | + +---+ | dextrose 50% injection 12.5-25 | | | g 12.5-25 g, Intravenous, EVERY | | | 15 MIN PRN, Low Blood Sugar, Give | | | 12.5g (25 mL) IV if blood | | | glucose 50-69 mg/dL. Give 25g | | | (50 mL) IV if blood glucose < 50, | | | Starting 01/24/19 at 1149, | | | Repeat in 15 min if blood glucose | | | remains < 70 mg/dL. Repeat | | | blood glucose in 30 min once | | | blood glucose > 70., Pre-op | | + +---+ | | | + +---+ | dextrose 50% injection 12.5-25 | | | g 12.5-25 g, Intravenous, EVERY | | | 15 MIN PRN, Low Blood Sugar, For | | | hypoglycemia. Give 12.5g (25ml) | | | IV if blood glucose 50-69 | | | mg/dL. Give 25g (50ml) IV if | | | blood glucose < 50, Starting Wed | | | 01/24/19 at 1459, Give over 2 min. | | | Repeat in 15 min if blood | | | glucose remains < 70 mg/dL. | | | Repeat blood glucose in 30 min | | | once blood glucose > 70., | | | Recovery/Phase I | | + +---+ | | | + +---+ | lactated ringers (LR) infusion | | | at 100 mL/hr, Intravenous, | | | CONTINUOUS, Starting 01/24/19 | | | at 1215, Pre-op | | + +---+ | | | + +---+ + +---------+ +---+---+---+ | lactated ringers (LR) infusion | New [...] | | | | | + +---------+ +---+---+---+ +---------+ +---+-------+---+ | New Bag | 01/25/20 | | 100 | | | | 19 12:37 | | mL/hr | | | | PM PST | | | | +---------+ +---+-------+---+ + +---+ | | | + +---+ | ondansetron (ZOFRAN ODT) | | | disintegrating tablet 4 mg 4 mg, | | | Oral, EVERY 6 HOURS PRN, Nausea, | | | Vomiting, Starting Tue01/24/19 | | | at 1459, First line agent, | | | Post-op/Phase II | | + +---+ | | | + +---+ | ondansetron (ZOFRAN) injection | | | 4 mg 4 mg, Oral, EVERY 4 HOURS | | | PRN, Nausea, Vomiting, Starting | | | Tue01/24/19 at 1459, | | | Recovery/Phase I | | + +---+ | | | + +---+ | ondansetron (ZOFRAN) injection | | | 4 mg 4 mg, Intravenous, ONCE | | | PRN, Nausea, Starting Tue01/24/19 | | | at 1459, For 1 dose, | | | Post-op/Phase II | | + +---+ | | | + +---+ | ondansetron (ZOFRAN) injection | | | 4 mg 4 mg, Intravenous, EVERY 6 | | | HOURS PRN, Nausea, Vomiting, | | | Starting Tue01/24/19 at 1459, | | | First line agent. Use PO option | | | unless NPO status or unable to | | | tolerate., Post-op/Phase II | | + +---+ | | | + +---+ | sodium chloride 0.9% (NS) | | | infusion at 10-100 mL/hr, | | | Intravenous, CONTINUOUS, Starting | | | Tue01/24/19 at 1215, TKO. Use | | | this instead of LR if patient is | | | on dialysis., Pre-op | | + +---+ | | | + +---+ documented in this encounter
--- OUTSIDE RECORDS SUMMARY | ~2019-02-23 | XMS | Encounter Summary ---
Demographics + + + | Address | [address] | | | [place] [address] | + + + | Home Phone | | + + + | Preferred Language | Unknown | + + + | Marital Status | | + + + | Zoroastrianism Affiliation | Unknown | + + + | Race | Unknown | + + + | Ethnic Group | Unknown | + + + Author + + + | Author | [facility] | | | and Michaelana | + + + | Organization | [facility] | | | and Michaelana [...] Team Providers + +------+ + | Care Winemaker Name | Role | Phone | + [...] | Telephone | [facility] [place] | [facility], | MRI Recommendation | | 2019 | | GASTROENTEROLOGY | BRIAN [address]on [address] | | | | | [address] [place] | [place], [address] | | | | | [address] [place], [place] | [place], [place] | | | | | [address] | [address] | | | | | [phone] | | | +--------+ + + + [...]
--- OUTSIDE RECORDS SUMMARY | ~2019-02-23 | XMS | Encounter Summary ---
Demographics + + + | Address | [address] | | | [place] [address] | + + + | Home Phone | | + + + | Preferred Language | Unknown | + + + | Marital Status | | + + + | Caodaism Affiliation | Unknown | + + + | Race | Unknown | + + + | Ethnic Group | Unknown | + + + Author + + + | Author | [facility] | | | and Michaelana | + + + | Organization | [facility] | | | and Michaelana [...] Team Providers + +------+ + | Care Coater Slate Name | Role | Phone | + +------+ + | Selene Francis PA-C | PCP | | + +------+ + Encounter Details +--------+ + + + + | Date | Type | Department | Care Team | Description | +--------+ + + + + | 01/02/ | Documentati | [facility] [place] | [facility], | | | 2019 | on | GASTROENTEROLOGY | BRIAN [address]on [address] | | | | | [address] [place] | [place], [address] | | | | | [address] [place], [place] | [place], [place] | | | | | [address] | [address] | | | | | [phone] | | | +--------+ + + + [...] She agreed. [facility] documented in this encounter Plan of Treatment Not on filedocumented as of this encounter Visit Diagnoses Not on filedocumented in this encounter"
--- OUTSIDE RECORDS SUMMARY | ~2019-02-23 | XMS | Encounter Summary ---
Demographics + + + | Address | [address] | | | [place] [address] | + + + | Home Phone | | + + + | Preferred Language | Unknown | + + + | Marital Status | | + + + | Scientologist Affiliation | Unknown | + + + | Race | Unknown | + + + | Ethnic Group | Unknown | + + + Author + + + | Author | [facility] | | | and Michaelana | + + + | Organization | [facility] | | | [...] Providers + +------+ + | Care House Carpenter Name | Role | Phone | + +------+ + | Selene Francis PA-C | PCP | | + +------+ + Reason for Visit + + + | Reason | Comments | + + + | Labs Only | Does Dr. Nelson need labs prior to her procedure. | + + + Encounter Details +--------+ + + + + | Date | Type | Department | Care Team | Description | +--------+ + + + + | 01/18/ | Telephone | [facility] | Deny Nelson MD | Labs Only (Does | | 2019 | | GASTROENTEROLOGY | [address], [place] | Leslie need labs | | | | [address] [place] | [address] [place] | prior to her | | | | [address] [place] | [address] | procedure.) | | | | [address] | | | | | | [phone] | | | +--------+ + + + [...]
--- OUTSIDE RECORDS SUMMARY | ~2019-02-23 | XMS | Encounter Summary ---
Demographics + + + | Address | [address] | | | [place] [address] | + + + | Home Phone | | + + + | Preferred Language | Unknown | + + + | Marital Status | | + + + | Taoist Affiliation | Unknown | + + + | Race | White | + + + | Ethnic Group | Not or | + + + Author + + + | Author | [facility] | + + + | Organization | [facility] | + + + | Address | Unknown | + + + | Phone | Unavailable | + + + Support + + + + + | Name | Relationship | Address | Phone | + + + + + | Benedicto Bain | ECON | [address] | | | | | [place] | | | | | [address] | | + + + + + Care Team Providers + +------+ + | Care Fox Raiser Name | Role | Phone | + +------+ + PCP | Unavailable | + +------+ + Encounter Details +--------+ + + + + | Date | Type | Department | Care Team | Description | +--------+ + + + + | 01/17/ | Abstract | [facility] | Clinic, | | | 2019 | | [place] [facility] [address] | Gastroenterology | | | | | [place] | | | | | | Mailcode: OC8D | | | | | | [place] [facility] | | | | | | and Healing, | | | | | | [address] | | | | | | [place], [place] | | | | | | [address] | | | | | | [phone] | | | +--------+ + + + [...] | | | | | [address] [place], | | | | | | [place] [address] | | | | | | [phone] | | | | | | | | +--------+---------+ + + + documented as of this encounter Visit Diagnoses Not on filedocumented in this encounter"
--- OUTSIDE RECORDS SUMMARY | ~2019-02-23 | XMS | Encounter Summary ---
Demographics + + + | Address | [address] | | | [place] [address] | + + + | Home Phone | | + + + | Preferred Language | Unknown | + + + | Marital Status | | + + + | Anabaptist Affiliation | Unknown | + + + | Race | Unknown | + + + | Ethnic Group | Unknown | + + + Author + + + | Author | [facility] | | | and Michaelana | + + + | Organization | [facility] | | | and Michaelana [...] Team Providers + +------+ + | Care Extras Casting Director Name | Role | Phone | [...] 2019 | | GASTROENTEROLOGY | [address], [place] | with Dr. Nelson) | | | | [address] [place] | [address] [place], [place] | | | | | [address] [place], [place] | [address] | | | | | [address] | | | | | | [phone] | | | +--------+ + + + [...]
--- OUTSIDE RECORDS SUMMARY | ~2019-02-23 | XMS | Encounter Summary ---
Demographics + + + | Address | [address] | | | [place] [address] | + + + | Home Phone | | + + + | Preferred Language | Unknown | + + + | Marital Status | | + + + | Anabaptism Affiliation | Unknown | + + + | Race | Unknown | + + + | Ethnic Group | Unknown | + + + Author + + + | Author | [facility] | | | and Michaelana | + + + | Organization | [facility] | | | and [...] Team Providers + +------+ + | Care Roof Painter Name | Role | Phone | + +------+ + | Selene Francis PA-C | PCP | | + +------+ + Reason for Referral Evaluate & Treat (Urgent) + + + + + + + | Status | Reason | Specialty | Diagnoses / | Referred By | Referred To | | | | | Procedures | Contact | Contact | + + + + + + + | Authorized | Specialty | Gastroenterol | Diagnoses | | Suni, | | | Services | ogy | Other | Melanie, | MD Ankush | | | Required | | cirrhosis of | Yessi, | [address] | | | | | liver (HCC) | GAME DEVELOPER [address] | | | | | | [place], [place] | [place], [place] | | | | | | [address] [place] | [address] | | | | | | [place], [place] | Phone: | | | | | | [address] | [phone] | | | | | | Phone: | Fax: | | | | | | [phone] | [phone] | | | | | | Fax: | | | | | | | [phone] | | + + + + + + + Reason for Visit + + + | Reason | Comments | + + + | Referral | | + + + Encounter Details +--------+ + + + + | Date | Type | Department | Care Team | Description | +--------+ + + + + | 01/13/ | Telephone | [facility] [place] | [place], | Referral | | 2019 | | GASTROENTEROLOGY | BRIAN Dickson [address] | | | | | [address] [place] | [place], [place] [address] | | | | | [address] [place], [place] | [place], [place] | | | | | [address] | [address] | | | | | [phone] | | | +--------+ + + + [...] as of this encounter Plan of Treatment + + +--------+ + + | Name | Type | Priori | Associated Diagnoses | Order Schedule | | | | ty | | | + + +--------+ + + | Referral [facility] | Outpatient | Routin | Other cirrhosis of | Expected: 01/15/2019 | | Hepatology | Referral | e | liver (HCC) | (Approximate), | | | | | | Expires: 01/15/2020 | + + +--------+ + + documented as of this encounter Visit Diagnoses + + | Diagnosis | + + | Other cirrhosis of liver (HCC) | + + documented in this encounter"
--- OUTSIDE RECORDS SUMMARY | ~2019-02-23 | XMS | Clinical Summary ---
Demographics + + + | Address | [address] | | | [place] [address] | + + + | Home Phone [...] [facility] | | | and Michaelana [...] Team Providers + +------+ + | Care Solid Waste Landfill Technician Name | Role | Phone | + +------+ + | Sleene Francis PA-C | PCP | | + [...] | | | informationPatient | | | not taking. Reported | | | on 01/24/2019 12:03 | | | PM | +---+ + + + +--------+---+------+---+-------+ | propranolol | Take 1 tablet by | 90 | 2 | 12/19 | | Activ | | (INDERAL) 20 MG | mouth nightly. | tablet | | 08/07 | | e | | tablet | | | | 19 | | | + + +--------+---+------+---+-------+ +---+ + | | Additional | | | informationPatient | | | taking differently: | | | 20 mg Oral 2 TIMES | | | DAILY, Reason: Not | | | Available, Reported | | | on 01/24/2019 3:18 | | | PM | +---+ + + + +---+---+---+---+-------+ | omeprazole | Take 40 mg by mouth | | 0 | | | Activ | | (PRILOSEC) 40 MG | every morning | | | | | e | | capsule | (before breakfast). | | | | | | + + +---+---+---+---+-------+ | potassium chloride | Take 20 mEq by mouth | | 0 | | | Activ | | (KLOR-CON) 10 MEQ | Daily. | | | | | e | | ER tablet | | | | | | | + + +---+---+---+---+-------+ | furosemide (LASIX) | Take 40 mg by mouth | | 0 | | | Activ | | 20 mg tablet | 2 times daily. | | | | | e | + + +---+---+---+---+-------+ Active Problems + + + | Problem | Noted Date | + + + | Esophageal varices without bleeding, unspecified esophageal | 01/23/2019 | | varices type | | + + + + + | Overview: Added automatically from request for surgery | | [id number] | + + + + + | Acute gastrointestinal hemorrhage | 01/23/2019 | + + + + + | Overview: Added automatically from request for surgery | | [id number] | + + + + + | Portal hypertension | 01/23/2019 | + + + + + | Overview: Added automatically from request for surgery | | [id number] | + + + + + | Other diseases of stomach and duodenum | 01/23/2019 | + + + + + | Overview: Added automatically from request for surgery | | [id number] | + + + + + | Hematemesis, presence of nausea not specified | 01/23/2019 | + + + + + | Overview: Added automatically from request for surgery | | [id number] | + + + + + | Cirrhosis of liver | 01/15/2019 | + + + | Diarrhea, unspecified type | 12/18/2018 | + + + + + | Overview: Added automatically from request for surgery | | [id number] | + + + + + | Fecal urgency | 12/18/2018 | + + + + + | Overview: Added automatically from request for surgery | | [id number] | + + + + + | Abdominal cramping | 12/18/2018 | + + + + + | Overview: Added automatically from request for surgery | | [id number] | + + + + + | Heartburn | 12/18/2018 | + + + + + | Overview: Added automatically from request for surgery | | [id number] | + + + + + | Black stool | 12/18/2018 | + + + + + | Overview: Added automatically from request for surgery | | [id number] | + + Encounters +--------+ + + + + | Date | Type | Specialty | Care Team | Description | +--------+ + + + + | 02/22/ | Telephone | Gastroenterology | Deny Nelson MD | Procedure (EGD ) | | 2018 | | | | | +--------+ + + + + | 01/30/ | Telephone | Gastroenterology | Melanie, | Fawad | | 2018 | | | BRIAN Dickson | | +--------+ + + + + | 01/29/ | Documentati | Gastroenterology | Deny Nelson MD | | | 2018 | on | | | | +--------+ + + + + | 01/26/ | Telephone | Gastroenterology | Lori Navarro [...] | 01/15/ | Telephone | Gastroenterology | [facility], | Referral | | 2018 | | | BRIAN Dickson | | +--------+ + + + + | 01/13/ | Telephone | Gastroenterology | [facility], | Referral | | 2018 | | | BRIAN Dickson | | +--------+ + + + + | 01/12/ | Hospital | Radiology | [facility], | Elevated liver | | 2018 [...] | 01/09/ | Telephone | Gastroenterology | [facility], | MRI Recommendation | | 2018 | | | BRIAN Dickson | | +--------+ + + + + | 01/08/ | Hospital | Radiology | [facility], | Elevated liver | | 2019 [...] | 01/04/ | Telephone | Gastroenterology | [facility], | Other (CT ) | | 2019 | | | BRIAN Dickson | | +--------+ + + + + | 01/02/ | Office | Gastroenterology | [facility], | Elevated liver | | 2019 [...] | 01/02/ | Documentati | Gastroenterology | [facility], | | | 2019 | on | | BRIAN Dickson | | +--------+ + + + + | 12/28/ | Abstract | Gastroenterology | Provider, | | | 2019 | | | MD Rohan | | [...] | 12/18/ | Office | Gastroenterology | [facility] | Diarrhea, | | 2018 | Visit | | BRIAN Dickson | unspecified type | | | | | | (Primary Dx); Fecal | | | | | | urgency; Abdominal | | | | | | cramping; Heartburn; | | | | | | Black stool | +--------+ + + + + | 12/07/ | Abstract | Gastroenterology | Provider, | [...] + from Last 3 Months Results EGD (01/24/2019 2:31 PM PST) + + | Specimen | + + | | + + + + -+ | Narrative | Performed At | + + -+ | | [facility] | | GastroenterologyPatient Name: Grecia Stacy Date: 01/24/2019 | [place] | | 2:31 PMMRN: [id number] #: [id number] of : | | | 1970Admit Type: AmbulatoryAge: 48Room: Endo Room 1Gender: | | | FemaleNote Status: FinalizedAttending MD: Deny Nelson , | | | MDProcedure: Upper GI endoscopyIndications: | | | Esophageal varices, Follow-up of esophageal varices, For | | | therapy of esophageal varicesProviders: | | | Deny Nelson MD, Briana Constantino RN, Baldemar Caro, | | | Soap Inspector, Arturo Sommers MD (Anesthesia Staff)Referring | | [...] | | | the anesthesiologist and the ct scan technician in the endoscopy suite. | | [...] PMScope In: 2:44:21 PMScope Out: 2:52:03 PM [facility]. | | | [facility] [place] [address] | | | [phone] | | | symptoms of potential delayed [...] |Scope Out: 2:52:03 PM | | | [facility], [address], [place] | | | [address] | | + + -+ + +---------+ [...] diffusion weighted, axial T1, axial | | [id number], coronal T1 postcontrast, sagittal T1 post contrast. [...] + + LABS - EXTERNAL SCAN (01/02/2019 12:00 AM PDT)Only the most recent of 3 results within the time period is included. [...] [address] | [place] | [phone] | | [facility] | | [address] | | | - LABORATORY | | [...] difficile, | Toxigenic C. difficile | | [facility] | | | Interp | detected. Consider [...] [address] | [place] | [phone] | | [facility] | | [address] | | | - LABORATORY | | [...] | | 1 | | | [facility] | | | | | | MEDICAL [...] [address] | [place] | [phone] | | [facility] | | [address] | | | - LABORATORY | | [...] [address] [address], | REFERENCE LAB | | [place], [place] [id number] Rn Team Leader: Анна Oscar MD, Phone: | [facility] | | [phone] | | + + + + + + + + | Performing | Address | City/State/Zipcode | Phone Number | | Organization | | | | + + + + + | REFERENCE LAB | [address] [facility] | [place] [address] | [phone] | | [facility] | Drive [...] - May Uriosteg[phone], | REFERENCE LAB | | [place] [id number] Rn Team Leader: Анна Oscar MD, Phone: | [facility] | | [phone] | | + + + + + + + + | Performing | Address | City/State/Zipcode | Phone Number | | Organization | | | | + + + + + | REFERENCE LAB | [address] | [place] [address] | [phone] | | [facility] | Drive [...] | + + + + + | [facility] | [address] | [place] | [phone] | | [facility] | | [address] | | | - LABORATORY | | [...] + | [facility] | [address] | [place] | [phone] | | [facility] | | [address] | | | - LABORATORY | | [...] [address] | [place] | [phone] | | [facility] | | [address] | | | - LABORATORY | | | | + + + + + EGD (12/25/2018 10:30 AM PDT) + + | Specimen | + + | | + + + + -+ | Narrative | Performed At | + + -+ | | [facility] | | GastroenterologyPatient Name: Grecia Kumar Date: 12/25/2018 | [place] | | 10:30 AMMRN: [id number] #: [id number] of : | | | 1970Admit Type: [...] by the physician, the nurse and the ct scan technician in the | | | endoscopy [...] AMScope Out: | | | 10:53:30 AM [facility], [address] [facility], | | | [place] [address] | | | - Resume previous diet [...] |Scope Out: 10:53:30 AM | | | [facility], [address] [facility], [place], [place] | | | [address] | | + + -+ + +---------+ + + | Performing | Address | City/State/[facility]code | Phone Number | | Organization [...] 12/25/2018 | [place] | | 10:28 AMMRN: [id number] #: [id number] of : | | | 1970Admit Type: AmbulatoryAge: 48Room: Endo Room 1Gender: | | | FemaleNote Status: FinalizedAttending MD: Deny Nelson , | | | MDProcedure: ColonoscopyIndications: Chronic | | | diarrheaProviders: Deny Nelson MD, Vanna Castro RN, | | | Briana Constantino RN, Vianey Dueñas | | | NIKA Burns, Marc Marrero INSPECTOR AIDE, Baldemar | | | Gordo TechnicianReferring MD: Selene Francis (Referring | | [...] by the physician, the nurse and the ct scan technician. | | | Prophylactic Antibiotics: The [...] Scope In: 10:55:28 AMScope Out: 11:09:49 AM [facility] | | | [facility], [address] [place] [address] | | | [phone] | | | anti-inflammatory drugs for 7 [...] |Scope Out: 11:09:49 AM | | | [facility], [address] [place] [address] | | | [address] | | + + -+ + +---------+ + + | Performing | Address | City/State/[facility]code | Phone Number | | Organization [...] + | Colonoscopy | See Full Report~ SM | | | | | | Dr. [...] for specific diagnostic abnormality. | | | JVR:[facility]:C2NR GROSS DESCRIPTION: Two specimens [...] LABORATORY: The technical component was performed by [facility] | | | [employer], [address] [place] [address] (Director Biologics: | | | Shavonne Mathias MD; CLIA# [id number]). Professional interpretation was | | | performed by [facility], [facility] | | | [place], [facility] [place] [address] (Medical | | | Director: Deonte Marquez [...] | + +---------+ + + PH, Stool (12/07/2018) + + | Specimen | + + | Stool - Stool | | specimen (specimen) | + + + + + | Narrative | Performed At | + + + | ERROR- DUPLICATE | | + + + from Last 3 Months Insurance [...] + +------+ | MODA | MODA | [id number] | | [phone] | [address] | PPO | | | [employer] | | [phone] | [phone] | | | | [place] | | esent | | [place], | | | | [place] | | | | [place] [address] | | + +--------+ +--------+ + +------+ | [facility] | PHP | [phone] | 03/21/19 | [phone] | | PPO | | PLAN | [...] Person | Self | [birth year] | [address] | | | al/Reymundo | | 1971 | [phone] | [place] [address] | | | prabhjot | | | 7 (Home) | | | | | | | [phone] | | | | | | | 9 (Work) | | + +--------+ +--------+ + + Advance Directives + + + + + | Type | Date Recorded | Patient | Explanation | | | | News Editor | | + + + + + | Power of | | | | | Calliope Player | | | | + + + + + | Advance | 12/25/2018 9:30 | | | | Directive | AM | | | + + + + +
--- OUTSIDE RECORDS SUMMARY | ~2019-02-23 | XMS | Encounter Summary ---
Demographics + + + | Address | [address] | | | [place] [address] | + + + | Home Phone [...] Organization | [facility] | | | and Michaelana [...] Team Providers + +------+ + | Care Athletic Turf Worker Name | Role | Phone | [...] + | 01/18/ | Telephone | [facility] | Deny Nelson MD | Labs Only (Does | | 2019 | | GASTROENTEROLOGY | [address], [place] | Leslie need labs | | | | [address] [place] | [address] [place] | prior to her | | | | [address] [place] | [address] | procedure.) | | | | [address] | | | | | | [phone] | | | +--------+ + + + [...]
--- OUTSIDE RECORDS SUMMARY | ~2019-02-23 | XMS | Encounter Summary ---
Demographics + + + | Address | [address] | | | [place] [address] | + + + | Home Phone [...] + | Organization | [facility] | | | and Michaelana [...] Providers + +------+ + | Care Senior Engineering Specialist Name | Role | Phone | + [...] | Telephone | [facility] [place] | [facility] | | 2019 | | GASTRO[facility]OLOGY | BRIAN Dickson [address] | | | | | [address] [place] | [place], [place] [address] | | | | | [address] [place], [place] | [place], [place] | | | | | [address] | [address] | | | | | [phone] | | | +--------+ + + + [...]
--- OUTSIDE RECORDS SUMMARY | ~2019-02-23 | XMS | Encounter Summary ---
Demographics + + + | Address | [address] | | | [place] [address] | + + + | Home Phone [...] | Author | [facility] | | | and Michaelana | + + + | Organization | [facility] | | | and Michaelana [...] Team Providers + +------+ + | Care Ore Smelter Name | Role | Phone | + [...] | | | | [address] [facility] | [place] | | | | | [address] [place] [address] | [place] [address] | | | | | [address] | | | | | | [phone] | | | +--------+ + + + [...]
--- OUTSIDE RECORDS SUMMARY | ~2019-02-23 | XMS | Encounter Summary ---
Demographics + + + | Address | [address] | | | [place] [address] | + + + | Home Phone [...] | Organization | [facility] | | | and Michaelana [...] Team Providers + +------+ + | Care Photograph Inspector Name | Role | Phone | + [...] | | varices | | [address], | | | | | without | | [place] [address] | | | | | bleeding, | | [place], | | | | | unspecified | | [place] [address] | | | | | esophageal | | Phone: | | | | | varices type | | [phone] | | | | | (HCC) | | Fax: | | | | | Acute | | [phone] | | | | | gastrointest | [...] | | | | | | | MA | | | | | | | ESOPHAGOGAST | | | | | | | RODUODENOSCO | | | | | | | PY TRANSORAL | | | | | | | DIAGNOSTIC | | | | | | | MA EGD | | | | | | | TRANSORAL | | | | | | | BIOPSY | | | | | | | SINGLE/MULTI | | | | | | | PLE MA EGD | | | | | | | BAND | | | | | | | LIGATION | | | | | | | ESOPHGEAL/GA | | | | | | | STRIC | | | | | | | VARICES MA | | | | | | | [...] + + | 01/24/ | Surgery | [facility] | Deny Nelson MD | EGD | | 2019 | | MED CTR MP INTRA OP | [address], [place] | | | | | [address] | [address] [place] | | | | | [place], [place] | [address] | | | | | [address] | | | | | | [phone] | | | +--------+---------+ + + + [...] You can't be awakened Date Last Reviewed: 01/06/201619994176-7958 [employer]. [address] [place] [address]. All righ ts reserved. This information is [...] 01/24/2019 | [facility] | | 2:31 PMMRN: [id number] #: [id number] of : | | | 1970Admit Type: AmbulatoryAge: 48Room: Endo Room 1Gender: | | | FemaleNote Status: FinalizedAttending MD: Deny Nelson , | | | MDProcedure: Upper GI endoscopyIndications: | | | Esophageal varices, Follow-up of esophageal varices, For | | | therapy of esophageal varicesProviders: | | | Deny Nelson MD, Briana Constantino RN, Baldemar Caro, | | | Staging Technician, Arturo Sommers MD (Anesthesia Staff)Referring | | [...] | | | the anesthesiologist and the garage door service technician in the endoscopy suite. | | [...] PMScope In: 2:44:21 PMScope Out: 2:52:03 PM [facility]. | | | [facility], [address] [place] [address] | | | [phone] | | | symptoms of potential delayed [...] |Scope Out: 2:52:03 PM | | | [facility]. [facility], [address] [place] [address] | | | [address] | | + + -+ + +---------+ [...]
--- OUTSIDE RECORDS SUMMARY | ~2019-02-23 | XMS | Encounter Summary ---
Demographics + + + | Address | [address] | | | [place] [address] | + + + | Home Phone | | + + + | Preferred Language | Unknown | + + + | Marital Status | | + + + | Hoahaoism Affiliation | Unknown | + + + | Race | Unknown | + + + | Ethnic Group | Unknown | + + + Author + + + | Author | [facility] | | | and Michaelana | + + + | Organization | [facility] | | | and Michaelana | [...] Team Providers + +------+ + | Care District Sales Leader Name | Role | Phone | [...] [address] [place] | [place], [place] [address] | | | | | [address] [place], [place] | [place], [place] | | | | | [address] | [address] | | | | | [phone] | | | +--------+ + + + [...]
--- OUTSIDE RECORDS SUMMARY | ~2019-02-23 | XMS | Encounter Summary ---
Demographics + + + | Address | [address] | | | [place] [address] | + + + | Home Phone [...] | Organization | [facility] | | | and [...] Team Providers + +------+ + | Care Rn Outpatient Surgery Name | Role | Phone | + [...] | | Elevated | [place], | [address] [place] | | | | | liver | [place], | [place], | | | | | enzymes | COMPUTER HARDWARE DESIGNER [address] | [place] [address] | | | | | Esophageal | [place], [place] | Phone: | | | | | varices | [address] [place] | [phone] | | | | | without | [place], [place] | Fax: | | | | | bleeding, | [address] | [phone] | | | | | unspecified | Phone: | | | | | | esophageal | [phone] | | | | | | varices type | Fax: | | | | | | (HCC) | [phone] | | | | | | Portal [...] | | | | | | | DC CT SCAN | | | | | [...] | | Elevated | [place], | [address] [place] | | | | | liver | [place], | [place], | | | | | enzymes | COMPUTER HARDWARE DESIGNER [address] | [place] [address] | | | | | Esophageal | [place], [place] | Phone: | | | | | varices | [address] [place] | [phone] | | | | | without | [place], [place] | Fax: | | | | | bleeding, | [address] | [phone] | | | | | unspecified | Phone: | | | | | | esophageal | [phone] | | | | | | varices type | Fax: | | | | | | (HCC) | [phone] | | | | | | Portal [...] | | | | | | | DC CT SCAN | | | | | | | OF ABDOMEN | | | | | | | CONTRAST | | | +--------+--------+ + + + + Encounter Details +--------+ + + + + | Date | Type | Department | Care Team | Description | +--------+ + + + + | 01/08/ | Hospital | [facility] | [facility], | Elevated liver | | 2019 | Encounter | MED CTR [address] | CARMEN DicksonP [address] | enzymes; Esophageal | | | | [place], | [place], [place] [address] | varices without | | | | [place] [address] | [place], [place] | bleeding, | | | | [phone] | [address] | unspecified | | | | | [...] packet by | 180 | 3 | 10/15/20 | | | light (QUESTRAN) 4 g [...]
--- OUTSIDE RECORDS SUMMARY | ~2019-02-23 | XMS | Encounter Summary ---
Demographics + + + | Address | [address] | | | [place] [address] | + + + | Home Phone | | + + + | Preferred Language | Unknown | + + + | Marital Status | | + + + | Anabaptism Affiliation | Unknown | + + + | Race | Unknown | + + + | Ethnic Group | Unknown | + + + Author + + + | Author | [facility] | | | and Michaelana | + + + | Organization | [facility] | | | and Michaelana [...] Team Providers + +------+ + | Care Ground Water Pump Installer Name | Role | Phone | + +------+ + | Selene Francis PA-C | PCP | | + +------+ + Encounter Details +--------+ + + + + | Date | Type | Department | Care Team | Description | +--------+ + + + + | 01/29/ | Documentati | [facility] | Deny Nelson MD | | | 2019 | on | GASTROENTEROLOGY | [address], [place] | | | | | [address] [place] | [address] [place], [place] | | | | | [address] [place], [place] | [address] | | | | | [address] | | | | | | [phone] | | | +--------+ + + + [...]
--- OUTSIDE RECORDS SUMMARY | ~2019-02-23 | XMS | Encounter Summary ---
Demographics + + + | Address | [address] | | | [place] [address] | + + + | Home Phone | | + + + | Preferred Language | Unknown | + + + | Marital Status | | + + + | Voodoo Affiliation | Unknown | + + + | Race | Unknown | + + + | Ethnic Group | Unknown | + + + Author + + + | Author | [facility] | | | and Michaelana | + + + | Organization | [facility] | | | and [...] Team Providers + +------+ + | Care Back End Architect Name | Role | Phone | + [...] | Elevated | [place], | [address] | | | | | liver | [place], | [place], | | | | | enzymes | YOKE SETTER [address] | [place] | | | | | Esophageal | [place], [place] | [address] | | | | | varices | [address] [place] | Phone: | | | | | without | [place], [place] | [phone] | | | | | bleeding, | [address] | Fax: | | | | | unspecified | Phone: | [phone] | | | | | esophageal | [phone] | | | | | | varices type | Fax: | | | | | | (HCC) | [phone] | | | | | | Portal [...] | | | | | | IN MRI, | | | | | | [...] | varices | [place], | [address] | | | | | without | YOKE SETTER [address] | [place], | | | | | bleeding, | [place], [place] | [place] | | | | | unspecified | [address] [place] | [address] | | | | | esophageal | [place], [place] | Phone: | | | | | varices type | [address] | [phone] | | | | | (HCC) | Phone: | Fax: | | | | | Portal | [phone] | [phone] | | | | | hypertension | Fax: | | | | | | (HCC) | [phone] | | | | | | Diarrhea, [...] | | | | | | IN SONO | | | | | | | GUIDE NEEDLE | | | | | | | BIOPSY IN | | | | | | [...] | | Elevated | [place], | [address] | | | | | liver | [place], | [place], | | | | | enzymes | YOKE SETTER [address] | [place] [address] | | | | | Esophageal | [place], [place] | Phone: | | | | | varices | [address] [place] | [phone] | | | | | without | [place], [place] | Fax: | | | | | bleeding, | [address] | [phone] | | | | | unspecified | Phone: | | | | | | esophageal | [phone] | | | | | | varices type | Fax: | | | | | | (HCC) | [phone] | | | | | | Portal [...] | diarrhea | 1100 | [address], | | | | | Procedures | [facility] | [place] [address] [address] | | | | | MANAGER HRIS OFFICE | [address] | [place], | | | | | VISIT | [place], | [place] [address] | | | | | | [place] [address] | Phone: | | | | | | Phone: | [phone] | | | | | | [phone] | Fax: | | | | | | Fax: | [phone] | | | | | | [phone] | | + +--------+ + + + [...] [address] [place] | [place], [place] [address] | Dx); Esophageal | | | | [address] | [place] | varices without | | | | [address] | [address] | bleeding, | | | | [phone] | | unspecified | | | | [...] Procedure: COLONOSCOPY; Surgeon: Deny Nelson MD; Location: [facility] MEDICAL PROCEDURE UN[facility] KNEE SURGERY Left 2012 Partial PARTIAL HYSTERECTOMY 2013 UPPER GASTROINTESTINAL ENDOSCOPY N/A 12/25/2018 Procedure: EGD; Surgeon: Deny Nelson MD; Location: [facility] MEDICAL PROCEDURE [facility] Family History Problem [...] Colonoscopy Impression, External 12/25/2018 See Full Report~ [facility] Dr. Nelson Final Admission on 12/25/2018, Discharged [...] Hepatitis B Surface Ag Hepatitis C Ab Mhnfc-8-Fydlhvmskkw, Total Mitochondrial Ab, M2 Antinuclear Ab, Titer [...] Hepatitis B Surface Ag Hepatitis C Ab Colqb-6-Ktlhapxjjml, Total Mitochondrial Ab, M2 Antinuclear Ab, Titer [...] Hepatitis B Surface Ag Hepatitis C Ab Hmwwc-5-Eumznwaoegc, Total Mitochondrial Ab, M2 Antinuclear Ab, Titer [...] Hepatitis B Surface Ag Hepatitis C Ab Xpkxk-8-Lcqrtfutvpo, Total Mitochondrial Ab, M2 Antinuclear Ab, Titer [...] | | + +---------+--------+ + + | Opscz-3-Prscxqhbsbd, | Lab | Routin | Elevated liver [...] diffusion weighted, axial T1, axial | | Y9fhsyyvjaiobz, coronal T1 postcontrast, sagittal T1 post contrast. [...]
--- OUTSIDE RECORDS SUMMARY | ~2019-02-23 | XMS | Encounter Summary ---
Demographics + + + | Address | [address] | | | [place] [address] | + + + | Home Phone [...] | Author | [facility] | | | and Michaelana | + + + | Organization | [facility] | [...] Team Providers + +------+ + | Care Dope Edger Name | Role | Phone | + [...] | varices | | [address], | | | | | without | | [place] [address] | | | | | bleeding, | | [place], | | | | | unspecified | | [place] [address] | | | | | esophageal | | Phone: | | | | | varices type | | [phone] | | | | | (HCC) | | Fax: | | | | | Acute | | [phone] | | | | | gastrointest | [...] | | | | | | | LA | | | | | | | ESOPHAGOGAST | | | | | | | RODUODENOSCO | | | | | | | PY TRANSORAL | | | | | | | DIAGNOSTIC | | | | | | | LA EGD | | | | | | | TRANSORAL | | | | | | | BIOPSY | | | | | | | SINGLE/MULTI | | | | | | | PLE LA EGD | | | | | | | BAND | | | | | | | LIGATION | | | | | | | ESOPHGEAL/GA | | | | | | | STRIC | | | | | | | VARICES LA | | | | | | | [...] + + | 01/24/ | Hospital | [facility] | Deny Nelson MD | Esophageal varices | | 2019 | Encounter | MED CTR MP INTRA OP | [address], [place] | without bleeding, | | | | [address] | [address] [place], [place] | unspecified | | | | [place], [place] | [address] | esophageal varices | | | | [address] | | type (HCC); Acute | | | | [phone] | | gastrointestinal | | | | [...] You can't be awakened Date Last Reviewed: 01/06/201619997112-3613 [employer]. [address] [place] [address]. All righ ts reserved. This information is [...] | | GastroenterologyPatient Name: Grecia BainProshady Date: 01/24/2019 | [facility] | | 2:31 PMMRN: [id number] #: [id number] of : | | | 1970Admit Type: AmbulatoryAge: 48Room: Endo Room 1Gender: | | | FemaleNote Status: FinalizedAttending MD: Deny Nelson , | | | MDProcedure: Upper GI endoscopyIndications: | | | Esophageal varices, Follow-up of esophageal varices, For | | | therapy of esophageal varicesProviders: | | | Deny Nelson MD, Briana Constantino RN, Baldemar Caro, | | | Pharmacy Operations Coordinator, Arturo Sommers MD (Anesthesia Staff)Referring | | [...] | | | the anesthesiologist and the lab animal technician in the endoscopy suite. | | [...] PMScope In: 2:44:21 PMScope Out: 2:52:03 PM [facility]. | | | [facility], [address] [place] [address] | | | [phone] | | | symptoms of potential delayed [...] |Scope Out: 2:52:03 PM | | | [facility]. [facility], [facility] [place], [place] | | | [address] | | + + -+ + +---------+ [...] PRN, Nausea, Vomiting, Starting | | | 01/24/19 at 1459, | | | Recovery/Phase I [...]
--- OUTSIDE RECORDS SUMMARY | ~2019-02-23 | XMS | Encounter Summary ---
Demographics + + + | Address | [address] | | | [place] [address] | + + + | Home Phone | | + + + | Preferred Language | Unknown | + + + | Marital Status | | + + + | Pentecostal Affiliation | Unknown | + + + | Race | White | + + + | Ethnic Group | Not or | + + + Author + + + | Author | [facility] | + + + | Organization | [facility] | + + + | Address | Unknown | + + + | Phone | Unavailable | + + + Support + + + + + | Name | Relationship | Address | Phone | + + + + + | Benedicto Bain | ECON | [address] | | | | | [place] | | | | | [address] | | + + + + + Care Team Providers + +------+ + | Care Gold Leaf Laborer Name | Role | Phone | + +------+ + PCP | Unavailable | + +------+ + Encounter Details +--------+ + + + + | Date | Type | Department | Care Team | Description | +--------+ + + + + | 01/17/ | Abstract | Digestive Health | Clinic, | | | 2019 | | [place] [facility] [address] | Gastroenterology | | | | | [address] | | | | | | Mailcode: OC8D | | | | | | [place] [facility] | | | | | | and Healing, | | | | | | Building [address] | | | | | | [place], [place] | | | | | | [address] | | | | | | [phone] | | | +--------+ + + + [...] | 2019 | Visit | | [address] | | | | | | [place], | | | | | | [place] [address] | | | | | | [phone] | | | | | | | | +--------+---------+ + + + documented as of this encounter Visit Diagnoses Not on filedocumented in this encounter"
--- OUTSIDE RECORDS SUMMARY | ~2019-02-23 | XMS | Encounter Summary ---
Demographics + + + | Address | [address] | | | [place] [address] | + + + | Home Phone | | + + + | Preferred Language | Unknown | + + + | Marital Status | | + + + | Yarsanism Affiliation | Unknown | + + + | Race | Unknown | + + + | Ethnic Group | Unknown | + + + Author + + + | Author | [facility] | | | and Michaelana | + + + | Organization | [facility] | | | and [...] Team Providers + +------+ + | Care Diesel Mechanic Helper Name | Role | Phone | [...] | | unspecified | | [address], | | | | | type Fecal | | [place] [address] | | | | | urgency | | [place], | | | | | Abdominal | | [place] [address] | | | | | cramping | | Phone: | | | | | Heartburn | | [phone] | | | | | Black stool | | Fax: | | | | | Procedures | | [phone] | | | | | [place] | | | | | | | ESOPHAGOGAST | | | | | | | RODUODENOSCO | | | | | | | PY TRANSORAL | | | | | | | DIAGNOSTIC | | | | | | | [place] EGD | | | | | | | TRANSORAL | | | | | | | BIOPSY | | | | | | | SINGLE/MULTI | | | | | | | PLE [place] | | | | | | | COLONOSCOPY | | | | | | | FLX DX | | | | | | | W/COLLJ SPEC | | | | | | | WHEN PFRMD | | | | | | | [place] | | | | | | | COLONOSCOPY | | | | | | | W/BIOPSY | | | | | | | SINGLE/MULTI | | | | | | | PLE [place] | | | | | | | [...] + + | 12/25/ | Hospital | [facility] | Deny Nelson MD | Diarrhea, | | 2019 | Encounter | MED CTR MP INTRA OP | [address], [place] | unspecified type; | | | | [address] | [address] [place], [place] | Fecal urgency; | | | | [place], [place] | [address] | Abdominal cramping; | | | | [address] | | Heartburn; Black | | | | [phone] | | stool | +--------+ + + [...] You can't be awakened Date Last Reviewed: 01/06/201619993635-8952 [employer]. [address] [place] [address]. All righ ts reserved. This information is [...] [address] | [place] | [phone] | | [facility] | | [address] | | | - LABORATORY | | [...] [address], | REFERENCE LAB | | [place], [place] [id number] Crown Buffer: Анна Oscar MD, Phone: | [facility] | | [phone] | | + + + + + + + + | Performing | Address | City/State/Zipcode | Phone Number | | Organization | | | | + + + + + | REFERENCE LAB | [address] | [place] [address] | [phone] | | [facility] | Drive [...] difficile, | Toxigenic C. difficile | | [facility] | | | Interp | detected. Consider [...] [address] | [place] | [phone] | | [facility] | | [address] | | | - LABORATORY | | [...] [address], | REFERENCE LAB | | [place], [place] [id number] Crown Buffer: Анна Oscar MD, Phone: | [facility] | | [phone] | | + + + + + + + + | Performing | Address | City/State/Zipcode | Phone Number | | Organization | | | | + + + + + | REFERENCE LAB | [address] | [place] [address] | [phone] | | [facility] | Drive [...] [address] | [place] | [phone] | | [facility] | | [address] | | | - LABORATORY | | [...] | | | Antigen, | | | [facility] | | | Stool | | | [...] | + + + + + | [address] | [address] | [place] | [phone] | | [facility] | | [address] | | | - LABORATORY | | [...] [address] | [place] | [phone] | | [facility] | | [address] | | | - LABORATORY | | [...] ST. | [address] | [place] | [phone] | | [facility] | | [address] | | | - LABORATORY | | | | + + + + + EGD (12/25/2018 10:30 AM PDT) + + | Specimen | + + | | + + + + -+ | Narrative | Performed At | + + -+ | | [facility] | | GastroenterologyPatient Name: Grecia BainTyrel Date: 12/25/2018 | [facility] | | 10:30 AMMRN: [id number] #: [id number] of : | | | 1970Admit Type: AmbulatoryAge: 48Room: Endo Room 1Gender: | | | FemaleNote Status: FinalizedAttending MD: Deny Nelson , | | | MDProcedure: Upper GI endoscopyIndications: | | | Generalized abdominal pain, DiarrheaProviders: Deny Rainey | | | MD Leslie, Vanna Castro RN, Briana Constantino, | | | RN, Vianey Burns RN, Brittany Lopez, NIKA, | | | Marc Marrero CMA, Baldemar [...] by the physician, the nurse and the optical lab technician in the | | | endoscopy [...] AMScope Out: | | | 10:53:30 AM [facility], [address] [facility], | | | [place] [address] | | | - Resume previous diet [...] |Scope Out: 10:53:30 AM | | | [facility], [address] [facility], [place], [place] | | | [address] | | + + -+ + +---------+ [...] | [facility] | | GastroenterologyPatient Name: Grecia BainProjamesure Date: 12/25/2018 | [facility] | | 10:28 AMMRN: [id number] #: [id number] of : | | | 1970Admit Type: [...] by the physician, the nurse and the optical lab technician. | | | Prophylactic Antibiotics: The [...] Scope In: 10:55:28 AMScope Out: 11:09:49 AM [facility] | | | [facility], [address] [place] [address] | | | [phone] | | | anti-inflammatory drugs for 7 [...] |Scope Out: 11:09:49 AM | | | [facility], [address] [facility], [place], [place] | | | [address] | | + + -+ + +---------+ [...] for specific diagnostic abnormality. | | | JVR:[facility]:C2NR GROSS DESCRIPTION: Two specimens are received [...] LABORATORY: The technical component was performed by [facility] | | | [place], [address] [place] [address] (Idea Man: | | | Shavonne Mathias MD; IA# [id number]). Professional interpretation was | | | performed by [place], [facility] | | | [place], [address] [place] [address] (Medical | | | Director: Deonte Marquez [...]
--- OUTSIDE RECORDS SUMMARY | ~2019-02-23 | XMS | Encounter Summary ---
Demographics + + + | Address | [address] | | | [place] [address] | + + + | Home Phone | | + + + | Preferred Language | Unknown | + + + | Marital Status | | + + + | Islam Affiliation | Unknown | + + + | Race | Unknown | + + + | Ethnic Group | Unknown | + + + Author + + + | Author | [facility] | | | and Michaelana | + + + | Organization | [facility] | | | and [...] Team Providers + +------+ + | Care Spring Salvage Worker Name | Role | Phone | [...] | diarrhea | 1100 | [address] [place], | | | | | Procedures | [facility] | [place] [address] | | | | | DOCUMENT IMAGING SPECIALIST OFFICE | [address] | [place], | | | | | VISIT | [place], | [place] [address] | | | | | | [place] [address] | Phone: | | | | | | Phone: | [phone] | | | | | | [phone] | Fax: | | | | | | Fax: | [phone] | | | | | | [phone] | | + +--------+ + + + [...] [address] [place] | [place], [place] [address] | (Primary Dx); Fecal | | | | [address] [place], [place] | [place], [place] | urgency; Abdominal | | | | [address] | [address] | cramping; Heartburn; | | | | [phone] | | Black stool | +--------+---------+ + [...] and pr ocedure instructions. Sent prescription to [facility] in [place]. Electronically si gned by Chelita Rodriguez RN [...]
--- OUTSIDE RECORDS SUMMARY | ~2019-02-23 | XMS | Encounter Summary ---
Demographics + + + | Address | [address] | | | [place] [address] | + + + | Home Phone | | + + + | Preferred Language | Unknown | + + + | Marital Status | | + + + | Moravian Affiliation | Unknown | + + + | Race | Unknown | + + + | Ethnic Group | Unknown | + + + Author + + + | Author | [facility] | | | and Michaelana | + + + | Organization | [facility] | | | and [...] Providers + +------+ + | Care Building Construction Engineer Name | Role | Phone | + [...] 2019 | | GASTROENTEROLOGY | [address], [place] | | | | | [address] [place] | [address] [place], [place] | | | | | [address] [place], [place] | [address] | | | | | [address] | | | | | | [phone] | | | +--------+ + + + [...]
--- OUTSIDE RECORDS SUMMARY | ~2019-02-23 | XMS | Encounter Summary ---
Demographics + + + | Address | [address] | | | [place] [address] | + + + | Home Phone [...] | Author | [facility] | | | and Michaelana | + + + | Organization | [facility] | | | and Michaelana [...] Team Providers + +------+ + | Care Crawler Dragline Operator Name | Role | Phone | [...] 2019 | | GASTROENTEROLOGY | [address], [place] | with Dr. Nelson) | | | | [address] [place] | [address] [place], [place] | | | | | [address] [place], [place] | [address] | | | | | [address] | | | | | | [phone] | | | +--------+ + + + [...]
--- OUTSIDE RECORDS SUMMARY | ~2019-02-23 | XMS | Encounter Summary ---
Demographics + + + | Address | [address] | | | [place] [address] | + + + | Home Phone [...] | Organization | [facility] | | | and [...] Team Providers + +------+ + | Care Staff Electrical Engineer Name | Role | Phone | [...] [address] [place] | [place], [place] | | | | | [address] [place], [place] | [place], [place] | | | | | [address] | [address] | | | | | [phone] | | | +--------+ + + + [...]
--- OUTSIDE RECORDS SUMMARY | ~2019-02-23 | XMS | Encounter Summary ---
Demographics + + + | Address | [address] | | | [place] [address] | + + + | Home Phone [...] | Organization | [facility] | | | and [...] Team Providers + +------+ + | Care Washer Off Name | Role | Phone | + +------+ + | Selene Francis PA-C | PCP | | + +------+ + Encounter Details +--------+ + + + + | Date | Type | Department | Care Team | Description | +--------+ + + + + | 01/02/ | Documentati | [facility] | [facility], | | | 2019 | on | GASTROENTEROLOGY | BRIAN Dickson [address] | | | | | [address] [place] | [place], [place] | | | | | [address] [place], [place] | [place], [place] | | | | | [address] | [address] | | | | | [phone] | | | +--------+ + + + [...] She agreed. Also [facility]. documented in this encounter Plan of Treatment Not on filedocumented as of this encounter Visit Diagnoses Not on filedocumented in this encounter"
--- OUTSIDE RECORDS SUMMARY | ~2019-02-23 | XMS | Encounter Summary ---
Demographics + + + | Address | [address] | | | [place] [address] | + + + | Home Phone | | + + + | Preferred Language | Unknown | + + + | Marital Status | | + + + | Temple Affiliation | Unknown | + + + | Race | Unknown | + + + | Ethnic Group | Unknown | + + + Author + + + | Author | [facility] | | | and Michaelana | + + + | Organization | [facility] | | | and [...] Team Providers + +------+ + | Care Special Education Secretary Name | Role | Phone | + [...] + | 01/25/ | Telephone | [facility] | Deny Nelson MD | Medication | | 2019 | | GASTROENTEROLOGY | [address] [place], [place] | Management | | | | [address] [place] | [address] [place], [place] | | | | | 210 [place], [place] | [address] | | | | | [address] | | | | | | [phone] | | | +--------+ + + + [...]
--- OUTSIDE RECORDS SUMMARY | ~2019-02-23 | XMS | Encounter Summary ---
Demographics + + + | Address | [address] | | | [place] [address] | + + + | Home Phone [...] + | Organization | [facility] | | | [...] Team Providers + +------+ + | Care Mate Relief Name | Role | Phone | + [...] | | Elevated | [place], | [address] [place] | | | | | liver | [place], | [place], | | | | | enzymes | TISSUE REWINDER [address] | [place] [address] | | | | | Esophageal | [place], [place] | Phone: | | | | | varices | [address] [place] | [phone] | | | | | without | [place], [place] | Fax: | | | | | bleeding, | [address] | [phone] | | | | | unspecified | Phone: | | | | | | esophageal | [phone] | | | | | | varices type | Fax: | | | | | | (HCC) | [phone] | | | | | | Portal [...] | | | | | | | NE CT SCAN | | | | | [...] | | Elevated | [place], | [address] [place] | | | | | liver | [place], | [place], | | | | | enzymes | TISSUE REWINDER [address] | [place] [address] | | | | | Esophageal | [place], [place] | Phone: | | | | | varices | [address] [place] | [phone] | | | | | without | [place], [place] | Fax: | | | | | bleeding, | [address] | [phone] | | | | | unspecified | Phone: | | | | | | esophageal | [phone] | | | | | | varices type | Fax: | | | | | | (HCC) | [phone] | | | | | | Portal [...] | | | | | | | NE CT SCAN | | | | | | | OF ABDOMEN | | | | | | | CONTRAST | | | +--------+--------+ + + + + Encounter Details +--------+ + + + + | Date | Type | Department | Care Team | Description | +--------+ + + + + | 01/08/ | Hospital | [facility] | [facility], | Elevated liver | | 2019 | Encounter | MED CTR [address] | CARMEN DicksonP [address] | enzymes; Esophageal | | | | [place], | [place], [place] | varices without | | | | [place] [address] | [place], [place] | bleeding, | | | | [phone] | [address] | unspecified | | | | | [...]
--- OUTSIDE RECORDS SUMMARY | ~2019-02-23 | XMS | Encounter Summary ---
Demographics + + + | Address | [address] | | | [place] [address] | + + + | Home Phone | | + + + | Preferred Language | Unknown | + + + | Marital Status | | + + + | Denominational Affiliation | Unknown | + + + | Race | Unknown | + + + | Ethnic Group | Unknown | + + + Author + + + | Author | [facility] | | | and Michaelana | + + + | Organization | [facility] | | | and Michaelana | [...] Team Providers + +------+ + | Care Claims Representative Name | Role | Phone | + [...] [address] [place] | [place], [address] | | | | | [address] [place], [place] | [place], [place] | | | | | [address] | [address] | | | | | [phone] | | | +--------+ + + + [...]
--- OUTSIDE RECORDS SUMMARY | ~2019-02-23 | XMS | Encounter Summary ---
Demographics + + + | Address | [address] | | | [place] [address] | + + + | Home Phone | | + + + | Preferred Language | Unknown | + + + | Marital Status | | + + + | Advent Affiliation | Unknown | + + + | Race | Unknown | + + + | Ethnic Group | Unknown | + + + Author + + + | Author | [facility] | | | and Michaelana | + + + | Organization | [facility] | | [...] Team Providers + +------+ + | Care Nursing Faculty Name | Role | Phone | + [...] + | 01/25/ | Telephone | [facility] | Deny Nelson MD | Medication | | 2019 | | GASTROENTEROLOGY | [address] [place], [place] | Management | | | | [address] [place] | [address] [place], [place] | | | | | 210 [place], [place] | [address] | | | | | [address] | | | | | | [phone] | | | +--------+ + + + [...]
--- OUTSIDE RECORDS SUMMARY | ~2019-02-23 | XMS | Encounter Summary ---
Demographics + + + | Address | [address] | | | [place] [address] | + + + | Home Phone [...] | Organization | [facility] | | | and [...] Team Providers + +------+ + | Care Card Game Operator Name | Role | Phone | [...] 2018 | | GASTROENTEROLOGY | [address] [place], [place] | schedule EGD) | | | | [address] [place] | 210 [place], [place] | | | | | 210 [place], [place] | [address] | | | | | [address] | | | | | | [phone] | | | +--------+ + + + [...]
--- OUTSIDE RECORDS SUMMARY | ~2019-02-23 | XMS | Encounter Summary ---
Demographics + + + | Address | [address] | | | [place] [address] | + + + | Home Phone | | + + + | Preferred Language | Unknown | + + + | Marital Status | | + + + | Buddhist Affiliation | Unknown | + + + | Race | Unknown | + + + | Ethnic Group | Unknown | + + + Author + + + | Author | [facility] [place] | | | and [place]ana | + + + | Organization | [facility] [...] Providers + +------+ + | Care Business Analytics Manager Name | Role | Phone | [...] [address] [place] | [place], [address] | | | | | [address] [place], [place] | [place], [place] | | | | | [address] | [address] | | | | | [phone] | | | +--------+ + + + [...]
--- OUTSIDE RECORDS SUMMARY | ~2019-02-23 | XMS | Encounter Summary ---
Demographics + + + | Address | [address] | | | [place] [address] | + + + | Home Phone [...] + | Organization | [facility] [place] | | [...] Team Providers + +------+ + | Care Dinkey Driver Name | Role | Phone | [...] | Telephone | [facility] [place] | [facility], | Referral | | 2019 | | GASTROENTEROLOGY | BRIAN Dickson [address] | | | | | [address] [place] [address] | [place], [address] | | | | | [address] [place], [place] | [place], [place] | | | | | [address] | [address] | | | | | [phone] | | | +--------+ + + + [...]
--- OUTSIDE RECORDS SUMMARY | ~2019-02-23 | XMS | Encounter Summary ---
Demographics + + + | Address | [address] | | | [place] [address] | + + + | Home Phone | | + + + | Preferred Language | Unknown | + + + | Marital Status | | + + + | Yazidism Affiliation | Unknown | + + + | Race | Unknown | + + + | Ethnic Group | Unknown | + + + Author + + + | Author | [facility] [place] | | | and Michaelana | + + + | Organization | [facility] [place] | | | [...] Team Providers + +------+ + | Care Tractor Driver Teamster Name | Role | Phone | + [...] | | | | [address] [facility] | Emeka Lamar | | | | | [address] [place] [place] [place] | [place] [address] | | | | | [address] | | | | | | [phone] | | | +--------+ + + + [...] + | Colonoscopy | See Full Report~ [facility] | | | | | | Dr. Nelson | | | | | Impression, | | | | | | External | | | | | + + + + + + documented in this encounter Visit Diagnoses Not on filedocumented in this encounter"
--- OUTSIDE RECORDS SUMMARY | ~2019-02-23 | XMS | Encounter Summary ---
Demographics + + + | Address | [address] | | | [place] [address] | + + + | Home Phone | | + + + | Preferred Language | Unknown | + + + | Marital Status | | + + + | Spiritism Affiliation | Unknown | + + + | Race | Unknown | + + + | Ethnic Group | Unknown | + + + Author + + + | Author | [facility] [place] | | | and [place]ana | + + + | Organization | [facility] [place] | | | and Michaelana | + + + | Address | Unknown | + + + | Phone | Unavailable | + + + Support + + +---------+ + | Name | Relationship | Address | Phone | + + +---------+ + | Benedicto Bani | ECON | Unknown | | + + +---------+ + | Selene Cohen | ECON | Unknown | | + + +---------+ + Care Team Providers + +------+ + | Care Ward Secretary Name | Role | Phone | [...] | | varices | | [address], | | | | | without | | [address] | | | | | bleeding, | | [place], | | | | | unspecified | | [place] [address] | | | | | esophageal | | Phone: | | | | | varices type | | [phone] | | | | | (HCC) | | Fax: | | | | | Acute | | [phone] | | | | | gastrointest | [...] | | | | | | | [place] | | | | | | | ESOPHAGOGAST | | | | | | | RODUODENOSCO | | | | | | | PY TRANSORAL | | | | | | | DIAGNOSTIC | | | | | | | ND EGD | | | | | | | TRANSORAL | | | | | | | BIOPSY | | | | | | | SINGLE/MULTI | | | | | | | PLE ND EGD | | | | | | | BAND | | | | | | | LIGATION | | | | | | | ESOPHGEAL/GA | | | | | | | STRIC | | | | | | | VARICES ND | | | | | | | [...] + + | 01/24/ | Anesthesia | [facility] | Arturo Sommers | | | 2019 | Event | MED CTR MP INTRA OP | [address] | | | | | [address] | [address] [facility] | | | | | [place] | [place] [address] | | | | | [address] | [phone] | | | | | [phone] | | | +--------+ + + + [...] Deanna Webb RN | | IV | [id number] catheter system; | NIKA Mcleod | | [...]
--- OUTSIDE RECORDS SUMMARY | ~2019-02-23 | XMS | Encounter Summary ---
Demographics + + + | Address | [address] | | | [place] [address] | + + + | Home Phone [...] Organization | [facility] [place] | | | and Michaelana [...] Team Providers + +------+ + | Care Vp Product Marketing Name | Role | Phone | + [...] | diarrhea | 1100 | [address] [place], | | | | | Procedures | [facility] | [address] | | | | | MANAGER SALES AND MARKETING OFFICE | [address] | [place], | | | | | VISIT | [place], | [place] [address] | | | | | | [place] [address] | Phone: | | | | | | Phone: | [phone] | | | | | | [phone] | Fax: | | | | | | Fax: | [phone] | | | | | | [phone] | | + +--------+ + + + [...] [address] [place] [address] | [place], [address] | (Primary Dx); Fecal | | | | [address] [place], [place] | [place], [place] | urgency; Abdominal | | | | [address] | [address] | cramping; Heartburn; | | | | [phone] | | Black stool | +--------+---------+ + [...] and pr ocedure instructions. Sent prescription to [facility] in [place]. Electronically si gned by Chelita Rodriguez RN [...]
--- OUTSIDE RECORDS SUMMARY | ~2019-02-23 | XMS | Clinical Summary ---
Demographics + + + | Address | [address] | | | [place] [address] | + + + | Home Phone | | + + + | Preferred Language | Unknown | + + + | Marital Status | | + + + | Latter-Day Affiliation | Unknown | + + + | Race | Unknown | + + + | Ethnic Group | Unknown | + + + Author + + + | Author | [facility] [place] | | | and [place]ana | + + + | Organization | [facility] [place] | | [...] Team Providers + +------+ + | Care I O Psychologist Name | Role | Phone | + [...] automatically from request for surgery | | [id number] | + + + + + | Acute gastrointestinal hemorrhage | 01/23/2019 | + + + + + | Overview: Added automatically from request for surgery | | [id number] | + + + + + | Portal hypertension | 01/23/2019 | + + + + + | Overview: Added automatically from request for surgery | | [id number] | + + + + + | Other diseases of stomach and duodenum | 01/23/2019 | + + + + + | Overview: Added automatically from request for surgery | | [id number] | + + + + + | Hematemesis, presence of nausea not specified | 01/23/2019 | + + + + + | Overview: Added automatically from request for surgery | | [id number] | + + + + + | Cirrhosis of liver | 01/15/2019 | + + + | Diarrhea, unspecified type | 12/18/2018 | + + + + + | Overview: Added automatically from request for surgery | | [id number] | + + + + + | Fecal urgency | 12/18/2018 | + + + + + | Overview: Added automatically from request for surgery | | [id number] | + + + + + | Abdominal cramping | 12/18/2018 | + + + + + | Overview: Added automatically from request for surgery | | [id number] | + + + + + | Heartburn | 12/18/2018 | + + + + + | Overview: Added automatically from request for surgery | | [id number] | + + + + + | Black stool | 12/18/2018 | + + + + + | Overview: Added automatically from request for surgery | | [id number] | + + Encounters +--------+ + + [...] | 01/15/ | Telephone | Gastroenterology | [facility], | Referral | | 2018 | | | BRIAN Dickson | | +--------+ + + + + | 01/13/ | Telephone | Gastroenterology | [facility], | Referral | | 2018 | | | BRIAN Dickson | | +--------+ + + + + | 01/12/ | Hospital | Radiology | [facility], | Elevated liver | | 2018 [...] | 01/09/ | Telephone | Gastroenterology | [facility], | MRI Recommendation | | 2018 | | | BRIAN Dickson | | +--------+ + + + + | 01/08/ | Hospital | Radiology | [facility], | Elevated liver | | 2019 [...] | 01/04/ | Telephone | Gastroenterology | [facility], | Other (CT ) | | 2019 | | | BRIAN Dickson | | +--------+ + + + + | 01/02/ | Office | Gastroenterology | [facility], | Elevated liver | | 2019 [...] | 01/02/ | Documentati | Gastroenterology | [facility], | | | 2019 | on [...] | 12/18/ | Office | Gastroenterology | [facility] | Diarrhea, | | 2018 | [...] 01/24/2019 | [facility] | | 2:31 PMMRN: [id number] #: [id number] of : | | | 1970Admit Type: AmbulatoryAge: 48Room: Endo Room 1Gender: | | | FemaleNote Status: FinalizedAttending MD: Deny Nelson , | | | MDProcedure: Upper GI endoscopyIndications: | | | Esophageal varices, Follow-up of esophageal varices, For | | | therapy of esophageal varicesProviders: | | | Deny Nelson MD, Briana Constantino RN, Baldemar Caro, | | | Train Driver, Arturo Sommers MD (Anesthesia Staff)Referring | | [...] | | | the anesthesiologist and the instrument and controls technician in the endoscopy suite. | | [...] PMScope In: 2:44:21 PMScope Out: 2:52:03 PM [facility]. | | | [facility], [facility] [place] [address] | | | [phone] | | | symptoms of potential delayed [...] |Scope Out: 2:52:03 PM | | | [facility], [address], [place] | | | [address] | | + + -+ + +---------+ [...] diffusion weighted, axial T1, axial | | [id number], coronal T1 postcontrast, sagittal T1 post contrast. [...] [address] | [place] | [phone] | | [facility] | | [address] | | | - LABORATORY | | [...] difficile, | Toxigenic C. difficile | | [facility] | | | Interp | detected. Consider [...] [address] | [place] | [phone] | | [facility] | | [address] | | | - LABORATORY | | [...] [address] | [place] | [phone] | | [facility] | | [address] | | | - LABORATORY | | [...] [address], | REFERENCE LAB | | [place], [place] [address] Insights Manager: Анна Oscar MD, Phone: | [facility] | | [phone] | | + + + + + + + + | Performing | Address | City/State/Zipcode | Phone Number | | Organization | | | | + + + + + | REFERENCE LAB | [address] [facility] [address] [facility] [address] | [place] [address] | [phone] | | [facility] | Drive [...] - May Uriosteg[phone], | REFERENCE LAB | | [place] [id number] Insights Manager: Анна Oscar MD, Phone: | [facility] | | [phone] | | + + + + + + + + | Performing | Address | City/State/Zipcode | Phone Number | | Organization | | | | + + + + + | REFERENCE LAB | [address] | [place] [address] | [phone] | | [facility] | Drive [...] | + + + + + | [facility] | [address] | [place] | [phone] | | [facility] | | [address] | | | - LABORATORY | | [...] + | [facility] | [address] | [place] | [phone] | | [facility] | | [address] | | | - LABORATORY | | [...] [address] | [place] | [phone] | | [facility] | | [address] | | | - LABORATORY | | | | + + + + + EGD (12/25/2018 10:30 AM PDT) + + | Specimen | + + | | + + + + -+ | Narrative | Performed At | + + -+ | | [facility] | | GastroenterologyPatient Name: Grecia Kumar Date: 12/25/2018 | [facility] | | 10:30 AMMRN: [id number] #: [id number] of : | | | 1970Admit Type: [...] by the physician, the nurse and the instrument and controls technician in the | | | endoscopy [...] AMScope Out: | | | 10:53:30 AM [facility], [address] [facility], | | | [place] [address] | | | - Resume previous diet [...] |Scope Out: 10:53:30 AM | | | [facility], [address] [facility], [place], [place] | | | [address] | | + + -+ + +---------+ [...] 12/25/2018 | [facility] | | 10:28 AMMRN: [id number] #: [id number] of : | | | 1970Admit Type: AmbulatoryAge: 48Room: Endo Room 1Gender: | | | FemaleNote Status: FinalizedAttending MD: Deny Nelson , | | | MDProcedure: ColonoscopyIndications: Chronic | | | diarrheaProviders: Deny Nelson MD, Vanna Castro RN, | | | Briana Constantino RN, Vianey Dueñas | | | NIKA Burns, Marc Marrero LINEN CHECKER, Baldemar | | | Gordo TechnicianReferring MD: [...] by the physician, the nurse and the instrument and controls technician. | | | Prophylactic Antibiotics: The [...] Scope In: 10:55:28 AMScope Out: 11:09:49 AM [facility] | | | [facility], [address] [place] [address] | | | [phone] | | | anti-inflammatory drugs for 7 [...] |Scope Out: 11:09:49 AM | | | [facility], [address] [place] [address] | | | [address] | | + + -+ + +---------+ [...] LABORATORY: The technical component was performed by [employer] | | | [employer], [address] [place] [address] (Chief Gauger: | | | Shavonne Mathias MD; CLIA# [id number]). Professional interpretation was | | | performed by [employer], [facility] | | | [place], [facility] [place] [address] (Medical | | | Director: Deonte Marquez [...] + +------+ | MODA | MODA | [id number] | | [phone] | [address] | PPO | | | [employer] | | [address] | 9 | [address] | | | | [place] | | esent | | [place], | | | | [place] | | | | [place] [address] | | + +--------+ +--------+ + +------+ | [facility] | PHP | [phone] | 03/21/19 | [phone] | | PPO [...] Person | Self | [birth year] | | [address] | | | al/Reymundo | | 1971 | [phone] | [place] [address] | | | prabhjot | | | 7 (Home) | | | | | | | [phone] | | | | | | | 9 (Work) | | + +--------+ +--------+ + + Advance Directives + + + + + | Type | Date Recorded | Patient | Explanation | | | | Main Line Assembler | | + + + + + | Power of | | | | | Senior Oracle Adf Developer | | | | + + + + + | Advance | 12/25/2018 9:30 | | | | Directive | AM | | | + + + + +
--- OUTSIDE RECORDS SUMMARY | ~2019-02-23 | XMS | Encounter Summary ---
Demographics + + + | Address | [address] | | | [place] [address] | + + + | Home Phone [...] | [facility] [place] | | | and Michaelana [...] Team Providers + +------+ + | Care Jack Spooler Tender Name | Role | Phone | + [...] | Elevated | [place], | [address] | | | | | liver | [place], | [place], | | | | | enzymes | RADIO COMMUNICATION COORDINATOR [address] | [place] | | | | | Esophageal | [place], [place] | [address] | | | | | varices | [address] [place] | Phone: | | | | | without | [place], [place] | [phone] | | | | | bleeding, | [address] | Fax: | | | | | unspecified | Phone: | [phone] | | | | | esophageal | [phone] | | | | | | varices type | Fax: | | | | | | (HCC) | [phone] | | | | | | Portal [...] | | | | | | | [place] MRI, | | | | | | [...] | Elevated | [place], | [address] | | | | | liver | [place], | [place], | | | | | enzymes | RADIO COMMUNICATION COORDINATOR [address] | [place] | | | | | Esophageal | [place], [place] | [address] | | | | | varices | [address] [place] | Phone: | | | | | without | [place], [place] | [phone] | | | | | bleeding, | [address] | Fax: | | | | | unspecified | Phone: | [phone] | | | | | esophageal | [phone] | | | | | | varices type | Fax: | | | | | | (HCC) | [phone] | | | | | | Portal [...] | | | | | | | [place] MRI, | | | | | | | ABDOMEN, | | | | | | | COMBO | | | +--------+--------+ + + + + Encounter Details +--------+ + + + + | Date | Type | Department | Care Team | Description | +--------+ + + + + | 01/12/ | Hospital | [facility] | [facility], | Elevated liver | | 2019 | Encounter | MED CTR MRI [address] | [place], RADIO COMMUNICATION COORDINATOR [address] | enzymes; Esophageal | | | | [address] [place], | [place], [address] | varices without | | | | [place] [address] | [place], [place] | bleeding, | | | | [phone] | [address] | unspecified | | | | | [...] diffusion weighted, axial T1, axial | | [id number], coronal T1 postcontrast, sagittal T1 post contrast. [...]
--- OUTSIDE RECORDS SUMMARY | ~2019-02-23 | XMS | Encounter Summary ---
Demographics + + + | Address | [address] | | | [place] [address] | + + + | Home Phone [...] | Organization | [facility] [place] [...] Team Providers + +------+ + | Care Living Manager Name | Role | Phone | [...] | | varices | | [address], | | | | | without | | [address] | | | | | bleeding, | | [place], | | | | | unspecified | | [place] [address] | | | | | esophageal | | Phone: | | | | | varices type | | [phone] | | | | | (HCC) | | Fax: | | | | | Acute | | [phone] | | | | | gastrointest | [...] | | | | | | | [place] | | | | | | | ESOPHAGOGAST | | | | | | | RODUODENOSCO | | | | | | | PY TRANSORAL | | | | | | | DIAGNOSTIC | | | | | | | NV EGD | | | | | | | TRANSORAL | | | | | | | BIOPSY | | | | | | | SINGLE/MULTI | | | | | | | PLE NV EGD | | | | | | | BAND | | | | | | | LIGATION | | | | | | | ESOPHGEAL/GA | | | | | | | STRIC | | | | | | | VARICES NV | | | | | | | [...] + + | 01/24/ | Hospital | [facility] | Deny Nelson MD | Esophageal varices | | 2019 | Encounter | MED CTR MP INTRA OP | [address], [place] | without bleeding, | | | | [address] | [address] [place], [place] | unspecified | | | | [place], [place] | [address] | esophageal varices | | | | [address] | | type (HCC); Acute | | | | [phone] | | gastrointestinal | | | | [...] You can't be awakened Date Last Reviewed: 01/06/201619998326-9254 [employer]. [address] [place] [address]. All righ ts reserved. This information is [...] 01/24/2019 | [facility] | | 2:31 PMMRN: [id number] #: [id number] of : | | | 1970Admit Type: AmbulatoryAge: 48Room: Endo Room 1Gender: | | | FemaleNote Status: FinalizedAttending MD: Deny Nelson , | | | MDProcedure: Upper GI endoscopyIndications: | | | Esophageal varices, Follow-up of esophageal varices, For | | | therapy of esophageal varicesProviders: | | | Deny Nelson MD, Briana Constantino RN, Baldemar Caro, | | | Clinical Laboratory Medical Director, Arturo Sommers MD (Anesthesia Staff)Referring | | [...] | | | the anesthesiologist and the lighting technician in the endoscopy suite. | | [...] 2:44:21 PMScope Out: 2:52:03 PM [facility]. | | | [facility], [address] [place] [address] | | | [phone] | | | symptoms of potential delayed [...] |Scope Out: 2:52:03 PM | | | [facility]. [facility], [facility] [place], [place] | | | [address] | | + + -+ + +---------+ [...]
--- OUTSIDE RECORDS SUMMARY | ~2019-02-23 | XMS | Encounter Summary ---
Demographics + + + | Address | [address] | | | [place] [address] | + + + | Home Phone | | + + + | Preferred Language | Unknown | + + + | Marital Status | | + + + | Islam Affiliation | Unknown | + + + | Race | Unknown | + + + | Ethnic Group | Unknown | + + + Author + + + | Author | [facility] [place] | | | and Michaelana | + + + | Organization | [facility] [place] | [...] Team Providers + +------+ + | Care Linen Room Worker Name | Role | Phone | [...] 2019 | | GASTROENTEROLOGY | [address] [place], [place] [address] | | | | | [address] [place] [address] | [address] [place], [place] | | | | | [address] [place], [place] | [address] | | | | | [address] | | | | | | [phone] | | | +--------+ + + + [...]
--- OUTSIDE RECORDS SUMMARY | ~2019-02-23 | XMS | Clinical Summary ---
Demographics + + + | Address | [address] | | | [place] [address] | + + + | Home Phone [...] + + | Author | [facility] | + + + | Organization | [facility] | + + + | Address | Unknown | + + + | Phone | Unavailable | + + + Support + + + + + | Name | Relationship | Address | Phone | + + + + + | Benedicto Bain | ECON | [address] | | | | | [place] | | | | | [address] | | + + + + + Care Team Providers + +------+ + | Care Completions Engineer Name | Role | Phone | + +------+ + | Selene Francis | PCP | | + +------+ + Source Comments [facility] is fully live on both [facility] and [facility] Allergies Not on File Medications Not [...] | | 2020 | Visit | | [address] | | | | | | [place], | | | | | | [place] [address] | | | | | | [phone] | | | | | | | [...] [employer] | MODA | [phone] | | [phone] | [address] | PPO | | | [address] | | [address] | [address] | [address] | | | | [place] | | esent | | [place], | | | | [place] | | | | [place] [address] | | + +--------+ +--------+ + +------+ | [facility] | PROVID | [phone] | 10/20/19 | [phone] | [address] | PPO | | | ENCE | | [address] | [address] | [address] | | | | CHOICE | | sent | | [place], | | | | [place] | | | | [place] [address] | | + +--------+ +--------+ + +------+ + +--------+ +--------+ + + | Guarantor Name | Accoun | Relation to | Date | Phone | Billing Address | | | t Type | Patient | of | | | | | | | | | | + +--------+ +--------+ + + | Grecia Bain | Person | Self | [birth year] | [address] | | | pearl/[place]ymundo | | 1971 | [phone] | [place] [address] | | | prabhjot | | | 7 (Home) | | | | | | | [phone] | | | | | | | 9 (Work) | | + +--------+ +--------+ + +"
--- OUTSIDE RECORDS SUMMARY | ~2019-02-23 | XMS | Encounter Summary ---
Demographics + + + | Address | [address] | | | [place] [address] | + + + | Home Phone | | + + + | Preferred Language | Unknown | + + + | Marital Status | | + + + | Restorationism Affiliation | Unknown | + + + | Race | Unknown | + + + | Ethnic Group | Unknown | + + + Author + + + | Author | [facility] [place] | | | and Michaelana | + + + | Organization | [facility] [place] | | | and [...] Team Providers + +------+ + | Care Movie Editor Name | Role | Phone | + [...] | | varices | | [address], | | | | | without | | [address] | | | | | bleeding, | | [place], | | | | | unspecified | | [place] [address] | | | | | esophageal | | Phone: | | | | | varices type | | [phone] | | | | | (HCC) | | Fax: | | | | | Acute | | [phone] | | | | | gastrointest | [...] | | | | | | | MS | | | | | | | ESOPHAGOGAST | | | | | | | RODUODENOSCO | | | | | | | PY TRANSORAL | | | | | | | DIAGNOSTIC | | | | | | | MS EGD | | | | | | | TRANSORAL | | | | | | | BIOPSY | | | | | | | SINGLE/MULTI | | | | | | | PLE MS EGD | | | | | | | BAND | | | | | | | LIGATION | | | | | | | ESOPHGEAL/GA | | | | | | | STRIC | | | | | | | VARICES MS | | | | | | | [...] + | 01/24/ | Anesthesia | [facility] | Arturo Sommers | | | 2019 | Event | MED CTR MP INTRA OP | [address] | | | | | [address] | [address] | | | | | [place] | [place] [address] | | | | | [address] | [phone] | | | | | [phone] | | | +--------+ + + + + Anesthesia Record + + + + + | Procedure Name | Responsible | Anesthesia Start | Anesthesia Stop Time | | | Anesthesiologist | Time | | + + + + + | EGD (N/A Mouth) | Atruro Sommers, | 01/24/19 1435 | 01/24/19 1456 [...] Deanna Webb RN | | IV | ivwg-pon-nzlxqv catheter system; | N[facility]A [facility] | | [...]
--- OUTSIDE RECORDS SUMMARY | ~2019-02-23 | XMS | Encounter Summary ---
Demographics + + + | Address | [address] | | | [place] [address] | + + + | Home Phone | | + + + | Preferred Language | Unknown | + + + | Marital Status | | + + + | Islam Affiliation | Unknown | + + + | Race | Unknown | + + + | Ethnic Group | Unknown | + + + Author + + + | Author | [facility] | | | and Michaelana | + + + | Organization | [facility] | | [...] Team Providers + +------+ + | Care Foreign Service Officer Name | Role | Phone | [...] cirrhosis of | [place], | [address] | | | | | liver (HCC) | CLINICAL PROJECT MANAGER [address] | | | | | | [place], [place] | [place], [place] | | | | | | [address] [place] | [address] | | | | | | [place], [place] | Phone: | | | | | | [address] | [phone] | | | | | | Phone: | Fax: | | | | | | [phone] | [phone] | | | | | | Fax: | | | | | | | [phone] | | + + + + + [...] [address] [place] | [place], [place] [address] | | | | | 210 [place], [place] | [place] | | | | | [address] | [address] | | | | | [phone] | | | +--------+ + + + [...]
--- OUTSIDE RECORDS SUMMARY | ~2019-02-23 | XMS | Encounter Summary ---
Demographics + + + | Address | [address] | | | [place] [address] | + + + | Home Phone | | + + + | Preferred Language | Unknown | + + + | Marital Status | | + + + | Mormonism Affiliation | Unknown | + + + | Race | Unknown | + + + | Ethnic Group | Unknown | + + + Author + + + | Author | [facility] | | | and Michaelana | + + + | Organization | [facility] | | | and [...] Team Providers + +------+ + | Care Printing Bindery Assistant Name | Role | Phone | [...] [address] [place] | [place], [place] [address] | | | | | 210 [place], [place] | [place], [place] | | | | | [address] | [address] | | | | | [phone] | | | +--------+ + + + [...]
--- OUTSIDE RECORDS SUMMARY | ~2019-02-23 | XMS | Encounter Summary ---
Demographics + + + | Address | [address] | | | [place] [address] | + + + | Home Phone | | + + + | Preferred Language | Unknown | + + + | Marital Status | | + + + | Bahai Affiliation | Unknown | + + + | Race | Unknown | + + + | Ethnic Group | Unknown | + + + Author + + + | Author | [facility] | | | and Michaelana | + + + | Organization | [facility] | | | and [...] Team Providers + +------+ + | Care Brick Tosser Name | Role | Phone | + [...] [address] [place] | [place], [place] [address] | | | | | [address] [place], [place] | [place], [place] | | | | | [address] | [address] | | | | | [phone] | | | +--------+ + + + [...]
--- OUTSIDE RECORDS SUMMARY | ~2019-02-23 | XMS | Encounter Summary ---
Demographics + + + | Address | [address] | | | [place] [address] | + + + | Home Phone | | + + + | Preferred Language | Unknown | + + + | Marital Status | | + + + | Holiness Affiliation | Unknown | + + + | Race | Unknown | + + + | Ethnic Group | Unknown | + + + Author + + + | Author | [facility] | | | and Michaelana | + + + | Organization | [facility] [...] Team Providers + +------+ + | Care Reversal Print Inspector Name | Role | Phone | + +------+ + | Selene Francis PA-C | PCP | | + +------+ + Encounter Details +--------+ + + + + | Date | Type | Department | Care Team | Description | +--------+ + + + + | 01/29/ | Documentati | [facility] | Deny Nelson MD | | | 2019 | on | GASTROENTEROLOGY | [address], [place] | | | | | [address] [place] | [address] [place], [place] | | | | | 210 [place], [place] | [address] | | | | | [address] | | | | | | [phone] | | | +--------+ + + + [...]
--- OUTSIDE RECORDS SUMMARY | ~2019-02-23 | XMS | Encounter Summary ---
Demographics + + + | Address | [address] | | | [place] [address] | + + + | Home Phone | | + + + | Preferred Language | Unknown | + + + | Marital Status | | + + + | Protestant Affiliation | Unknown | + + + | Race | Unknown | + + + | Ethnic Group | Unknown | + + + Author + + + | Author | [facility] | | | and Michaelana | + + + | Organization | [facility] | [...] Team Providers + +------+ + | Care End Finder Twisting Department Name | Role | Phone | + [...] 2018 | | GASTROENTEROLOGY | [address] [place], [place] | schedule EGD) | | | | [address] [place] | [address] [place], [place] | | | | | 210 [place], [place] | [address] | | | | | [address] | | | | | | [phone] | | | +--------+ + + + [...]
--- OUTSIDE RECORDS SUMMARY | ~2019-02-23 | XMS | Encounter Summary ---
Demographics + + + | Address | [address] | | | [place] [address] | + + + | Home Phone [...] + + | Organization | [facility] | | | and [...] Team Providers + +------+ + | Care Assistant Grocery Name | Role | Phone | + [...] | | unspecified | | [address], | | | | | type Fecal | | [place] [address] | | | | | urgency | | [place], | | | | | Abdominal | | [place] [address] | | | | | cramping | | Phone: | | | | | Heartburn | | [phone] | | | | | Black stool | | Fax: | | | | | Procedures | | [phone] | | | | | [place] | [...] + + | 12/25/ | Surgery | [facility] | Deny Nelson MD | EGD | | 2019 | | MED CTR MP INTRA OP | [address], [place] | | | | | [address] | [address] [place], [place] | | | | | [place], [place] | [address] | | | | | [address] | | | | | | [phone] | | | +--------+---------+ + + + [...] You can't be awakened Date Last Reviewed: 01/06/201619995384-2402 [employer]. [address] [place] [address]. All righ ts reserved. This information is [...] [address] | [place] | [phone] | | [facility] | | [address] | | | - LABORATORY | | [...] [address], | REFERENCE LAB | | [place] [id number] Electroless Plater: Анна Oscar MD, Phone: | [facility] | | [phone] | | + + + + + + + + | Performing | Address | City/State/Zipcode | Phone Number | | Organization | | | | + + + + + | REFERENCE LAB | [address] | [place] [address] | [phone] | | [facility] | Drive [facility] | | | + + + + [...] [address] | [place] | [phone] | | [facility] | | [address] | | | - LABORATORY | | [...] | REFERENCE LAB | | [place] [id number] Electroless Plater: Анна Oscar MD, Phone: | [facility] | | [phone] | | + + + + + + + + | Performing | Address | City/State/Zipcode | Phone Number | | Organization | | | | + + + + + | REFERENCE LAB | [address] | [place] [address] | [phone] | | [facility] | Drive [...] ST. | [address] | [place], [place] | [phone] | | [facility] | | [address] | | | - LABORATORY | | [...] [address] | [place] | [phone] | | [facility] | | [address] | | | - LABORATORY | | [...] ST. | [address] | [place], [place] | [phone] | | [facility] | | [address] | | | - LABORATORY | | [...] + | [address] | [address] | [place] | [phone] | | [facility] | | [address] | | | - LABORATORY | | | | + + + + + EGD (12/25/2018 10:30 AM PDT) + + | Specimen | + + | | + + + + -+ | Narrative | Performed At | + + -+ | | [facility] | | GastroenterologyPatient Name: Grecia BainProcedure Date: 12/25/2018 | [facility] | | 10:30 AMMRN: [id number] #: [id number] of : | | | 1970Admit Type: [...] by the physician, the nurse and the aviation safety equipment technician in the | | | endoscopy [...] AMScope Out: | | | 10:53:30 AM [facility], [address] [facility], | | | [place] [address] | | | - Resume previous diet [...] |Scope Out: 10:53:30 AM | | | [facility], [address] , [place] | | | [address] | | + + -+ + +---------+ [...] 12/25/2018 | [facility] | | 10:28 AMMRN: [id number] #: [id number] of : | | | 1970Admit Type: [...] by the physician, the nurse and the aviation safety equipment technician. | | | Prophylactic Antibiotics: The [...] Scope In: 10:55:28 AMScope Out: 11:09:49 AM [facility] | | | [facility], [address] [place] [address] | | | [phone] | | | anti-inflammatory drugs for 7 [...] Out: 11:09:49 AM | | | [facility], [address] [place] | | | [address] | | + + -+ + +---------+ [...] BIOPSY SPECIMEN(S): B RANDOM COLON BIOPSY | [place] PATHOLOGY | | SPECIMEN SOURCE: A. DUODENAL [...] for specific diagnostic abnormality. | | | JVR:[facility]:C2NR GROSS DESCRIPTION: Two specimens are [...] LABORATORY: The technical component was performed by [facility] | | | [facility], [address] [place] [address] (Burnisher: | | | Shavonne Mathias MD; CLIA# [id number]). Professional interpretation was | | | performed by [facility], [facility] | | | [place], [address] [place] [address] (Medical | | | Director: Deonte Marquez M.D.). Diagnostician: Deonte Garcia | | | Alma RAY Pathologist Electronically Signed 12/26/2018 | | + + + + +---------+ + + | Performing | Address | City/State/[facility] Centercode | Phone Number | [...]
--- OUTSIDE RECORDS SUMMARY | ~2019-02-23 | XMS | Encounter Summary ---
Demographics + + + | Address | [address] | | | [place] [address] | + + + | Home Phone | | + + + | Preferred Language | Unknown | + + + | Marital Status | | + + + | Anabaptism Affiliation | Unknown | + + + | Race | Unknown | + + + | Ethnic Group | Unknown | + + + Author + + + | Author | [facility] | | | and Michaelana | + + + | Organization | [facility] | | | and [...] Team Providers + +------+ + | Care Inspection Machine Tender Name | Role | Phone | [...] | Elevated | [place], | [address] | | | | | liver | [place], | [place], | | | | | enzymes | CENSUS TAKER [address] | [place] | | | | | Esophageal | [place], [place] | [address] | | | | | varices | [address] [place] | Phone: | | | | | without | [place], [place] | [phone] | | | | | bleeding, | [address] | Fax: | | | | | unspecified | Phone: | [phone] | | | | | esophageal | [phone] | | | | | | varices type | Fax: | | | | | | (HCC) | [phone] | | | | | | Portal [...] | | | | | | [place] MRI, | | | | | | [...] | Elevated | [place], | [address] | | | | | liver | [place], | [place], | | | | | enzymes | CENSUS TAKER [address] | [place] | | | | | Esophageal | [place], [place] | [address] | | | | | varices | [address] [place] | Phone: | | | | | without | [place], [place] | [phone] | | | | | bleeding, | [address] | Fax: | | | | | unspecified | Phone: | [phone] | | | | | esophageal | [phone] | | | | | | varices type | Fax: | | | | | | (HCC) | [phone] | | | | | | Portal [...] | | | | | | [place] MRI, | | | | | | | ABDOMEN, | | | | | | | COMBO | | | +--------+--------+ + + + + Encounter Details +--------+ + + + + | Date | Type | Department | Care Team | Description | +--------+ + + + + | 01/12/ | Hospital | [facility] | [facility], | Elevated liver | | 2019 | Encounter | MED CTR MRI [address] | [place], CENSUS TAKER [address] | enzymes; Esophageal | | | | [place], | [place], [place] [address] | varices without | | | | [place] [address] | [place] | bleeding, | | | | [phone] | [address] | unspecified | | | | | [...] diffusion weighted, axial T1, axial | | [id number], coronal T1 postcontrast, sagittal T1 post contrast. [...]
--- OUTSIDE RECORDS SUMMARY | ~2019-02-23 | XMS | Encounter Summary ---
Demographics + + + | Address | [address] | | | [place] [address] | + + + | Home Phone [...] Organization | [facility] [...] Team Providers + +------+ + | Care Duco Polisher Name | Role | Phone | + [...] | | unspecified | | [address], | | | | | type Fecal | | [place] [address] | | | | | urgency | | [place], | | | | | Abdominal | | [place] [address] | | | | | cramping | | Phone: | | | | | Heartburn | | [phone] | | | | | Black stool | | Fax: | | | | | Procedures | | [phone] | | | | | [place] | [...] | | | | | PLE [place] | | | | | | [...] | | | | | PLE LA | | | | | | [...] + + | 12/25/ | Hospital | [facility] | Deny Nelson MD | Diarrhea, | | 2019 | Encounter | MED CTR MP INTRA OP | [address], [place] | unspecified type; | | | | [address] | [address] [place], [place] | Fecal urgency; | | | | [place], [place] | [address] | Abdominal cramping; | | | | [address] | | Heartburn; Black | | | | [phone] | | stool | +--------+ + + [...] You can't be awakened Date Last Reviewed: 01/06/201619997917-1687 [employer]. [address] [place] [address]. All righ ts reserved. This information is [...] [address] | [place] | [phone] | | [facility] | | [address] | | | - LABORATORY | | [...] [place] [address], | REFERENCE LAB | | [place], [place] [address] Sheepskin Pickler: Анна Oscar MD, Phone: | [facility] | | [phone] | | + + + + + + + + | Performing | Address | City/State/Zipcode | Phone Number | | Organization | | | | + + + + + | REFERENCE LAB | [address] [facility] | [place] [address] | [phone] | | [facility] | Drive [...] difficile, | Toxigenic C. difficile | | [facility] | | | Interp | [...] [address] | [place] | [phone] | | [facility] | | [address] | | | - LABORATORY | | [...] [address], | REFERENCE LAB | | [place], [place] [address] Sheepskin Pickler: Анна Oscar MD, Phone: | [facility] | | [phone] | | + + + + + + + + | Performing | Address | City/State/Zipcode | Phone Number | | Organization | | | | + + + + + | REFERENCE LAB | [address] | [place] [address] | [phone] | | [facility] | Drive [...] [address] | [place] | [phone] | | [facility] | | [address] | | | - LABORATORY | | [...] | | | Antigen, | | | [facility] | | | Stool | [...] [address] | [place] | [phone] | | [facility] | | [address] | | | - LABORATORY | | [...] [address] | [place] | [phone] | | [facility] | | [address] | | | - LABORATORY | | [...] ST. | [address] | [place] | [phone] | | [facility] | | [address] | | | - LABORATORY | | | | + + + + + EGD (12/25/2018 10:30 AM PDT) + + | Specimen | + + | | + + + + -+ | Narrative | Performed At | + + -+ | | [facility] | | GastroenterologyPatient Name: Grecia BainTyrel Date: 12/25/2018 | [facility] | | 10:30 AMMRN: [id number] #: [id number] of : | | | 1970Admit Type: [...] by the physician, the nurse and the broadcast operations technician in the | | | endoscopy [...] | 10:53:30 AM [facility], [address] [facility], | | | [place] [address] | | | - Resume previous diet [...] | | | [facility], [address] [facility], [place], [place] | | | [address] | | + + -+ + +---------+ [...] 12/25/2018 | [facility] | | 10:28 AMMRN: [id number] #: [id number] of : | | | 1970Admit Type: [...] by the physician, the nurse and the broadcast operations technician. | | | Prophylactic Antibiotics: The [...] 11:09:49 AM [facility] | | | [facility], [address] [place] [address] | | | [phone] | | | anti-inflammatory drugs for 7 [...] | | | [facility], [address] [facility], [place], [place] | | | [address] | | + + -+ + +---------+ [...] for specific diagnostic abnormality. | | | JVR:[facility]:C2NR GROSS DESCRIPTION: Two specimens are received [...] LABORATORY: The technical component was performed by [facility] | | | [facility], [address] [place] [address] (Deputy District Customs Director: | | | Shavonne Mathias MD; IA# [id number]). Professional interpretation was | | | performed by [facility], [facility] | | | [place], [address] [place] [address] (Medical | | | Director: Deonte Marquez [...]
--- OUTSIDE RECORDS SUMMARY | ~2019-02-23 | XMS | Clinical Summary ---
Demographics + + + | Address | [address] | | | [place] [address] | + + + | Home Phone [...] + + | Author | [facility] | + + + | Organization | [facility] | + + + | Address | Unknown | + + + | Phone | Unavailable | + + + Support + + + + + | Name | Relationship | Address | Phone | + + + + + | Benedicto Bain | ECON | [address] | | | | | [place] | | | | | [address] | | + + + + + Care Team Providers + +------+ + | Care Financial Accounting Analyst Name | Role | Phone | + +------+ + | Selene Francis | PCP | | + +------+ + Source Comments [facility] is fully live on both [facility] Ambulatory and [facility] InPatient.[facility] Allergies Not on [...] | | 2020 | Visit | | [address] | | | | | | [place], | | | | | | [place] [address] | | | | | | [phone] | | | | | | | [...] [employer] | MODA | [phone] | | [phone] | [address] | PPO | | | [employer]EBB | | [address] | [address] | | | | [place] | | esent | | [place], | | | | [place] | | | | [place] [address] | | + +--------+ +--------+ + +------+ | [facility] | PROVID | [phone] | 10/20/19 | [phone] | [address] | PPO | | | ENCE | | [address] | [address] | [address] | | | | CHOICE | | sent | | [place], | | | | [place] | | | | [place] [address] | | + +--------+ +--------+ + +------+ + +--------+ +--------+ + + | Guarantor Name | Accoun | Relation to | Date | Phone | Billing Address | | | t Type | Patient | of | | | | | | | | | | + +--------+ +--------+ + + | Grecia Bain | Person | Self | [birth year] | [address] | | | pearl/Reymundo | | 1971 | [phone] | [place] [address] | | | prabhjot | | | 7 (Home) | | | | | | | [phone] | | | | | | | 9 (Work) | | + +--------+ +--------+ + +"
[~2019-02-23 07:19] MED LIST: PROPRANOLOL HCL20 MG PO
[2019-02-23] MEDS ORDERED: OMEPRAZOLE20 MG PO (07:40)
[2019-02-23] MEDS ORDERED: LASIX40 MG PO (07:41)
[2019-02-23] MEDS ORDERED: K-TAB ER20 MEQ PO (07:41)
[2019-02-23] MEDS ORDERED: IRON18 MG PO (07:42)
[2019-02-23] MEDS ORDERED: VITAMIN C250 MG PO (07:42)
[2019-02-23] MEDS ORDERED: ALDACTONE25 MG PO (07:43)
[2019-02-23] MEDS ORDERED: BACTRIM DS TAB1 EACH PO (10:32)
[2019-02-23] MEDS ORDERED: ULTRAM50 MG PO (10:32)
== END 2019-02-23 11:08 | disposition home or self-care (01) ==
LOC: ED 07:19
DX: N39.0 Urinary tract infection, site not specified (principal); Z79.899 Other long term (current) drug therapy
CPT/HCPCS: 80053; 81001; 83690; 85025; 87077; 87088; 87186; 96374; 96375; 99284-25; J2270; J2405; J7030

== ENCOUNTER 2019-03-17 20:22 | Emergency (ER) | payer OTHER ==
[~2019-03-17] VITALS: Ht 162.6 cm; Wt 61.7 kg
--- OUTSIDE RECORDS SUMMARY | ~2019-03-17 | XMS | Encounter Summary ---
Demographics + + + | Address | [address] | | | [place] [address] | + + + | Home Phone | | + + + | Preferred Language | Unknown | + + + | Marital Status | | + + + | Hindu Affiliation | Unknown | + + + | Race | Unknown | + + + | Ethnic Group | Unknown | + + + Author + + + | Author | [facility] | | | and [place] | + + + | Organization | [facility] | | | and [...] Team Providers + +------+ + | Care Jammer Operator Name | Role | Phone | + +------+ + | Selene Francis PA-C | PCP | | + +------+ + Reason for Visit Auth/Cert +--------+--------+ + + + + | Status | Reason | Specialty | Diagnoses / | Referred By | Referred To | | | | | Procedures | Contact | Contact | +--------+--------+ + + + + | | | | Diagnoses | | Harri, | | | | | Diarrhea, | | Deny E, MD | | | | | unspecified | | [address], | | | | | type Fecal | | [address] | | | | | urgency | | [place], | | | | | Abdominal | | [place] [address] | | | | | cramping | | Phone: | | | | | Heartburn | | [phone] | | | | | Black stool | | Fax: | | | | | Procedures | | [phone] | | | | | [place] | | | | | | | ESOPHAGOGAST | | | | | | | RODUODENOSCO | | | | | | | PY TRANSORAL | | | | | | | DIAGNOSTIC | | | | | | | [place] EGD | | | | | | | TRANSORAL | | | | | | | BIOPSY | | | | | | | SINGLE/MULTI | | | | | | | PLE [place] | | | | | | | COLONOSCOPY | | | | | | | FLX DX | | | | | | | W/COLLJ SPEC | | | | | | | WHEN PFRMD | | | | | | | [place] | | | | | | | COLONOSCOPY | | | | | | | W/BIOPSY | | | | | | | SINGLE/MULTI | | | | | | | PLE [place] | | | | | | | COLSC FLX | | | | | | | W/RMVL OF | | | | | | | TUMOR POLYP | | | | | | | LESION SNARE | | | | | | | TQ EGD | | | | | | | COLONOSCOPY | | | +--------+--------+ + + + + Encounter Details +--------+---------+ + + + | Date | Type | Department | Care Team | Description | +--------+---------+ + + + | 12/25/ | Surgery | [facility] | Deny Nelson MD | EGD | | 2019 | | [facility] | [address], [place] [address] | | | | | [address] | [address] [place], [place] | | | | | [place], [place] | [address] | | | | | [address] | | | | | | [phone] | | | +--------+---------+ + + + Social History + +-------+ [...] + +---------+ + | Alcohol Use | Drinks/Week | oz/Week | Comments | + + +---------+ + | Yes | | | once a month at the | | | | | most | + + +---------+ + + [...] + + documented as of this encounter Last Filed Vital Signs + + + + + | Vital Sign | Reading | Time Taken | Comments | + + + + + | Blood Pressure | 110/65 | 12/25/2018 11:45 AM | | | | | PDT | | + + + + + | Pulse | 77 | 12/25/2018 11:55 AM | | | | | PDT | | + + + + + | Temperature | 36.2 C (97.2 F) | 12/25/2018 10:12 AM | | | | | PDT | | + + + + + | Respiratory Rate | 17 | 12/25/2018 11:10 AM | | | | | PDT | | + + + + + | Oxygen Saturation | 97% | 12/25/2018 11:55 AM | | | | | PDT | | + + + + + | Inhaled Oxygen | - | - | | | Concentration | | | | + + + + + | Weight | 70.6 kg (155 lb 10.3 | 12/25/2018 10:12 AM | | | | oz) | PDT | | + + + + + | Height | 162.6 cm (5' 4") | 12/25/2018 10:12 AM | | | | | PDT | | + + + + + | Body Mass Index | 26.72 | 12/25/2018 10:12 AM | | | | | PDT | | + + + + + documented in this encounter Discharge Instructions Marti Montalvo RN - 12/25/2018 Recovery After Procedural Sedation (Adult) You have been given medicine by vein to make you sleep during your procedure. This may have included both a pain medicine and sleeping medicine. Most of the effects have worn off. But you may still have some drowsiness for the next 6 to 8 hours. Home care Follow these guidelines when you get home: For the next 8 hours, you should be watched by a responsible adult. This person should [place] sure your condition is not getting worse. Don't drink any alcoholfor the next [address], operate dangerous machinery,make important business or personal decisions , or sign legal documentsduring the next 24 hours. Note: Your healthcare provider may tell you not to take any medicine by mouth for pain or s leep in the next 4 hours. These medicines may react with the medicines you were given in the hospital. This could cause a much stronger response than usual. Follow-up care Follow up with your healthcare provider if you are not alert and back to your usual level o f activity within 12 hours. When to seek medical advice Call your healthcare provider right away if any of these occur: Drowsiness gets worse Weakness or dizziness gets worse Repeated vomiting You can't be awakened Date Last Reviewed: 01/06/201619996057-6459 [employer]. [address] [place] [address]. All righ ts reserved. This information is not intended as a substitute for professional medical care. Always follow your healthcare professional's instructions. documented in this encounter Medications at Time of Discharge + + + +---------+ + + | Medication | Sig | Dispensed | Refills | Start | End Date | | | | | | Date | | + + + +---------+ + + | acetaminophen | Take 325 mg by mouth | | 0 | | | | (TYLENOL) 325 mg | EVERY 4 TO 6 HOURS | | | | | | tablet | NEEDED for Pain. | | | | | + + + +---------+ + + | CALCIUM PO | Take 1 tablet by | | 0 | | | | | mouth Daily. | | | | | + + + +---------+ + + | dicyclomine | Take 1 tablet by | 120 | 2 | 12/19/19 | | | (BENTYL) 20 MG | mouth 4 times daily | tablet | | 19 | 9 | | tablet | as needed (abdominal | | | | | | | cramping.). | | | | | + + + +---------+ + + | ibuprofen (ADVIL, | Take 200 mg by mouth | | 0 | | | | MOTRIN) 200 mg | EVERY 4 TO 6 HOURS | | | | 9 | | tablet | NEEDED for Pain. | | | | | + + + +---------+ + + | Multiple | Take by mouth | | 0 | | | | Vitamins-Minerals | nightly. | | | | 9 | | (ZULEYMAN-C IMMUNE | | | | | | | PO) | | | | | | + + + +---------+ + + documented as of this encounter Plan of Treatment Not on filedocumented as of this encounter Procedures + +--------+ + + + | Procedure Name | Priori | Date/Time | Associated Diagnosis | Comments | | | ty | | | | + +--------+ + + + | LABS - EXTERNAL SCAN | | 01/02/2019 | | Results for this | | | | 12:00 AM | | procedure are in the | | | | PDT | | results section. | + +--------+ + + + | LACTOFERRIN, FECAL, | Routin | 12/25/2018 | | Results for this | | QUAL | e | 11:03 AM | | procedure are in the | | | | PDT | | results section. | + +--------+ + + + | CLOSTRIDIOIDES | Routin | 12/25/2018 | | Results for this | | DIFFICILE NAAT | e | 11:02 AM | | procedure are in the | | REFLEX | | PDT | | results section. | + +--------+ + + + | STOOL PATHOGENS, | Routin | 12/25/2018 | | Results for this | | NAAT, 6 TO 11 | e | 11:02 AM | | procedure are in the | | TARGETS | | PDT | | results section. | + +--------+ + + + | CLOSTRIDIOIDES | Routin | 12/25/2018 | | Results for this | | DIFFICILE NAAT | e | 11:02 AM | | procedure are in the | | REFLEX TO TOX AG | | PDT | | results section. | + +--------+ + + + | RESULT | Routin | 12/25/2018 | | Results for this | | (NON-ORD)[facility] | e | 11:02 AM | | procedure are in the | | | | PDT | | results section. | + +--------+ + + + | OVA AND PARASITE | Routin | 12/25/2018 | | Results for this | | EXAMINATION | e | 11:02 AM | | procedure are in the | | | | PDT | | results section. | + +--------+ + + + | CRYPTOSPORIDIUM AG | Routin | 12/25/2018 | | Results for this | | | e | 11:02 AM | | procedure are in the | | | | PDT | | results section. | + +--------+ + + + | GIARDIA AG, EIA, | Routin | 12/25/2018 | | Results for this | | STOOL | e | 11:02 AM | | procedure are in the | | | | PDT | | results section. | + +--------+ + + + | HELICOBACTER PYLORI | Routin | 12/25/2018 | | Results for this | | BIOPSY | e | 10:47 AM | | procedure are in the | | | | PDT | | results section. | + +--------+ + + + | COLONOSCOPY | | 12/25/2018 | Diarrhea, | | | | | 10:40 AM | unspecified type | | | | | PDT | Fecal urgency | | | | | | Abdominal cramping | | | | | | Heartburn Black | | | | | | stool | | + +--------+ + + + | EGD | | 12/25/2018 | Diarrhea, | | | | | 10:40 AM | unspecified type | | | | | PDT | Fecal urgency | | | | | | Abdominal cramping | | | | | | Heartburn Black | | | | | | stool | | + +--------+ + + + | EGD | Routin | 12/25/2018 | | Results for this | | | e | 10:30 AM | | procedure are in the | | | | PDT | | results section. | + +--------+ + + + | COLONOSCOPY | Routin | 12/25/2018 | | Results for this | | | e | 10:28 AM | | procedure are in the | | | | PDT | | results section. | + +--------+ + + + | SURGICAL PATHOLOGY | Routin | 12/25/2018 | | Results for this | | EXAM | e | 12:00 AM | | procedure are in the | | | | PDT | | results section. | + +--------+ + + + documented in this encounter Results LABS - EXTERNAL SCAN (01/02/2019 12:00 AM PDT) + + + | Narrative | Performed At | + + + | Ordered by an | | | unspecified provider. | | + + + Lactoferrin, Fecal, Qual (12/25/2018 11:03 AM PDT) + + + + + + | Component | Value | Ref Range | Performed | Pathologist | | | | | At | Signature | + + + + + + | Lactoferrin | Negative | Negative | [facility] | | | , Qual | | | [facility] | | | | | | MEDICAL | | | | | | CENTER - | | | | | | LABORATORY | | + + + + + + + + | Specimen | + + | Stool - Stool | | specimen (specimen) | + + + + + + + | Performing | Address | City/State/Zipcode | Phone Number | | Organization | | | | + + + + + | [facility] | [address] | [place] | [phone] | | [facility] | | [address] | | | - LABORATORY | | | | + + + + + RESULT REFLEX (12/25/2018 11:02 AM PDT) + + + + + + | Component | Value | Ref Range | Performed | Pathologist | | | | | At | Signature | + + + + + + | Result | CommentComment: No ova, | | REFERENCE | | | | cysts, or parasites | | LAB [facility] | | | | seen.One negative | | - [facility] | | | | specimen does not rule | | | | | | out the possibility of | | | | | | aparasitic infection. | | | | + + + + + + + + | Specimen | + + | Stool - Stool | | specimen (specimen) | + + + + + | Narrative | Performed At | + + + | Performed at: 01 - [facility] [address], | REFERENCE LAB | | [place], [place] [id number] Eyelet Punch Operator: Анна Oscar MD, Phone: | [facility] | | [phone] | | + + + + + + + + | Performing | Address | City/State/Zipcode | Phone Number | | Organization | | | | + + + + + | REFERENCE LAB | [address] | [place] [address] | [phone] | | [facility] | Drive [facility] | | | + + + + + Clostridioides difficile NAAT Reflex (12/25/2018 11:02 AM PDT) + + + + + + | Component | Value | Ref Range | Performed | Pathologist | | | | | At | Signature | + + + + + + | C. | NegativeComment: No | Negative | [facility] | | | difficile, | Toxigenic C. difficile | | [facility] | | | Interp | detected. Consider other | | MEDICAL | | | | causes of Diarrhea. | | CENTER - | | | | Repeat testing should | | LABORATORY | | | | not be performed within | | | | | | 7 days. | | | | + + + + + + | C. | Negative | | [facility] | | | difficile, | | | [facility] | | | NAAT | | | MEDICAL | | | | | | CENTER - | | | | | | LABORATORY | | + + + + + + + + | Specimen | + + | Stool - Stool | | specimen (specimen) | + + + + + + + | Performing | Address | City/State/Zipcode | Phone Number | | Organization | | | | + + + + + | [facility] | [address] | [place] | [phone] | | [facility] | | [address] | | | - LABORATORY | | | | + + + + + Ova and Parasite Examination (12/25/2018 11:02 AM PDT) + + + + + + | Component | Value | Ref Range | Performed | Pathologist | | | | | At | Signature | + + + + + + | Ova + | Final reportComment: | | REFERENCE | | | Parasite | These results were | | LAB [facility] | | | Exam | obtained using wet | | - [facility] | | | | preparation(s) and | | | | | | trichromestained smear. | | | | | | This test does not | | | | | | include testing for | | | | | | Cryptosporidiumparvum, | | | | | | Cyclospora, or | | | | | | Microsporidia. | | | | + + + + + + + + | Specimen | + + | Stool - Stool | | specimen (specimen) | + + + + + | Narrative | Performed At | + + + | Performed at: 01 - [facility] [address], | REFERENCE LAB | | [place] [id number] Eyelet Punch Operator: Анна Oscar MD, Phone: | [facility] | | [phone] | | + + + + + + + + | Performing | Address | City/State/Zipcode | Phone Number | | Organization | | | | + + + + + | REFERENCE LAB | [address] [facility] | [place] [address] | [phone] | | [facility] | [address] | | | + + + + + Stool Pathogens, NAAT (12/25/2018 11:02 AM PDT) + + + + + + | Component | Value | Ref Range | Performed | Pathologist | | | | | At | Signature | + + + + + + | Campylobact | Not Detected | Not Detected | [facility] | | | er, NAAT | | | [facility] | | | | | | MEDICAL | | | | | | CENTER - | | | | | | LABORATORY | | + + + + + + | Salmonella, | Not Detected | Not Detected | [facility] | | | NAAT | | | [facility] | | | | | | MEDICAL | | | | | | CENTER - | | | | | | LABORATORY | | + + + + + + | Shigella | Not Detected | Not Detected | [facility] | | | NAAT | | | [facility] | | | | | | MEDICAL | | | | | | CENTER - | | | | | | LABORATORY | | + + + + + + | Vibrio, | Not Detected | Not Detected | [facility] | | | NAAT | | | [facility] | | | | | | MEDICAL | | | | | | CENTER - | | | | | | LABORATORY | | + + + + + + | Yersinia | Not Detected | Not Detected | [facility] | | | enterocolit | | | [facility] | | | ica, NAAT | | | MEDICAL | | | | | | CENTER - | | | | | | LABORATORY | | + + + + + + | Shigatoxin | Negative | Negative | [facility] | | | 1 | | | [facility] | | | | | | MEDICAL | | | | | | CENTER - | | | | | | LABORATORY | | + + + + + + | Shigatoxin | Negative | Negative | [facility] | | | 2 | | | [facility] | | | | | | MEDICAL | | | | | | CENTER - | | | | | | LABORATORY | | + + + + + + + + | Specimen | + + | Stool - Stool | | specimen (specimen) | + + + + + + + | Performing | Address | City/State/Zipcode | Phone Number | | Organization | | | | + + + + + | [facility] | [address] | [place] | [phone] | | [facility] | | [address] | | | - LABORATORY | | | | + + + + + Giardia Ag, EIA, Stool (12/25/2018 11:02 AM PDT) + + + + + + | Component | Value | Ref Range | Performed | Pathologist | | | | | At | Signature | + + + + + + | Giardia | Negative | Negative | [facility] | | | Antigen, | | | [facility] | | | Stool | | | MEDICAL | | | | | | CENTER - | | | | | | LABORATORY | | + + + + + + + + | Specimen | + + | Stool - Stool | | specimen (specimen) | + + + + + + + | Performing | Address | City/State/Zipcode | Phone Number | | Organization | | | | + + + + + | [facility] | [address] | [place] | [phone] | | [facility] | | [address] | | | - LABORATORY | | | | + + + + + Cryptosporidium Ag (12/25/2018 11:02 AM PDT) + + + + + + | Component | Value | Ref Range | Performed | Pathologist | | | | | At | Signature | + + + + + + | Cryptospori | Negative | Negative | [facility] | | | dium | | | [facility] | | | Antigen | | | MEDICAL | | | | | | CENTER - | | | | | | LABORATORY | | + + + + + + + + | Specimen | + + | Stool - Stool | | specimen (specimen) | + + + + + + + | Performing | Address | City/State/Zipcode | Phone Number | | Organization | | | | + + + + + | [facility] | [address] | [place] | [phone] | | [facility] | | [address] | | | - LABORATORY | | | | + + + + + Helicobactor pylori Biopsy (12/25/2018 10:47 AM PDT) + + + + + + | Component | Value | Ref Range | Performed | Pathologist | | | | | At | Signature | + + + + + + | Helicobacte | Negative | Negative | [facility] | | | r pylori Ag | | | [facility] | | | | | | MEDICAL | | | | | | CENTER - | | | | | | LABORATORY | | + + + + + + + + | Specimen | + + | Tissue - Specimen | | from stomach | | (specimen) | + + + + + + + | Performing | Address | City/State/Zipcode | Phone Number | | Organization | | | | + + + + + | [facility] | [address] | [place] | [phone] | | [facility] | | [address] | | | - LABORATORY | | | | + + + + + EGD (12/25/2018 10:30 AM PDT) + + | Specimen | + + | | + + + + -+ | Narrative | Performed At | + + -+ | | [facility] | | GastroenterologyPatient Name: Grecia Vizcainocedalma Date: 12/25/2018 | [facility] | | 10:30 AMMRN: [id number] #: [id number] of : | | | 1970Admit Type: AmbulatoryAge: 48Room: Endo Room 1Gender: | | | FemaleNote Status: FinalizedAttending MD: Deny Nelson , | | | MDProcedure: Upper GI endoscopyIndications: | | | Generalized abdominal pain, DiarrheaProviders: Deny Rainey | | | MD Leslie, Vanna Castro RN, Briana Constantino, | | | RN, Vianey Burns RN, Brittany Lopez RN, | | | Marc Marrero CMA, Baldemar Caro, | | | TechnicianReferring MD: Selene Francis (Referring MD)Medicines: | | | Midazolam 5 mg IV, Meperidine 100 mg IV, Benzocaine | | | spray, Oxygen 4 liters/min | | | nasocannulaComplications: No immediate complications. Estimated | | | blood loss: Minimal.Procedure: Pre-Anesthesia Assessment: | | | - Prior to the procedure, a History and Physical was performed, and | | | patient medications, allergies and sensitivities were reviewed. | | | The patient's tolerance of previous anesthesia was reviewed. | | | - Prior to the procedure, a History and Physical was performed, | | | and patient medications and allergies were reviewed. The | | | patient is competent. The risks and benefits of the procedure | | | and the sedation options and risks were discussed with the | | | patient. All questions were answered and informed consent was | | | obtained. Patient identification and proposed procedure were | | | verified by the physician, the nurse and the electrical test technician in the | | | endoscopy suite. Mental Status Examination: alert and oriented. | | | Airway Examination: normal oropharyngeal airway and neck | | | mobility and Mallampati Class II (the uvula but not tonsillar pillars | | | visualized). Respiratory Examination: clear to auscultation. CV | | | Examination: normal. Prophylactic Antibiotics: The patient | | | does not require prophylactic antibiotics. Prior | | | Anticoagulants: The patient has taken no previous anticoagulant | | | or antiplatelet agents. ASA Grade Assessment: II - A patient | | | with mild systemic disease. After reviewing the risks and | | | benefits, the patient was deemed in satisfactory condition to | | | undergo the procedure. The anesthesia plan was to use moderate | | | sedation / analgesia (conscious sedation). Immediately prior to | | | administration of medications, the patient was re-assessed for | | | adequacy to receive sedatives. The heart rate, respiratory | | | rate, oxygen saturations, blood pressure, adequacy of pulmonary | | | ventilation, and response to care were monitored throughout | | | the procedure. The physical status of the patient was | | | re-assessed after the procedure. - After reviewing the risks and | | | benefits, the patient was deemed in satisfactory condition to | | | undergo the procedure. - Immediately prior to administration of | | | medications, the patient was re-assessed for adequacy to | | | receive sedatives. - The heart rate, respiratory rate, oxygen | | | saturations, blood pressure, adequacy of pulmonary ventilation, | | | and response to care were monitored throughout the procedure. | | | - The physical status of the patient was re-assessed after the | | | procedure. After obtaining informed consent, the endoscope was | | | passed under direct vision. Throughout the procedure, the | | | patient's blood pressure, pulse, and oxygen saturations were | | | monitored continuously. The Endoscope was introduced through | | | the mouth, and advanced to the third part of duodenum. The | | | upper GI endoscopy was accomplished without difficulty. The | | | patient tolerated the procedure well.Findings: The | | | cricopharyngeus, upper third of the esophagus and middle third of | | | the esophagus were normal. Grade II varices were found in the | | | lower third of the esophagus from 30-35 cm. They were medium | | | in size. The Z-line was regular and was found 35 cm from the | | | incisors. Moderate portal hypertensive gastropathy was found in | | | the cardia. Localized mildly erythematous mucosa without | | | bleeding was found in the gastric antrum. Biopsies were taken | | | with a cold forceps for Helicobacter pylori testing using | | | CLOtest. Verification of patient identification for the | | | specimen was done. Estimated blood loss was minimal. The | | | duodenal bulb, first portion of the duodenum, second portion of the | | | duodenum, area of the papilla and third portion of the duodenum | | | were normal. Biopsies for histology were taken with a cold | | | forceps for evaluation of celiac disease. Verification of | | | patient identification for the specimen was done. Estimated | | | blood loss was minimal. The retroflexed view confirmed previous | | | findings,Impression: - Normal cricopharyngeus, upper third of | | | esophagus and middle third of esophagus. - Grade II | | | esophageal varices. - Z-line regular, 35 cm from the incisors. | | | - Portal hypertensive gastropathy. - Erythematous mucosa | | | in the antrum. Biopsied. - Normal duodenal bulb, first portion | | | of the duodenum, second portion of the duodenum, area of the | | | papilla and third portion of the duodenum. Biopsied. - | | | The retroflexed view confirmed previous findings,Recommendation: | | | - Patient has a contact number available for emergencies. The signs | | | and symptoms of potential delayed complications were discussed | | | with the patient. Return to normal activities tomorrow. Written | | | discharge instructions were provided to the patient. - | | | Discharge patient to home (ambulatory). - Resume previous diet | | | today. - Perform a colonoscopy today. - Continue present | | | medications. - No aspirin, ibuprofen, naproxen, or other | | | non-steroidal anti-inflammatory drugs for 7 days after biopsy. | | | - Await pathology results. - Return to nurse practitioner | | | at appointment to be scheduled. - Telephone GI clinic for | | | pathology results in 1 week.Deny Nelson MD12/25/2018 11:22:55 | | | AMThis report has been signed electronically.Number of Addenda: 0Note | | | Initiated On: 12/25/2018 10:30 AMScope In: 10:47:23 AMScope Out: | | | 10:53:30 AM [facility], [address], | | | [place] [address] | | | - Resume previous diet today. | | | - Perform a colonoscopy today. | | | - Continue present medications. | | | - No aspirin, ibuprofen, naproxen, or other non-steroidal | | | anti-inflammatory drugs for 7 days after biopsy. | | | - Await pathology results. | | | - Return to nurse practitioner at appointment to be scheduled. | | | - Telephone GI clinic for pathology results in 1 week. | | |Deny Nelson MD | | |12/25/2018 11:22:55 AM | | |This report has been signed electronically. | | |Number of Addenda: 0 | | |Note Initiated On: 12/25/2018 10:30 AM | | |Scope In: 10:47:23 AM | | |Scope Out: 10:53:30 AM | | | [facility], [address] [facility] [place], [place] | | | [address] | | + + -+ + +---------+ + + | Performing | Address | City/State/Zipcode | Phone Number | | Organization | | | | + +---------+ + + | [facility] | | | | + +---------+ + + COLONOSCOPY (12/25/2018 10:28 AM PDT) + + | Specimen | + + | | + + + + -+ | Narrative | Performed At | + + -+ | | [facility] | | GastroenterologyPatient Name: Grecia Kumar Date: 12/25/2018 | [facility] | | 10:28 AMMRN: [id number] #: [id number] of : | | | 1970Admit Type: AmbulatoryAge: 48Room: Endo Room 1Gender: | | | FemaleNote Status: FinalizedAttending MD: Deny Nelson , | | | MDProcedure: ColonoscopyIndications: Chronic | | | diarrheaProviders: Deny Nelson MD, Vanna Castro RN, | | | Briana Constantino RN, Vianey Dueñas | | | NIKA Burns, Marc Marrero CMA, Baldemar | | | Gordo, TechnicianReferring MD: Selene Francis (Referring | | | MD)Medicines: Midazolam 5 mg IV, Meperidine 100 mg IV, | | | Oxygen 4 liters/min | | | nasocannulaComplications: No immediate complications. Estimated | | | blood loss: Minimal.Procedure: Pre-Anesthesia Assessment: | | | - Prior to the procedure, a History and Physical was performed, and | | | patient medications, allergies and sensitivities were reviewed. | | | The patient's tolerance of previous anesthesia was reviewed. | | | - Prior to the procedure, a History and Physical was performed, | | | and patient medications and allergies were reviewed. The | | | patient is competent. The risks and benefits of the procedure | | | and the sedation options and risks were discussed with the | | | patient. All questions were answered and informed consent was | | | obtained. Patient identification and proposed procedure were | | | verified by the physician, the nurse and the electrical test technician. | | | Prophylactic Antibiotics: The patient does not require | | | prophylactic antibiotics. Prior Anticoagulants: The patient has taken | | | no previous anticoagulant or antiplatelet agents. ASA Grade | | | Assessment: II - A patient with mild systemic disease. After | | | reviewing the risks and benefits, the patient was deemed in | | | satisfactory condition to undergo the procedure. The anesthesia | | | plan was to use moderate sedation / analgesia (conscious | | | sedation). Immediately prior to administration of medications, | | | the patient was re-assessed for adequacy to receive sedatives. | | | The heart rate, respiratory rate, oxygen saturations, blood | | | pressure, adequacy of pulmonary ventilation, and response to care were | | | monitored throughout the procedure. The physical status of the | | | patient was re-assessed after the procedure. - After | | | reviewing the risks and benefits, the patient was deemed in | | | satisfactory condition to undergo the procedure. - Immediately | | | prior to administration of medications, the patient was | | | re-assessed for adequacy to receive sedatives. - The heart rate, | | | respiratory rate, oxygen saturations, blood pressure, adequacy | | | of pulmonary ventilation, and response to care were monitored | | | throughout the procedure. - The physical status of the patient | | | was re-assessed after the procedure. After I obtained informed | | | consent, the scope was passed under direct vision. Throughout | | | the procedure, the patient's blood pressure, pulse, and oxygen | | | saturations were monitored continuously. The Colonoscope was | | | introduced through the anus and advanced to the cecum, identified by | | | the appendiceal orifice, ileocecal valve and palpation. The | | | colonoscopy was performed without difficulty. The patient | | | tolerated the procedure well. The quality of the bowel | | | preparation was excellent.Findings: The perianal and digital | | | rectal examinations were normal. Pertinent negatives include | | | normal sphincter tone and no palpable rectal lesions. The colon | | | (entire examined portion) appeared normal. Biopsies for | | | histology were taken with a cold forceps from the ascending colon, | | | transverse colon, descending colon and sigmoid colon for | | | evaluation of microscopic colitis. Verification of patient | | | identification for the specimen was done. Estimated blood loss | | | was minimal. The retroflexed view of the distal rectum and anal | | | verge was normal and showed no anal or rectal | | | abnormalities.Impression: - The entire examined colon is normal. | | | Biopsied. - The distal rectum and anal verge are normal on | | | retroflexion view.Recommendation: - Patient has a contact number | | | available for emergencies. The signs and symptoms of potential | | | delayed complications were discussed with the patient. Return | | | to normal activities tomorrow. Written discharge instructions | | | were provided to the patient. - Discharge patient to home | | | (ambulatory). - Resume previous diet today. - Continue | | | present medications. - No aspirin, ibuprofen, naproxen, or other | | | non-steroidal anti-inflammatory drugs for 7 days after biopsy. | | | - Await pathology results. - Return to nurse practitioner | | | at appointment to be scheduled. - Telephone GI clinic for | | | pathology results in 1 week. - Telephone GI clinic if | | | symptomatic.Deny Nelson MD12/25/2018 11:26:03 AMThis report has | | | been signed electronically.Number of Addenda: 0Note Initiated On: | | | 12/25/2018 10:28 AMScope Withdrawal Time: 0 hours 9 minutes 55 seconds | | | Scope In: 10:55:28 AMScope Out: 11:09:49 AM [facility] | | | [facility], [address] [place] [id number] | | | [phone] | | | anti-inflammatory drugs for 7 days after biopsy. | | | - Await pathology results. | | | - Return to nurse practitioner at appointment to be scheduled. | | | - Telephone GI clinic for pathology results in 1 week. | | | - Telephone GI clinic if symptomatic. | | |Deny Nelson MD | | |12/25/2018 11:26:03 AM | | |This report has been signed electronically. | | |Number of Addenda: 0 | | |Note Initiated On: 12/25/2018 10:28 AM | | |Scope Withdrawal Time: 0 hours 9 minutes 55 seconds | | |Scope In: 10:55:28 AM | | |Scope Out: 11:09:49 AM | | | [facility], [address] [facility] [place], [place] | | | [address] | | + + -+ + +---------+ + + | Performing | Address | City/State/Zipcode | Phone Number | | Organization | | | | + +---------+ + + | [facility] | | | | + +---------+ + + Surgical Pathology Exam (12/25/2018 12:00 AM PDT) + + | Specimen | + + | | + + + + + | Narrative | Performed At | + + + | SPECIMEN(S): A DUODENAL BIOPSY SPECIMEN(S): B RANDOM COLON BIOPSY | [facility] | | SPECIMEN SOURCE: A. DUODENAL BIOPSY B. RANDOM COLON BIOPSY | [facility] | | CLINICAL HISTORY: R19.7 (diarrhea, unspecified), R10.9 (unspecified | | | abdominal pain), R12 (heartburn), K92.1 (melena) MICROSCOPIC | | | DESCRIPTION: Histologic sections of all submitted blocks are examined | | | by light microscopy. These findings, together with the gross | | | examination, support the pathologic diagnosis. FINAL PATHOLOGIC | | | DIAGNOSIS: A. Duodenal biopsy: - Benign duodenal mucosa with focal | | | mild acute duodenitis. - Preserved villous architecture. - | | | Negative for atypical features. B. Random colon biopsy: - | | | Benign colonic mucosa, negative for specific diagnostic abnormality. | | | JVR:[place]:C2NR GROSS DESCRIPTION: Two specimens are received | | | in two containers, labeled "SC." A. The specimen, labeled "SC, | | | duodenal biopsy," is received in formalin and consists of six, 0.3 to | | | 0.4 cm hogan-pink fragments. Specimen is entirely submitted in | | | cassette (A1). B. The specimen, labeled "SC, random colon | | | biopsy," is received in formalin and consists of five, 0.2 to 0.4 cm | | | hogan fragments. Specimen is entirely submitted in cassette (B1). AM | | | (under the direct supervision of a pathologist) The Gross | | | Description was prepared using a voice recognition system. The | | | report was reviewed for accuracy; however, sound-alike word errors, | | | addition and/or deletions may occur. If there is any question about | | | this report, please contact Client Services. PERFORMING | | | LABORATORY: The technical component was performed by [facility] | | | [facility], [address] [place] [address] (Superintendent Plant Protection: | | | Shavonne Mathias MD; CLIA# [id number]). Professional interpretation was | | | performed by [facility], [facility] | | | [place], [address] [place] [id number] (Medical | | | Director: Deonte Marquez M.D.). Diagnostician: Deonte Garcia | | | Alma RAY Pathologist Electronically Signed 12/26/2018 | | + + + + +---------+ + + | Performing | Address | City/State/[facility] | Phone Number | | Organization | | | | + +---------+ + + | [facility] | | | | | [facility] | | | | + +---------+ + + documented in this encounter Visit Diagnoses + + | Diagnosis | + + | Diarrhea, unspecified type | + + | Fecal urgency | + + | Abdominal cramping Abdominal pain, unspecified site | + + | Heartburn | + + | Black stool Nonspecific abnormal finding in stool contents | + + documented in this encounter Admitting Diagnoses + + | Diagnosis | + + | Diarrhea, unspecified type | + + | Fecal urgency | + + | Abdominal cramping Abdominal pain, unspecified site | + + | Heartburn | + + | Black stool Nonspecific abnormal finding in stool contents | + + documented in this encounter Administered Medications + +---------+ +--------+-------+--------+ | Medication Order | MAR | Action | Dose | Rate | Site | | | Action | Date | | | | + +---------+ +--------+-------+--------+ | lactated ringers (LR) infusion | New Bag | 12/26/19 | 1,000 | 100 | Right | | at 100 mL/hr, Intravenous, | | 19 10:40 | mLs | mL/hr | Arm | | CONTINUOUS, Starting Tue12/25/18 | | AM PDT | | | | | at 1045, Pre-op | | | | | | + +---------+ +--------+-------+--------+ +---+---+ | | | +---+---+ + +-------+ +-------+---+---+ | meperidine (DEMEROL) 50 mg/mL | Given | 12/26/19 | 50 mg | | | | injection PRN, Starting Tue | | 19 10:44 | | | | | 12/25/18 at 1044 | | AM PDT | | | | + +-------+ +-------+---+---+ +-------+ +-------+---+---+ | Given | 12/26/19 | 50 mg | | | | | 19 10:44 | | | | | | AM PDT | | | | +-------+ +-------+---+---+ +---+---+ | | | +---+---+ + +-------+ +------+---+---+ | midazolam (VERSED) 5 mg/mL | Given | 12/26/19 | 1 mg | | | | injection PRN, Starting Mon | | 19 11:00 | | | | | 12/25/18 at 1046 | | AM PDT | | | | + +-------+ +------+---+---+ +-------+ +------+---+---+ | Given | 12/26/19 | 1 mg | | | | | 19 10:58 | | | | | | AM PDT | | | | +-------+ +------+---+---+ | Given | 12/26/19 | 1 mg | | | | | 19 10:54 | | | | | | AM PDT | | | | +-------+ +------+---+---+ + +---+ | | | + +---+ | ondansetron (ZOFRAN ODT) | | | disintegrating tablet 4 mg 4 mg, | | | Oral, EVERY 6 HOURS PRN, Nausea, | | | Vomiting, Starting 12/25/18 | | | at 1153, First line agent, | | | Post-op/Phase II | | + +---+ | | | + +---+ | ondansetron (ZOFRAN) injection | | | 4 mg 4 mg, Oral, EVERY 4 HOURS | | | PRN, Nausea, Vomiting, Starting | | | 12/25/18 at 1153, | | | Recovery/Phase I | | + +---+ | | | + +---+ | ondansetron (ZOFRAN) injection | | | 4 mg 4 mg, Intravenous, EVERY 6 | | | HOURS PRN, Nausea, Vomiting, | | | Starting 12/25/18 at 1153, | | | First line agent. Use PO option | | | unless NPO status or unable to | | | tolerate., Post-op/Phase II | | + +---+ | | | + +---+ documented in this encounter
--- OUTSIDE RECORDS SUMMARY | ~2019-03-17 | XMS | Encounter Summary ---
Demographics + + + | Address | [address] | | | [place] [address] | + + + | Home Phone | | + + + | Preferred Language | Unknown | + + + | Marital Status | | + + + | Episcopal Affiliation | Unknown | + + + | Race | Unknown | + + + | Ethnic Group | Unknown | + + + Author + + + | Author | [facility] | | | and [place] | + + + | Organization | [facility] | | | and [place] | [...] Team Providers + +------+ + | Care Enthone Solder Stripper Name | Role | Phone | + +------+ + | Selene Francis PA-C | PCP | | + +------+ + Encounter Details +--------+ + + + + | Date | Type | Department | Care Team | Description | +--------+ + + + + | 01/29/ | Documentati | [facility] | Deny Nelson MD | | | 2019 | on | GASTROENTEROLOGY | [address], [place] | | | | | [address] [place] | [address] [place], [place] | | | | | [address] [place], [place] | [address] | | | | | [address] | | | | | | [phone] | | | +--------+ + + + + Social [...] + + documented as of this encounter Progress Notes Deny Nelson MD - 01/29/2019 5:34 PM PST Subjective: Patient ID: Grecia Bain is a 48 y.o. female. Summary of clinical events and phone calls. The patient underwent repeat Upper endoscopy on January. At that time 2 bands were placed across A column of esophageal varices. She had significant portal hypertensive gastr opathy. The patient at that time complained of Increasing abdominal girth, ascites and into lerance to Aldactone with a headache. She will was placed on Lasix 20 mg a day.Laboratory results were obtained from January 17. The patient's hemoglobin was 9 Potassium was 4.4And liver biochemistries were within normal limits except for elevation in alkaline phosphatase at 142. The patient was told to increase her Lasix to 40 mg in the morning. In addition she will i s to increase her potassium to 20 mg a day . Phone call with Dr. Jo her PCP 01/29 stated that her hemoglobin is down to 8.6. Sh cesilia apparently has had no further signs of bleeding. She continues to complain of a headache and no response to the increased dose of Lasix .Apparently her electrolytes were normal but her SGOT and ALT have in creased somewhat and her alkaline phosphatase is up to 207.Given th e fact that she is continuing to complain of headaches despite discontinuation of Aldactone I recommended Reinstituting the same With careful monitoring of her electrolytes.As she is f james to respond to increase diuresis Perhaps ultrasound-guided Paracentesis Might be approp riate.Although Dr. Jo reported that her clotting parameters were within normal limits I voiced some hesitation with respect to Pursuing the same.If you show signs of further bioc hemical or physical deterioration evaluation at [facility] before March 16 would be appropriate .Etiology of the patient's liver disease is unclear at this time as I do not have the resul ts for the appropriate work-up that was instituted by Tricia Navarro on 01/02/2019 documented in this enc ounter Plan of Treatment Not on filedocumented as of this encounter Visit Diagnoses Not on filedocumented in this encounter"
--- OUTSIDE RECORDS SUMMARY | ~2019-03-17 | XMS | Encounter Summary ---
Demographics + + + | Address | [address] | | | [place] [address] | + + + | Home Phone | | + + + | Preferred Language | Unknown | + + + | Marital Status | | + + + | Episcopal Affiliation | Unknown | + + + | Race | White | + + + | Ethnic Group | Not or | + + + Author + + + | Author | [facility] | + + + | Organization | [facility] | + + + | Address | Unknown | + + + | Phone | Unavailable | + + + Support + + + + + | Name | Relationship | Address | Phone | + + + + + | Benedicto Bain | ECON | [address] | | | | | [place] | | | | | [address] | | + + + + + Care Team Providers + +------+ + | Care Supervisor Computer Operations Name | Role | Phone | + +------+ + PCP | Unavailable | + +------+ + Encounter Details +--------+ + + + + | Date | Type | Department | Care Team | Description | +--------+ + + + + | 01/17/ | Abstract | [facility] | Clinic, | | | 2019 | | [place] [facility] [address] | Gastroenterology | | | | | [address] | | | | | | Mailcode: OC8D | | | | | | [place] [facility] | | | | | | and Healing, | | | | | | [address] | | | | | | [place], [place] | | | | | | [address] | | | | | | [phone] | | | +--------+ + + + + Social History + +-------+ +--------+------+ | Tobacco Use | Types | Packs/Day | Years | Date | | | | | Used | | + +-------+ +--------+------+ | Never Assessed | | | | | + +-------+ +--------+------+ + + + | Sex Assigned at [...] as of this encounter Plan of Treatment +--------+---------+ + + + | Date | Type | Specialty | Care Team | Description | +--------+---------+ + + + | 04/04/ | Office | Hepatology | Luigi Caro MD | | | 2019 | Visit | | [address] | | | | | | [place], | | | | | | [place] [address] | | | | | | [phone] | | | | | | | | +--------+---------+ + + + documented as of this encounter Visit Diagnoses Not on filedocumented in this encounter"
--- OUTSIDE RECORDS SUMMARY | ~2019-03-17 | XMS | Encounter Summary ---
Demographics + + + | Address | [address] | | | [place] [address] | + + + | Home Phone | | + + + | Preferred Language | Unknown | + + + | Marital Status | | + + + | Religion Affiliation | Unknown | + + + | Race | Unknown | + + + | Ethnic Group | Unknown | + + + Author + + + | Author | [facility] | | | and [place] | + + + | Organization | [facility] | | | and [place] [...] Team Providers + +------+ + | Care Entrepreneurship Program Director Name | Role | Phone | + +------+ + | Selene Francis PA-C | PCP | | + +------+ + Encounter Details +--------+ + + + + | Date | Type | Department | Care Team | Description | +--------+ + + + + | 01/02/ | Documentati | [facility] | [facility], | | | 2019 | on | GASTROENTEROLOGY | [address] | | | | | [address] [place] | [place], [place] [address] | | | | | [address] [place], [place] | [place], [place] | | | | | [address] | [address] | | | | | [phone] | | | +--------+ + + + [...] documented as of this encounter Progress Notes Faiza Ta CMA - 01/02/2019 11:54 AM PDTLinked Brittany Jefferson in referral and let h er know this patient is needing a STAT CT so that she can work the referral now. She agreed. [facility] documented in this encounter Plan of Treatment Not on filedocumented as of this encounter Visit Diagnoses Not on filedocumented in this encounter"
--- OUTSIDE RECORDS SUMMARY | ~2019-03-17 | XMS | Encounter Summary ---
Demographics + + + | Address | [address] | | | [place] [address] | + + + | Home Phone | | + + + | Preferred Language | Unknown | + + + | Marital Status | | + + + | Lutheran Affiliation | Unknown | + + + | Race | Unknown | + + + | Ethnic Group | Unknown | + + + Author + + + | Author | [facility] | | | and [place]ana | + + + | Organization | [facility] | | | and Michaelana [...] Team Providers + +------+ + | Care Hospital Nurse Name | Role | Phone | + +------+ + | Selene Francis PA-C | PCP | | + +------+ + Reason for Referral Diagnostic/Screening (Emergency) +--------+--------+ + + + + | Status | Reason | Specialty | Diagnoses / | Referred By | Referred To | | | | | Procedures | Contact | Contact | +--------+--------+ + + + + | Closed | | Radiology | Diagnoses | | [address] | | | | | Elevated | [place], | [address] | | | | | liver | [place], | [place], | | | | | enzymes | [employer] [address] | [place] [address] | | | | | Esophageal | [place], [place] | Phone: | | | | | varices | [address] | [phone] | | | | | without | [place], [place] | Fax: | | | | | bleeding, | [address] | [phone] | | | | | unspecified | Phone: | | | | | | esophageal | [phone] | | | | | | varices type | Fax: | | | | | | (HCC) | [phone] | | | | | | Portal | | | | | | | hypertension | | | | | | | (HCC) | | | | | | | Diarrhea, | | | | | | | unspecified | | | | | | | type Left | | | | | | | upper | | | | | | | quadrant | | | | | | | abdominal | | | | | | | tenderness | | | | | | | without | | | | | | | rebound | | | | | | | tenderness | | | | | | | Procedures | | | | | | | CT Abdomen w | | | | | | | Contrast | | | | | | | DE CT SCAN | | | | | | | OF ABDOMEN | | | | | | | CONTRAST | | | +--------+--------+ + + + + Reason for Visit Diagnostic/Screening (Emergency) +--------+--------+ + + + + | Status | Reason | Specialty | Diagnoses / | Referred By | Referred To | | | | | Procedures | Contact | Contact | +--------+--------+ + + + + | Closed | | Radiology | Diagnoses | | [address] | | | | | Elevated | [place], | [address] | | | | | liver | [place], | [place], | | | | | enzymes | [address] | [place] [address] | | | | | Esophageal | [place], [place] | Phone: | | | | | varices | [address] | [phone] | | | | | without | [place], [place] | Fax: | | | | | bleeding, | [address] | [phone] | | | | | unspecified | Phone: | | | | | | esophageal | [phone] | | | | | | varices type | Fax: | | | | | | (HCC) | [phone] | | | | | | Portal | | | | | | | hypertension | | | | | | | (HCC) | | | | | | | Diarrhea, | | | | | | | unspecified | | | | | | | type Left | | | | | | | upper | | | | | | | quadrant | | | | | | | abdominal | | | | | | | tenderness | | | | | | | without | | | | | | | rebound | | | | | | | tenderness | | | | | | | Procedures | | | | | | | CT Abdomen w | | | | | | | Contrast | | | | | | | DE CT SCAN | | | | | | | OF ABDOMEN | | | | | | | CONTRAST | | | +--------+--------+ + + + + Encounter Details +--------+ + + + + | Date | Type | Department | Care Team | Description | +--------+ + + + + | 01/08/ | Hospital | [facility] | [facility], | Elevated liver | | 2019 | Encounter | [facility] [address] | [address] | enzymes; Esophageal | | | | [place], | [place], [address] | varices without | | | | [place] [address] | [place], [place] | bleeding, | | | | [phone] | [address] | unspecified | | | | | | esophageal varices | | | | | | type (HCC); Portal | | | | | | hypertension (HCC); | | | | | | Diarrhea, | | | | | | unspecified type; | | | | | | Left upper quadrant | | | | | | abdominal tenderness | | | | | | without rebound | | | | | | tenderness | +--------+ + + + + Social [...] + + documented as of this encounter Medications at Time of Discharge [...] + + + +---------+ + + | propranolol | Take 1 tablet by | 90 | 2 | 10/15/20 | | | (INDERAL) 20 MG | mouth nightly. | tablet | | 19 | | | tablet | | | | | | + + + +---------+ + + | cholestyramine | Take 1 packet by | 180 | 3 | 01/03/20 | | | light (QUESTRAN) 4 g | mouth 2 times daily. | tablet | | 19 | 9 | | packet | Recommended it be | | | | | | | taken with Metamucil | | | | | | | if it causes | | | | | | | constipation. | | | | | + + [...] | | | | 9 | | (EMERGEN-C IMMUNE | | | | | | [...] | + +--------+ + + + | CT ABDOMEN W | STAT | 01/08/2019 | Elevated liver | Results for this | | CONTRAST | | 1:40 PM | enzymes Esophageal | procedure are in the | | | | PDT | varices without | results section. | | | | | bleeding, | | | | | | unspecified | | | | | | esophageal varices | | | | | | type (HCC) Portal | | | | | | hypertension (HCC) | | | | | | Diarrhea, | | | | | | unspecified type | | | | | | Left upper quadrant | | | | | | abdominal tenderness | | | | | | without rebound | | | | | | tenderness | | + +--------+ + + + documented in this encounter Results CT Abdomen w Contrast (01/08/2019 1:40 PM PDT) + + | Specimen | + + | | + + + + | Addenda | + + | Addendum by Valdemar Cintron MD on 01/31/2019 9:14 AM ADDENDUM: The | | patient reports no history of cholecystectomy. The gallbladder is not clearly | | identified, likely due to complete decompression. Evaluation is also somewhat limited | | due to ascites and multiple enlarged venous structures in the region of the | | gallbladder fossa. Dictated and Signed by: Valdemar Cintron MD Electronically | | signed: 01/31/2019 9:11 AM | + + + + + | Impressions | Performed At | + + + | Nodular contour of the liver likely representing hepatic | [facility] | | cirrhosis. No definite mass lesion identified. 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 Cannot exclude underlying mass lesion and/or | | | lymphadenopathy. Follow-up MRI liver/ MRCP may be helpful for further | | | characterization. Dictated and Signed by: Valdemar Cintron MD | | | Electronically signed: 01/08/2019 3:06 PM | | + + + + + + | Narrative | Performed At | + + + | TECHNIQUE: After administration of 85 mL Omnipaque 350 | [facility] | | intravenously, axial CT imaging was obtained through the abdomen with | | | coronal and sagittal reformats. At least one of the following CT | | | dose optimization techniques were used: Automated exposure control; | | | Adjustment of mA and/or kV according to patient size; Use of | | | iterative reconstruction technique. CLINICAL INFORMATION: palpable | | | mass vs spelomegaly LUQ COMPARISON: None available. FINDINGS: | | | LUNGS: Bases are clear. BONES: No acute osseous abnormality. | | | No osteoblastic or osteolytic lesion. ABDOMEN: Abdominal wall: | | | Unremarkable. Liver: Nodular contour the liver without definite | | | mass lesion identified. Gallbladder: Surgically absent. Pancreas: No | | | mass or ductal dilatation. Spleen: Severe splenomegaly. | | | Adrenals: No nodule. Kidneys: No soft tissue mass. No lithiasis or | | | hydronephrosis. Ureters: Imaged ureters are unremarkable. Bowel: | | | Suggestion of mild duodenal wall thickening, 2nd and 3rd segments, | | | likely related to portal vein obstruction. No evidence of bowel | | | obstruction. Peritoneum/retroperitoneum: Mild ascites. No free air. | | | Vessels: There is diffuse heterogeneous signal intensity throughout | | | the brandon hepatis region with obstruction of the portal vein. | | | Numerous dilated venous structures are noted, most notable at the | | | upper abdomen and distal esophagus. Recannulization of the umbilical | | | vein. | | + + + + + | Procedure Note | + + | Guerrero, Rad Results In - 01/08/2019 3:09 PM PDT | | TECHNIQUE: After administration of 85 mL Omnipaque 350 intravenously, axial CT | | imaging was obtained through the abdomen with coronal and sagittal reformats. | | | | At least one of the following CT dose optimization techniques were | | used: Automated exposure control; Adjustment of mA and/or kV according | | to patient size; Use of iterative reconstruction technique. | | | | CLINICAL INFORMATION: palpable mass vs spelomegaly LUQ | | | | COMPARISON: None available. | | | | FINDINGS: | | | | LUNGS: Bases are clear. | | | | BONES: No acute osseous abnormality. No osteoblastic or osteolytic lesion. | | | | ABDOMEN: | | Abdominal wall: Unremarkable. | | | | Liver: Nodular contour the liver without definite mass lesion identified. | | Gallbladder: Surgically absent. | | Pancreas: No mass or ductal dilatation. | | Spleen: Severe splenomegaly. | | | | Adrenals: No nodule. | | Kidneys: No soft tissue mass. No lithiasis or hydronephrosis. | | Ureters: Imaged ureters are unremarkable. | | | | Bowel: Suggestion of mild duodenal wall thickening, 2nd and 3rd segments, likely | | related to portal vein obstruction. No evidence of bowel obstruction. | | Peritoneum/retroperitoneum: Mild ascites. No free air. | | Vessels: There is diffuse heterogeneous signal intensity throughout the brandon | | hepatis region with obstruction of the portal vein. Numerous dilated venous | | structures are noted, most notable at the upper abdomen and distal esophagus. | | Recannulization of the umbilical vein. | | | | | | IMPRESSION: | | | | Nodular contour of the liver likely representing hepatic cirrhosis. No definite | | mass lesion identified. 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 Cannot exclude | | underlying mass lesion and/or lymphadenopathy. Follow-up MRI liver/ MRCP may be | | helpful for further characterization. | | | | Dictated and Signed by: Valdemar Cintron MD | | Electronically signed: 01/08/2019 3:06 PM | + + + +---------+ + + [...] (HCC) Portal hypertension | + + | Diarrhea, unspecified type | + + | Left upper quadrant abdominal tenderness without rebound tenderness | + + documented in this encounter Administered Medications + +--------+ +--------+------+------+ | Medication Order | MAR | Action | Dose | Rate | Site | | | Action | Date | | | | + +--------+ +--------+------+------+ | iohexol (OMNIPAQUE 350) 350 | Given | 01/09/20 | 85 mLs | | | | mg/mL injection 85 mL 85 mL, | | 19 1:39 | | | | | Intravenous, ONCE PRN, Other, for | | PM PDT | | | | | imaging CT study, Starting Mon | | | | | | | 01/08/19 at 1343, For 1 dose, | | | | | | | Radiology | | | | | | + +--------+ +--------+------+------+ +---+---+ | | | +---+---+ documented in this encounter"
--- OUTSIDE RECORDS SUMMARY | ~2019-03-17 | XMS | Encounter Summary ---
Demographics + + + | Address | [address] | | | [place] [address] | + + + | Home Phone | | + + + | Preferred Language | Unknown | + + + | Marital Status | | + + + | Mandaen Affiliation | Unknown | + + + | Race | Unknown | + + + | Ethnic Group | Unknown | + + + Author + + + | Author | [facility] | | | and Michaelana | + + + | Organization | [facility] | | | and Michaelana | [...] Team Providers + +------+ + | Care [employer] Cle[employer] Supervisor Name | Role | Phone | + [...] | [place], | | | | | Esophageal | | Deny E MD | | | | | varices | | [address], | | | | | without | | [address] | | | | | bleeding, | | [place], | | | | | unspecified | | [place] [address] | | | | | esophageal | | Phone: | | | | | varices type | | [phone] | | | | | (HCC) | | Fax: | | | | | Portal | | [phone] | | | | | hypertensive | | | | | | | gastropathy | | | | | | | (HCC) | | | | | | | Procedures | | | | | | | GA | | | | | | | ESOPHAGOGAST | | | | | | | RODUODENOSCO | | | | | | | PY TRANSORAL | | | | | | | DIAGNOSTIC | | | | | | | GA EGD | | | | | | | TRANSORAL | | | | | | | BIOPSY | | | | | | | SINGLE/MULTI | | | | | | | PLE GA EGD | | | | | | | BAND | | | | | | | LIGATION | | | | | | | ESOPHGEAL/GA | | | | | | | STRIC | | | | | | | VARICES GA | | | | | | | ANESTHESIA | | | | | | | UPPER GI | | | | | | | ENDOSCOPIC | | | | | | | PX NOS EGD | | | +--------+--------+ + + + + Encounter Details +--------+ + + + + | Date | Type | Department | Care Team | Description | +--------+ + + + + | 03/06/ | [facility]est[facility] | [facility] | Fermin Sol | | | 2019 | Event | MED CTR [facility] INTRA OP | MD Serg [address] | | | | | [address] | [place] | | | | | [place] | [address] | | | | | [address] | | | | | | [phone] | [place], | | | | | | Emmett Durand MD | | | | | | [address] | | | | | | [place] | | | | | | [address] | | | | | | | | +--------+ + + + + Anesthesia Record + + + + + | Procedure Name | Responsible | Anesthesia Start | Anesthesia Stop Time | | | Anesthesiologist | Time | | + + + + + | EGD (N/A Mouth) | Fermin Ulrich Sweta, | 03/06/19 1213 | 03/06/19 1235 | | | MD | | | + + + + + +----+---+ + + | Da | T | Event | Comment | | te | i | | | | | m | | | | | e | | | +----+---+ + + | 12 | 1 | | | | /1 | 2 | | | | 7/ | 0 | | | | 20 | 2 | | | | 19 | | | | +----+---+ + + | | 1 | An Checkout | Pre-use anesthesia machine/equipment checkout. | | | 2 | | | | | 0 | | | | | 3 | | | +----+---+ + + | | 1 | An Start | Reassessment prior to anesthesia induction/procedure. | | | 2 | | | | | 1 | | | | | 3 | | | +----+---+ + + | | 1 | Pre-Procedu | | | | 2 | ral Timeout | | | | 1 | Completed | | | | 8 | | | +----+---+ + + | | 1 | An | | | | 2 | Induction | | | | 1 | | | | | 8 | | | +----+---+ + + | | 1 | First | | | | 2 | Inc/Proc St | | | | 1 | | | | | 8 | | | +----+---+ + + | | 1 | Breathing | | | | 2 | Spontaneous | | | | 2 | ly | | | | 2 | | | +----+---+ + + | | 1 | Breathing | | | | 2 | Spontaneous | | | | 3 | ly | | | | 2 | | | +----+---+ + + | | 1 | An Stop | Patient handed off to recovery nurse. | | | 3 | | | | | 5 | | | +----+---+ + + +------+ | Meds | +------+ + +--------+ | Name | Total | + +--------+ | lidocaine 2% | 40 mg | + +--------+ | propofol | 250 mg | + +--------+ | lactated ringers (LR) infusion | 800 mL | + +--------+ + + | Name | + + | O2 Flow Rate (L/Min) | + + + + | No blood administrations on file. | + + +--------+ + + + | Type | Details | Placement | Removal | +--------+ + + + | Periph | 03/06/19; 1112; Left; | 03/06/19 1112 by | 03/06/19 1313 by | | eral | Antecubital; [id number] | Jazzmine Felton RN | Stefani Rodriguez, | | IV | catheter system; 20 gauge; no | | RN | | | longer indicated, removed per | | | | | policy/procedure, catheter/device | | | | | intact; 03/06/19; 1313 | | | +--------+ + + + documented in this encounter Social History + +-------+ +--------+------+ | Tobacco [...] Visit Diagnoses Not on filedocumented in this encounter Administered Medications + +--------+ +-------+------+------+ | Medication Order | MAR | Action | Dose | Rate | Site | | | Action | Date | | | | + +--------+ +-------+------+------+ | lidocaine (PF) 2% injection | Given | 03/06/20 | 40 mg | | | | Intravenous, PRN, Starting Tue | | 19 12:18 | | | | | 19 at 1218, Anesthesia | | PM PST | | | | | Intra-op | | | | | | + +--------+ +-------+------+------+ +---+---+ | | | +---+---+ + +-------+ +-------+---+---+ | propofol (DIPRIVAN) injection | Given | 03/06/20 | 50 mg | | | | Intravenous, PRN, Starting Tue | | 19 12:28 | | | | | 03/06/19 at 1218, Anesthesia | | PM PST | | | | | Intra-op | | | | | | + +-------+ +-------+---+---+ +-------+ +--------+---+---+ | Given | 03/06/20 | 100 mg | | | | | 19 12:22 | | | | | | PM PST | | | | +-------+ +--------+---+---+ | Given | 03/06/20 | 100 mg | | | | | 19 12:18 | | | | | | PM PST | | | | +-------+ +--------+---+---+ +---+---+ | | | +---+---+ documented in this encounter"
--- OUTSIDE RECORDS SUMMARY | ~2019-03-17 | XMS | Clinical Summary ---
Demographics + + + | Address | [address] | | | [place] [id number] | + + + | Home Phone | | + + + | Preferred Language | Unknown | + + + | Marital Status | | + + + | Holiness Affiliation | Unknown | + + + | Race | Unknown | + + + | Ethnic Group | Unknown | + + + Author + + + | Author | [facility] | | | and [place] | + + + | Organization | [facility] | | | and Michaelana [...] Team Providers + +------+ + | Care Gaggerman Name | Role | Phone | + +------+ + | Selene Francis PA-C | PCP | | + +------+ + Allergies No Known Allergies Medications + + + +---------+------+------+-------+ | Medication | Sig | Dispensed | Refills | Star | End | Statu | | | | | | t | Date | s | | | | | | Date | | | + + + +---------+------+------+-------+ | acetaminophen | Take 325 mg by mouth | | 0 | | | Activ | | (TYLENOL) 325 mg | EVERY 4 TO 6 HOURS | | | | | e | | tablet | NEEDED for Pain. | | | | | | + + + +---------+------+------+-------+ | CALCIUM PO | Take 1 tablet by | | 0 | | | Activ | | | mouth Daily. | | | | | e | + + + +---------+------+------+-------+ | propranolol | Take 1 tablet by | 90 | 2 | / | | Activ | | (INDERAL) 20 MG | mouth nightly. | tablet | | 5/20 | | e | | tablet | | | | 19 | | | + + + +---------+------+------+-------+ +---+ + | | Additional | | | informationPatient | | | taking differently: | | | 20 mg Oral 2 TIMES | | | DAILY, Reason: Not | | | Available, Reported | | | on 01/24/2019 3:18 | | | PM | +---+ + + + +--------+---+------+------+-------+ | omeprazole | Take 20 mg by mouth | | 0 | | | Activ | | (PRILOSEC) 40 MG | 2 times daily. | | | | | e | | capsule | | | | | | | + + +--------+---+------+------+-------+ | potassium chloride | Take 20 mEq by mouth | | 0 | | | Activ | | (KLOR-CON) 10 MEQ | Daily. | | | | | e | | ER tablet | | | | | | | + + +--------+---+------+------+-------+ | furosemide (LASIX) | Take 40 mg by mouth | | 0 | | | Activ | | 20 mg tablet | 2 times daily. 40 mg | | | | | e | | | in morning and 20 | | | | | | | | mg at noon | | | | | | + + +--------+---+------+------+-------+ | spironolactone | Take 25 mg by mouth | | 0 | | | Activ | | (ALDACTONE) 25 mg | 2 times daily. | | | | | e | | tablet | | | | | | | + + +--------+---+------+------+-------+ | ferrous sulfate | Take 325 mg by mouth | | 0 | | | Activ | | 325 mg tablet | daily (with | | | | | e | | | breakfast). | | | | | | + + +--------+---+------+------+-------+ | ascorbic acid | Take 250 mg by mouth | | 0 | | | Activ | | (VITAMIN C) 250 MG | Daily. | | | | | e | | tablet | | | | | | | + + +--------+---+------+------+-------+ | Multiple | Take by mouth | | 0 | | / | Disco | | Vitamins-Minerals | nightly. | | | | 09/07 | ntinu | | (EMERGEN-C IMMUNE | | | | | 19 | ed | | PO) | | | | | | (Ther | | | | | | | | apy | | | | | | | | compl | | | | | | | | eted) | + + +--------+---+------+------+-------+ | cholestyramine | Take 1 packet by | 180 | 3 | 12/19 | 02/18 | Disco | | light (QUESTRAN) 4 g | mouth 2 times daily. | tablet | | / | 09/07 | ntinu | | packet | Recommended it be | | | 19 | 19 | ed | | | taken with Metamucil | | | | | (Ther | | | if it causes | | | | | apy | | | constipation. | | | | | compl | | | | | | | | eted) | + + +--------+---+------+------+-------+ Active Problems + + + | Problem | Noted Date | + + + | Portal hypertensive gastropathy | 03/01/2019 | + + + + + | Overview: Added automatically from request for surgery | | [id number] | + + + + + | Esophageal varices without bleeding, unspecified esophageal | 01/23/2019 | | varices type | | + + + + + | Overview: Added automatically from request for surgery | | [id number] | + + + + + | Acute gastrointestinal hemorrhage | 01/23/2019 | + + + + + | Overview: Added automatically from request for surgery | | [id number] | + + + + + | Portal hypertension | 01/23/2019 | + + + + + | Overview: Added automatically from request for surgery | | [id number] | + + + + + | Other diseases of stomach and duodenum | 01/23/2019 | + + + + + | Overview: Added automatically from request for surgery | | [id number] | + + + + + | Hematemesis, presence of nausea not specified | 01/23/2019 | + + + + + | Overview: Added automatically from request for surgery | | [id number] | + + + + + | Cirrhosis of liver | 01/15/2019 | + + + | Diarrhea, unspecified type | 12/18/2018 | + + + + + | Overview: Added automatically from request for surgery | | [id number] | + + + + + | Fecal urgency | 12/18/2018 | + + + + + | Overview: Added automatically from request for surgery | | [id number] | + + + + + | Abdominal cramping | 12/18/2018 | + + + + + | Overview: Added automatically from request for surgery | | [id number] | + + + + + | Heartburn | 12/18/2018 | + + + + + | Overview: Added automatically from request for surgery | | [id number] | + + + + + | Black stool | 12/18/2018 | + + + + + | Overview: Added automatically from request for surgery | | [id number] | + + Encounters +--------+ + + + + | Date | Type | Specialty | Care Team | Description | +--------+ + + + + | 03/12/ | Imaging | Radiology | Tanya, | | | 2018 | Exam | | MD Rohan | | +--------+ + + + + | 03/06/ | Anesthesia | | Fermin Sol | | | 2018 | Event | | MD Conchita Ulrich | | | | | | Emmett Durand MD | | +--------+ + + + + | 03/06/ | Surgery | | Deny Nelson MD | EGD | | 2018 | | | | | +--------+ + + + + | 03/06/ | Hospital | | Deny Nelson MD | Portal hypertensive | | 2018 | Encounter | | | gastropathy (HCC); | | | | | | Esophageal varices | | | | | | without bleeding, | | | | | | unspecified | | | | | | esophageal varices | | | | | | type (HCC) | +--------+ + + + + | 02/22/ | Telephone | Gastroenterology | Deny Nelson MD | Procedure (EGD ) | | 2018 | | | | | +--------+ + + + + | 01/30/ | Telephone | Gastroenterology | Lori Navarro | | 2018 | | | BRIAN Dickson | | +--------+ + + + + | 01/29/ | Documentati | Gastroenterology | Deny Nelson MD | | | 2018 | on | | | | +--------+ + + + + | 01/26/ | [facility] | BRIAN Dickson | | +--------+ + + + + | 01/25/ | Telephone | Gastroenterology | Deny Nelosn MD | Medication | | 2018 | | | | Management | +--------+ + + + + | 01/24/ | Anesthesia | | Arturo Sommers | | | 2018 | Event | | [address] | | +--------+ + + + + | 01/24/ | Surgery | | Deny Nelson MD | EGD | | 2018 | | | | | +--------+ + + + + | 01/24/ | Hospital | | Deny Nelson MD | Esophageal varices | | 2018 | Encounter | | | without bleeding, | | | | | | unspecified | | | | | | esophageal varices | | | | | | type (HCC); Acute | | | | | | gastrointestinal | | | | | | hemorrhage; Portal | | | | | | hypertension (HCC); | | | | | | Other diseases of | | | | | | stomach and | | | | | | duodenum; | | | | | | Hematemesis, | | | | | | presence of nausea | | | | | | not specified | +--------+ + + + + | 01/18/ | Telephone | Gastroenterology | Deny Nelson MD | Labs Only (Does | | 2018 | | | | Leslie need labs | | | | | | prior to her | | | | | | procedure.) | +--------+ + + + + | 01/17/ | Telephone | Gastroenterology | Deny Nelson MD | Procedure (Egd/Prop | | 2018 | | | | with Dr. Nelson) | +--------+ + + + + | 01/15/ | Telephone | Gastroenterology | Deny Nelson MD | Procedure (needs to | | 2018 | | | | schedule EGD) | +--------+ + + + + | 01/15/ | Telephone | Gastroenterology | [facility], | Referral | | 2018 | | | BRIAN Dickson | | +--------+ + + + + | 01/13/ | Telephone | Gastroenterology | Melanie, | Referral | | 2018 | | | BRIAN Dickson | | +--------+ + + + + | 01/12/ | Hospital | Radiology | [facility], | Elevated liver | | 2018 | Encounter | | BRIAN Dickson | enzymes; Esophageal | | | | | | varices without | | | | | | bleeding, | | | | | | unspecified | | | | | | esophageal varices | | | | | | type (HCC); Portal | | | | | | hypertension (HCC); | | | | | | Abnormal CT of liver | +--------+ + + + + | 01/09/ | Telephone | Gastroenterology | [facility], | MRI Recommendation | | 2018 | | | BRIAN Dickson | | +--------+ + + + + | 01/08/ | Hospital | Radiology | [facility], | Elevated liver | | 2018 | Encounter | | BRIAN Dickson | enzymes; Esophageal | | | | | | varices without | | | | | | bleeding, | [...] tenderness | +--------+ + + + + | 01/04/ | Telephone | Gastroenterology | [facility], | Other (CT ) | | 2019 | | | BRIAN Dickson | | +--------+ + + + + | 01/02/ | Office | Gastroenterology | [facility], | Elevated liver | | 2019 | Visit | | BRIAN Dickson | enzymes (Primary | | | | | | Dx); Esophageal | | | | | | varices without | | | | | | bleeding, | [...] rebound | | | | | | tenderness; Abnormal | | | | | | CT of liver | +--------+ + + + + | 01/02/ | Documentati | Gastroenterology | [facility], | | | 2019 | on | | BRIAN Dickson | | +--------+ + + + + | 12/28/ | Abstract | Gastroenterology | Provider, | | | 2018 | | | MD Rohan | | +--------+ + + + + | 12/25/ | Surgery | | Deny Nelson MD | EGD | | 2018 | | | | | +--------+ + + + + | 12/25/ | Hospital | | Deny Nelson MD | Diarrhea, | | 2018 | Encounter | | | unspecified type; | | | | | | Fecal urgency; | | | | | | Abdominal cramping; | | | | | | Heartburn; Black | | | | | | stool | +--------+ + + + + | 12/18/ | Office | Gastroenterology | [facility], | Diarrhea, | | 2018 | Visit | | BRIAN Dickson | unspecified type | | | | | | (Primary Dx); Fecal | | | | | | urgency; Abdominal | | | | | | cramping; Heartburn; | | | | | | Black stool | +--------+ + + + + from Last 3 Months Family History + + +------+ + | Medical History | Relation | Name | Comments | + + +------+ + | Heart attack | Father | | | + + +------+ + | Other (see comment) | Father | | Pre-Diabetic | + + +------+ + | Prostate cancer | Maternal | | | | | Grandfath | | | | | er | | | + + +------+ + | Heart attack | Paternal | | | | | Grandfath | | | | | er | | | + + +------+ + | Other (see comment) | Sister | | Benign Lump removed from breast | + + +------+ + + +------+--------+ + | Relation | Name | Status | Comments | + +------+--------+ + | Father | | Alive | | + +------+--------+ + | Maternal Grandfather | | | | + +------+--------+ + | Mother | | Alive | | + +------+--------+ + | Paternal Grandfather | | | | + +------+--------+ + | Sister | | | | + +------+--------+ + Social History + +-------+ +--------+------+ | [...] recent travel history available. | + + Last Filed Vital Signs + + + + + | Vital Sign | Reading | Time Taken | Comments | + + + + + | Blood Pressure | 108/59 | 03/06/2019 1:00 PM | | | | | PST | | + + + + + | Pulse | 65 | 03/06/2019 1:00 PM | | | | | PST | | + + + + + | Temperature | 36.4 C (97.5 F) | 03/06/2019 12:33 PM | | | | | PST | | + + + + + | Respiratory Rate | 15 | 03/06/2019 1:00 PM | | | | | PST | | + + + + + | Oxygen Saturation | 100% | 03/06/2019 1:00 PM | | | | | PST | | + + + + + | Inhaled Oxygen | - | - | | | Concentration | | | | + + + + + | Weight | 66.4 kg (146 lb 6.2 | 03/06/2019 10:53 AM | | | | oz) | PST | | + + + + + | Height | 162.6 cm (5' 4") | 03/06/2019 10:53 AM | | | | | PST | | + + + + + | Body Mass Index | 25.13 | 03/06/2019 10:53 AM | | | | | PST | | + + + + + Plan of Treatment + + + + + | Health Maintenance | Due Date | Last Done | Comments | + + + + + | Vaccine: | | | | | Pneumococcal 19-64 | 9 | | | | (1 of 1 - PPSV23) | | | | + + + + + | Vaccine: | | | | | Dtap/Tdap/Td (1 - | 4 | | | | Tdap) | | | | + + + + + | Cervical Cancer | | | | | Screening (Pap) | 3 | | | + + + + + | Breast Cancer | | | | | Screening | 8 | | | + + + + + | Vaccine: Influenza | Completed | 01/12/2019, 12/22/2017, | | | | | 12/29/2016, Additional history | | | | | exists | | + + + + + Procedures + +--------+ + + + | Procedure Name | Priori | Date/Time | Associated Diagnosis | Comments | | | ty | | | | + +--------+ + + + | EGD | | 03/06/2019 | Esophageal varices | | | | | 12:12 PM | without bleeding, | | | | | PST | unspecified | | | | | | esophageal varices | | | | | | type (HCC) Portal | | | | | | hypertensive | | | | | | gastropathy (HCC) | | + +--------+ + + + | [facility] UPPER GI | Routin | 03/06/2019 | | Results for this | | ENDOSCOPY,EXAM | e | 12:07 PM | | procedure are in the | | | | PST | | results section. | + +--------+ + + + | CT ABDOMEN PELVIS W | Routin | 02/28/2019 | | Results for this | | CONTRAST | e | 12:00 AM | | procedure are in the | | | | PST | | results section. | + +--------+ + + + | IMAGING REPORT - | | 02/28/2019 | | Results for this | | EXTERNAL SCAN | | 12:00 AM | | procedure are in the | | | | PST | | results section. | + +--------+ + + + | LABS - EXTERNAL SCAN | | 02/27/2019 | | Results for this | | | | 12:00 AM | | procedure are in the | | | | PST | | results section. | + +--------+ + + + | EGD | | 01/24/2019 | Esophageal varices | | | | | 2:35 PM | without bleeding, | | | | | PST | unspecified | | | | | | esophageal varices | | | | | | type (HCC) Acute | | | | | | gastrointestinal | | | | | | hemorrhage Portal | | | | | | hypertension (HCC) | | | | | | Other diseases of | | | | | | stomach and duodenum | | | | | | Hematemesis, | | | | | | presence of nausea | | | | | | not specified | | + +--------+ + + + | EGD | Routin | 01/24/2019 | | Results for this | | | e | 2:31 PM | | procedure are in the | | | | PST | | results section. | + +--------+ + + + | DIAGNOSTIC REPORT - | | 01/13/2019 | | Results for this | | EXTERNAL SCAN | | 12:00 AM | | procedure are in the | | | | PDT | | results section. | + +--------+ + + + | MRI LIVER W WO | Routin | 01/12/2019 | Elevated liver | Results for this | | CONTRAST | e | 8:18 AM | enzymes Esophageal | procedure are in [...] section. | + +--------+ + + + from Last 3 Months Results EGD (03/06/2019 12:07 PM PST) + + | Specimen | + + | | + + + + ----+ | Narrative | Performed At | + + ----+ | [facility] | [facility] | | [facility]Patient Name: Grecia Bain | NICOLA | | LeeProcedure Date: 03/06/2019 12:07 PMMRN: [id number] Number: | | | [id number] of : 1970Note Status: FinalizedAttending MD: | | | Deny Nelson , MDProcedure Type: Upper GI | | | endoscopyIndications: Esophageal varices, Follow-up | | | of esophageal varices, For | | | therapy of esophageal varicesReferring MD: Selene | | | Tito (Referring MD)Medicines: Propofol per | | | AnesthesiaComplications: No immediate complications. | | | Estimated blood loss: | | | Minimal.Procedure: Pre-Anesthesia Assessment: - Prior to | | | the procedure, a History and Physical was performed, and | | | patient medications, allergies and sensitivities were reviewed. The | | | patient's tolerance of previous anesthesia was reviewed. - | | | Prior to the procedure, a History and Physical was performed, and | | | patient medications and allergies were reviewed. The patient is | | | competent. The risks and benefits of the procedure and the | | | sedation options and risks were discussed with the patient. All | | | questions were answered and informed consent was obtained. | | | Patient identification and proposed procedure were verified by | | | the physician, the nurse, the anesthesiologist and the | | | public health sanitarian technician in the endoscopy suite. Mental Status Examination: | | | alert and oriented. Airway Examination: normal oropharyngeal | | | airway and neck mobility and Mallampati Class II (the uvula but | | | not tonsillar pillars visualized). Prophylactic Antibiotics: | | | The patient does not require prophylactic antibiotics. Prior | | | Anticoagulants: The patient has taken no previous anticoagulant or | | | antiplatelet agents. ASA Grade Assessment: III - A patient with | | | severe systemic disease. After reviewing the risks and | | | benefits, the patient was deemed in satisfactory condition to | | | undergo the procedure. The anesthesia plan was to use monitored | | | anesthesia care (MAC). Immediately prior to administration of | | | medications, the patient was re-assessed for adequacy to | | | receive sedatives. The heart rate, respiratory rate, oxygen | | | saturations, blood pressure, adequacy of pulmonary ventilation, and | | | response to care were monitored throughout the procedure. The | | | physical status of the patient was re-assessed after the | | | procedure. - After reviewing the risks and benefits, the patient | | | was deemed in satisfactory condition to undergo the procedure. | | | - Using IV propofol under the supervision of an | | | anesthesiologist was determined to be medically necessary for | | | this procedure based on severe comorbidity (greater than ASA | | | Grade II) and patient's history of problems with anesthesia. | | | - Immediately prior to administration of medications, the patient | | | was re-assessed for adequacy to receive sedatives. - The | | | heart rate, respiratory rate, oxygen saturations, blood pressure, | | | adequacy of pulmonary ventilation, and response to care were | | | monitored throughout the procedure. - The physical status | | | of the patient was re-assessed after the procedure. After | | | obtaining informed consent, the endoscope was passed under direct | | | vision. Throughout the procedure, the patient's blood pressure, | | | pulse, and oxygen saturations were monitored continuously. The | | | Endoscope was introduced through the mouth, and advanced to the | | | third part of duodenum. The upper GI endoscopy was | | | accomplished without difficulty. The patient tolerated the | | | procedure well.Findings: The upper third of the esophagus and | | | middle third of the esophagus were normal. Three columns | | | of non-bleeding grade III varices were found in the lower third | | | of the esophagus, 32 to 35 cm from the incisors. They were large | | | in size. Stigmata of recent bleeding were evident and red af[place] | | | signs were present. Scarring from prior treatment was visible. | | | The varices appeared larger than they were at prior exam. Four | | | bands were successfully placed on 2 columns 2 bands per column | | | with complete eradication, 2 bands placed at 35 cm 2 bands | | | placed at 32 cm resulting in deflation of varices. There was no | | | bleeding at the end of the maneuver. Estimated blood loss was | | | minimal. Moderate portal hypertensive gastropathy was found in | | | the cardia and in the gastric fundus. The duodenal bulb, | | | first portion of the duodenum, second portion of the duodenum, | | | area of the papilla and third portion of the duodenum were | | | normal. The retroflexed view confirmed previous | | | findings,Impression: - Normal upper third of esophagus and | | | middle third of esophagus. - Recently bleeding grade III | | | esophageal varices. Completely eradicated. Banded. - | | | Portal hypertensive gastropathy. - Normal duodenal bulb, first | | | portion of the duodenum, second portion of the duodenum, area | | | of the papilla and third portion of the duodenum. - The | | | retroflexed view confirmed previous findings, - No specimens | | | collected.Recommendation: - Patient has a contact number | | | available for emergencies. The signs and symptoms of potential | | | delayed complications were discussed with the patient. Return | | | to normal activities tomorrow. Written discharge instructions | | | were provided to the patient. - Discharge patient to home | | | (ambulatory). - Full liquid diet today.Deny Nelson | | | 03/06/2019 12:41:49 PMThis report has been signed | | | electronically.Note Initiated On: 03/06/2019 12:07 PMNumber of | | | Addenda: 0 [facility] | | | - Patient has a contact number available for emergencies. The signs and | | | symptoms of potential delayed complications were discussed with the | | | patient. Return to normal activities tomorrow. Written discharge | | | instructions were provided to the patient. | | | - Discharge patient to home (ambulatory). | | | - Full liquid diet today. | | |Deny Nelson MD | | |03/06/2019 12:41:49 PM | | |This report has been signed electronically. | | |Note Initiated On: 03/06/2019 12:07 PM | | |Number of Addenda: 0 | | | [facility] | | + + ----+ + +---------+ + + | Performing | Address | City/State/Zipcode | Phone Number | | Organization | | | | + +---------+ + + | [facility] | | | | + +---------+ + + IMAGING REPORT - EXTERNAL SCAN (02/28/2019 12:00 AM PST) + + + | Narrative | Performed At | + + + | Ordered by an | | | unspecified provider. | | + + + CT Abdomen Pelvis w Contrast (02/28/2019 12:00 AM PST) + + | Specimen | + + | | + + + + + | Narrative | Performed At | + + + | External films for comparison only | [facility] | | | | | No results will be in the chart. | | + + + + +---------+ + + | Performing | Address | City/State/Zipcode | Phone Number | | Organization | | | | + +---------+ + + | [facility] | | | | + +---------+ + + LABS - EXTERNAL SCAN (02/27/2019 12:00 AM PST)Only the most recent of 4 results within the time period is included. + + + | Narrative | Performed At | + + + | Ordered by an | | | unspecified provider. | | + + + EGD (01/24/2019 2:31 PM PST) + + | Specimen | + + | | + + + + -+ | Narrative | Performed At | + + -+ | | [facility] | | GastroenterologyPatient Name: Grecia Vizcainocedalma Date: 01/24/2019 | [facility] | | 2:31 PMMRN: [id number] #: [id number] of : | | | 1970Admit Type: AmbulatoryAge: 48Room: Endo Room 1Gender: | | | FemaleNote Status: FinalizedAttending MD: Deny Nelson , | | | MDProcedure: Upper GI endoscopyIndications: | | | Esophageal varices, Follow-up of esophageal varices, For | | | therapy of esophageal varicesProviders: | | | Deny Nelson MD, Briana Constantino RN, Baldemar Caro, | | | Vegetable Picker, Arturo Sommers MD (Anesthesia Staff)Referring | | | MD: Selene Francis (Referring MD)Medicines: | | | Propofol per AnesthesiaComplications: No immediate | | | complications. Estimated blood loss: None.Procedure: | | | Pre-Anesthesia Assessment: - Prior to the procedure, a History | | | and Physical was performed, and patient medications, allergies | | | and sensitivities were reviewed. The patient's tolerance of | | | previous anesthesia was reviewed. - Prior to the procedure, a | | | History and Physical was performed, and patient medications and | | | allergies were reviewed. The patient is competent. The risks | | | and benefits of the procedure and the sedation options and | | | risks were discussed with the patient. All questions were | | | answered and informed consent was obtained. Patient identification and | | | proposed procedure were verified by the physician, the nurse, | | | the anesthesiologist and the public health sanitarian technician in the endoscopy suite. | | | Mental Status Examination: alert and oriented. Airway | | | Examination: normal oropharyngeal airway and neck mobility and | | | Mallampati Class II (the uvula but not tonsillar pillars | | | visualized). Prophylactic Antibiotics: The patient does not | | | require prophylactic antibiotics. Prior Anticoagulants: The | | | patient has taken no previous anticoagulant or antiplatelet | | | agents. ASA Grade Assessment: III - A patient with severe | | | systemic disease. After reviewing the risks and benefits, the patient | | | was deemed in satisfactory condition to undergo the procedure. | | | The anesthesia plan was to use monitored anesthesia care (MAC). | | | Immediately prior to administration of medications, the | | | patient was re-assessed for adequacy to receive sedatives. The | | | heart rate, respiratory rate, oxygen saturations, blood | | | pressure, adequacy of pulmonary ventilation, and response to | | | care were monitored throughout the procedure. The physical | | | status of the patient was re-assessed after the procedure. - | | | After reviewing the risks and benefits, the patient was deemed in | | | satisfactory condition to undergo the procedure. - Using IV | | | propofol under the supervision of an anesthesiologist was | | | determined to be medically necessary for this procedure based on | | | severe comorbidity (greater than ASA Grade II). - | | | Immediately prior to administration of medications, the patient was | | | re-assessed for adequacy to receive sedatives. - The heart | | | rate, respiratory rate, oxygen saturations, blood pressure, | | | adequacy of pulmonary ventilation, and response to care were monitored | | | throughout the procedure. - The physical status of the | | | patient was re-assessed after the procedure. After obtaining | | | informed consent, the endoscope was passed under direct vision. | | | Throughout the procedure, the patient's blood pressure, pulse, | | | and oxygen saturations were monitored continuously. The Endoscope was | | | introduced through the mouth, and advanced to the third part | | | of duodenum. The upper GI endoscopy was accomplished without | | | difficulty. The patient tolerated the procedure well.Findings: | | | The cricopharyngeus, upper third of the esophagus and middle | | | third of the esophagus were normal. Grade II varices were | | | found in the lower third of the esophagus. Two bands were | | | successfully placed with incomplete eradication of varices. | | | There was no bleeding during, and at the end, of the procedure. | | | A post variceal banding scar was found at the lower esophageal | | | sphincter. The scar tissue was healthy in appearance. Moderate | | | portal hypertensive gastropathy was found in the cardia and in | | | the gastric fundus. Diffuse moderately erythematous mucosa | | | without bleeding was found on the greater curvature of the | | | stomach. The duodenal bulb, first portion of the duodenum, | | | second portion of the duodenum, area of the papilla and third | | | portion of the duodenum were normal. The retroflexed view | | | confirmed previous findings,Impression: - Normal | | | cricopharyngeus, upper third of esophagus and middle third of | | | esophagus. - Grade II esophageal varices. Incompletely | | | eradicated. Banded. - Scar at the lower esophageal sphincter. | | | - Portal hypertensive gastropathy. - Erythematous mucosa in | | | the greater curvature. - Normal duodenal bulb, first portion of | | | the duodenum, second portion of the duodenum, area of the | | | papilla and third portion of the duodenum. - The retroflexed | | | view confirmed previous findings, - No specimens | | | collected.Recommendation: - Patient has a contact number | | | available for emergencies. The signs and symptoms of potential | | | delayed complications were discussed with the patient. Return | | | to normal activities tomorrow. Written discharge instructions | | | were provided to the patient. - Discharge patient to home | | | (ambulatory). - Full liquid diet today. - Continue present | | | medications. - Repeat upper endoscopy in 1 month for | | | surveillance. - Return to liver clinic as previously | | | scheduled.Deny Nelson MD01/24/2019 3:00:59 PMThis report has been | | | signed electronically.Number of Addenda: 0Note Initiated On: 01/24/2019 | | | 2:31 PMScope In: 2:44:21 PMScope Out: 2:52:03 PM [facility]. | | | [facility], [address] [place] [address] | | | [phone] | | | symptoms of potential delayed complications were discussed with the | | | patient. Return to normal activities tomorrow. Written discharge | | | instructions were provided to the patient. | | | - Discharge patient to home (ambulatory). | | | - Full liquid diet today. | | | - Continue present medications. | | | - Repeat upper endoscopy in 1 month for surveillance. | | | - Return to liver clinic as previously scheduled. | | |Deny Nelson MD | | |01/24/2019 3:00:59 PM | | |This report has been signed electronically. | | |Number of Addenda: 0 | | |Note Initiated On: 01/24/2019 2:31 PM | | |Scope In: 2:44:21 PM | | |Scope Out: 2:52:03 PM | | | [facility]. [facility], [address] [place], [place] | | | [address] | | + + -+ + +---------+ + + | Performing | Address | City/State/Zipcode | Phone Number | | Organization | | | | + +---------+ + + | [facility] | | | | + +---------+ + + DIAGNOSTIC REPORT - EXTERNAL SCAN (01/13/2019 12:00 AM PDT) + + + | Narrative | Performed At | + + + | Ordered by an | | | unspecified provider. | | + + + MRI Liver w wo Contrast (01/12/2019 8:18 AM PDT) + + | Specimen | + + | | + + + + | Addenda | + + | Addendum by Jose Mcdowell MD on 01/31/2019 9:09 AM The gallbladder is not well seen | | and may be collapsed. Dictated and Signed by: Jose Mcdowell MD Electronically | | signed: 01/31/2019 9:06 AM | + + + + + [...] 01/12/2019 7:45 AM HISTORY: Abnormal CT | [facility] | | liver. COMPARISON: CT scan [...] | Guerrero, Rad Results In - 01/12/2019 9:22 AM PDT MRI LIVER W WO CONTRAST 01/12/2019 7:45 | | AMHISTORY: Abnormal CT liver.COMPARISON: CT scan of the abdomen dated | | 01/08/2019.PROTOCOL: Coronal T2, axial T2, axial T2 fat sat, axial T1 in phase | | imaging,axial T1 out of phase imaging, axial diffusion weighted, axial T1, axial | | H1lapopffqyhza, coronal T1 postcontrast, sagittal T1 post contrast. Postcontrastimages | | were acquired in the arterial, portal venous, delayed, and hepatobiliaryphases. The | | patient was administered 8 cc Eovist.FINDINGS:Heart size is at the upper limits of | | normal.The liver has a cirrhotic appearance with nodular contour. No definite | | focallesion is seen. The gallbladder is surgically absent. Biliary ducts | | areunremarkable.The spleen is significantly enlarged measuring 18.7 cm craniocaudally. | | Thepancreas demonstrates normal parenchyma and a normal pancreatic duct. Adrenalglands | | are normal.The right kidney and visualized ureter are normal.The left kidney and | | visualized ureter are normal.The stomach is normal. Imaged small bowel and colon | | demonstrate no acutefindings.Aorta is nonaneurysmal. IVC is unremarkable. The portal | | veins appear to besignificantly thinned with likely cavernous transformation. Multiple | | varices areobserved medial to the spleen and in the upper abdomen. No enlarged lymph | | nodesare visualized within the omentum or retroperitoneum.There is moderate ascites.Body | | wall soft tissue structures are normal. There are no acute | | osseousabnormalities.IMPRESSION: Cirrhotic appearing liver with no definite focal | | lesion.Findings of portal venous hypertension with significant narrowing of the | | portalveins showing likely cavernous transformation, multiple varices, | | andsplenomegaly.Moderate ascites.Dictated and Signed by: Jose Mcdowell MD Electronically | | signed: 01/12/2019 9:19 AM | |The right kidney and visualized ureter are normal. | | | |The left kidney and visualized ureter are normal. | | | |The stomach is normal. Imaged small bowel and colon demonstrate no acute | |findings. | | | |Aorta is nonaneurysmal. IVC is unremarkable. The portal veins appear to be | |significantly thinned with likely cavernous transformation. Multiple varices are | |observed medial to the spleen and in the upper abdomen. No enlarged lymph nodes | |are visualized within the omentum or retroperitoneum. | | | |There is moderate ascites. | | | |Body wall soft tissue structures are normal. There are no acute osseous | |abnormalities. | | | |IMPRESSION: | |Cirrhotic appearing liver with no definite focal lesion. | | | |Findings of portal venous hypertension with significant narrowing of the portal | |veins showing likely cavernous transformation, multiple varices, and | |splenomegaly. | | | |Moderate ascites. | | | |Dictated and Signed by: Jose Mcdowell MD | | Electronically signed: 01/12/2019 9:19 AM | + + + +---------+ + + | Performing | Address | City/State/Zipcode | Phone Number | | Organization | | | | + +---------+ + + | [facility] | | | | + +---------+ + + CT Abdomen w Contrast (01/08/2019 1:40 PM [...] Poorly marginated heterogeneous signal intensity throughout the barndon hepatis | | region, likely cavernous transformation [...] | | | + +---------+ + + Lactoferrin, Fecal, Qual (12/25/2018 11:03 AM PDT) + + + + + + | Component | Value | Ref Range | Performed | Pathologist | | | | | At | Signature | + + + + + + | Lactoferrin | Negative | Negative | [facility] | | | , Qual | | | [facility] | | | | | | MEDICAL [...] + | [facility] | [address] | [place] | [phone] | | [facility] | | [address] | | | - LABORATORY | | [...] | Toxigenic C. difficile | | [facility] | | | Interp | detected. Consider [...] | | difficile, | | | [facility] | | | [facility] | | | [...] ST. | [address] | [place] | [phone] | | [facility] | | [address] | | | - LABORATORY | | [...] | er, [facility] | | | [facility] | | | | | | MEDICAL | | | | | | CENTER - | | | | | | LABORATORY | | + + + + + + | Salmonella, | Not Detected | Not Detected | [facility] | | | [facility] | | | [facility] | | | | | | [facility]ICAL | | | | | | CENTER - | | | | | | LABORATORY | | + + + + + + | Shigella | Not Detected | Not Detected | [facility] | | | [facility] | | | [facility] | | | | | | MEDICAL | | | | | | CENTER - | | | | | | LABORATORY | | + + + + + + | Vibrio, | Not Detected | Not Detected | [facility] | | | [facility] | | | [facility] | | | | | | MEDICAL | | | | | | CENTER - | | | | | | LABORATORY | | + + + + + + | Yersinia | Not Detected | Not Detected | [facility] | | | enterocolit | | | [facility] | | | ica, NAAT | | | MEDICAL | | | | | | CENTER - | | | | | | LABORATORY | | + + + + + + | Shigatoxin | Negative | Negative | [facility] | | | 1 | | | [facility] | | | | | | MEDICAL | | | | | | CENTER - | | | | | | LABORATORY | | + + + + + + | Shigatoxin | Negative | Negative | [facility] | | | 2 | | | [facility] | | | | | | MEDICAL [...] ST. | [address] | [place] | [phone] | | [facility] | | [address] | | | - LABORATORY | | [...] [address], | REFERENCE LAB | | [place] [id number] Bronc Breaker: Анна Oscar MD, Phone: | [facility] | | [phone] | | + + + + + + + + | Performing | Address | City/State/Zipcode | Phone Number | | Organization | | | | + + + + + | REFERENCE LAB | [address] | [place] [address] | [phone] | | [facility] | [address] | | | + [...] - May [address] [address], | REFERENCE LAB | | [place] [id number] Bronc Breaker: Анна Oscar MD, Phone: | [facility] | | [phone] | | + + + + + + + + | Performing | Address | City/State/Zipcode | Phone Number | | Organization | | | | + + + + + | REFERENCE LAB | [address] | [place] [address] | [phone] | | [facility] | Drive [...] | | | dium | | | [facility] | | | Antigen | | | [...] + | [facility] | [address] | [place] | [phone] | | [facility] | | [address] | | | - LABORATORY | | [...] | | Antigen, | | | [facility] | | | Stool | | | [...] ST. | [address] | [place] | [phone] | | [facility] | | [address] | | | - LABORATORY | | [...] r pylori Ag | | | [facility] | | | | | | MEDICAL [...] [address] | [place] | [phone] | | [facility] | | [address] | | | - LABORATORY | | | | + + + + + EGD (12/25/2018 10:30 AM PDT) + + | Specimen | + + | | + + + + -+ | Narrative | Performed At | + + -+ | | [facility] | | GastroenterologyPatient Name: Grecia BainTyrel Date: 12/25/2018 | [facility] | | 10:30 AMMRN: [id number] #: [id number] of : | | | 1970Admit Type: [...] by the physician, the nurse and the public health sanitarian technician in the | | | endoscopy [...] AMScope Out: | | | 10:53:30 AM [facility], [address] [facility], | | | [place] [address] | | | - Resume previous diet [...] |Scope Out: 10:53:30 AM | | | [facility], [address] [facility], [place], [place] | | | [address] | | + + -+ + +---------+ + + | Performing | Address | City/State/[facility] Centercode | Phone Number | | Organization | | | | + +---------+ + + | [facility] | | | | + +---------+ + + COLONOSCOPY (12/25/2018 10:28 AM PDT) + + | Specimen | + + | | + + + + -+ | Narrative | Performed At | + + -+ | | [facility] | | GastroenterologyPatient Name: Grecia BainProcedalma Date: 12/25/2018 | [facility] | | 10:28 AMMRN: [id number] #: [id number] of : | | | 1970Admit Type: [...] MD: Selene Francis (Referring | | | )Medicines: Midazolam 5 mg IV, Meperidine 100 mg [...] by the physician, the nurse and the public health sanitarian technician. | | | Prophylactic Antibiotics: The [...] Scope In: 10:55:28 AMScope Out: 11:09:49 AM [facility] | | | [facility], [facility] [place] [address] | | | [phone] | | | anti-inflammatory drugs for 7 [...] |Scope Out: 11:09:49 AM | | | [facility], [address] [facility], [place], [place] | | | [address] | | + + -+ + +---------+ + + | Performing | Address | City/State/Zipcode | Phone Number | | Organization | | | | + +---------+ + + | [facility] | | | | + +---------+ + + EXTERNAL: COLONOSCOPY (12/25/2018) + + + + + + | Component | Value | Ref Range | Performed | Pathologist | | | | | At | Signature | + + + + + + | Colonoscopy | See Full Report~ [facility] | | | | | | Dr. Nelson | | | | | Impression, | | | | | | External | | | | | + + + + + + Surgical Pathology Exam (12/25/2018 12:00 AM PDT) + + | Specimen | + + | | + + + + + | Narrative | Performed At | + + + | SPECIMEN(S): A DUODENAL BIOPSY SPECIMEN(S): B RANDOM COLON BIOPSY | [facility] | | SPECIMEN SOURCE: A. DUODENAL [...] for specific diagnostic abnormality. | | | JVR:[facility]:C2NR GROSS DESCRIPTION: Two specimens are received | [...] LABORATORY: The technical component was performed by [facility] | | | [employer], [address] [place] [address] (Horse Identifier: | | | Shavonne Mathias MD; CLIA# [id number]). Professional interpretation was | | | performed by [employer], [facility] | | | [address] [address] (Medical | | | Director: Ruth Batista. Diagnostician: Deonte Garcia | | | Alma RAY Pathologist Electronically Signed 12/26/2018 | | + + + + +---------+ + + | Performing | Address | City/State/Zipcode | Phone Number | | Organization | | | | + +---------+ + + | [facility] | | | | | [facility] | | | | + +---------+ + + from Last 3 Months Insurance + +--------+ +--------+ + +------+ | Payer | Benefi | Subscriber | Effect | Phone | Address | Type | | | t Plan | ID | marvin | | | | | | / | | Dates | | | | | | Group | | | | | | + +--------+ +--------+ + +------+ | MODA | MODA | [id number] | | [phone] | [address] | PPO | | | OE[employer] | | [phone] | [phone] | | | | [place] | | esent | | [place], | | | | [place] | | | | [place] [address] | | + +--------+ +--------+ + +------+ | [facility] | PHP | [id number] | 03/21/19 | [phone] | | PPO | | PLAN | PERSON | | 18-Pre | 5 | | | | | [place] | | sent | | | | | | OPEN | | | | | | | | OPTION | | | | | | + +--------+ +--------+ + +------+ + +--------+ +--------+ + + | Guarantor Name | Accoun | Relation to | Date | Phone | Billing Address | | | t Type | Patient | of | | | | | | | | | | + +--------+ +--------+ + + | Grecia Bain | Person | Self | [birth year] | [address] | | | al/Reymundo | | 1971 | [phone] | [place] [address] | | | prabhjot | | | 7 (Home) | | | | | | | [phone] | | | | | | | 9 (Work) | | + +--------+ +--------+ + + Advance Directives + + + + + | Type | Date Recorded | 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
--- OUTSIDE RECORDS SUMMARY | ~2019-03-17 | XMS | Encounter Summary ---
Demographics + + + | Address | [address] | | | [place] [address] | + + + | Home Phone | | + + + | Preferred Language | Unknown | + + + | Marital Status | | + + + | Latter Day Affiliation | Unknown | + + + | Race | Unknown | + + + | Ethnic Group | Unknown | + + + Author + + + | Author | [facility] | | | and [place] | + + + | Organization | [facility] | | | and [...] Team Providers + +------+ + | Care Seating And Mobility Technologist Name | Role | Phone | + [...] | | unspecified | | [address], | | | | | type Fecal | | [address] | | | | | urgency | | [place], | | | | | Abdominal | | [place] [address] | | | | | cramping | | Phone: | | | | | Heartburn | | [phone] | | | | | Black stool | | Fax: | | | | | Procedures | | [phone] | | | | | [place] | | | | | | | ESOPHAGOGAST | | | | | | | RODUODENOSCO | | | | | | | PY TRANSORAL | | | | | | | DIAGNOSTIC | | | | | | | [place] EGD | | | | | | | TRANSORAL | | | | | | | BIOPSY | | | | | | | SINGLE/MULTI | | | | | | | PLE [place] | | | | | | | COLONOSCOPY | | | | | | | FLX DX | | | | | | | W/COLLJ SPEC | | | | | | | WHEN PFRMD | | | | | | | [place] | | | | | | | COLONOSCOPY | | | | | | | W/BIOPSY | | | | | | | SINGLE/MULTI | | | | | | | PLE [place] | | | | | | | [...] + + | 12/25/ | Hospital | [facility] | Deny Nelson MD | Diarrhea, | | 2019 | Encounter | [facility] | [address], [place] | unspecified type; | | | | [address] | [address] [place], [place] | Fecal urgency; | | | | [place], [place] | [address] | Abdominal cramping; | | | | [address] | | Heartburn; Black | | | | [phone] | | stool | +--------+ + + + + Social [...] documented in this encounter Discharge Instructions Marti Mnotalvo RN - 12/25/2018 Recovery After Procedural Sedation [...] You can't be awakened Date Last Reviewed: 01/06/201619999942-5491 [employer]. [address] [place] [address]. All righ ts reserved. This information is [...] [address] | [place] | [phone] | | [facility] | | [address] | | | - LABORATORY | | [...] + + | Performed at: 01 - Jamila [address] [address], | REFERENCE LAB | | [place], [place] [id number] Trolley Car Overhauler: Анна Oscar MD, Phone: | [facility] | | [phone] | | + + + + + + + + | Performing | Address | City/State/Zipcode | Phone Number | | Organization | | | | + + + + + | REFERENCE LAB | [address] [facility] | [place] [address] | [phone] | | [facility] | Drive [...] difficile, | Toxigenic C. difficile | | [facility] | | | Interp | detected. Consider [...] + + | [facility] | [address] | [place] | [phone] | | [facility] | | [address] | | | - LABORATORY | | [...] + + | Performed at: 01 - Jamila [address], | REFERENCE LAB | | [place], [place] [id number] Trolley Car Overhauler: Анна Oscar MD, Phone: | [facility] | | [phone] | | + + + + + + + + | Performing | Address | City/State/Zipcode | Phone Number | | Organization | | | | + + + + + | REFERENCE LAB | [address] | [place] [address] | [phone] | | [facility] | Drive [...] | | | 2 | | | [facility] | | | | | | MEDICAL [...] [address] | [place] | [phone] | | [facility] | | [address] | | | - LABORATORY | | [...] | | | Antigen, | | | [address]acie [address]I | | | Stool | | [...] + + | [facility] | [address] | [place] | [phone] | | [facility] | | [address] | | | - LABORATORY | | [...] | | dium | | | [facility] | | | Antigen | | [...] + + + + + | [facility]. | [address] | [place] | [phone] | | [facility] | | [address] | | | - LABORATORY | | [...] [address] | [place] | [phone] | | [facility] | | [address] | | | - LABORATORY | | | | + + + + + EGD (12/25/2018 10:30 AM PDT) + + | Specimen | + + | | + + + + -+ | Narrative | Performed At | + + -+ | | [facility] | | GastroenterologyPatient Name: Grecia BainTyrel Date: 12/25/2018 | [facility] | | 10:30 AMMRN: [id number] #: [id number] of : | | | 1970Admit Type: [...] by the physician, the nurse and the landfill gas technician in the | | | endoscopy [...] AMScope Out: | | | 10:53:30 AM [facility], [address] [facility], | | | [place] [address] | | | - Resume previous diet [...] |Scope Out: 10:53:30 AM | | | [facility], [address] [facility], [place], [place] | | | [address] | | + + -+ + +---------+ [...] | [facility] | | GastroenterologyPatient Name: Grecia BainProshady Date: 12/25/2018 | [facility] | | 10:28 AMMRN: [id number] #: [id number] of : | | | 1970Admit Type: [...] by the physician, the nurse and the landfill gas technician. | | | Prophylactic Antibiotics: The [...] Scope In: 10:55:28 AMScope Out: 11:09:49 AM [facility] | | | [facility], [facility] [place] [address] | | | [phone] | | | anti-inflammatory drugs for 7 [...] |Scope Out: 11:09:49 AM | | | [facility], [address] [facility], [place], [place] | | | [address] | | + + -+ + +---------+ [...] for specific diagnostic abnormality. | | | JVR:[facility]:C2NR GROSS DESCRIPTION: Two specimens are received | [...] LABORATORY: The technical component was performed by [facility] | | | [employer], [address] [place] [address] (Recycling Crew Supervisor: | | | Shavonne Mathias MD; IA# [id number]). Professional interpretation was | | | performed by [facility], [facility] | | | [facility], [address] [place] [address] (Medical | | | Director: Deonte Marquez M.D.). Diagnostician: Deonte Garcia | | | Alma RAY Pathologist Electronically Signed 12/26/2018 | | + + + + +---------+ + + | Performing | Address | City/State/[facility] | Phone Number | | Organization | [...] mL/hr | Arm | | CONTINUOUS, Starting 12/25/18 | | AM PDT | | | | | at 1045, Pre-op | | | | | | + +---------+ +--------+-------+--------+ +---+---+ | | | +---+---+ + +-------+ +-------+---+---+ | meperidine (DEMEROL) 50 mg/mL | Given | 12/26/19 | 50 mg | | | | injection PRN, Starting Mon | | 19 10:44 | | | [...]
--- OUTSIDE RECORDS SUMMARY | ~2019-03-17 | XMS | Encounter Summary ---
Demographics + + + | Address | [address] | | | [place] [address] | + + + | Home Phone | | + + + | Preferred Language | Unknown | + + + | Marital Status | | + + + | Sabianism Affiliation | Unknown | + + + | Race | Unknown | + + + | Ethnic Group | Unknown | + + + Author + + + | Author | [facility] | | | and Michaelana | + + + | Organization | [facility] | | | and Michaelana [...] Team Providers + +------+ + | Care Roofer Applicator Name | Role | Phone | + +------+ + | Selene Francis PA-C | PCP | | + +------+ + Reason for Visit + + + | Reason | Comments | + + + | Medication | | | Management | | + + + Encounter Details +--------+ + + + + | Date | Type | Department | Care Team | Description | +--------+ + + + + | 01/25/ | Telephone | [facility] | Deny Nelson MD | Medication | | 2019 | | GASTROENTEROLOGY | [address], [place] | Management | | | | [address] [place] | [address] [place], [place] | | | | | [address] [place], [place] | [address] | | | | | [address] | | | | | | [phone] | | | +--------+ + + + [...]
--- OUTSIDE RECORDS SUMMARY | ~2019-03-17 | XMS | Encounter Summary ---
Demographics + + + | Address | [address] | | | [place] [address] | + + + | Home Phone | | + + + | Preferred Language | Unknown | + + + | Marital Status | | + + + | Baptism Affiliation | Unknown | + + + | Race | Unknown | + + + | Ethnic Group | Unknown | + + + Author + + + | Author | [facility] | | | and Michaelana | + + + | Organization | [facility] | | | and Mihcaelana | + + + | Address | [...] Team Providers + +------+ + | Care Director Internal Audit Name | Role | Phone | + +------+ + | Selene Francis PA-C | PCP | | + +------+ + Reason for Visit + + + | Reason | Comments | + + + | Procedure | Egd/Prop with Dr. Nelson | + + + Encounter Details +--------+ + + + + | Date | Type | Department | Care Team | Description | +--------+ + + + + | 01/17/ | Telephone | [facility] | Deny Nelson MD | Procedure (Egd/Prop | | 2019 | | GASTROENTEROLOGY | [address], [place] | with Dr. Nelson) | | | | [address] [place] | [address] [place], [place] | | | | | [address] [place], [place] | [address] | | | | | [address] | | | | | | [phone] | | | +--------+ + + + [...] + | Diagnosis | + + | Esophageal varices without bleeding, unspecified esophageal varices type (HCC) - | | Primary | + + | Acute gastrointestinal hemorrhage Hemorrhage of gastrointestinal tract, unspecified | + + | Portal hypertension (HCC) Portal hypertension | + + | Other diseases of stomach and duodenum | + + | Hematemesis, presence of nausea not specified | + + documented in this encounter"
--- OUTSIDE RECORDS SUMMARY | ~2019-03-17 | XMS | Encounter Summary ---
Demographics + + + | Address | [address] | | | [place] [address] | + + + | Home Phone | | + + + | Preferred Language | Unknown | + + + | Marital Status | | + + + | Amish Affiliation | Unknown | + + + | Race | Unknown | + + + | Ethnic Group | Unknown | + + + Author + + + | Author | [facility] | | | and Michaelana | + + + | Organization | [facility] | | | and Michaelana [...] Team Providers + +------+ + | Care Marine Engineering Teacher Name | Role | Phone | + [...] | | | Esophageal | | Deny E, MD | | | | | varices | | [address], | | | | | without | | [place] [address] | | | | | bleeding, | | [place], | | | | | unspecified | | [place] [address] | | | | | esophageal | | Phone: | | | | | varices type | | [phone] | | | | | (HCC) | | Fax: | | | | | Acute | | [phone] | | | | | gastrointest | | | | | | | inal | | | | | | | hemorrhage | | | | | | | Portal | | | | | | | hypertension | | | | | | | (HCC) | | | | | | | Other | | | | | | | diseases of | | | | | | | stomach and | | | | | | | duodenum | | | | | | | Hematemesis, | | | | | | | presence of | | | | | | | nausea not | | | | | | | specified | | | | | | | Procedures | | | | | | | AL | | | | | | | ESOPHAGOGAST | | | | | | | RODUODENOSCO | | | | | | | PY TRANSORAL | | | | | | | DIAGNOSTIC | | | | | | | AL EGD | | | | | | | TRANSORAL | | | | | | | BIOPSY | | | | | | | SINGLE/MULTI | | | | | | | PLE AL EGD | | | | | | | BAND | | | | | | | LIGATION | | | | | | | ESOPHGEAL/GA | | | | | | | STRIC | | | | | | | VARICES AL | | | | | | | [...] + + | 01/24/ | Anesthesia | [facility] | Arturo Sommers | | | 2019 | Event | MED CTR MP INTRA OP | [address] | | | | | [address] | [address] [facility] | | | | | [place] | [place] [address] | | | | | [address] | [phone] | | | | | [phone] | | | +--------+ + + + + Anesthesia Record + + + + + | Procedure Name | Responsible | Anesthesia Start | Anesthesia Stop Time | | | Anesthesiologist | Time | | + + + + + | EGD (N/A Mouth) | Arturo Sommers, | 01/24/19 1435 | 01/24/19 1456 | | | DO | | | + + + + + +----+---+ + + | Da | T | Event | Comment | | te | i | | | | | m | | | | | e | | | +----+---+ + + | 11 | 1 | An Checkout | Pre-use anesthesia machine/equipment checkout. | | /0 | 4 | | | | 6/ | 2 | | | | 20 | 1 | | | | 19 | | | | +----+---+ + + | | 1 | | | | | 4 | | | | | 2 | | | | | 8 | | | +----+---+ + + | | 1 | An Start | Reassessment prior to anesthesia induction/procedure. | | | 4 | | | | | 3 | | | | | 5 | | | +----+---+ + + | | 1 | AN | Per surgeon request | | | 4 | Antibiotic | | | | 3 | declined | | | | 5 | | | +----+---+ + + | | 1 | Pre-Procedu | | | | 4 | ral Timeout | | | | 3 | Completed | | | | 7 | | | +----+---+ + + | | 1 | An | | | | 4 | Induction | | | | 3 | | | | | 8 | | | +----+---+ + + | | 1 | First | | | | 4 | Inc/Proc St | | | | 4 | | | | | 0 | | | +----+---+ + + | | 1 | Breathing | | | | 4 | Spontaneous | | | | 4 | ly | | | | 0 | | | +----+---+ + + | | 1 | an stop | | | | 4 | data | | | | 5 | | | | | 3 | | | +----+---+ + + | | 1 | An Stop | Patient handed off to recovery nurse. | | | 5 | | | | | 6 | | | +----+---+ + + +------+ | Meds | +------+ + + + | Name | Total | + + + | propofol (DIPRIVAN) injection | 60 mg | | (bolus) (20 mL) | | + + + | propofol | 176.16 mg | + + + | lidocaine 2% | 100 mg | + + + | lactated ringers (LR) infusion | 0 mL | + + + + + | No agents on file. | + + + + | No blood administrations on file. | + + +--------+ + + + | Type | Details | Placement | Removal | +--------+ + + + | Periph | 01/24/19; 1210; Right; Anterior | 01/24/19 1210 by | 01/24/19 1521 by | | eral | (palmar); Antecubital; | Tawnia K | Deanna Webb RN | | IV | jnrp-[id number] catheter system; | [facility] | | | | 20 gauge, 1 1/4 in length; no | | | | | longer indicated; short term use; | | | | | 01/24/19; 1521 | | | +--------+ + + + [...] filedocumented in this encounter Administered Medications + +---------+ +------+------+------+ | Medication Order | MAR | Action | Dose | Rate | Site | | | Action | Date | | | | + +---------+ +------+------+------+ | lactated ringers (LR) infusion | New Bag | 01/25/20 | | | | | at 10-100 mL/hr, Intravenous, | | 19 1:35 | | | | | CONTINUOUS, Starting 01/24/19 | | PM PST | | | | | at 1215, Use this instead of NS | | | | | | | unless patient is on dialysis., | | | | | | | Pre-op | | | | | | + +---------+ +------+------+------+ +---------+ +---+-------+---+ | New Bag | 01/25/20 | | 100 | | | | 19 12:37 | | mL/hr | | | | PM PST | | | | +---------+ +---+-------+---+ +---+---+ | | | +---+---+ + +-------+ +--------+---+---+ | lidocaine (PF) 2% injection | Given | 01/25/20 | 100 mg | | | | Intravenous, PRN, Starting Wed | | 19 2:38 | | | | | 01/24/19 at 1438, Anesthesia | | PM PST | | | | | Intra-op | | | | | | + +-------+ +--------+---+---+ +---+---+ | | | +---+---+ + +-------+ +-------+---+---+ | propofol (DIPRIVAN) injection | Given | 01/25/20 | 60 mg | | | | Intravenous, PRN, Starting Wed | | 19 2:38 | | | | | 01/24/19 at 1438, Anesthesia | | PM PST | | | | | Intra-op | | | | | | + +-------+ +-------+---+---+ +---+---+ | | | +---+---+ + +---------+ + +-------+---+ | propofol (DIPRIVAN) injection | New Bag | 01/25/20 | 200 | 88.1 | | | Intravenous, CONTINUOUS PRN, | | 19 2:38 | mcg/kg/m | mL/hr | | | Starting 01/24/19 at 1438, | | PM PST | in | | | | Anesthesia Intra-op | | | | | | + +---------+ + +-------+---+ +---+---+ | | | +---+---+ documented in this encounter"
--- OUTSIDE RECORDS SUMMARY | ~2019-03-17 | XMS | Encounter Summary ---
Demographics + + + | Address | [address] | | | [place] [address] | + + + | Home Phone | | + + + | Preferred Language | Unknown | + + + | Marital Status | | + + + | Uatsdin Affiliation | Unknown | + + + | Race | Unknown | + + + | Ethnic Group | Unknown | + + + Author + + + | Author | [facility] | | | and Michaelana | + + + | Organization | [facility] | | | and Michaelana [...] Team Providers + +------+ + | Care Senior Game Designer Name | Role | Phone | + +------+ + | Selene Francis PA-C | PCP | | + +------+ + Encounter Details +--------+ + + + + | Date | Type | Department | Care Team | Description | +--------+ + + + + | 03/12/ | Imaging | [facility] | Provider, | | | 2019 | Exam | [facility] EXTERNAL | [address] | | | | | IMAGING | [place] | | | | | [phone] | [place] [address] | | +--------+ + + + + [...] documented in this encounter Results CT Abdomen Pelvis w Contrast (02/28/2019 12:00 [...]
--- OUTSIDE RECORDS SUMMARY | ~2019-03-17 | XMS | Encounter Summary ---
Demographics + + + | Address | [address] | | | [place] [address] | + + + | Home Phone | | + + + | Preferred Language | Unknown | + + + | Marital Status | | + + + | Temple Affiliation | Unknown | + + + | Race | Unknown | + + + | Ethnic Group | Unknown | + + + Author + + + | Author | [facility] | | | and Michaelana | + + + | Organization | [facility] | | | and Michaelana [...] Team Providers + +------+ + | Care Wool Washing Machine Operator Name | Role | Phone | [...] | | | | [address] [facility] | [place] | | | | | [address] [place] | [place] [address] | | | | | [address] | | | | | | [phone] | | | +--------+ + + + [...] + | Colonoscopy | See Full Report~ [facility] | | | | | | Dr. Nelson | | | | | Impression, | | | | | | External | | | | | + + + + + + documented in this encounter Visit Diagnoses Not on filedocumented in this encounter"
--- OUTSIDE RECORDS SUMMARY | ~2019-03-17 | XMS | Encounter Summary ---
Demographics + + + | Address | [address] | | | [place] [address] | + + + | Home Phone | | + + + | Preferred Language | Unknown | + + + | Marital Status | | + + + | Confucianism Affiliation | Unknown | + + + | Race | Unknown | + + + | Ethnic Group | Unknown | + + + Author + + + | Author | [facility] | | | and Michaelana | + + + | Organization | [facility] | | [...] Team Providers + +------+ + | Care Comfort Advisor Name | Role | Phone | + [...] | | varices | | [address], | | | | | without | | [address] | | | | | bleeding, | | [place], | | | | | unspecified | | [place] [address] | | | | | esophageal | | Phone: | | | | | varices type | | [phone] | | | | | (HCC) | | Fax: | | | | | Acute | | [phone] | | | | | gastrointest | [...] | | | | | PLE [place] EGD | | | | | | | BAND | | | | | | | LIGATION | | | | | | | ESOPHGEAL/GA | | | | | | | STRIC | | | | | | | VARICES [place] | | | | | | [...] + + | 01/24/ | Surgery | [facility] | Deny Nelson MD | EGD | | 2019 | | MED CTR MP INTRA OP | [address], [place] | | | | | [address] | [address] [place] | | | | | [place], [place] | [address] | | | | | [address] | | | | | | [phone] | | | +--------+---------+ + + + [...] You can't be awakened Date Last Reviewed: 01/06/201619994335-2561 [employer]. [address] [place] [address]. All righ ts reserved. This information is [...] +---------+ + + | omeprazole | Take 20 mg by mouth | | 0 | | | | (PRILOSEC) 40 MG | 2 times daily. | | | | | | capsule | | | | | | + [...] tablet by | 90 | 2 | 01/03/20 | | | (INDERAL) 20 MG | [...] 01/24/2019 | [facility] | | 2:31 PMMRN: [id number] #: [id number] of : | | | 1970Admit Type: AmbulatoryAge: 48Room: Endo Room 1Gender: | | | FemaleNote Status: FinalizedAttending MD: Deny Nelson , | | | MDProcedure: Upper GI endoscopyIndications: | | | Esophageal varices, Follow-up of esophageal varices, For | | | therapy of esophageal varicesProviders: | | | Deny Nelson MD, Briana Constantino RN, Baldemar Caro, | | | Webmethods Consultant, Arturo Sommers MD (Anesthesia Staff)Referring | | [...] | | | the anesthesiologist and the cost recovery technician in the endoscopy suite. | | [...] PMScope In: 2:44:21 PMScope Out: 2:52:03 PM [facility]. | | | [facility], [address] [place] [address] | | | [phone] | | | symptoms of potential delayed [...] |Scope Out: 2:52:03 PM | | | [facility]. [facility], [address] [place] [address] | | | [address] | | + + -+ + +---------+ [...] ONCE PRN, | | | Wheezing, Starting 01/24/19 at | | | 1149, For 1 [...] | | | | | CONTINUOUS, Starting Tue01/24/19 | | PM PST | | | [...]
--- OUTSIDE RECORDS SUMMARY | ~2019-03-17 | XMS | Encounter Summary ---
Demographics + + + | Address | [address] | | | [place] [address] | + + + | Home Phone | | + + + | Preferred Language | Unknown | + + + | Marital Status | | + + + | Temple Affiliation | Unknown | + + + | Race | Unknown | + + + | Ethnic Group | Unknown | + + + Author + + + | Author | [facility] | | | and Michaelana | + + + | Organization | [facility] | | | and Michaelana [...] Team Providers + +------+ + | Care Custom Feed Corn Operator Name | Role | Phone | [...] | | | | [address] [facility] | [place] | | | | | [address] [place] [place] | [place] [address] | | | | | [address] | | | | | | [phone] | | | +--------+ + + + [...]
--- OUTSIDE RECORDS SUMMARY | ~2019-03-17 | XMS | Clinical Summary ---
Demographics + + + | Address | [address] | | | [place] [address] | + + + | Home Phone | | + + + | Preferred Language | Unknown | + + + | Marital Status | | + + + | Hindu Affiliation | Unknown | + + + | Race | Unknown | + + + | Ethnic Group | Unknown | + + + Author + + + | Author | [facility] | | | and Michaelana | + + + | Organization | [facility] | | | and Michaelana [...] Team Providers + +------+ + | Care Biodiesel Technology Manager Name | Role | Phone | + [...] automatically from request for surgery | | [id number] | + + + + + | Esophageal varices without bleeding, unspecified esophageal | 01/23/2019 | | varices type | | + + + + + | Overview: Added automatically from request for surgery | | [id number] | + + + + + | Acute gastrointestinal hemorrhage | 01/23/2019 | + + + + + | Overview: Added automatically from request for surgery | | [id number] | + + + + + | Portal hypertension | 01/23/2019 | + + + + + | Overview: Added automatically from request for surgery | | [id number] | + + + + + | Other diseases of stomach and duodenum | 01/23/2019 | + + + + + | Overview: Added automatically from request for surgery | | [id number] | + + + + + | Hematemesis, presence of nausea not specified | 01/23/2019 | + + + + + | Overview: Added automatically from request for surgery | | [id number] | + + + + + | Cirrhosis of liver | 01/15/2019 | + + + | Diarrhea, unspecified type | 12/18/2018 | + + + + + | Overview: Added automatically from request for surgery | | [id number] | + + + + + | Fecal urgency | 12/18/2018 | + + + + + | Overview: Added automatically from request for surgery | | [id number] | + + + + + | Abdominal cramping | 12/18/2018 | + + + + + | Overview: Added automatically from request for surgery | | [id number] | + + + + + | Heartburn | 12/18/2018 | + + + + + | Overview: Added automatically from request for surgery | | [id number] | + + + + + | Black stool | 12/18/2018 | + + + + + | Overview: Added automatically from request for surgery | | [id number] | + + Encounters +--------+ + + [...] | 01/26/ | Tele[facility] | [facility] | [facility] | | | BRIAN [place]icks[place] | | +--------+ + + + + | 01/25/ | Telephone | Gastroenterology | Deny Nelson MD | Medication | | 2018 | [...] | 01/15/ | Telephone | Gastroenterology | [facility], | Referral | | 2018 | | | BRIAN Dickson | | +--------+ + + + + | 01/13/ | Telephone | Gastroenterology | [facility], | Referral | | 2018 | | | BRIAN Dickson | | +--------+ + + + + | 01/12/ | Hospital | Radiology | [facility], | Elevated liver | | 2018 | [...] | 01/09/ | Telephone | Gastroenterology | [facility], | MRI Recommendation | | 2018 | | | BRIAN Dickson | | +--------+ + + + + | 01/08/ | Hospital | Radiology | [facility], | Elevated liver | | 2018 | [...] | 01/04/ | Telephone | Gastroenterology | [facility], | Other (CT ) | | 2019 | | | BRIAN Dickson | | +--------+ + + + + | 01/02/ | Office | Gastroenterology | [facility], | Elevated liver | | 2019 | [...] | 01/02/ | Documentati | Gastroenterology | [facility], | | | 2019 | on | [...] | 12/18/ | Office | Gastroenterology | [facility], | Diarrhea, | | 2018 | Visit [...] | + +--------+ + + + | [place] UPPER GI | Routin | 03/06/2019 | [...] + + ----+ | [facility] | [facility] | | [facility] Grecia Bain | NICOLA | | LeeProcedure Date: 03/06/2019 12:07 PMMRN: [id number] Number: | | | [id number] of : 1970Note Status: FinalizedAttending MD: | [...] the anesthesiologist and the | | | coal gasification technician in the endoscopy suite. Mental Status [...] PMNumber of | | | Addenda: 0 [facility] | | | - Patient has a [...] |Number of Addenda: 0 | | | [facility] | | + + ----+ + +---------+ [...] 01/24/2019 | [facility] | | 2:31 PMMRN: [id number] #: [id number] of : | | | 1970Admit Type: AmbulatoryAge: 48Room: Endo Room 1Gender: | | | FemaleNote Status: FinalizedAttending MD: Deny Nelson , | | | MDProcedure: Upper GI endoscopyIndications: | | | Esophageal varices, Follow-up of esophageal varices, For | | | therapy of esophageal varicesProviders: | | | Deny Nelson MD, Briana Constantino RN, Baldemar Caro, | | | Feeder Catcher Tobacco, Arturo Sommers MD (Anesthesia Staff)Referring | | [...] | | | the anesthesiologist and the coal gasification technician in the endoscopy suite. | | [...] 2:44:21 PMScope Out: 2:52:03 PM [facility]. | | | [facility], [address] [place] [address] | | | [phone] | | | symptoms of potential delayed [...] 2:52:03 PM | | | [facility]. [facility], [address] [place], [place] | | | [address] | | + + -+ + +---------+ [...] diffusion weighted, axial T1, axial | | [id number], coronal T1 postcontrast, sagittal T1 post contrast. [...] + | [facility] | [address] | [place] | [phone] | | [facility] | | [address] | | | - LABORATORY | | [...] [address] | [place] | [phone] | | [facility] | | [address] | | | - LABORATORY | | [...] ST. | [address] | [place] | [phone] | | [facility] | | [address] | | | - LABORATORY | | [...] | REFERENCE LAB | | [place] [id number] Chlorinator: Анна Oscar MD, Phone: | [facility] | | [phone] | | + + + + + + + + | Performing | Address | City/State/Zipcode | Phone Number | | Organization | | | | + + + + + | REFERENCE LAB | [address] | [place] [address] | [phone] | | [facility] | Drive [...] | REFERENCE LAB | | [place] [id number] Chlorinator: Анна Oscar MD, Phone: | [facility] | | [phone] | | + + + + + + + + | Performing | Address | City/State/Zipcode | Phone Number | | Organization | | | | + + + + + | REFERENCE LAB | [address] | [place] [address] | [phone] | | [facility] | Drive [...] + | [facility] | [address] | [place] | [phone] | | [facility] | | [address] | | | - LABORATORY | | [...] ST. | [address] | [place] | [phone] | | [facility] | | [address] | | | - LABORATORY | | [...] [address] | [place] | [phone] | | [facility] | | [address] | | | - LABORATORY | | | | + + + + + EGD (12/25/2018 10:30 AM PDT) + + | Specimen | + + | | + + + + -+ | Narrative | Performed At | + + -+ | | [facility] | | GastroenterologyPatient Name: Grecia BainTyrel Date: 12/25/2018 | [facility] | | 10:30 AMMRN: [id number] #: [id number] of : | | | 1970Admit Type: [...] by the physician, the nurse and the coal gasification technician in the | | | endoscopy [...] AMScope Out: | | | 10:53:30 AM [facility], [address] [facility], | | | [place] [address] | | | - Resume previous diet [...] |Scope Out: 10:53:30 AM | | | [facility], [address] [facility], [place], [place] | | | [address] | | + + -+ + +---------+ + + | Performing | Address | City/State/[facility] Centercode | Phone Number | [...] 12/25/2018 | [place] | | 10:28 AMMRN: [id number] #: [id number] of : | | | 1970Admit Type: [...] by the physician, the nurse and the coal gasification technician. | | | Prophylactic Antibiotics: The [...] Scope In: 10:55:28 AMScope Out: 11:09:49 AM [facility] | | | [facility], [facility] [place] [place] [address] | | | [phone] | | | anti-inflammatory drugs for 7 [...] |Scope Out: 11:09:49 AM | | | [facility], [address] [facility], [place], [place] | | | [address] | | + + -+ + +---------+ [...] for specific diagnostic abnormality. | | | JVR:[facility]:C2NR GROSS DESCRIPTION: Two specimens are received [...] LABORATORY: The technical component was performed by [employer] | | | [employer], [address] [place] [id number] (Production Grader: | | | Shavonne Mathias MD; CLIA# [id number]). Professional interpretation was | | | performed by [employer], [facility] | | | [address] [address] (Medical | | | Director: Ruth Batista. [...] + +------+ | MODA | [employer] | [id number] | | [phone] | [address] | PPO | | | [employer] | | [phone] | [phone] | | | | [place] | | esent | | [place], | | | | [place] | | | | [place] [address] | | + +--------+ +--------+ + +------+ | [facility] | PHP | [id number] | 03/21/19 | [phone] | | PPO | | PLAN | [...] Person | Self | [birth year] | [address] | | | al/Reymundo | | 1971 | [phone] | [place] [address] | | | prabhjot | | | 7 (Home) | | | | | | | [phone] | | | | | | | 9 (Work) | | + +--------+ +--------+ + + Advance Directives + + + + + | Type | Date Recorded | Patient | Explanation | | | | Safety Spec | | + + + + + | Power of | | | | | Automotive Electrician Helper | | | | + + + + + | Advance | 12/25/2018 9:30 | | | | Directive | AM | | | + + + + +
--- OUTSIDE RECORDS SUMMARY | ~2019-03-17 | XMS | Encounter Summary ---
Demographics + + + | Address | [address] | | | [place] [address] | + + + | Home Phone | | + + + | Preferred Language | Unknown | + + + | Marital Status | | + + + | Anabaptist Affiliation | Unknown | + + + | Race | Unknown | + + + | Ethnic Group | Unknown | + + + Author + + + | Author | [facility] | | | and Michaelana | + + + | Organization | [facility] | | | and [...] Team Providers + +------+ + | Care Form Builder Name | Role | Phone | + [...] 2018 | | GASTROENTEROLOGY | [address], [place] | schedule EGD) | | | | [address] [place] | [address] [place], [place] | | | | | [address] [place], [place] | [address] | | | | | [address] | | | | | | [phone] | | | +--------+ + + + [...]
--- OUTSIDE RECORDS SUMMARY | ~2019-03-17 | XMS | Encounter Summary ---
Demographics + + + | Address | [address] | | | [place] [address] | + + + | Home Phone | | + + + | Preferred Language | Unknown | + + + | Marital Status | | + + + | Yarsanism Affiliation | Unknown | + + + | Race | Unknown | + + + | Ethnic Group | Unknown | + + + Author + + + | Author | [facility] | | | and Michaelana | + + + | Organization | [facility] | | | and Michaelana [...] Team Providers + +------+ + | Care Knotter Hand Name | Role | Phone | + [...] | | | | [address] [facility] | Emeka Lamar | | | | | [address] [place] | [place] [address] | | | | | [address] | | | | | | [phone] | | | +--------+ + + + [...]
--- OUTSIDE RECORDS SUMMARY | ~2019-03-17 | XMS | Encounter Summary ---
Demographics + + + | Address | [address] | | | [place] [address] | + + + | Home Phone | | + + + | Preferred Language | Unknown | + + + | Marital Status | | + + + | Jehovah'S Witness Affiliation | Unknown | + + + | Race | Unknown | + + + | Ethnic Group | Unknown | + + + Author + + + | Author | [facility] | | | and Michaelana | + + + | Organization | [facility] | | | and [...] Team Providers + +------+ + | Care Business Operations Consultant Name | Role | Phone | + [...] | | varices | | [address], | | | | | without | | [address] | | | | | bleeding, | | [place], | | | | | unspecified | | [place] [address] | | | | | esophageal | | Phone: | | | | | varices type | | [phone] | | | | | (HCC) | | Fax: | | | | | Acute | | [phone] | | | | | gastrointest | [...] | | | | | | | [place] | | | | | | | ESOPHAGOGAST | | | | | | | RODUODENOSCO | | | | | | | PY TRANSORAL | | | | | | | DIAGNOSTIC | | | | | | | [place] EGD | | | | | | | TRANSORAL | | | | | | | BIOPSY | | | | | | | SINGLE/MULTI | | | | | | | PLE [place] EGD | | | | | | | BAND | | | | | | | LIGATION | | | | | | | ESOPHGEAL/GA | | | | | | | STRIC | | | | | | | VARICES [place] | | | | | | | [...] + + | 01/24/ | Hospital | [facility] | Deny Nelson MD | Esophageal varices | | 2019 | Encounter | MED CTR MP INTRA OP | [address], [place] [address] | without bleeding, | | | | [address] | [address] [place], [place] | unspecified | | | | [place], [place] | [address] | esophageal varices | | | | [address] | | type (HCC); Acute | | | | [phone] | | gastrointestinal | | | | [...] specified | +--------+ + + + + Social [...] in this encounter Discharge Instructions Instructions Deanna Webb, RN - 01/24/2019 Recovery After Procedural Sedation [...] You can't be awakened Date Last Reviewed: 01/06/201619996814-0951 [employer]. [address] [place] [address]. All righ ts reserved. This information is [...] 01/24/2019 | [employer]OVATION | | 2:31 PMMRN: [id number] #: [id number] of : | | | 1970Admit Type: Amb[age]Age: 48Room: Endo Room 1Gender: | | | FemaleNote Status: FinalizedAttending MD: Deny Nelson , | | | MDProcedure: Upper GI endoscopyIndications: | | | Esophageal varices, Follow-up of esophageal varices, For | | | therapy of esophageal varicesProviders: | | | Deny Nelson MD, Briana Constantino RN, Baldemar Caro, | | | Satellite Communications Operator, Arturo Sommers MD (Anesthesia Staff)Referring | | [...] | | | the anesthesiologist and the refinish technician in the endoscopy suite. | | [...] PMScope In: 2:44:21 PMScope Out: 2:52:03 PM [facility]. | | | [address] [address] | | | [phone] | | | symptoms of potential delayed [...] |Scope Out: 2:52:03 PM | | | [facility], [address] [place] | | | [address] | | + + -+ + +---------+ [...] Shortness of Breath, | | | Starting Tue01/24/19 at 1459, For | | | 1 [...] glucose < 50, | | | Starting Tue01/24/19 at 1149, | | | Repeat in [...] PRN, Nausea, | | | Vomiting, Starting 01/24/19 | | | at 1459, First line [...]
--- OUTSIDE RECORDS SUMMARY | ~2019-03-17 | XMS | Clinical Summary ---
Demographics + + + | Address | [address] | | | [place] [address] | + + + | Home Phone [...] Author + + + | Author | [facility] | + + + | Organization | [facility] | + + + | Address | Unknown | + + + | Phone | Unavailable | + + + Support + + + + + | Name | Relationship | Address | Phone | + + + + + | Benedicto Bain | ECON | [address] | | | | | [place] | | | | | [address] | | + + + + + Care Team Providers + +------+ + | Care Property Staff Accountant Name | Role | Phone | + +------+ + | Selene Francis | PCP | | + +------+ + Source Comments [facility] is fully live on both [facility] and [facility] Allergies Not on File Medications Not on file Active Problems Not on file Encounters +--------+ + + + + | Date | Type | Specialty | Care Team | Description | +--------+ + + + + | 03/13/ | Abstract | Hepatology | Clinic, | Medical Records | | 2018 | | | Gastroenterology | Review | +--------+ + + + + | 01/17/ | Abstract | Hepatology | Clinic, | | | 2018 | | | Gastroenterology | | +--------+ + + + + from Last 3 Months Social History + +-------+ +--------+------+ | Tobacco [...] | + + Last Filed Vital Signs Not on file Plan of Treatment +--------+---------+ + + + | Date | Type | Specialty | Care Team | Description | +--------+---------+ + + + | 04/04/ | Office | Hepatology | Luigi Caro MD | | | 2020 | Visit | | [address] | | | | | | [place], | | | | | | [place] [address] | | | | | | [phone] | | | | | | | | +--------+---------+ + + + + + + + + | Health Maintenance | Due Date | Last Done | Comments | + + + + + | Pneumococcal | | | | | vaccination (1 of 1 | 9 | | | | - PPSV23) | | | | + + + + + | Influenza (Flu) | | | | | vaccination (#1) | 9 | | | + + + + + Results Not on filefrom Last 3 Months Insurance + +--------+ +--------+ + +------+ | Payer | Benefi | Subscriber | Effect | Phone | Address | Type | | | t Plan | ID | marvin | | | | | | / | | Dates | | | | | | Group | | | | | | + +--------+ +--------+ + +------+ | [employer] | MODA | xxxxxxxxx | | [phone] | [address] | PPO | | | OEBB | | [address] | [phone] | | | | [place] | | esent | | [place], | | | | [place] | | | | [place] [address] | | + +--------+ +--------+ + +------+ | [employer] | PROVID | [phone] | 10/20/19 | [phone] | [address] | PPO | | | ENCE | | [address] | [address] | [address] | | | | CHOICE | | sent | | [place], | | | | [place] | | | | [place] [address] | | + +--------+ +--------+ + +------+ + +--------+ +--------+ + + | Guarantor Name | Accoun | Relation to | Date | Phone | Billing Address | | | t Type | Patient | of | | | | | | | | | | + +--------+ +--------+ + + | Grecia Bain | Person | Self | [birth year] | [address] | | | al/Fam | | 1971 | [phone] | [place] [address] | | | prabhjot | | | 7 (Home) | | | | | | | [phone] | | | | | | | 9 (Work) | | + +--------+ +--------+ + +"
--- OUTSIDE RECORDS SUMMARY | ~2019-03-17 | XMS | Encounter Summary ---
Demographics + + + | Address | [address] | | | [place] [address] | + + + | Home Phone | | + + + | Preferred Language | Unknown | + + + | Marital Status | | + + + | Denominational Affiliation | Unknown | + + + | Race | Unknown | + + + | Ethnic Group | Unknown | + + + Author + + + | Author | [facility] | | | and Michaelana | + + + | Organization | [facility] | | | and Michaelana [...] Team Providers + +------+ + | Care Home Economics Extension Worker Name | Role | Phone | + [...] | | varices | | [address], | | | | | without | | [address] | | | | | bleeding, | | [place], | | | | | unspecified | | [place] [address] | | | | | esophageal | | Phone: | | | | | varices type | | [phone] | | | | | (HCC) | | Fax: | | | | | Portal | | [phone] | | | | | hypertensive | | | | | | | gastropathy | | | | | | | (HCC) | | | | | | | Procedures | | | | | | | [place] | | | | | | | ESOPHAGOGAST | | | | | | | RODUODENOSCO | | | | | | | PY TRANSORAL | | | | | | | DIAGNOSTIC | | | | | | | [place] EGD | | | | | | | TRANSORAL | | | | | | | BIOPSY | | | | | | | SINGLE/MULTI | | | | | | | PLE [place] EGD | | | | | | | BAND | | | | | | | LIGATION | | | | | | | ESOPHGEAL/GA | | | | | | | STRIC | | | | | | | VARICES [place] | | | | | | | [...] + + | 03/06/ | Hospital | [facility] | Deny Nelson MD | Portal hypertensive | | 2019 | Encounter | MED CTR MP INTRA OP | [address], [place] [address] | gastropathy (HCC); | | | | [address] | [address] [place], [place] | Esophageal varices | | | | [place], [place] | [id number] | without bleeding, | | | | [address] | | unspecified | | | | [phone] | | esophageal varices | | | | | | type (HCC) | +--------+ + + + + Social [...] Chest pain or lightheadedness Date Last Reviewed: 05/19/2017 [employer]. [address] [place] [address]. All righ ts reserved. This information is [...] You can't be awakened Date Last Reviewed: 01/06/2016 [employer]. [address] [place] [address]. All righ ts reserved. This information is [...] | + +--------+ + + + | [place] UPPER GI | Routin | 03/06/2019 | [...] + + ----+ | [facility] | [facility] | | [facility]ologyPatient Name: Grecia Bain | [facility]OVATION | | LeeProcedure Date: 03/06/2019 12:07 PMMRN: [id number] Number: | | | [id number] of : 1970Note Status: FinalizedAttending MD: | [...] the anesthesiologist and the | | | motor vehicle technician in the endoscopy suite. Mental Status [...] PMNumber of | | | Addenda: 0 [facility] | | | - Patient has a [...] |Number of Addenda: 0 | | | [facility] | | + + ----+ + +---------+ + + | Performing | Address | City/State/Zipcode | Phone Number | | Organization | | | | + +---------+ + + | [facility] [place] | | | | + +---------+ + + documented in this encounter Visit Diagnoses + + | Diagnosis | + + | Portal hypertensive gastropathy (HCC) Other specified disorder of stomach and | | duodenum | + + | Esophageal varices without bleeding, unspecified esophageal varices type (HCC) | + + documented in this encounter [...] ONCE PRN, Wheezing, | | | Starting Tue03/06/19 at 1234, | | | For 1 [...] | mL/hr | | | CONTINUOUS, Starting 03/06/19 | | AM PST | | | [...] PRN, Nausea, Vomiting, | | | Starting Tue03/06/19 at 1234, | | | First line agent. Use PO option | | | unless NPO status or unable to | | | tolerate., Post-op/Phase II | | + +---+ | | | + +---+ documented in this encounter
--- OUTSIDE RECORDS SUMMARY | ~2019-03-17 | XMS | Encounter Summary ---
Demographics + + + | Address | [address] | | | [place] [address] | + + + | Home Phone [...] + | Organization | [facility] | | | and Michaelana [...] Team Providers + +------+ + | Care Automotive Tire Technician Name | Role | Phone | [...] 2019 | | GASTROENTEROLOGY | [address], [place] | with Dr. Nelson) | | | | [address] [place] [address] | [address] [place], [place] | | | | | [address] [place], [place] | [address] | | | | | [address] | | | | | | [phone] | | | +--------+ + + + [...]
--- OUTSIDE RECORDS SUMMARY | ~2019-03-17 | XMS | Encounter Summary ---
Demographics + + + | Address | [address] | | | [place] [address] | + + + | Home Phone | | + + + | Preferred Language | Unknown | + + + | Marital Status | | + + + | Gnosticism Affiliation | Unknown | + + + | Race | Unknown | + + + | Ethnic Group | Unknown | + + + Author + + + | Author | [facility] | | | and Michaelana | + + + | Organization | [facility] | | | and [...] Team Providers + +------+ + | Care Mapping Supervisor Name | Role | Phone | [...] | | varices | | [address], | | | | | without | | [address] | | | | | bleeding, | | [place], | | | | | unspecified | | [place] [address] | | | | | esophageal | | Phone: | | | | | varices type | | [phone] | | | | | (HCC) | | Fax: | | | | | Acute | | [phone] | | | | | gastrointest | [...] | | | | | | | [place] | | | | | | | ESOPHAGOGAST | | | | | | | RODUODENOSCO | | | | | | | PY TRANSORAL | | | | | | | DIAGNOSTIC | | | | | | | [place] EGD | | | | | | | TRANSORAL | | | | | | | BIOPSY | | | | | | | SINGLE/MULTI | | | | | | | PLE [place] EGD | | | | | | | BAND | | | | | | | LIGATION | | | | | | | ESOPHGEAL/GA | | | | | | | STRIC | | | | | | | VARICES [place] | | | | | | | [...] + + | 01/24/ | Anesthesia | [facility] | Arturo Sommers | | | 2019 | Event | MED CTR MP INTRA OP | [address] | | | | | [address] | [address] [facility] | | | | | [place] | [place] [address] | | | | | [address] | [phone] | | | | | [phone] | | | +--------+ + + + [...] Deanna Webb RN | | IV | bybw-mby-wqyjpn catheter system; | [facility] | | [...]
--- OUTSIDE RECORDS SUMMARY | ~2019-03-17 | XMS | Encounter Summary ---
Demographics + + + | Address | [address] | | | [place] [address] | + + + | Home Phone | | + + + | Preferred Language | Unknown | + + + | Marital Status | | + + + | Pentecostal Affiliation | Unknown | + + + | Race | Unknown | + + + | Ethnic Group | Unknown | + + + Author + + + | Author | [facility] | | | and Michaelana | + + + | Organization | [facility] | | [...] Team Providers + +------+ + | Care Sales Account Associate Name | Role | Phone | [...] [address] [address] | [place], [address] | | | | | [address] [place], [place] | [place], [place] | | | | | [address] | [address] | | | | | [phone] | | | +--------+ + + + [...]
--- OUTSIDE RECORDS SUMMARY | ~2019-03-17 | XMS | Encounter Summary ---
Demographics + + + | Address | [address] | | | [place] [address] | + + + | Home Phone [...] [facility] | | [...] Team Providers + +------+ + | Care Contact Center Assistant Name | Role | Phone | [...] | | unspecified | | [address], | | | | | type Fecal | | [address] | | | | | urgency | | [place], | | | | | Abdominal | | [place] [address] | | | | | cramping | | Phone: | | | | | Heartburn | | [phone] | | | | | Black stool | | Fax: | | | | | Procedures | | [phone] | | | | | [place] | | | | | | | ESOPHAGOGAST | | | | | | | RODUODENOSCO | | | | | | | PY TRANSORAL | | | | | | | DIAGNOSTIC | | | | | | | [place] EGD | | | | | | | TRANSORAL | | | | | | | BIOPSY | | | | | | | SINGLE/MULTI | | | | | | | PLE [place] | | | | | | | COLONOSCOPY | | | | | | | FLX DX | | | | | | | W/COLLJ SPEC | | | | | | | WHEN PFRMD | | | | | | | [place] | | | | | | | COLONOSCOPY | | | | | | | W/BIOPSY | | | | | | | SINGLE/MULTI | | | | | | | PLE [place] | | | | | | | [...] | 12/25/ | Surgery | [facility] | Deny Nelson MD | EGD | | 2019 | | MED CTR MP INTRA OP | [address], [place] [address] | | | | | [address] | [address] [place], [place] | | | | | [place], [place] | [address] | | | | | [address] | | | | | | [phone] | | | +--------+---------+ + + + [...] You can't be awakened Date Last Reviewed: 01/06/201619999565-7341 [employer]. [address] [place] [address]. All righ ts reserved. This information is [...] [address] | [place] | [phone] | | [facility] | | [address] | | | - LABORATORY | | [...] [address], | REFERENCE LAB | | [place], [place] [address] Battery Assembler Dry Cell: Анна Oscar MD, Phone: | [facility] | | [phone] | | + + + + + + + + | Performing | Address | City/State/Zipcode | Phone Number | | Organization | | | | + + + + + | REFERENCE LAB | [address] | [place] [address] | [phone] | | [facility] | Drive [facility] | | | + + + + [...] [address] | [place] | [phone] | | [facility] | | [address] | | | - LABORATORY | | [...] | REFERENCE LAB | | [place] [id number] Battery Assembler Dry Cell: Анна Oscar MD, Phone: | [facility] | | [phone] | | + + + + + + + + | Performing | Address | City/State/Zipcode | Phone Number | | Organization | | | | + + + + + | REFERENCE LAB | [address] [facility] | [place] [address] | [phone] | | [facility] | Drive [...] + | [address] | [address] | [place] | [phone] | | [facility] | | [address] | | | - LABORATORY | | [...] + | [facility] | [address] | [place] | [phone] | | [facility] | | [address] | | | - LABORATORY | | [...] ST. | [address] | [place] | [phone] | | [facility] | | [address] | | | - LABORATORY | | [...] + | [facility] | [address] | [place] | [phone] | | [facility] | | [address] | | | - LABORATORY | | | | + + + + + EGD (12/25/2018 10:30 AM PDT) + + | Specimen | + + | | + + + + -+ | Narrative | Performed At | + + -+ | | [facility] | | GastroenterologyPatient Name: Grecia Vizcainocedalma Date: 12/25/2018 | [employer] | | 10:30 AMMRN: [id number] #: [id number] of : | | | 1970Admit Type: [...] by the physician, the nurse and the scale technician in the | | | endoscopy [...] AMScope Out: | | | 10:53:[address] [facility], [address] [facility], | | | [place] [address] | | | - Resume previous diet [...] Out: 10:53:30 AM | | | [facility], [address] [facility] [place], [place] | | | [id number] | | + + -+ + +---------+ [...] 12/25/2018 | [employer]ATION | | 10:28 AMMRN: [id number] #: [id number] of : | | | 1970Admit Type: [...] by the physician, the nurse and the scale technician. | | | Prophylactic Antibiotics: The [...] Scope In: 10:55:28 AMScope Out: 11:09:49 AM [facility] | | | [facility], [address] [place] [address] | | | [phone] | | | anti-inflammatory drugs for 7 [...] Out: 11:09:49 AM | | | [facility], [address] [facility] [place], [place] | | | [id number] | | + + -+ + +---------+ [...] for specific diagnostic abnormality. | | | JVR:[facility]:C2NR GROSS DESCRIPTION: Two specimens are [...] LABORATORY: The technical component was performed by [facility] | | | [facility], [address] [place] [address] (Printed Circuit Board Designer: | | | Shavonne Mathias MD; CLIA# [id number]). Professional interpretation was | | | performed by [facility], [facility] | | | [place], [address] [place] [address] (Medical | | | Director: Deonte Marquez M.D.). Diagnostician: Deonte Garcia | | | Alma RAY Pathologist Electronically Signed 12/26/2018 | | + + + + +---------+ + + | Performing | Address | City/State/[facility] Corporationcode | Phone Number | | Organization | [...]
--- OUTSIDE RECORDS SUMMARY | ~2019-03-17 | XMS | Encounter Summary ---
Demographics + + + | Address | [address] | | | [place] [address] | + + + | Home Phone [...] Organization | [facility] | | | and [...] Team Providers + +------+ + | Care Hardboard Panel Printer Name | Role | Phone | + [...] | Telephone | [facility] [place] | [facility], | Referral | | 2019 | | GASTROENTEROLOGY | BRIAN [address]icks[address] | | | | | [address] [address] | [place], [address] | | | | | [address] [place], [place] | [place], [place] | | | | | [address] | [address] | | | | | [phone] | | | +--------+ + + + [...]
--- OUTSIDE RECORDS SUMMARY | ~2019-03-17 | XMS | Encounter Summary ---
Demographics + + + | Address | [address] | | | [place] [address] | + + + | Home Phone | | + + + | Preferred Language | Unknown | + + + | Marital Status | | + + + | Christianity Affiliation | Unknown | + + + | Race | White | + + + | Ethnic Group | Not or | + + + Author + + + | Author | [facility] | + + + | Organization | [facility] | + + + | Address | Unknown | + + + | Phone | Unavailable | + + + Support + + + + + | Name | Relationship | Address | Phone | + + + + + | Benedicto Bain | ECON | [address] | | | | | [place] | | | | | [address] | | + + + + + Care Team Providers + +------+ + | Care Aeronautical Inspector Name | Role | Phone | + +------+ + | Selene Francis | PCP | | + +------+ + Reason for Visit + + + | Reason | Comments | + + + | Medical Records | | | Review | | + + + Encounter Details +--------+ + + + + | Date | Type | Department | Care Team | Description | +--------+ + + + + | 03/13/ | Abstract | [facility] | Clinic, | Medical Records | | 2019 | | [place] [facility] [address] | Gastroenterology | Review | | | | [address] | | | | | | Mailcode: OC8D | | | | | | [facility] | | | | | | and Healing, | | | | | | Building [address] | | | | | | | | | | | | [address] | | | | | | [phone] | | | +--------+ + + + [...] | | | | | [address] [place] [place], | | | | | | [place] [address] | | | | | | [phone] | | | | | | | | +--------+---------+ + + + documented as of this encounter Visit Diagnoses Not on filedocumented in this encounter"
--- OUTSIDE RECORDS SUMMARY | ~2019-03-17 | XMS | Encounter Summary ---
Demographics + + + | Address | [address] | | | [place] [address] | + + + | Home Phone | | + + + | Preferred Language | Unknown | + + + | Marital Status | | + + + | Jain Affiliation | Unknown | + + + | Race | Unknown | + + + | Ethnic Group | Unknown | + + + Author + + + | Author | [facility] | | | and Michaelana | + + + | Organization | [facility] | | | and Michaelana [...] Team Providers + +------+ + | Care Records Management Assistant Name | Role | Phone | [...] [address] [address] | [place], [address] | | | | | [address] [place], [place] | [place], [place] | | | | | [address] | [address] | | | | | [phone] | | | +--------+ + + + [...]
--- OUTSIDE RECORDS SUMMARY | ~2019-03-17 | XMS | Encounter Summary ---
Demographics + + + | Address | [address] | | | [place] [address] | + + + | Home Phone | | + + + | Preferred Language | Unknown | + + + | Marital Status | | + + + | Worship Affiliation | Unknown | + + + | Race | Unknown | + + + | Ethnic Group | Unknown | + + + Author + + + | Author | [facility] | | | and Michaelana | + + + | Organization | [facility] | | | and [...] Team Providers + +------+ + | Care Scraper Burrer Name | Role | Phone | + [...] [address] [place] [address] | [place], [address] | | | | | [address] [place], [place] | [place], [place] | | | | | [address] | [address] | | | | | [phone] | | | +--------+ + + + [...]
--- OUTSIDE RECORDS SUMMARY | ~2019-03-17 | XMS | Encounter Summary ---
Demographics + + + | Address | [address] | | | [place] [address] | + + + | Home Phone | | + + + | Preferred Language | Unknown | + + + | Marital Status | | + + + | Taoist Affiliation | Unknown | + + + | Race | Unknown | + + + | Ethnic Group | Unknown | + + + Author + + + | Author | [facility] | | | and Michaelana | + + + | Organization | [facility] | [...] Team Providers + +------+ + | Care Typesetting Supervisor Name | Role | Phone | [...] + | 01/25/ | Telephone | [facility] | Deny Nelson MD | Medication | | 2019 | | GASTROENTEROLOGY | [address], [place] | Management | | | | [address] [place] | [address] [place], [place] | | | | | [address] [place], [place] | [address] | | | | | [address] | | | | | | [phone] | | | +--------+ + + + [...]
--- OUTSIDE RECORDS SUMMARY | ~2019-03-17 | XMS | Encounter Summary ---
Demographics + + + | Address | [address] | | | [place] [address] | + + + | Home Phone | | + + + | Preferred Language | Unknown | + + + | Marital Status | | + + + | Mandaeism Affiliation | Unknown | + + + | Race | Unknown | + + + | Ethnic Group | Unknown | + + + Author + + + | Author | [facility] | | | and Michaelana | + + + | Organization | [facility] | [...] Team Providers + +------+ + | Care Investigator Internal Affairs Name | Role | Phone | + [...] [address] [place] | [place], [place] [address] | | | | | [address] [place], [place] | [place], [place] | | | | | [address] | [address] | | | | | [phone] | | | +--------+ + + + [...]
--- OUTSIDE RECORDS SUMMARY | ~2019-03-17 | XMS | Encounter Summary ---
Demographics + + + | Address | [address] | | | [place] [address] | + + + | Home Phone [...] + | Author | [facility] | | | and Michaelana | + + + | Organization | [facility] | [...] Providers + +------+ + | Care Railroad Watchman Name | Role | Phone | + +------+ + | Selene Francis PA-C | PCP | | + +------+ + Encounter Details +--------+ + + + + | Date | Type | Department | Care Team | Description | +--------+ + + + + | 01/29/ | Documentati | [facility] | Deny Nelson MD | | | 2019 | on | GASTROENTEROLOGY | [address], [place] | | | | | [address] [place] | [address] [place], [place] | | | | | [address] [place], [place] | [address] | | | | | [address] | | | | | | [phone] | | | +--------+ + + + [...] bioc hemical or physical deterioration evaluation at [facility] before March 16 would be appropriate .Etiology [...]
--- OUTSIDE RECORDS SUMMARY | ~2019-03-17 | XMS | Encounter Summary ---
Demographics + + + | Address | [address] | | | [place] [address] | + + + | Home Phone | | + + + | Preferred Language | Unknown | + + + | Marital Status | | + + + | Taoist Affiliation | Unknown | + + + | Race | Unknown | + + + | Ethnic Group | Unknown | + + + Author + + + | Author | [facility] | | | and Michaelana | + + + | Organization | [facility] | [...] Team Providers + +------+ + | Care Instructor Military Science Name | Role | Phone | + [...] Emeka QUINTERO | | | | | [phone] | [place] [address] | | +--------+ + + + + [...]
--- OUTSIDE RECORDS SUMMARY | ~2019-03-17 | XMS | Encounter Summary ---
Demographics + + + | Address | [address] | | | [place] [address] | + + + | Home Phone | | + + + | Preferred Language | Unknown | + + + | Marital Status | | + + + | Protestant Affiliation | Unknown | + + + | Race | Unknown | + + + | Ethnic Group | Unknown | + + + Author + + + | Author | [facility] | | | and Michaelana | + + + | Organization | [facility] | | | and [...] Team Providers + +------+ + | Care Corporate Relations Manager Name | Role | Phone | [...] | | Elevated | [place], | [address] | | | | | liver | [place], | [place], | | | | | enzymes | PARLIAMENTARY COUNSEL [address] | [place] [address] | | | | | Esophageal | [place], [place] | Phone: | | | | | varices | [address] [place] | [phone] | | | | | without | [place], [place] | Fax: | | | | | bleeding, | [address] | [phone] | | | | | unspecified | Phone: | | | | | | esophageal | [phone] | | | | | | varices type | Fax: | | | | | | (HCC) | [phone] | | | | | | Portal [...] | | | | | | [place] CT SCAN | | | | | [...] | | Elevated | [place], | [address] | | | | | liver | [place], | [place], | | | | | enzymes | PARLIAMENTARY COUNSEL [address] | [place] [address] | | | | | Esophageal | [place], [place] | Phone: | | | | | varices | [address] [place] | [phone] | | | | | without | [place], [place] | Fax: | | | | | bleeding, | [address] | [phone] | | | | | unspecified | Phone: | | | | | | esophageal | [phone] | | | | | | varices type | Fax: | | | | | | (HCC) | [phone] | | | | | | Portal [...] | | | | | | [place] CT SCAN | | | | | | | OF ABDOMEN | | | | | | | CONTRAST | | | +--------+--------+ + + + + Encounter Details +--------+ + + + + | Date | Type | Department | Care Team | Description | +--------+ + + + + | 01/08/ | Hospital | [facility] | [facility], | Elevated liver | | 2019 | Encounter | MED CTR CT [address] | CARMEN DicksonP [address] | enzymes; Esophageal | | | | [place], | [place], [place] [address] | varices without | | | | [place] [address] | [place], [place] | bleeding, | | | | [phone] | [address] | unspecified | | | | | [...]
--- OUTSIDE RECORDS SUMMARY | ~2019-03-17 | XMS | Encounter Summary ---
Demographics + + + | Address | [address] | | | [place] [address] | + + + | Home Phone | | + + + | Preferred Language | Unknown | + + + | Marital Status | | + + + | Orthodox Affiliation | Unknown | + + + | Race | Unknown | + + + | Ethnic Group | Unknown | + + + Author + + + | Author | [facility] | | | and Michaelana | + + + | Organization | [facility] | | | [...] Team Providers + +------+ + | Care Windows Desktop Support Name | Role | Phone | + [...] | Elevated | [place], | [address] | | | | | liver | [place], | [place], | | | | | enzymes | WIRE INSERTER [address] | [place] | | | | | Esophageal | [place], [place] | [address] | | | | | varices | [address] [place] | Phone: | | | | | without | [place], [place] | [phone] | | | | | bleeding, | [address] | Fax: | | | | | unspecified | Phone: | [phone] | | | | | esophageal | [phone] | | | | | | varices type | Fax: | | | | | | (HCC) | [phone] | | | | | | Portal [...] | | | | | | [place] MRI, | | | | | | [...] | Elevated | [place], | [address] | | | | | liver | [place], | [place], | | | | | enzymes | WIRE INSERTER [address] | [place] | | | | | Esophageal | [place], [place] | [address] | | | | | varices | [address] [place] | Phone: | | | | | without | [place], [place] | [phone] | | | | | bleeding, | [address] | Fax: | | | | | unspecified | Phone: | [phone] | | | | | esophageal | [phone] | | | | | | varices type | Fax: | | | | | | (HCC) | [phone] | | | | | | Portal [...] | | | | | | [place] MRI, | | | | | | | ABDOMEN, | | | | | | | COMBO | | | +--------+--------+ + + + + Encounter Details +--------+ + + + + | Date | Type | Department | Care Team | Description | +--------+ + + + + | 01/12/ | Hospital | [facility] | [facility], | Elevated liver | | 2019 | Encounter | MED CTR MRI [address] | [place], WIRE INSERTER [address] | enzymes; Esophageal | | | | [place], | [place], [place] [address] | varices without | | | | [place] [address] | [place], [place] | bleeding, | | | | [phone] | [address] | unspecified | | | | | [...] diffusion weighted, axial T1, axial | | [id number], coronal T1 postcontrast, sagittal T1 post contrast. [...] | Other, Starting 01/12/19 at | | AM PDT | | | | | 0820, For 1 dose, MRI | | | | | | + +--------+ +-------+------+------+ +---+---+ | | | +---+---+ documented in this encounter"
--- OUTSIDE RECORDS SUMMARY | ~2019-03-17 | XMS | Encounter Summary ---
Demographics + + + | Address | [address] | | | [place] [address] | + + + | Home Phone | | + + + | Preferred Language | Unknown | + + + | Marital Status | | + + + | Quaker Affiliation | Unknown | + + + | Race | Unknown | + + + | Ethnic Group | Unknown | + + + Author + + + | Author | [facility] | | | and Michaelana | + + + | Organization | [facility] | | [...] Team Providers + +------+ + | Care Paper Conservator Name | Role | Phone | + [...] 2019 | | GASTROENTEROLOGY | [address], [place] | | | | | [address] [place] | 210 [place], [place] | | | | | 210 [place], [place] | [address] | | | | | [address] | | | | | | [phone] | | | +--------+ + + + [...]
--- OUTSIDE RECORDS SUMMARY | ~2019-03-17 | XMS | Encounter Summary ---
Demographics + + + | Address | [address] | | | [place] [address] | + + + | Home Phone | | + + + | Preferred Language | Unknown | + + + | Marital Status | | + + + | Mosque Affiliation | Unknown | + + + | Race | Unknown | + + + | Ethnic Group | Unknown | + + + Author + + + | Author | [facility] | | | and Michaelana | + + + | Organization | [facility] | | | and [...] Team Providers + +------+ + | Care Scrap Stripper Hand Name | Role | Phone | [...] | | | | liver (HCC) | MAGAZINE SUPERVISOR [address] | | | | | Procedures | [place], [place] | [place], [place] | | | | | 03/15 > | [address] [place] | [address] | | | | | PENDING | [place], [place] | Phone: | | | | | STATUS | [address] | [phone] | | | | | | Phone: | Fax: | | | | | | [phone] | [phone] | | | | | | Fax: | | | | | | | [phone] | | + + + + + + + Reason for Visit + + + | Reason | Comments | + + + | Referral | | + + + Encounter Details +--------+ + + + + | Date | Type | Department | Care Team | Description | +--------+ + + + + | 01/13/ | Telephone | [facility] [place] | [facility] | Referral | | 2019 | | GASTROENTEROLOGY | BRIAN Dickson [address] | | | | | [address] [place] | [place], [place] [address] | | | | | [address] [place], [place] | [place], [place] | | | | | [address] | [address] | | | | | [phone] | | | +--------+ + + + [...]
--- OUTSIDE RECORDS SUMMARY | ~2019-03-17 | XMS | Encounter Summary ---
Demographics + + + | Address | [address] | | | [place] [address] | + + + | Home Phone [...] | Organization | [facility] | | | and Michaelana [...] Team Providers + +------+ + | Care Wet Pour Mixer Name | Role | Phone | + [...] | diarrhea | 1100 | [address] [place], | | | | | Procedures | [facility] | [place] [address] | | | | | RETORT PRESS OPERATOR OFFICE | [place] [address] [address] | [place], | | | | | VISIT | [place], | [place] [address] | | | | | | [place] [address] | Phone: | | | | | | Phone: | [phone] | | | | | | [phone] | Fax: | | | | | | Fax: | [phone] | | | | | | [phone] | | + +--------+ + + + [...] [address] [place] | [place], [place] [address] | (Primary Dx); Fecal | | | | [address] [place], [place] | [place], [place] | urgency; Abdominal | | | | [address] | [address] | cramping; Heartburn; | | | | [phone] | | Black stool | +--------+---------+ + [...] and pr ocedure instructions. Sent prescription to [facility] in [place]. Electronically si gned by Chelita Rodriguez RN [...]
--- OUTSIDE RECORDS SUMMARY | ~2019-03-17 | XMS | Encounter Summary ---
Demographics + + + | Address | [address] | | | [place] [address] | + + + | Home Phone [...] + | Organization | [facility] | | | and Michaelana [...] Team Providers + +------+ + | Care City Engineer Name | Role | Phone | [...] [address] [place] | [place], [place] [address] | | | | | 210 [place], [place] | [place], [place] | | | | | [address] | [address] | | | | | [phone] | | | +--------+ + + + [...]
--- OUTSIDE RECORDS SUMMARY | ~2019-03-17 | XMS | Encounter Summary ---
Demographics + + + | Address | [address] | | | [place] [address] | + + + | Home Phone | | + + + | Preferred Language | Unknown | + + + | Marital Status | | + + + | Restoration Affiliation | Unknown | + + + | Race | Unknown | + + + | Ethnic Group | Unknown | + + + Author + + + | Author | [facility] | | | and Michaelana | + + + | Organization | [facility] | | | and [...] Providers + +------+ + | Care Lens Blocker Name | Role | Phone | + [...] + + | 01/18/ | Telephone | [facility] | Deny Nelson MD | Labs Only (Does | | 2019 | | GASTROENTEROLOGY | [address] [place], [place] | Leslie need labs | | | | [address] [place] | [address] [place] | prior to her | | | | [address] [place] | [address] | procedure.) | | | | [address] | | | | | | [phone] | | | +--------+ + + + [...]
--- OUTSIDE RECORDS SUMMARY | ~2019-03-17 | XMS | Encounter Summary ---
Demographics + + + | Address | [address] | | | [place] [address] | + + + | Home Phone | | + + + | Preferred Language | Unknown | + + + | Marital Status | | + + + | Hinduism Affiliation | Unknown | + + + | Race | Unknown | + + + | Ethnic Group | Unknown | + + + Author + + + | Author | [facility] | | | and Michaelana | + + + | Organization | [facility] | | | and Michaelana | + [...] Team Providers + +------+ + | Care Counter Roller Name | Role | Phone | + [...] | Elevated | [place], | [address] | | | | | liver | [place], | [place], | | | | | enzymes | MUSIC THERAPY SPECIALIST [address] | [place] | | | | | Esophageal | [place], [place] | [address] | | | | | varices | [address] [place] | Phone: | | | | | without | [place], [place] | [phone] | | | | | bleeding, | [address] | Fax: | | | | | unspecified | Phone: | [phone] | | | | | esophageal | [phone] | | | | | | varices type | Fax: | | | | | | (HCC) | [phone] | | | | | | Portal [...] | Elevated | [place], | [address] | | | | | liver | [place], | [place], | | | | | enzymes | MUSIC THERAPY SPECIALIST [address] | [place] | | | | | Esophageal | [place], [place] | [address] | | | | | varices | [address] [place] | Phone: | | | | | without | [place], [place] | [phone] | | | | | bleeding, | [address] | Fax: | | | | | unspecified | Phone: | [phone] | | | | | esophageal | [phone] | | | | | | varices type | Fax: | | | | | | (HCC) | [phone] | | | | | | Portal [...] + + | 01/12/ | Hospital | [facility] | [facility], | Elevated liver | | 2019 | Encounter | MED CTR MRI [address] | [place], MUSIC THERAPY SPECIALIST [address] | enzymes; Esophageal | | | | [place], | [place], [place] [address] | varices without | | | | [place] [address] | [place], [place] | bleeding, | | | | [phone] | [address] | unspecified | | | | | [...] diffusion weighted, axial T1, axial | | [id number], coronal T1 postcontrast, sagittal T1 post contrast. [...] | | | |Dictated and Signed by: oJse Mcdowell MD | | Electronically signed: 01/12/2019 [...]
--- OUTSIDE RECORDS SUMMARY | ~2019-03-17 | XMS | Encounter Summary ---
Demographics + + + | Address | [address] | | | [place] [address] | + + + | Home Phone | | + + + | Preferred Language | Unknown | + + + | Marital Status | | + + + | Protestant Affiliation | Unknown | + + + | Race | Unknown | + + + | Ethnic Group | Unknown | + + + Author + + + | Author | [facility] | | | and Michaelana | + + + | Organization | [facility] | | [...] Team Providers + +------+ + | Care Drug Abuse Worker Name | Role | Phone | [...] | Elevated | [place], | [address] [place] | | | | | liver | [place], | [place], | | | | | enzymes | LIBRARY CLERICAL ASSISTANT [address] | [place] | | | | | Esophageal | [place], [place] | [address] | | | | | varices | [address] [place] | Phone: | | | | | without | [place], [place] | [phone] | | | | | bleeding, | [address] | Fax: | | | | | unspecified | Phone: | [phone] | | | | | esophageal | [phone] | | | | | | varices type | Fax: | | | | | | (HCC) | [phone] | | | | | | Portal [...] | | | | | | | [place] MRI, | | | | | | [...] | varices | [place], | [address] [place] | | | | | without | LIBRARY CLERICAL ASSISTANT [address] | [place], | | | | | bleeding, | [place], [place] | [place] | | | | | unspecified | [address] [place] | [address] | | | | | esophageal | [place] | Phone: | | | | | varices type | [address] | [phone] | | | | | (HCC) | Phone: | Fax: | | | | | Portal | [phone] | [phone] | | | | | hypertension | Fax: | | | | | | (HCC) | [phone] | | | | | | Diarrhea, [...] | | | | | | | CO SONO | | | | | | | GUIDE NEEDLE | | | | | | | BIOPSY [place] | | | | | | | [...] | | Elevated | [place], | [address] [place] | | | | | liver | [place], | [place], | | | | | enzymes | LIBRARY CLERICAL ASSISTANT [address] | [place] [address] | | | | | Esophageal | [place], [place] | Phone: | | | | | varices | [address] [place] | [phone] | | | | | without | [place], [place] | Fax: | | | | | bleeding, | [address] | [phone] | | | | | unspecified | Phone: | | | | | | esophageal | [phone] | | | | | | varices type | Fax: | | | | | | (HCC) | [phone] | | | | | | Portal [...] | | | | | | | [place] CT SCAN | | | | | [...] | diarrhea | 1100 | [address] [place], | | | | | Procedures | [place] | [place] [address] | | | | | STOCK CLIPPER OFFICE | [place] [address] [address] | [place], | | | | | VISIT | [place], | [place] [address] | | | | | | [place] [address] | Phone: | | | | | | Phone: | [phone] | | | | | | [phone] | Fax: | | | | | | Fax: | [phone] | | | | | | [phone] | | + +--------+ + + + [...] [address] [place] | [place], [place] [address] | Dx); Esophageal | | | | [address] [place] | [place] | varices without | | | | [address] | [address] | bleeding, | | | | [phone] | | unspecified | | | | [...] Procedure: COLONOSCOPY; Surgeon: Deny Nelson MD; Location: [facility] KNEE SURGERY Left 2012 Partial PARTIAL HYSTERECTOMY 2013 UPPER GASTROINTESTINAL ENDOSCOPY N/A 12/25/2018 Procedure: EGD; Surgeon: Deny Nelson MD; Location: [facility] Family History [...] Colonoscopy Impression, External 12/25/2018 See Full Report~ [facility] Dr. Nelson Final Admission on [...] Hepatitis B Surface Ag Hepatitis C Ab Dcckw-0-Nljhvsyxxcc, Total Mitochondrial Ab, M2 Antinuclear Ab, Titer [...] Hepatitis B Surface Ag Hepatitis C Ab Ppvyu-7-Lowpucukibm, Total Mitochondrial Ab, M2 Antinuclear Ab, Titer [...] Hepatitis B Surface Ag Hepatitis C Ab Kawjx-9-Mirajhenpeu, Total Mitochondrial Ab, M2 Antinuclear Ab, Titer [...] Hepatitis B Surface Ag Hepatitis C Ab Ipktz-5-Kqphzntiyqy, Total Mitochondrial Ab, M2 Antinuclear Ab, Titer [...] | | + +---------+--------+ + + | Skwaa-7-Lkchluvooan, | Lab | Routin | Elevated liver [...] diffusion weighted, axial T1, axial | | [id number], coronal T1 postcontrast, sagittal T1 post contrast. [...]
--- OUTSIDE RECORDS SUMMARY | ~2019-03-17 | XMS | Encounter Summary ---
Demographics + + + | Address | [address] | | | [place] [address] | + + + | Home Phone | | + + + | Preferred Language | Unknown | + + + | Marital Status | | + + + | Tenriism Affiliation | Unknown | + + + | Race | Unknown | + + + | Ethnic Group | Unknown | + + + Author + + + | Author | [facility] | | | and Michaelana | + + + | Organization | [facility] | [...] Providers + +------+ + | Care Special Day Class Teacher Name | Role | Phone | [...] | | varices | | [address] [place], | | | | | without | | [place] [address] | | | | | bleeding, | | [place], | | | | | unspecified | | [place] [address] | | | | | esophageal | | Phone: | | | | | varices type | | [phone] | | | | | (HCC) | | Fax: | | | | | Portal | | [phone] | | | | | hypertensive | | | | | | | gastropathy | | | | | | | (HCC) | | | | | | | Procedures | | | | | | | CA | | | | | | | ESOPHAGOGAST | | | | | | | RODUODENOSCO | | | | | | | PY TRANSORAL | | | | | | | DIAGNOSTIC | | | | | | | CA EGD | | | | | | | TRANSORAL | | | | | | | BIOPSY | | | | | | | SINGLE/MULTI | | | | | | | PLE CA EGD | | | | | | | BAND | | | | | | | LIGATION | | | | | | | ESOPHGEAL/GA | | | | | | | STRIC | | | | | | | VARICES CA | | | | | | | [...] + + | 03/06/ | Surgery | [facility] | Deny Nelson MD | EGD | | 2019 | | MED CTR MP INTRA OP | [address] [place], [place] | | | | | [address] [place] | 210 [place], [place] | | | | | [place], [place] | [address] | | | | | [address] | | | | | | [phone] | | | +--------+---------+ + + + [...] Chest pain or lightheadedness Date Last Reviewed: 05/19/201719998923-6517 [employer]. [address] [place] [address]. All righ ts reserved. This information is [...] You can't be awakened Date Last Reviewed: 01/06/201619991567-4607 [employer]. [address] [place] [address], [place] [address]. All righ ts reserved. This information is [...] | + +--------+ + + + | CA UPPER GI | Routin | 03/06/2019 | [...] + + ----+ | [facility] | [facility] | | [facility] CenterologyPatient Name: Grecia Bain | NICOLA | | LeeProcedure Date: 03/06/2019 12:07 [facility] [id number] Number: | | | [id number] of : 1970Note Status: FinalizedAttending MD: | [...] the anesthesiologist and the | | | ultrasound technician in the endoscopy suite. Mental Status [...] PMNumber of | | | Addenda: 0 [facility] | | | - Patient has [...] |Number of Addenda: 0 | | | [facility] | | + + ----+ + [...]
--- OUTSIDE RECORDS SUMMARY | ~2019-03-17 | XMS | Encounter Summary ---
Demographics + + + | Address | [address] | | | [place] [address] | + + + | Home Phone [...] + | Organization | [facility] [...] Team Providers + +------+ + | Care Data Processing Equipment Repairer Name | Role | Phone | + [...] | Telephone | [facility] [place] | [facility], | Referral | | 2019 | | GASTROENTEROLOGY | BRIAN Dickson [address] | | | | | [address] [place] | [place], [place] [address] | | | | | [address] [place], [place] | [place], [place] | | | | | [address] | [address] | | | | | [phone] | | | +--------+ + + + [...]
--- OUTSIDE RECORDS SUMMARY | ~2019-03-17 | XMS | Encounter Summary ---
Demographics + + + | Address | [address] | | | [place] [address] | + + + | Home Phone [...] Author | [facility] | | | and Michaelana | + + + | Organization | [facility] | | [...] Team Providers + +------+ + | Care Energy Efficiency Engineer Name | Role | Phone | + +------+ + | Selene Francis PA-C | PCP | | + +------+ + Encounter Details +--------+ + + + + | Date | Type | Department | Care Team | Description | +--------+ + + + + | 01/02/ | Documentati | [facility] [place] | [facility], | | | 2019 | on | GASTROENTEROLOGY | BRIAN Dickson [address] | | | | | [address] [place] | [place], [place] [address] | | | | | 210 [place], [place] | [place], [place] | | | | | [address] | [address] | | | | | [phone] | | | +--------+ + + + [...] She agreed. [facility]. documented in this encounter Plan of Treatment Not on filedocumented as of this encounter Visit Diagnoses Not on filedocumented in this encounter"
--- OUTSIDE RECORDS SUMMARY | ~2019-03-17 | XMS | Encounter Summary ---
Demographics + + + | Address | [address] | | | [place] [address] | + + + | Home Phone | | + + + | Preferred Language | Unknown | + + + | Marital Status | | + + + | Evangelical Affiliation | Unknown | + + + | Race | Unknown | + + + | Ethnic Group | Unknown | + + + Author + + + | Author | [facility] | | | and Michaelana | + + + | Organization | [facility] | | | and Michaelana [...] Providers + +------+ + | Care District Plant Engineer Name | Role | Phone | [...] 2018 | | GASTROENTEROLOGY | [address] [place], [place] | schedule EGD) | | | | [address] [place] | [address] [place], [place] | | | | | 210 [place], [place] | [address] | | | | | [address] | | | | | | [phone] | | | +--------+ + + + [...]
--- OUTSIDE RECORDS SUMMARY | ~2019-03-17 | XMS | Encounter Summary ---
Demographics + + + | Address | [address] | | | [place] [address] | + + + | Home Phone [...] | Organization | [facility] | | | and Michaelana [...] Providers + +------+ + | Care Senior It Engineer Name | Role | Phone | [...] | | varices | | [address], | | | | | without | | [place] [address] | | | | | bleeding, | | [place], | | | | | unspecified | | [place] [address] | | | | | esophageal | | Phone: | | | | | varices type | | [phone] | | | | | (HCC) | | Fax: | | | | | Acute | | [phone] | | | | | gastrointest | [...] | | | | | PLE [place] EGD | | | | | | | BAND | | | | | | | LIGATION | | | | | | | ESOPHGEAL/GA | | | | | | | STRIC | | | | | | | VARICES [place] | | | | | | [...] + + | 01/24/ | Hospital | [facility] | Deny Nelson MD | Esophageal varices | | 2019 | Encounter | MED CTR MP INTRA OP | [address], [place] | without bleeding, | | | | [address] | [address] [place], [place] | unspecified | | | | [place], [place] | [address] | esophageal varices | | | | [address] | | type (HCC); Acute | | | | [phone] | | gastrointestinal | | | | [...] You can't be awakened Date Last Reviewed: 01/06/201619990295-9949 [employer]. [address] [place] [address]. All righ ts reserved. This information is [...] 01/24/2019 | PROVATION | | 2:31 PMMRN: [id number] #: [id number] of : | | | 1970Admit Type: AmbulatoryAge: 48Room: Endo Room 1Gender: | | | FemaleNote Status: FinalizedAttending MD: Deny Nelson , | | | MDProcedure: Upper GI endoscopyIndications: | | | Esophageal varices, Follow-up of esophageal varices, For | | | therapy of esophageal varicesProviders: | | | Deny Nelson MD, Briana Constantino RN, Baldemar Caro, | | | Social Psychologist, Arturo Sommers MD (Anesthesia Staff)Referring | | [...] | | | the anesthesiologist and the pet care technician in the endoscopy suite. | | [...] PMScope In: 2:44:21 PMScope Out: 2:52:[address] [facility]. | | | [address] [address] | | | [phone] | | | symptoms of potential delayed [...] |Scope Out: 2:52:03 PM | | | [facility], [address] [place] | | | [address] | | + + -+ + +---------+ [...]
--- OUTSIDE RECORDS SUMMARY | ~2019-03-17 | XMS | Encounter Summary ---
Demographics + + + | Address | [address] | | | [place] [address] | + + + | Home Phone [...] Organization | [facility] | | | and [...] Team Providers + +------+ + | Care Analytics Senior Manager Name | Role | Phone | [...] | Telephone | [facility] [place] | [facility], | MRI Recommendation | | 2019 | | GASTROENTEROLOGY | BRIAN Dickson [address] | | | | | [address] [place] | [place], [address] | | | | | [address] [place], [place] | [place], [place] | | | | | [address] | [address] | | | | | [phone] | | | +--------+ + + + [...]
--- OUTSIDE RECORDS SUMMARY | ~2019-03-17 | XMS | Encounter Summary ---
Demographics + + + | Address | [address] | | | [place] [address] | + + + | Home Phone | | + + + | Preferred Language | Unknown | + + + | Marital Status | | + + + | Faith Affiliation | Unknown | + + + | Race | White | + + + | Ethnic Group | Not or | + + + Author + + + | Author | [facility] | + + + | Organization | [facility] | + + + | Address | Unknown | + + + | Phone | Unavailable | + + + Support + + + + + | Name | Relationship | Address | Phone | + + + + + | Benedicto Bain | ECON | [address] | | | | | [place] | | | | | [address] | | + + + + + Care Team Providers + +------+ + | Care Ceo & Co Founder Name | Role | Phone | + [...] Medical Records | | 2019 | | [place] [facility] [address] | Gastroenterology | Review | | | | [address] | | | | | | Mailcode: OC8D | | | | | | [facility] | | | | | | and Healing, | | | | | | Building [address] | | | | | | [place], [place] | | | | | | [address] | | | | | | [phone] | | | +--------+ + + + [...] | | | | | Fara Whitten [place], | | | | | | [place] [address] | | | | | | [phone] | | | | | | | | +--------+---------+ + + + documented as of this encounter Visit Diagnoses Not on filedocumented in this encounter"
--- OUTSIDE RECORDS SUMMARY | ~2019-03-17 | XMS | Encounter Summary ---
Demographics + + + | Address | [address] | | | [place] [address] | + + + | Home Phone [...] + | Organization | [facility] | | | and [...] Team Providers + +------+ + | Care Campus President Name | Role | Phone | [...] | | unspecified | | [address], | | | | | type Fecal | | [address] | | | | | urgency | | [place], | | | | | Abdominal | | [place] [address] | | | | | cramping | | Phone: | | | | | Heartburn | | [phone] | | | | | Black stool | | Fax: | | | | | Procedures | | [phone] | | | | | [place] | [...] + + | 12/25/ | Hospital | [facility] | Deny Nelson MD | Diarrhea, | | 2019 | Encounter | MED CTR MP INTRA OP | [address], [place] | unspecified type; | | | | [address] | [address] [place], [place] | Fecal urgency; | | | | [place] | [address] | Abdominal cramping; | | | | [address] | | Heartburn; Black | | | | [phone] | | stool | +--------+ + + [...] You can't be awakened Date Last Reviewed: 01/06/201619993891-0577 [employer]. [address] [place] [address]. All righ ts reserved. This information is [...] [address] | [place] | [phone] | | [facility] | | [address] | | | - LABORATORY | | [...] [address], | REFERENCE LAB | | [place], [place] [address] Heel Seat Fitter: Анна Oscar MD, Phone: | [facility] | | [phone] | | + + + + + + + + | Performing | Address | City/State/Zipcode | Phone Number | | Organization | | | | + + + + + | REFERENCE LAB | [address] [facility] | [place] [address] | [phone] | | [facility] | Drive [...] [address] | [place] | [phone] | | [facility] | | [address] | | | - LABORATORY | | [...] [address], | REFERENCE LAB | | [place], [place] [id number] Heel Seat Fitter: Анна Oscar MD, Phone: | [facility] | | [phone] | | + + + + + + + + | Performing | Address | City/State/Zipcode | Phone Number | | Organization | | | | + + + + + | REFERENCE LAB | [address] | [place] [address] | [phone] | | [facility] | Drive [...] [address] | [place] | [phone] | | [facility] | | [address] | | | - LABORATORY | | [...] [address] | [place] | [phone] | | [facility] | | [address] | | | - LABORATORY | | [...] [address] | [place] | [phone] | | [facility] | | [address] | | | - LABORATORY | | [...] [address] | [place] | [phone] | | [facility] | | [address] | | | - LABORATORY | | | | + + + + + EGD (12/25/2018 10:30 AM PDT) + + | Specimen | + + | | + + + + -+ | Narrative | Performed At | + + -+ | | [facility] | | GastroenterologyPatient Name: Grecia BainTyrel Date: 12/25/2018 | [employer]ATION | | 10:30 AMMRN: [id number] #: [id number] of : | | | 1970Admit Type: [...] by the physician, the nurse and the artificial insemination technician in the | | | endoscopy [...] AMScope Out: | | | 10:53:30 AM [facility], [address] [facility], | | | [place] [address] | | | - Resume previous diet [...] |Scope Out: 10:53:30 AM | | | [facility], [address] [facility], [place], [place] | | | [address] | | + + -+ + +---------+ [...] 12/25/2018 | [employer]ATION | | 10:28 AMMRN: [id number] #: [id number] of : | | | 1970Admit Type: [...] by the physician, the nurse and the artificial insemination technician. | | | Prophylactic Antibiotics: The [...] Scope In: 10:55:28 AMScope Out: 11:09:49 AM [facility] | | | [facility], [facility] [place] [address] | | | [phone] | | | anti-inflammatory drugs for 7 [...] |Scope Out: 11:09:49 AM | | | [facility], [address] [facility], [place], [place] | | | [address] | | + + -+ + +---------+ [...] for specific diagnostic abnormality. | | | JVR:[facility]:C2NR GROSS DESCRIPTION: Two specimens are received [...] LABORATORY: The technical component was performed by [employer] (powering [employer]) | | | [employer], [address] [place] [address] (Electromedical Service Engineer: | | | Shavonne Mathias MD; IA# [id number]). Professional interpretation was | | | performed by [employer], [facility] | | | [place], [address] [place] [address] (Medical | | | Director: Deonte Marquez M.D.). Diagnostician: Deonte Garcia | | | Alma RAY Pathologist Electronically Signed 12/26/2018 | | + + + + +---------+ + + | Performing | Address | City/State/[facility] | Phone Number | | Organization | [...]
--- OUTSIDE RECORDS SUMMARY | ~2019-03-17 | XMS | Encounter Summary ---
Demographics + + + | Address | [address] | | | [place] [address] | + + + | Home Phone | | + + + | Preferred Language | Unknown | + + + | Marital Status | | + + + | Hoahaoism Affiliation | Unknown | + + + | Race | White | + + + | Ethnic Group | Not or | + + + Author + + + | Author | [facility] | + + + | Organization | [facility] | + + + | Address | Unknown | + + + | Phone | Unavailable | + + + Support + + + + + | Name | Relationship | Address | Phone | + + + + + | Benedicto Bain | ECON | [address] | | | | | [place] | | | | | [address] | | + + + + + Care Team Providers + +------+ + | Care Forest Examiner Name | Role | Phone | + +------+ + PCP | Unavailable | + +------+ + Encounter Details +--------+ + + + + | Date | Type | Department | Care Team | Description | +--------+ + + + + | 01/17/ | Abstract | [facility] | Clinic, | | | 2019 | | [place] at [facility] [address] | Gastroenterology | | | | | [address] | | | | | | Mailcode: OC8D | | | | | | [place] for [facility] | | | | | | and Healing, | | | | | | Building [address] | | | | | | [place], [place] | | | | | | [address] | | | | | | [phone] | | | +--------+ + + + [...] | | | | | F[address] Whitten [place], | | | | | | [place] [address] | | | | | | [phone] | | | | | | | | +--------+---------+ + + + documented as of this encounter Visit Diagnoses Not on filedocumented in this encounter"
--- OUTSIDE RECORDS SUMMARY | ~2019-03-17 | XMS | Clinical Summary ---
Demographics + + + | Address | [address] | | | [place] [address] | + + + | Home Phone | | + + + | Preferred Language | Unknown | + + + | Marital Status | | + + + | Pentecostalism Affiliation | Unknown | + + + | Race | White | + + + | Ethnic Group | Not or | + + + Author + + + | Author | [facility] | + + + | Organization | [facility] | + + + | Address | Unknown | + + + | Phone | Unavailable | + + + Support + + + + + | Name | Relationship | Address | Phone | + + + + + | Benedicto Bain | ECON | [address] | | | | | [place] | | | | | [address] | | + + + + + Care Team Providers + +------+ + | Care Supercharger Mechanic Name | Role | Phone | + +------+ + | Selene Francis | PCP | | + +------+ + Source Comments [facility] is fully live on both [employer] [facility] and [employer] [facility] Allergies Not on File Medications Not [...] | | | | | Fara Whitten [place], | | | | | | [place] [address] | | | | | | [phone] | | | | | | | [...] [employer] | MODA | [phone] | | [phone] | [address] | PPO | | | [employer] | | [address] | 4 | [phone] | | | | [place] | | esent | | [place], | | | | [place] | | | | [place] [address] | | + +--------+ +--------+ + +------+ | [facility] | PROVID | [phone] | 10/20/19 | [phone] | [address] | PPO | | | ENCE | | 17[address] | 0 | [phone] | | | | CHOICE | | sent | | [place], | | | | [place] | | | | [place] [address] | | + +--------+ +--------+ + +------+ + +--------+ +--------+ + + | Guarantor Name | Accoun | Relation to | Date | Phone | Billing Address | | | t Type | Patient | of | | | | | | | | | | + +--------+ +--------+ + + | Grecia Bain | Person | Self | [birth year] | [address] | | | al/Fam | | 1971 | [phone] | [place] [address] | | | prabhjot | | | 7 (Home) | | | | | | | [phone] | | | | | | | 9 (Work) | | + +--------+ +--------+ + +"
--- OUTSIDE RECORDS SUMMARY | ~2019-03-17 | XMS | Encounter Summary ---
Demographics + + + | Address | [address] | | | [place] [address] | + + + | Home Phone [...] + | Organization | [facility] | [...] Team Providers + +------+ + | Care Military Pay Clerk Name | Role | Phone | [...] | | | | liver (HCC) | FISH NET MAKER [address] | | | | | Procedures | [place], [place] | [place], [place] | | | | | 03/15 > | [address] [place] | [address] | | | | | PENDING | [place], [place] | Phone: | | | | | STATUS | [address] | [phone] | | | | | | Phone: | Fax: | | | | | | [phone] | [phone] | | | | | | Fax: | | | | | | | [phone] | | + + + + + + + Reason for Visit + + + | Reason | Comments | + + + | Referral | | + + + Encounter Details +--------+ + + + + | Date | Type | Department | Care Team | Description | +--------+ + + + + | 01/13/ | Telephone | [facility] [place] | [facility] | Referral | | 2019 | | GASTROENTEROLOGY | BRIAN Dickson [address] | | | | | [address] [place] | [place], [address] | | | | | [address] [place], [place] | [place], [place] | | | | | [address] | [address] | | | | | [phone] | | | +--------+ + + + [...]
--- OUTSIDE RECORDS SUMMARY | ~2019-03-17 | XMS | Encounter Summary ---
Demographics + + + | Address | [address] | | | [place] [address] | + + + | Home Phone [...] | Organization | [facility] | | [...] Team Providers + +------+ + | Care Pump Station Operator Name | Role | Phone | [...] | | varices | | [address], | | | | | without | | [address] | | | | | bleeding, | | [place], | | | | | unspecified | | [place] [address] | | | | | esophageal | | Phone: | | | | | varices type | | [phone] | | | | | (HCC) | | Fax: | | | | | Portal | | [phone] | | | | | hypertensive | [...] + | 03/06/ | Hospital | [facility] | Deny Nelson MD | Portal hypertensive | | 2019 | Encounter | MED CTR MP INTRA OP | [address], [place] | gastropathy (HCC); | | | | [address] | [address] [place], [place] | Esophageal varices | | | | [place], [place] | [id number] | without bleeding, | | | | [address] | | unspecified | | | | [phone] | | esophageal varices | | | [...] or lightheadedness Date Last Reviewed: 05/19/2017 [employer]. [address] [place] [address]. All righ ts reserved. This information is [...] be awakened Date Last Reviewed: 01/06/2016 [employer]. [address] [place] [address]. All righ ts reserved. This information is [...] | + +--------+ + + + | MS UPPER GI | Routin | 03/06/2019 | [...] + + ----+ | [facility] | [facility] | | [facility]Patient Name: Grecia Bain | PROVATION | | LeeProcedure Date: 03/06/2019 12:07 PMMRN: [id number] Number: | | | [id number] of : 1970Note Status: FinalizedAttending MD: | [...] the anesthesiologist and the | | | licensed psychiatric technician in the endoscopy suite. Mental Status [...] PMNumber of | | | Addenda: 0 [facility] | | | - Patient has [...] |Number of Addenda: 0 | | | [facility] | | + + ----+ + [...]
--- OUTSIDE RECORDS SUMMARY | ~2019-03-17 | XMS | Encounter Summary ---
Demographics + + + | Address | [address] | | | [place] [address] | + + + | Home Phone [...] | Organization | [facility] | | | and Michaelana | [...] Team Providers + +------+ + | Care Claim Administrator Name | Role | Phone | [...] | | varices | | [address], | | | | | without | | [address] | | | | | bleeding, | | [place], | | | | | unspecified | | [place] [address] | | | | | esophageal | | Phone: | | | | | varices type | | [phone] | | | | | (HCC) | | Fax: | | | | | Portal | | [phone] | | | | | hypertensive | [...] + + | 03/06/ | Surgery | [facility] | Deny Nelson MD | EGD | | 2019 | | MED CTR MP INTRA OP | [address], [place] | | | | | [address] | [address] [place], [place] | | | | | [place], [place] | [address] | | | | | [address] | | | | | | [phone] | | | +--------+---------+ + + + [...] Chest pain or lightheadedness Date Last Reviewed: 05/19/201719991960-4849 [email or web address]. [address] [place] [address]. All righ ts reserved. This information is [...] You can't be awakened Date Last Reviewed: 01/06/201619991814-2747 [email or web address]. [address] [place] [address], [place] [address]. All righ ts reserved. This information is [...] | + +--------+ + + + | DC UPPER GI | Routin | 03/06/2019 | [...] + + ----+ | [facility] | [facility] | | [facility] HospitalologyPatient Name: Grecia Bain | [place] | | LeeProcedure Date: 03/06/2019 12:07 [facility]: [id number] Number: | | | [id number] of : 1970Note Status: FinalizedAttending MD: | [...] the anesthesiologist and the | | | preventative maintenance technician in the endoscopy suite. Mental [...] of | | | Addenda: 0 [facility] | | | - Patient [...] of Addenda: 0 | | | [facility] | | + + ----+ [...]
--- OUTSIDE RECORDS SUMMARY | ~2019-03-17 | XMS | Encounter Summary ---
Demographics + + + | Address | [address] | | | [place] [address] | + + + | Home Phone | | + + + | Preferred Language | Unknown | + + + | Marital Status | | + + + | Sikhism Affiliation | Unknown | + + + | Race | Unknown | + + + | Ethnic Group | Unknown | + + + Author + + + | Author | [facility] | | | and [place] | + + + | Organization | [facility] | [...] Team Providers + +------+ + | Care Jumbo Operator Name | Role | Phone | [...] [address] [place] | [place], [address] | | | | | [address] [place], [place] | [place], [place] | | | | | [address] | [address] | | | | | [phone] | | | +--------+ + + + [...]
--- OUTSIDE RECORDS SUMMARY | ~2019-03-17 | XMS | Encounter Summary ---
Demographics + + + | Address | [address] | | | [place] [address] | + + + | Home Phone [...] | Organization | [facility] [...] Team Providers + +------+ + | Care Hammer Runner Name | Role | Phone | + [...] + + | 01/18/ | Telephone | [facility] | Deny Nelson MD | Labs Only (Does | | 2019 | | GASTROENTEROLOGY | [address], [place] | Leslie need labs | | | | [address] [place] | [address] [place] | prior to her | | | | [address] [place] | [address] | procedure.) | | | | [address] | | | | | | [phone] | | | +--------+ + + + [...]
--- OUTSIDE RECORDS SUMMARY | ~2019-03-17 | XMS | Encounter Summary ---
Demographics + + + | Address | [address] | | | [place] [address] | + + + | Home Phone [...] Organization | [facility] | | | and [...] Team Providers + +------+ + | Care Cash Application Clerk Name | Role | Phone | [...] | diarrhea | [address] | [address], | | | | | Procedures | [facility] | [address] | | | | | IT ACCOUNT MANAGER OFFICE | [address] | [place], | | | | | VISIT | [place], | [place] [address] | | | | | | [place] [address] | Phone: | | | | | | Phone: | [phone] | | | | | | [phone] | Fax: | | | | | | Fax: | [phone] | | | | | | [phone] | | + +--------+ + + + [...] [address] [place] | [place], [place] | (Primary Dx); Fecal | | | | [address] [place], [place] | [place], [place] | urgency; Abdominal | | | | [address] | [address] | cramping; Heartburn; | | | | [phone] | | Black stool | +--------+---------+ + [...] and pr ocedure instructions. Sent prescription to [facility] in [place]. Electronically si gned by Chelita Rodriguez RN [...]
--- OUTSIDE RECORDS SUMMARY | ~2019-03-17 | XMS | Encounter Summary ---
Demographics + + + | Address | [address] | | | [place] [address] | + + + | Home Phone [...] | [facility] | | | and Michaelana [...] Team Providers + +------+ + | Care Nurse Advocate Name | Role | Phone | + [...] | | varices | | [address] [employer], | | | | | without | | [place] | | | | | bleeding, | | [place], | | | | | unspecified | | [place] [address] | | | | | esophageal | | Phone: | | | | | varices type | | [phone] | | | | | (HCC) | | Fax: | | | | | Acute | | [phone] | | | | | gastrointest | [...] | | | | | | [place] | | | | | | | ESOPHAGOGAST | | | | | | | RODUODENOSCO | | | | | | | PY TRANSORAL | | | | | | | DIAGNOSTIC | | | | | | | [place] EGD | | | | | | | TRANSORAL | | | | | | | BIOPSY | | | | | | | SINGLE/MULTI | | | | | | | PLE [place] EGD | | | | | | | BAND | | | | | | | LIGATION | | | | | | | ESOPHGEAL/GA | | | | | | | STRIC | | | | | | | VARICES [place] | | | | | | | [...] + + | 01/24/ | Surgery | [facility] | Deny Nelson MD | EGD | | 2019 | | MED CTR MP INTRA OP | [address] [employer], [place] | | | | | [address] [employer] [address] | [address] [place] | | | | | [place], [place] | [address] | | | | | [address] | | | | | | [phone] | | | +--------+---------+ + + + [...] You can't be awakened Date Last Reviewed: 01/06/201619999747-2965 The [employer]. [address] [place] [address]. All righ ts reserved. This information is [...] 01/24/2019 | PROVATION | | 2:31 PMMRN: [id number] #: [id number] of : | | | 1970Admit Type: AmbulatoryAge: 48Room: Endo Room 1Gender: | | | FemaleNote Status: FinalizedAttending MD: Deny Nelson , | | | MDProcedure: Upper GI endoscopyIndications: | | | Esophageal varices, Follow-up of esophageal varices, For | | | therapy of esophageal varicesProviders: | | | Deny Nelson MD, Briana Constantino RN, Baldemar Caro, | | | Distance Learning Administrator, Arturo Sommers MD (Anesthesia Staff)Referring | | [...] | | | the anesthesiologist and the electrocardiogram technician in the endoscopy suite. | | [...] PMScope In: 2:44:21 PMScope Out: 2:52:03 PM [facility]. | | | [facility], [address] [place] [address] | | | [phone] | | | symptoms of potential delayed [...] |Scope Out: 2:52:03 PM | | | [facility]. [facility], [address] [place] [address] | | | [address] | | + + -+ + +---------+ [...]
--- OUTSIDE RECORDS SUMMARY | ~2019-03-17 | XMS | Encounter Summary ---
Demographics + + + | Address | [address] | | | [place] [address] | + + + | Home Phone [...] Organization | [facility] | | | and [...] Providers + +------+ + | Care Test Director Name | Role | Phone | [...] | Telephone | [facility] [place] | [facility], | MRI Recommendation | | 2019 | | GASTROENTEROLOGY | BRIAN [address]ickson [address] | | | | | [address] [place] | [place], [address] | | | | | [address] [place], [place] | [place], [place] | | | | | [address] | [address] | | | | | [phone] | | | +--------+ + + + [...]
--- OUTSIDE RECORDS SUMMARY | ~2019-03-17 | XMS | Encounter Summary ---
Demographics + + + | Address | [address] | | | [place] [address] | + + + | Home Phone [...] Organization | [facility] | | | and [...] Team Providers + +------+ + | Care Final Cleaner Name | Role | Phone | + [...] | | varices | | [address], | | | | | without | | [place] | | | | | bleeding, | | [place], | | | | | unspecified | | [place] [address] | | | | | esophageal | | Phone: | | | | | varices type | | [phone] | | | | | (HCC) | | Fax: | | | | | Portal | | [phone] | | | | | hypertensive | | | | | | | gastropathy | | | | | | | (HCC) | | | | | | | Procedures | | | | | | | AR | | | | | | | ESOPHAGOGAST | | | | | | | RODUODENOSCO | | | | | | | PY TRANSORAL | | | | | | | DIAGNOSTIC | | | | | | | AR EGD | | | | | | | TRANSORAL | | | | | | | BIOPSY | | | | | | | SINGLE/MULTI | | | | | | | PLE AR EGD | | | | | | | BAND | | | | | | | LIGATION | | | | | | | ESOPHGEAL/GA | | | | | | | STRIC | | | | | | | VARICES AR | | | | | | | [...] + + | 03/06/ | [facility] | [facility] | Fermin Sol | | | 2019 | Event | MED CTR MP INTRA OP | MD Serg [address] | | | | | [address] | [place] | | | | | [place] | [address] | | | | | [address] | | | | | | [phone] | [place], | | | | | | Emmett Durand MD | | | | | | [address] | | | | | | [place] | | | | | | [address] | | | | | | | [...] [address] | | eral | Antecubital; [id number] | Jazzmine Felton RN | Stefani Rodriguez, [...]
--- OUTSIDE RECORDS SUMMARY | ~2019-03-17 | XMS | Encounter Summary ---
Demographics + + + | Address | [address] | | | [place] [address] | + + + | Home Phone [...] | Organization | [facility] | [...] Team Providers + +------+ + | Care Import Coordination And Production Head Name | Role | Phone | [...] | Elevated | [place], | [address] | | | | | liver | [place], | [place], | | | | | enzymes | VP PRODUCTION [address] | [place] | | | | | Esophageal | [place], [place] | [address] | | | | | varices | [address] [place] | Phone: | | | | | without | [place], [place] | [phone] | | | | | bleeding, | [address] | Fax: | | | | | unspecified | Phone: | [phone] | | | | | esophageal | [phone] | | | | | | varices type | Fax: | | | | | | (HCC) | [phone] | | | | | | Portal [...] | | | | | | [place] MRI, | | | | | | [...] | varices | [place], | [address] | | | | | without | VP PRODUCTION [address] | [place], | | | | | bleeding, | [place], [place] | [place] | | | | | unspecified | [address] [place] | [address] | | | | | esophageal | [place], [place] | Phone: | | | | | varices type | [address] | [phone] | | | | | (HCC) | Phone: | Fax: | | | | | Portal | [phone] | [phone] | | | | | hypertension | Fax: | | | | | | (HCC) | [phone] | | | | | | Diarrhea, [...] | | | | | | [place] SONO | | | | | | | GUIDE NEEDLE | | | | | | | BIOPSY [place] | | | | | | [...] | | Elevated | [place], | [address] | | | | | liver | [place], | [place], | | | | | enzymes | VP PRODUCTION [address] | [place] [address] | | | | | Esophageal | [place], [place] | Phone: | | | | | varices | [address] [place] | [phone] | | | | | without | [place], [place] | Fax: | | | | | bleeding, | [address] | [phone] | | | | | unspecified | Phone: | | | | | | esophageal | [phone] | | | | | | varices type | Fax: | | | | | | (HCC) | [phone] | | | | | | Portal [...] | diarrhea | 1100 | [address], | | | | | Procedures | [place] | [address] | | | | | ONCOLOGY NURSE OFFICE | [address] | [place], | | | | | VISIT | [place], | [place] [address] | | | | | | [place] [address] | Phone: | | | | | | Phone: | [phone] | | | | | | [phone] | Fax: | | | | | | Fax: | [phone] | | | | | | [phone] | | + +--------+ + + + [...] [address] [place] | [place], [place] [address] | Dx); Esophageal | | | | [address] | [place] | varices without | | | | [address] | [address] | bleeding, | | | | [phone] | | unspecified | | | | [...] nt from the original. PATIENT NAME: Grecia Bian : 1970: AGE: 48 y.o. REFERRED BY: [...] Procedure: COLONOSCOPY; Surgeon: Deny Nelson MD; Location: [facility] MEDICAL PROCEDURE UNIT KNEE SURGERY Left 2012 Partial PARTIAL HYSTERECTOMY 2013 UPPER GASTROINTESTINAL ENDOSCOPY N/A 12/25/2018 Procedure: EGD; Surgeon: Deny Nelson MD; Location: [facility] MEDICAL PROCEDURE UNIT Family History Problem Relation [...] Colonoscopy Impression, External 12/25/2018 See Full Report~ [facility] Dr. Nelson Final Admission on [...] Hepatitis B Surface Ag Hepatitis C Ab Idjlv-9-Klgyxqnzpgt, Total Mitochondrial Ab, M2 Antinuclear Ab, Titer [...] Hepatitis B Surface Ag Hepatitis C Ab Xtatq-7-Jsbqrmpftpd, Total Mitochondrial Ab, M2 Antinuclear Ab, Titer [...] Hepatitis B Surface Ag Hepatitis C Ab Tpjtm-4-Feheyfnwetz, Total Mitochondrial Ab, M2 Antinuclear Ab, Titer [...] Hepatitis B Surface Ag Hepatitis C Ab Qkgik-6-Ytushofxiys, Total Mitochondrial Ab, M2 Antinuclear Ab, Titer [...] | | + +---------+--------+ + + | Rvgpg-8-Urppikuxnrs, | Lab | Routin | Elevated liver [...] diffusion weighted, axial T1, axial | | V1kydrapmkhuag, coronal T1 postcontrast, sagittal T1 post contrast. [...]
--- OUTSIDE RECORDS SUMMARY | ~2019-03-17 | XMS | Encounter Summary ---
Demographics + + + | Address | [address] | | | [place] [address] | + + + | Home Phone | | + + + | Preferred Language | Unknown | + + + | Marital Status | | + + + | Sikh Affiliation | Unknown | + + + | Race | Unknown | + + + | Ethnic Group | Unknown | + + + Author + + + | Author | [facility] | | | and [place] | + + + | Organization | [facility] | | | and Michaelana [...] Team Providers + +------+ + | Care Trolley Car Operator Name | Role | Phone | [...] 2019 | | GASTROENTEROLOGY | [address], [place] | | | | | [address] [place] | [address] [place], [place] | | | | | [address] [place], [place] | [address] | | | | | [address] | | | | | | [phone] | | | +--------+ + + + [...]
--- OUTSIDE RECORDS SUMMARY | ~2019-03-17 | XMS | Encounter Summary ---
Demographics + + + | Address | [address] | | | [place] [address] | + + + | Home Phone [...] | Organization | [facility] | | | and Michaelana [...] Team Providers + +------+ + | Care Exec. Creative Director Name | Role | Phone | [...] | | | | [address] [facility] | [place] | | | | | [address] [place] | [place] [address] | | | | | [address] | | | | | | [phone] | | | +--------+ + + + [...] + | Colonoscopy | See Full Report~ [facility] | | | | | | Dr. Nelson | | | | | Impression, | | | | | | External | | | | | + + + + + + documented in this encounter Visit Diagnoses Not on filedocumented in this encounter"
[~2019-03-17 20:22] MED LIST changes: +ALDACTONE25 MG PO; +BACTRIM DS TAB1 EACH PO; +IRON18 MG PO; +K-TAB ER20 MEQ PO; +LASIX40 MG PO; +OMEPRAZOLE20 MG PO; +ULTRAM50 MG PO; +VITAMIN C250 MG PO
--- OUTSIDE RECORDS SUMMARY | 2019-03-17 20:24 | XMS ---
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 FAMILY PHONE: [phone] Lourdes Cooper PA-C PHONE: Unknown Kirsten has no Care Guidelines for this patient. [place]arn[place] VISIT COUNT ([address] [place] [address] TOTAL 3 NOTE: Visits indicate total known visits. 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
[2019-03-17] MEDS ORDERED: DILAUDID2 MG PO (21:01)
[2019-03-20] MEDS ORDERED: FENTANYL1 EAC4 TD (14:58)
== END 2019-03-18 01:56 | disposition home or self-care (01) ==
LOC: ED 20:22
DX: R10.9 Unspecified abdominal pain (principal); Z79.899 Other long term (current) drug therapy; Z79.891 Long term (current) use of opiate analgesic
CPT/HCPCS: 80053; 81001; 82140; 82239; 82390; 82728; 83690; 84703; 85025; 85610; 86038; 86255; 96374; 96375; 96376; 99284-25; J1170; J2270; J2405; J2550; J7030

== ENCOUNTER → 2019-03-20 | Emergency (ER) | payer OTHER ==
[~2019-03-20] VITALS: Ht 162.6 cm; Wt 61.7 kg
[~2019-03-20] MED LIST changes: +DILAUDID2 MG PO; +FENTANYL1 EAC4 TD
--- OUTSIDE RECORDS SUMMARY | ~2019-03-20 | XMS | Encounter Summary ---
Demographics + + + | Address | [address] | | | [place] [address] | + + + | Home Phone | | + + + | Preferred Language | Unknown | + + + | Marital Status | | + + + | Muslim Affiliation | Unknown | + + + | Race | Unknown | + + + | Ethnic Group | Unknown | + + + Author + + + | Author | [facility] | | | and [place]ana | + + + | Organization | [facility] | | | and [place] | [...] Team Providers + +------+ + | Care Arts And Sciences Dean Name | Role | Phone | + +------+ + | Selene Francis PA-C | PCP | | + +------+ + Reason for Visit +--------+ + | Reason | Comments | +--------+ + | Other | | +--------+ + Encounter Details +--------+ + + + + | Date | Type | Department | Care Team | Description | +--------+ + + + + | 01/30/ | Telephone | [facility] [place] | [place], | Other | | 2019 | | GASTROENTEROLOGY | BRIAN Dickson [address] | | | | | [address] [place] | [place], [place] | | | | | [address] [place], [place] | [place], [place] | | | | | [address] | [address] | | | | | [phone] | | | +--------+ + + + [...]
--- OUTSIDE RECORDS SUMMARY | ~2019-03-20 | XMS | Encounter Summary ---
Demographics + + + | Address | [address] | | | [place] [address] | + + + | Home Phone [...] | Organization | [facility] | | | and [place]ana | + + + | Address | Unknown | + + + | Phone | Unavailable | + + + Support + + +---------+ + | Name | Relationship | Address | Phone | + + +---------+ + | Benedicto Bain | ECON | Unknown | | + + +---------+ + | Seelne Cohen | ECON | Unknown | | + + +---------+ + Care Team Providers + +------+ + | Care Retail Selling Floor Leader Name | Role | Phone | + [...] | Elevated | [place], | [address] | | | | | liver | [place], | [place], | | | | | enzymes | TELEPHONE INTERCEPTOR OPERATOR [address] | [place] | | | | | Esophageal | [place], [place] | [address] | | | | | varices | [address] [place] | Phone: | | | | | without | [place], [place] | [phone] | | | | | bleeding, | [address] | Fax: | | | | | unspecified | Phone: | [phone] | | | | | esophageal | [phone] | | | | | | varices type | Fax: | | | | | | (HCC) | [phone] | | | | | | Portal [...] | | | | | | | [place] MRI, | | | | | | [...] | varices | [place], | [address] | | | | | without | TELEPHONE INTERCEPTOR OPERATOR [address] | [place], | | | | | bleeding, | [place], [place] | [place] | | | | | unspecified | [address] [place] | [address] | | | | | esophageal | [place] | Phone: | | | | | varices type | [address] | [phone] | | | | | (HCC) | Phone: | Fax: | | | | | Portal | [phone] | [phone] | | | | | hypertension | Fax: | | | | | | (HCC) | [phone] | | | | | | Diarrhea, [...] | | | | | | | [place] SONO | | | | | | | GUIDE NEEDLE | | | | | | | BIOPSY [place] | | | | | | | [...] | | Elevated | [place], | [address] | | | | | liver | [place], | [place], | | | | | enzymes | TELEPHONE INTERCEPTOR OPERATOR [address] | [place] [address] | | | | | Esophageal | [place], [place] | Phone: | | | | | varices | [address] [place] | [phone] | | | | | without | [place], [place] | Fax: | | | | | bleeding, | [address] | [phone] | | | | | unspecified | Phone: | | | | | | esophageal | [phone] | | | | | | varices type | Fax: | | | | | | (HCC) | [phone] | | | | | | Portal [...] | | | | | | | [place] CT SCAN | | | | | [...] | diarrhea | 1100 | [address], | | | | | Procedures | [facility] | [address] | | | | | MILLER HEAD ASSISTANT WET PROCESS OFFICE | [address] | [place], | | | | | VISIT | [place], | [place] [address] | | | | | | [place] [address] | Phone: | | | | | | Phone: | [phone] | | | | | | [phone] | Fax: | | | | | | Fax: | [phone] | | | | | | [phone] | | + +--------+ + + + [...] [address] [place] [address] | [place], [place] [address] | Dx); Esophageal | | | | [address] | [place] | varices without | | | | [address] | [address] | bleeding, | | | | [phone] | | unspecified | | | | [...] Procedure: COLONOSCOPY; Surgeon: Deny Nelson MD; Location: [facility] MEDICAL PROCEDURE UNIT KNEE SURGERY Left 2012 Partial PARTIAL HYSTERECTOMY 2013 UPPER GASTROINTESTINAL ENDOSCOPY N/A 12/25/2018 Procedure: EGD; Surgeon: Deny Nelson MD; Location: [facility] MEDICAL PROCEDURE UNIT Family History Problem Relation [...] Colonoscopy Impression, External 12/25/2018 See Full Report~ [facility] Dr. Nelson Final Admission on 12/25/2018, Discharged [...] Hepatitis B Surface Ag Hepatitis C Ab Iszir-5-Lxeghzppawe, Total Mitochondrial Ab, M2 Antinuclear Ab, Titer [...] Hepatitis B Surface Ag Hepatitis C Ab Berpo-7-Vxgcagcqpas, Total Mitochondrial Ab, M2 Antinuclear Ab, Titer [...] Hepatitis B Surface Ag Hepatitis C Ab Wynme-8-Mxhqrgjxsco, Total Mitochondrial Ab, M2 Antinuclear Ab, Titer [...] Hepatitis B Surface Ag Hepatitis C Ab Hkncd-8-Yfhktrbbnxb, Total Mitochondrial Ab, M2 Antinuclear Ab, Titer [...] | | + +---------+--------+ + + | Nadej-2-Bendlpnjcwv, | Lab | Routin | Elevated liver [...] diffusion weighted, axial T1, axial | | Z5htdnbatxeyse, coronal T1 postcontrast, sagittal T1 post contrast. [...]
--- OUTSIDE RECORDS SUMMARY | ~2019-03-20 | XMS | Encounter Summary ---
Demographics + + + | Address | [address] | | | [place] [address] | + + + | Home Phone | | + + + | Preferred Language | Unknown | + + + | Marital Status | | + + + | Shinto Affiliation | Unknown | + + + | Race | Unknown | + + + | Ethnic Group | Unknown | + + + Author + + + | Author | [facility] | | | and Michaelana | + + + | Organization | [facility] | | | and [...] Team Providers + +------+ + | Care Junior Marketing Associate Name | Role | Phone | [...] + + | 01/26/ | Telephone | [facility] [place] | [place], | Other | | 2019 | | GASTROENTEROLOGY | BRIAN Dickson [address] | | | | | [address] [place] | [place], [address] | | | | | [address] [place], [place] | [place], [place] | | | | | [address] | [address] | | | | | [phone] | | | +--------+ + + + [...]
--- OUTSIDE RECORDS SUMMARY | ~2019-03-20 | XMS | Encounter Summary ---
Demographics + + + | Address | [address] | | | [place] [address] | + + + | Home Phone | | + + + | Preferred Language | Unknown | + + + | Marital Status | | + + + | Yarsani Affiliation | Unknown | + + + | Race | Unknown | + + + | Ethnic Group | Unknown | + + + Author + + + | Author | [facility] | | | and [place]ana | + + + | Organization | [facility] | | | and [place]ana | [...] Team Providers + +------+ + | Care [place]er Name | Role | Phone | + +------+ + | Selene Francis PA-C | PCP | | + +------+ + Reason for Visit + + + | Reason | Comments | + + + | Procedure | needs to schedule EGD | + + + Encounter Details +--------+ + + + + | Date | Type | Department | Care Team | Description | +--------+ + + + + | 01/15/ | Telephone | [facility] [place] | Deny Nelson MD | Procedure (needs to | | 2018 | | GASTROENTEROLOGY | [address], [place] | schedule EGD) | | | | [address] [place] | [address] [place], [place] | | | | | [address] [place], [place] | [address] | | | | | [address] | | | | | | [phone] | | | +--------+ + + + [...]
--- OUTSIDE RECORDS SUMMARY | ~2019-03-20 | XMS | Encounter Summary ---
Demographics + + + | Address | [address] | | | [place] [address] | + + + | Home Phone | | + + + | Preferred Language | Unknown | + + + | Marital Status | | + + + | Alevism Affiliation | Unknown | + + + | Race | Unknown | + + + | Ethnic Group | Unknown | + + + Author + + + | Author | [facility] | | | and Michaelana | + + + | Organization | [facility] | | | and Michaelana [...] Team Providers + +------+ + | Care Semiconductor Wafers Etcher Stripper Name | Role | Phone | [...] 2019 | | GASTROENTEROLOGY | [address], [place] | with Dr. Nelson) | | | | [address] [place] | [address] [place], [place] | | | | | [address] [place], [place] | [address] | | | | | [address] | | | | | | [phone] | | | +--------+ + + + [...]
--- OUTSIDE RECORDS SUMMARY | ~2019-03-20 | XMS | Encounter Summary ---
Demographics + + + | Address | [address] | | | [place] [address] | + + + | Home Phone | | + + + | Preferred Language | Unknown | + + + | Marital Status | | + + + | Restoration Affiliation | Unknown | + + + | Race | Unknown | + + + | Ethnic Group | Unknown | + + + Author + + + | Author | [facility] | | | and Michaelana | + + + | Organization | [facility] | | | and Michaelana [...] Team Providers + +------+ + | Care Chimney Mechanic Name | Role | Phone | + [...] | | | | [address] [facility] | [place] | | | | | [address] [place] | [place] [address] | | | | | [address] | | | | | | [phone] | | | +--------+ + + + [...]
--- OUTSIDE RECORDS SUMMARY | ~2019-03-20 | XMS | Encounter Summary ---
Demographics + + + | Address | [address] | | | [place] [address] | + + + | Home Phone | | + + + | Preferred Language | Unknown | + + + | Marital Status | | + + + | Shinto Affiliation | Unknown | + + + | Race | Unknown | + + + | Ethnic Group | Unknown | + + + Author + + + | Author | [facility] | | | and Michaelana | + + + | Organization | [facility] | | | and Michaelana [...] Team Providers + +------+ + | Care Agricultural Researcher Name | Role | Phone | + [...] | | varices | | [address], | | | | | without | | [address] | | | | | bleeding, | | [place], | | | | | unspecified | | [place] [address] | | | | | esophageal | | Phone: | | | | | varices type | | [phone] | | | | | (HCC) | | Fax: | | | | | Portal | | [phone] | | | | | hypertensive | | | | | | | gastropathy | | | | | | | (HCC) | | | | | | | Procedures | | | | | | | OK | | | | | | | ESOPHAGOGAST | | | | | | | RODUODENOSCO | | | | | | | PY TRANSORAL | | | | | | | DIAGNOSTIC | | | | | | | OK EGD | | | | | | | TRANSORAL | | | | | | | BIOPSY | | | | | | | SINGLE/MULTI | | | | | | | PLE OK EGD | | | | | | | BAND | | | | | | | LIGATION | | | | | | | ESOPHGEAL/GA | | | | | | | STRIC | | | | | | | VARICES OK | | | | | | | [...] Description | +--------+---------+ + + + | 03/06/ | Surgery | [facility] | Deny Nelson MD | EGD | | 2019 | | MED CTR MP INTRA OP | [address], [place] [address] | | | | | [address] | [address] [place], [place] | | | | | [place], [place] | [address] | | | | | [address] | | | | | | [phone] | | | +--------+---------+ + + + [...] documented in this encounter Discharge Instructions Instructions Stefani Rodriguez RN - 03/06/2019 Upper Gastrointestinal (GI) Bleeding (Stable) Your upper gastrointestinal (GI) tract includes your esophagus, stomach, and upper small in testine.You have signs of bleeding from your upper GItract. You may have vomited or coug hed up blood or coffee-ground like material. Or you may have black or tarry stools.Very sm all amounts of GI bleeding may not be visible and can only be found by a test of the stool. Causes of upper GI bleeding can include: Tear in the lining of the esophagus Enlarged veins in the esophagus or stomach, especially in someone with cirrhosis An ulcer in the stomach or top of the small intestine Severe irritation of the stomach Inflammation of the digestive tract Abnormal growth (tumor) of the upper digestive tract A bloody nose or mouth or dental problems may cause you to swallow blood. You may vomit thi s blood up. This is not true GI bleeding.Iron supplements and medicines for diarrhea and u pset stomach can cause black stools.This is not GI bleeding and is not a cause for concern . Home care You've had an evaluation for your bleeding. You will need to continue your care at home. De pending on the cause of your bleeding, care may include the following: You may be given medicines to help protect your GI tract, treat your problem, and promot e healing. Take these as directed. Sometimes tests such as endoscopy may also be used to stop bleeding. An endoscope is a t hin flexible tube with a light and a camera on the tip that is put into your stomach through your esophagus (throat). Don't take NSAIDs, such as aspirin, ibuprofen, or naproxen. They can irritate the stomac h and cause more bleeding. If you are taking these medicines for other reasons, talk to your healthcare provider before you stop them. If you are on blood thinners, discuss the plan with your healthcare provider. Don't use alcohol, caffeine, or tobacco. These can delay healing and make your problem w orse. Follow-up care Follow up with your healthcare provider, or as advised. More tests may need to be done to f indthe cause of your bleeding. When to seek medical advice Call your healthcare provider right awayfor any of the following: Stomach pain starts or gets worse Pain spreads to the neck, back, shoulder, or arm Weakness or dizziness Swelling of your belly Red blood in your stool Fever of 100.4F (38C) or higher, or as directed by your healthcare provider Call 911 Call 911 if any of these occur: Trouble breathing or swallowing Severe dizziness Loss of consciousness Vomiting blood or large amounts of blood in the stool Black, tarry stool Chest pain or lightheadedness Date Last Reviewed: 05/19/201719995839-4609 [employer] [address] [place] [address]. All righ ts reserved. This information is not intended as a substitute for professional medical care. Always follow your healthcare professional's instructions. Recovery After Procedural Sedation (Adult) You have [...] You can't be awakened Date Last Reviewed: 01/06/201619991857-8807 [employer] [address] [place] [address], [place] [address]. All righ ts reserved. This information is [...] + + + +---------+ + + | ascorbic acid | Take 250 mg by mouth | | 0 | | | | (VITAMIN C) 250 MG | Daily. | | | | | | tablet | | | | | | + + + +---------+ + + | CALCIUM PO | Take 1 tablet by | | 0 | | | | | mouth Daily. | | | | | + + + +---------+ + + | ferrous sulfate | Take 325 mg by mouth | | 0 | | | | 325 mg tablet | daily (with | | | | | | | breakfast). | | | | | + + + +---------+ + + | furosemide (LASIX) | Take 40 mg by mouth | | 0 | | | | 20 mg tablet | 2 times daily. 40 mg | | | | | | | in morning and 20 | | | | | | | mg at noon | | | | | + + [...] + + + +---------+ + + | spironolactone | Take 25 mg by mouth | | 0 | | | | (ALDACTONE) 25 mg | 2 times daily. | | | | | | tablet | | | [...] | + +--------+ + + + | [place] UPPER GI | Routin | 03/06/2019 | | Results for this | | ENDOSCOPY,EXAM | e | 12:07 PM | | procedure are in the | | | | PST | | results section. | + +--------+ + + + documented in this encounter Results EGD (03/06/2019 12:07 PM PST) + + | Specimen | + + | | + + + + ----+ | Narrative | Performed At | + + ----+ | [facility] | [facility] | | [facility]Patient Name: Grecia Bain | NICOLA | | LeeProcedure Date: 03/06/2019 12:07 [facility] [id number] Number: | | | [id number] of : 1970Note Status: FinalizedAttending MD: | [...] the anesthesiologist and the | | | certified pharmacy technician in the endoscopy suite. Mental Status [...] PMNumber of | | | Addenda: 0 [facility] | | | - Patient has a [...] |Number of Addenda: 0 | | | [facility] | | + + ----+ + +---------+ [...] type (HCC) | + + | Portal hypertensive gastropathy (HCC) Other specified disorder of stomach and | | duodenum | + + documented in this encounter Admitting Diagnoses + + | Diagnosis | + + | Esophageal varices without bleeding, unspecified esophageal varices type (HCC) | + + | Portal hypertensive gastropathy (HCC) Other specified disorder of stomach and | | duodenum | + + documented in this encounter Administered Medications + +--------+---------+------+------+------+ | Medication Order | MAR | Action | Dose | Rate | Site | | | Action | Date | | | | + +--------+---------+------+------+------+ + +---+ | albuterol 2.5 mg/3 mL nebulizer | | | solution 2.5 mg 2.5 mg, | | | Nebulization, ONCE PRN, Wheezing, | | | Starting 03/06/19 at 1234, | | | For 1 dose, Notify anesthesia if | | | patient is wheezing and does not | | | have a history of asthma or COPD | | | or current smoking., | | | Recovery/Phase I | | + +---+ | | | + +---+ | albuterol-ipratropium 2.5-0.5 | | | mg/3 mL nebulizer solution 3 mL | | | 3 mL, Nebulization, ONCE PRN, | | | Wheezing, Starting 03/06/19 | | | at 1053, For 1 dose, Pre-op | | + [...] glucose < 50, | | | Starting 03/06/19 at 1053, | | | Repeat in 15 min [...] | | blood glucose < 50, Starting Tue | | | 03/06/19 at 1234, Give over 2 | | | min. Repeat in 15 min if blood | | | glucose remains < 70 mg/dL. | | | Repeat blood glucose in 30 min | | | once blood glucose > 70., | | | Recovery/Phase I | | + +---+ | | | + +---+ | ePHEDrine (AKOVAZ) 50 mg/mL | | | injection 5 mg 5 mg, | | | Intravenous, EVERY 5 MIN PRN, if | | | SBP <90., Starting 03/06/19 | | | at 1234, Hold if HR > 100. | | | Maximum total dose 20mg., | | | Recovery/Phase I | | + +---+ | | | + +---+ | hydrALAZINE (APRESOLINE) | | | injection 5 mg 5 mg, | | | Intravenous, EVERY 20 MINUTES | | | PRN, For SBP > 180, DBP > 100, | | | Starting 03/06/19 at 1234, | | | Hold if HR > 100. Maximum total | | | dose 40 mg. Use labetalol first | | | if available., Recovery/Phase I | | + +---+ | | | + +---+ | labetalol (TRANDATE) 5 mg/mL | | | injection 5 mg 5 mg, | | | Intravenous, EVERY 5 MIN PRN, For | | | SBP > 180, DBP > 100, Starting | | | 03/06/19 at 1234, Hold if HR | | | < 60. Notify anesthesia if | | | patient requires more than 50mg., | | | Recovery/Phase I | | + +---+ | | | + +---+ + +---------+ +--------+-------+---+ | lactated ringers (LR) infusion | New Bag | 03/06/20 | 1,000 | 100 | | | at 100 mL/hr, Intravenous, | | 19 11:12 | mLs | mL/hr | | | CONTINUOUS, Starting Tue03/06/19 | | AM PST | | | | | at 1115, Pre-op | | | | | | + +---------+ +--------+-------+---+ + +---+ | | | + +---+ | lactated ringers (LR) infusion | | | at 10-100 mL/hr, Intravenous, | | | CONTINUOUS, Starting 03/06/19 | | | at 1115, TKO., Pre-op | | + +---+ | | | + +---+ | ondansetron (ZOFRAN ODT) | | | disintegrating tablet 4 mg 4 mg, | | | Oral, EVERY 6 HOURS PRN, Nausea, | | | Vomiting, Starting 03/06/19 | | | at 1234, First line agent, | | | Post-op/Phase II | | + +---+ | | | + +---+ | ondansetron (ZOFRAN) injection | | | 4 mg 4 mg, Oral, EVERY 4 HOURS | | | PRN, Nausea, Vomiting, Starting | | | 03/06/19 at 1234, | | | Recovery/Phase I | | + +---+ | | | + +---+ | ondansetron (ZOFRAN) injection | | | 4 mg 4 mg, Intravenous, ONCE | | | PRN, Nausea, Starting Tue | | | 03/06/19 at 1234, For 1 dose, | | | Recovery/Phase I | | + +---+ | | | + +---+ | ondansetron (ZOFRAN) injection | | | 4 mg 4 mg, Intravenous, EVERY 6 | | | HOURS PRN, Nausea, Vomiting, | | | Starting 03/06/19 at 1234, | | | First line agent. Use PO option | | | unless NPO status or unable to | | | tolerate., Post-op/Phase II | | + +---+ | | | + +---+ documented in this encounter
--- OUTSIDE RECORDS SUMMARY | ~2019-03-20 | XMS | Encounter Summary ---
Demographics + + + | Address | [address] | | | [place] [address] | + + + | Home Phone | | + + + | Preferred Language | Unknown | + + + | Marital Status | | + + + | Catholic Affiliation | Unknown | + + + | Race | Unknown | + + + | Ethnic Group | Unknown | + + + Author + + + | Author | [facility] | | | and Michaelana | + + + | Organization | [facility] | | | and [...] Providers + +------+ + | Care Supervisor [employer] Name | Role | Phone | + [...] Tito, | Leslie, | | | | ronny | Functional | LUIS CARLOS Morton | Deny Brody MD | | | | | diarrhea | [address] | [address], | | | | | Procedures | [facility] | [address] | | | | | INSIDE SALES ASSISTANT OFFICE | [address] | [place], | | | | | VISIT | [place], | [place] [address] | | | | | | [place] [address] | Phone: | | | | | | Phone: | [phone] | | | | | | [phone] | Fax: | | | | | | Fax: | [phone] | | | | | | [phone] | | + +--------+ + + + + Encounter Details +--------+---------+ + + + | Date | Type | Department | Care Team | Description | +--------+---------+ + + + | 12/18/ | Office | [facility] [place] | Melanie, | Diarrhea, | | 2019 | Visit | GASTROENTEROLOGY | BRIAN Dickson [address] | unspecified type | | | | [address] | [place], [address] | (Primary Dx); Fecal | | | | [address] [place], [place] | [place], [place] | urgency; Abdominal | | | | [address] | [address] | cramping; Heartburn; | | | | [phone] | | Black stool | +--------+---------+ + [...] + | Blood Pressure | 124/82 | 12/18/2018 7:56 AM | | | | | PDT | | + + + + + | Pulse | 77 | 12/18/2018 7:56 AM | | | | | PDT | | + + + + + | Temperature | 36.6 C (97.9 F) | 12/18/2018 7:56 AM | | | | | PDT | | + + + + + | Respiratory Rate | 14 | 12/18/2018 7:56 AM | | | | | PDT | | + + + + + | Oxygen Saturation | 99% | 12/18/2018 7:56 AM | | | | | PDT | | + + + + + | Inhaled Oxygen | - | - | | | Concentration | | | | + + + + + | Weight | 73.6 kg (162 lb 4.1 | 12/18/2018 7:56 AM | | | | oz) | PDT | | + + + + + | Height | 162.6 cm (5' 4") | 12/18/2018 7:56 AM | | | | | PDT | | + + + + + | Body Mass Index | 27.85 | 12/18/2018 7:56 AM | | | | | PDT | | + + + + + documented in this encounter Patient Instructions Patient Instructions Yessi Navarro ARNP - 12/18/2018 8:00 AM PDTStart psyllium (Met amucil) once daily. If psyllium not helping completely, try dicyclomine as needed. documented in this encounter Progress Notes Chelita Rodriguez RN - 12/18/2018 8:00 AM PDTScheduled patient for EGD/Colon IVCS with Dr. Nelson on Tuesday12/25/18. Reviewed medications and allergies, bowel prep instructions and pr ocedure instructions. Sent prescription to [facility] in [place]. Electronically si gned by Chelita Rodriguez RN at 12/18/2018 8:47 AM PDTYessi Navarro ARNP - 12/18/2018 8:00 AM PDT PATIENT NAME: Grecia Bain : 1970: AGE: [...] KNEE SURGERY Left 2012 Partial PARTIAL HYSTERECTOMY 2012 Family History Problem Relation Age of Onset [...] signed by BRIAN Mancilla at 12/18 8:40 AM PDTdocumented in this encounter Plan of Treatment [...]
--- OUTSIDE RECORDS SUMMARY | ~2019-03-20 | XMS | Encounter Summary ---
Demographics + + + | Address | [address] | | | [place] [address] | + + + | Home Phone | | + + + | Preferred Language | Unknown | + + + | Marital Status | | + + + | Yarsanism Affiliation | Unknown | + + + | Race | Unknown | + + + | Ethnic Group | Unknown | + + + Author + + + | Author | [facility] | | | and Michaelana | + + + | Organization | [facility] [...] Team Providers + +------+ + | Care All Around Presser Name | Role | Phone | + [...] Eme[address] QU[address] | | | | | [phone] | [place] [address] | | +--------+ + + + + [...]
--- OUTSIDE RECORDS SUMMARY | ~2019-03-20 | XMS | Encounter Summary ---
Demographics + + + | Address | [address] | | | [place] [address] | + + + | Home Phone | | + + + | Preferred Language | Unknown | + + + | Marital Status | | + + + | Oriental Orthodox Affiliation | Unknown | + + + | Race | Unknown | + + + | Ethnic Group | Unknown | + + + Author + + + | Author | [facility] | | | and Michaelana | + + + | Organization | [facility] | | | [...] Team Providers + +------+ + | Care Cancer Spec Name | Role | Phone | + +------+ + | Selene Francis PA-C | PCP | | + +------+ + Reason for Visit + + + | Reason | Comments | + + + | Procedure | EGD | + + + Encounter Details +--------+ + + + + | Date | Type | Department | Care Team | Description | +--------+ + + + + | 02/22/ | Telephone | [facility] [place] | Deny Nelson MD | Procedure (EGD ) | | 2019 | | GASTROENTEROLOGY | [address], [address] | | | | | [address] | [address] [place], [place] | | | | | [address] [place], [place] | [address] | | | | | [address] | | | | | | [phone] | | | +--------+ + + + [...] | | Primary | + + | Portal hypertensive gastropathy (HCC) Other specified disorder of stomach and | | duodenum | + + documented in this encounter"
--- OUTSIDE RECORDS SUMMARY | ~2019-03-20 | XMS | Encounter Summary ---
Demographics + + + | Address | [address] | | | [place] [address] | + + + | Home Phone | | + + + | Preferred Language | Unknown | + + + | Marital Status | | + + + | Mosque Affiliation | Unknown | + + + | Race | Unknown | + + + | Ethnic Group | Unknown | + + + Author + + + | Author | [facility] | | | and Michaelana | + + + | Organization | [facility] | | [...] Team Providers + +------+ + | Care Seconds Grader Name | Role | Phone | + [...] | | varices | | [address], | | | | | without | | [address] | | | | | bleeding, | | [place], | | | | | unspecified | | [place] [address] | | | | | esophageal | | Phone: | | | | | varices type | | [phone] | | | | | (HCC) | | Fax: | | | | | Acute | | [phone] | | | | | gastrointest | [...] | | | | | | | IA | | | | | | | ESOPHAGOGAST | | | | | | | RODUODENOSCO | | | | | | | PY TRANSORAL | | | | | | | DIAGNOSTIC | | | | | | | IA EGD | | | | | | | TRANSORAL | | | | | | | BIOPSY | | | | | | | SINGLE/MULTI | | | | | | | PLE IA EGD | | | | | | | BAND | | | | | | | LIGATION | | | | | | | ESOPHGEAL/GA | | | | | | | STRIC | | | | | | | VARICES IA | | | | | | | [...] + + | 01/24/ | Anesthesia | [facility] | Arturo Sommers | | | 2019 | Event | MED CTR MP INTRA OP | [address] | | | | | [address] | [address] [facility] | | | | | [place] | [place] [address] | | | | | [address] | [phone] | | | | | [phone] | | | +--------+ + + + [...] Deanna Webb RN | | IV | [id number] catheter system; | NIKA Mcleod | | [...]
--- OUTSIDE RECORDS SUMMARY | ~2019-03-20 | XMS | Encounter Summary ---
Demographics + + + | Address | [address] | | | [place] [address] | + + + | Home Phone | | + + + | Preferred Language | Unknown | + + + | Marital Status | | + + + | Yazidi Affiliation | Unknown | + + + | Race | Unknown | + + + | Ethnic Group | Unknown | + + + Author + + + | Author | [facility] | | | and Michaelana | + + + | Organization | [facility] | | | and Michaelana [...] Team Providers + +------+ + | Care Check Pilot Name | Role | Phone | + [...] | | Elevated | [place], | [address] | | | | | liver | Yessi, | [place], | | | | | enzymes | APPLICATIONS PROGRAMMER ANALYST [address] | [place] [address] | | | | | Esophageal | [place], [address] | Phone: | | | | | varices | [address] [place] | [phone] | | | | | without | [place], [place] | Fax: | | | | | bleeding, | [address] | [phone] | | | | | unspecified | Phone: | | | | | | esophageal | [phone] | | | | | | varices type | Fax: | | | | | | (HCC) | [phone] | | | | | | Portal [...] | | | | | | | OR CT SCAN | | | | | [...] | | Elevated | [place], | [address] | | | | | liver | Yessi, | [place], | | | | | enzymes | APPLICATIONS PROGRAMMER ANALYST [address] | [place] [address] | | | | | Esophageal | [place], [address] | Phone: | | | | | varices | [address] [place] | [phone] | | | | | without | [place], [place] | Fax: | | | | | bleeding, | [address] | [phone] | | | | | unspecified | Phone: | | | | | | esophageal | [phone] | | | | | | varices type | Fax: | | | | | | (HCC) | [phone] | | | | | | Portal [...] | | | | | | | OR CT SCAN | | | | | | | OF ABDOMEN | | | | | | | CONTRAST | | | +--------+--------+ + + + + Encounter Details +--------+ + + + + | Date | Type | Department | Care Team | Description | +--------+ + + + + | 01/08/ | Hospital | [facility] | [facility], | Elevated liver | | 2019 | Encounter | MED CTR [address] | CARMEN DicksonP [address] | enzymes; Esophageal | | | | [address], | [place], [address] | varices without | | | | [place] [address] | [place], [place] | bleeding, | | | | [phone] | [address] | unspecified | | | | | [...]
--- OUTSIDE RECORDS SUMMARY | ~2019-03-20 | XMS | Encounter Summary ---
Demographics + + + | Address | [address] | | | [place] [address] | + + + | Home Phone | | + + + | Preferred Language | Unknown | + + + | Marital Status | | + + + | Protestant Affiliation | Unknown | + + + | Race | Unknown | + + + | Ethnic Group | Unknown | + + + Author + + + | Author | [facility] | | | and Michaelana | + + + | Organization | [facility] | | | and Michaelana | [...] Providers + +------+ + | Care Semiconductor Lab Technician Name | Role | Phone | + +------+ + | Selene Francis PA-C | PCP | | + +------+ + Encounter Details +--------+ + + + + | Date | Type | Department | Care Team | Description | +--------+ + + + + | 01/29/ | Documentati | [facility] | Deny Nelson MD | | | 2019 | on | GASTROENTEROLOGY | [address], [place] [address] | | | | | [address] | [address] [place], [place] | | | | | [address] [place], [place] | [address] | | | | | [address] | | | | | | [phone] | | | +--------+ + + + [...] bioc hemical or physical deterioration evaluation at [facility] before March 16 would be appropriate [...]
--- OUTSIDE RECORDS SUMMARY | ~2019-03-20 | XMS | Encounter Summary ---
Demographics + + + | Address | [address] | | | [place] [address] | + + + | Home Phone | | + + + | Preferred Language | Unknown | + + + | Marital Status | | + + + | Congregation Affiliation | Unknown | + + + | Race | Unknown | + + + | Ethnic Group | Unknown | + + + Author + + + | Author | [facility] | | | and Michaelana | + + + | Organization | [facility] | | | and [...] Team Providers + +------+ + | Care Personnel Coordinator Name | Role | Phone | + [...] + | 01/25/ | Telephone | [facility] | Deny Nelson MD | Medication | | 2019 | | GASTROENTEROLOGY | [address], [place] [address] | Management | | | | [address] | [address] [place], [place] | | | | | [address] [place], [place] | [address] | | | | | [address] | | | | | | [phone] | | | +--------+ + + + [...]
--- OUTSIDE RECORDS SUMMARY | ~2019-03-20 | XMS | Encounter Summary ---
Demographics + + + | Address | [address] | | | [place] [address] | + + + | Home Phone | | + + + | Preferred Language | Unknown | + + + | Marital Status | | + + + | Episcopalian Affiliation | Unknown | + + + | Race | Unknown | + + + | Ethnic Group | Unknown | + + + Author + + + | Author | [facility] | | | and Michaelana | + + + | Organization | [facility] | | | and Michaelana | [...] Team Providers + +------+ + | Care Building Mechanic Name | Role | Phone | [...] Emeka QUINTERO | | | | | [phone] | [place] [address] | | +--------+ + + + + [...]
--- OUTSIDE RECORDS SUMMARY | ~2019-03-20 | XMS | Encounter Summary ---
Demographics + + + | Address | [address] | | | [place] [address] | + + + | Home Phone | | + + + | Preferred Language | Unknown | + + + | Marital Status | | + + + | Yarsani Affiliation | Unknown | + + + | Race | Unknown | + + + | Ethnic Group | Unknown | + + + Author + + + | Author | [facility] | | | and Michaelana | + + + | Organization | [facility] | | | and [...] Team Providers + +------+ + | Care Mri Assistant Name | Role | Phone | + [...] 2018 | | GASTROENTEROLOGY | [address] [place], [place] [address] | schedule EGD) | | | | [address] | [address] [place], [place] | | | | | [address] [place], [place] | [address] | | | | | [address] | | | | | | [phone] | | | +--------+ + + + [...]
--- OUTSIDE RECORDS SUMMARY | ~2019-03-20 | XMS | Encounter Summary ---
Demographics + + + | Address | [address] | | | [place] [address] | + + + | Home Phone | | + + + | Preferred Language | Unknown | + + + | Marital Status | | + + + | Druze Affiliation | Unknown | + + + | Race | Unknown | + + + | Ethnic Group | Unknown | + + + Author + + + | Author | [facility] | | | and Michaelana | + + + | Organization | [facility] | | | and [...] Team Providers + +------+ + | Care Bartender Helper Name | Role | Phone | + [...] | | unspecified | | [address], | | | | | type Fecal | | [place] | | | | | urgency | | [place], | | | | | Abdominal | | [place] [address] | | | | | cramping | | Phone: | | | | | Heartburn | | [phone] | | | | | Black stool | | Fax: | | | | | Procedures | | [phone] | | | | | [place] | [...] | | | | | PLE HI | | | | | | [...] | | | | | PLE HI | | | | | | [...] + + | 12/25/ | Hospital | [facility] | Deny Nelson MD | Diarrhea, | | 2019 | Encounter | MED CTR MP INTRA OP | [address], [place] | unspecified type; | | | | [address] | [address] [place], [place] | Fecal urgency; | | | | [place] | [address] | Abdominal cramping; | | | | [address] | | Heartburn; Black | | | | [phone] | | stool | +--------+ + + [...] You can't be awakened Date Last Reviewed: 01/06/201619996649-1489 The [email or web address]. [address] [place] [address]. All righ ts reserved. This information is [...] [address] | [place] | [phone] | | [facility] | | [address] | | | - LABORATORY | | [...] [address], | REFERENCE LAB | | [place], [place] [id number] Glass Grinder: Анна Oscar MD, Phone: | [facility] | | [phone] | | + + + + + + + + | Performing | Address | City/State/Zipcode | Phone Number | | Organization | | | | + + + + + | REFERENCE LAB | [address] [facility] | [place] [address] | [phone] | | [facility] | Drive [...] [address] | [place] | [phone] | | [facility] | | [address] | | | - LABORATORY | | [...] [address], | REFERENCE LAB | | [place], [place] [id number] Glass Grinder: Анна Oscar MD, Phone: | [facility] | | [phone] | | + + + + + + + + | Performing | Address | City/State/Zipcode | Phone Number | | Organization | | | | + + + + + | REFERENCE LAB | [address] | [place] [address] | [phone] | | [facility] | Drive [...] [address] | [place] | [phone] | | [facility] | | [address] | | | - LABORATORY | | [...] [address] | [place] | [phone] | | [facility] | | [address] | | | - LABORATORY | | [...] [address] | [place] | [phone] | | [facility] | | [address] | | | - LABORATORY | | [...] [address] | [place] | [phone] | | [facility] | | [address] | | | - LABORATORY | | | | + + + + + EGD (12/25/2018 10:30 AM PDT) + + | Specimen | + + | | + + + + -+ | Narrative | Performed At | + + -+ | | [facility] | | GastroenterologyPatient Name: Grecia BainTyrel Date: 12/25/2018 | [facility] | | 10:30 AMMRN: [id number] #: [id number] of : | | | 1970Admit Type: [...] by the physician, the nurse and the cleaning technician in the | | | endoscopy [...] AMScope Out: | | | 10:53:[address] [facility], [address] [facility], | | | [place] [address] | | | - Resume previous diet [...] |Scope Out: 10:53:30 AM | | | [facility], [address] [facility] [address], [place], [place] | | | [address] | | + + -+ + +---------+ [...] 12/25/2018 | [facility] | | 10:28 AMMRN: [id number] #: [id number] of : | | | 1970Admit Type: [...] by the physician, the nurse and the cleaning technician. | | | Prophylactic Antibiotics: The [...] In: 10:55:28 AMScope Out: 11:09:49 AM [facility] | | | [facility], [facility] [place] [address] | | | [phone] | | | anti-inflammatory drugs for 7 [...] |Scope Out: 11:09:49 AM | | | [facility], [address] [facility] [address], [place], [place] | | | [address] | | + + -+ + +---------+ [...] specific diagnostic abnormality. | | | JVR:cox walnut lawn:C2NR GROSS DESCRIPTION: Two specimens are received | [...] LABORATORY: The technical component was performed by [facility] | | | [facility], [address] [place] [address] (Sprinkler Driver: | | | Shavonne Mathias MD; IA# [id number]). Professional interpretation was | | | performed by [facility], [facility] | | | [place], [address] [place] [address] (Medical | | | Director: Deonte Marquez M.D.). Diagnostician: Deonte Garcia | | | Alma RAY Pathologist Electronically Signed 12/26/2018 | | + + + + +---------+ + + | Performing | Address | City/State/[facility] | Phone Number | | Organization | [...]
--- OUTSIDE RECORDS SUMMARY | ~2019-03-20 | XMS | Encounter Summary ---
Demographics + + + | Address | [address] | | | [place] [address] | + + + | Home Phone | | + + + | Preferred Language | Unknown | + + + | Marital Status | | + + + | Druze Affiliation | Unknown | + + + | Race | Unknown | + + + | Ethnic Group | Unknown | + + + Author + + + | Author | [facility] | | | and Michaelana | + + + | Organization | [facility] | | | and Michaelana | [...] Team Providers + +------+ + | Care Chest Pain Coordinator Name | Role | Phone | [...] [address] [place] | [place], [address] | | | | | [address] [place], [place] | [place], [place] | | | | | [address] | [address] | | | | | [phone] | | | +--------+ + + + [...]
--- OUTSIDE RECORDS SUMMARY | ~2019-03-20 | XMS | Encounter Summary ---
Demographics + + + | Address | [address] | | | [place] [address] | + + + | Home Phone [...] | Organization | [facility] | | | and [...] Team Providers + +------+ + | Care Lens Inserter Name | Role | Phone | + [...] [address] [place] | [place], [address] | | | | | [address] [place], [place] | [place], [place] | | | | | [address] | [address] | | | | | [phone] | | | +--------+ + + + [...]
--- OUTSIDE RECORDS SUMMARY | ~2019-03-20 | XMS | Encounter Summary ---
Demographics + + + | Address | [address] | | | [place] [address] | + + + | Home Phone | | + + + | Preferred Language | Unknown | + + + | Marital Status | | + + + | Congregational Affiliation | Unknown | + + + | Race | Unknown | + + + | Ethnic Group | Unknown | + + + Author + + + | Author | [facility] | | | and Michaelana | + + + | Organization | [facility] | | | and Michaelana [...] Providers + +------+ + | Care Home Care Manager Rn Name | Role | Phone | [...] | | varices | | [address], | | | | | without | | [place] | | | | | bleeding, | | [place], | | | | | unspecified | | [place] [address] | | | | | esophageal | | Phone: | | | | | varices type | | [phone] | | | | | (HCC) | | Fax: | | | | | Acute | | [phone] | | | | | gastrointest | [...] | | | | | | | SD | | | | | | | ESOPHAGOGAST | | | | | | | RODUODENOSCO | | | | | | | PY TRANSORAL | | | | | | | DIAGNOSTIC | | | | | | | SD EGD | | | | | | | TRANSORAL | | | | | | | BIOPSY | | | | | | | SINGLE/MULTI | | | | | | | PLE SD EGD | | | | | | | BAND | | | | | | | LIGATION | | | | | | | ESOPHGEAL/GA | | | | | | | STRIC | | | | | | | VARICES SD | | | | | | | [...] + + | 01/24/ | Surgery | [facility] | Deny Nelson MD | EGD | | 2019 | | MED CTR MP INTRA OP | [address], [place] | | | | | [address] | [address] [place] | | | | | [place], [place] | [address] | | | | | [address] | | | | | | [phone] | | | +--------+---------+ + + + [...] You can't be awakened Date Last Reviewed: 01/06/201619995836-3082 [employer]. [address] [place] [address]. All righ ts reserved. This information is [...] 01/24/2019 | [facility] | | 2:31 PMMRN: [id number] #: [id number] of : | | | 1970Admit Type: AmbulatoryAge: 48Room: Endo Room 1Gender: | | | FemaleNote Status: FinalizedAttending MD: Deny Nelson , | | | MDProcedure: Upper GI endoscopyIndications: | | | Esophageal varices, Follow-up of esophageal varices, For | | | therapy of esophageal varicesProviders: | | | Deny Nelson MD, Briana Constantino RN, Baldemar Caro, | | | Trash Man, Arturo Sommers MD (Anesthesia Staff)Referring | | [...] | | | the anesthesiologist and the orthodontic technician assistant in the endoscopy suite. | | | [...] PMScope In: 2:44:21 PMScope Out: 2:52:03 PM [facility]. | | | [facility], [address] [place] [address] | | | [phone] | | | symptoms of potential delayed [...] |Scope Out: 2:52:03 PM | | | [facility]. [facility], [address] [place] [address] | | | [address] | | + + -+ + +---------+ [...]
--- OUTSIDE RECORDS SUMMARY | ~2019-03-20 | XMS | Encounter Summary ---
Demographics + + + | Address | [address] | | | [place] [address] | + + + | Home Phone | | + + + | Preferred Language | Unknown | + + + | Marital Status | | + + + | Rastafarian Affiliation | Unknown | + + + | Race | Unknown | + + + | Ethnic Group | Unknown | + + + Author + + + | Author | [facility] | | | and Michaelana | + + + | Organization | [facility] | | | [...] Team Providers + +------+ + | Care Music Theory Teacher Name | Role | Phone | [...] | | varices | | [address], | | | | | without | | [address] | | | | | bleeding, | | [place], | | | | | unspecified | | [place] [address] | | | | | esophageal | | Phone: | | | | | varices type | | [phone] | | | | | (HCC) | | Fax: | | | | | Acute | | [phone] | | | | | gastrointest | [...] | | | | | | | MD | | | | | | | ESOPHAGOGAST | | | | | | | RODUODENOSCO | | | | | | | PY TRANSORAL | | | | | | | DIAGNOSTIC | | | | | | | MD EGD | | | | | | | TRANSORAL | | | | | | | BIOPSY | | | | | | | SINGLE/MULTI | | | | | | | PLE MD EGD | | | | | | | BAND | | | | | | | LIGATION | | | | | | | ESOPHGEAL/GA | | | | | | | STRIC | | | | | | | VARICES MD | | | | | | | [...] + + | 01/24/ | Surgery | [facility] | Deny Nelson MD | EGD | | 2019 | | MED CTR MP INTRA OP | [address], [place] | | | | | [address] | [address] [place] | | | | | [place], [place] | [address] | | | | | [address] | | | | | | [phone] | | | +--------+---------+ + + + [...] You can't be awakened Date Last Reviewed: 01/06/201619996296-7471 [employer]. [address] [place] [address]. All righ ts reserved. This information is [...] 01/24/2019 | [facility] | | 2:31 PMMRN: [id number] #: [id number] of : | | | 1970Admit Type: AmbulatoryAge: 48Room: Endo Room 1Gender: | | | FemaleNote Status: FinalizedAttending MD: Deny Nelson , | | | MDProcedure: Upper GI endoscopyIndications: | | | Esophageal varices, Follow-up of esophageal varices, For | | | therapy of esophageal varicesProviders: | | | Deny Nelson MD, Briana Constantino RN, Baldemar Caro, | | | Automation Qa Tester, Arturo Sommers MD (Anesthesia Staff)Referring | | [...] | | | the anesthesiologist and the dietetic technician registered in the endoscopy suite. | | | [...] PMScope In: 2:44:21 PMScope Out: 2:52:03 PM [facility]. | | | [facility], [address] [place] [address] | | | [phone] | | | symptoms of potential delayed [...] |Scope Out: 2:52:03 PM | | | [facility]. [facility], [address] [place] [address] | | | [address] | | + + -+ + +---------+ [...]
--- OUTSIDE RECORDS SUMMARY | ~2019-03-20 | XMS | Encounter Summary ---
Demographics + + + | Address | [address] | | | [place] [address] | + + + | Home Phone | | + + + | Preferred Language | Unknown | + + + | Marital Status | | + + + | Jainism Affiliation | Unknown | + + + | Race | Unknown | + + + | Ethnic Group | Unknown | + + + Author + + + | Author | [facility] | | | and Michaelana | + + + | Organization | [facility] | | | and [...] Team Providers + +------+ + | Care Poultry Slaughterer Name | Role | Phone | + [...] + + | 01/18/ | Telephone | [facility] | Deny Nelson MD | Labs Only (Does | | 2019 | | GASTROENTEROLOGY | [address], [place] | Leslie need labs | | | | [address] [place] | [address] [place] | prior to her | | | | [address] [place] | [address] | procedure.) | | | | [address] | | | | | | [phone] | | | +--------+ + + + [...]
--- OUTSIDE RECORDS SUMMARY | ~2019-03-20 | XMS | Encounter Summary ---
Demographics + + + | Address | [address] | | | [place] [address] | + + + | Home Phone | | + + + | Preferred Language | Unknown | + + + | Marital Status | | + + + | Advent Affiliation | Unknown | + + + | Race | Unknown | + + + | Ethnic Group | Unknown | + + + Author + + + | Author | [facility] | | | and Michaelana | + + + | Organization | [facility] | | [...] Team Providers + +------+ + | Care Developmental Therapist Name | Role | Phone | + [...] | | | | [address] [facility] | [place] | | | | | [address] [place] | [place] [address] | | | | | [address] | | | | | | [phone] | | | +--------+ + + + [...]
--- OUTSIDE RECORDS SUMMARY | ~2019-03-20 | XMS | Encounter Summary ---
Demographics + + + | Address | [address] | | | [place] [address] | + + + | Home Phone | | + + + | Preferred Language | Unknown | + + + | Marital Status | | + + + | Jain Affiliation | Unknown | + + + | Race | Unknown | + + + | Ethnic Group | Unknown | + + + Author + + + | Author | [facility] | | | and Michaelana | + + + | Organization | [facility] | | | and Michaelana [...] Team Providers + +------+ + | Care Crime Lab Analyst Name | Role | Phone | + [...] | | | | [address] [facility] | [place] | | | | | [address] [place] | [place] [address] | | | | | [address] | | | | | | [phone] | | | +--------+ + + + [...] + | Colonoscopy | See Full Report~ [facility] | | | | | | Dr. Nelson | | | | | Impression, | | | | | | External | | | | | + + + + + + documented in this encounter Visit Diagnoses Not on filedocumented in this encounter"
--- OUTSIDE RECORDS SUMMARY | ~2019-03-20 | XMS | Clinical Summary ---
Demographics + + + | Address | [address] | | | [place] [address] | + + + | Home Phone | | + + + | Preferred Language | Unknown | + + + | Marital Status | | + + + | Christian Affiliation | Unknown | + + + | Race | Unknown | + + + | Ethnic Group | Unknown | + + + Author + + + | Author | [facility] | | | and Michaelana | + + + | Organization | [facility] | | | and [...] Team Providers + +------+ + | Care Salesperson Fashion Accessories Name | Role | Phone | + [...] automatically from request for surgery | | [id number] | + + + + + | Esophageal varices without bleeding, unspecified esophageal | 01/23/2019 | | varices type | | + + + + + | Overview: Added automatically from request for surgery | | [id number] | + + + + + | Acute gastrointestinal hemorrhage | 01/23/2019 | + + + + + | Overview: Added automatically from request for surgery | | [id number] | + + + + + | Portal hypertension | 01/23/2019 | + + + + + | Overview: Added automatically from request for surgery | | [id number] | + + + + + | Other diseases of stomach and duodenum | 01/23/2019 | + + + + + | Overview: Added automatically from request for surgery | | [id number] | + + + + + | Hematemesis, presence of nausea not specified | 01/23/2019 | + + + + + | Overview: Added automatically from request for surgery | | [id number] | + + + + + | Cirrhosis of liver | 01/15/2019 | + + + | Diarrhea, unspecified type | 12/18/2018 | + + + + + | Overview: Added automatically from request for surgery | | [id number] | + + + + + | Fecal urgency | 12/18/2018 | + + + + + | Overview: Added automatically from request for surgery | | [id number] | + + + + + | Abdominal cramping | 12/18/2018 | + + + + + | Overview: Added automatically from request for surgery | | [id number] | + + + + + | Heartburn | 12/18/2018 | + + + + + | Overview: Added automatically from request for surgery | | [id number] | + + + + + | Black stool | 12/18/2018 | + + + + + | Overview: Added automatically from request for surgery | | [id number] | + + Encounters +--------+ + + [...] | 01/26/ | Telephone | [facility]astroenterology | [facility] | [facility] | | | BRIAN [...] | 01/15/ | Telephone | Gastroenterology | Deyn Nelson MD | Procedure (needs to | | 2018 | | | | schedule EGD) | +--------+ + + + + | 01/15/ | Telephone | Gastroenterology | [facility], | Referral | | 2018 | | | BRIAN Dickson | | +--------+ + + + + | 01/13/ | Telephone | Gastroenterology | [facility], | Referral | | 2018 | | | BRIAN Dickson | | +--------+ + + + + | 01/12/ | Hospital | Radiology | [facility], | Elevated liver | | 2018 | [...] | 01/09/ | Telephone | Gastroenterology | [facility], | MRI Recommendation | | 2018 | | | BRIAN Dickson | | +--------+ + + + + | 01/08/ | Hospital | Radiology | [facility], | Elevated liver | | 2018 | [...] | 01/04/ | Telephone | Gastroenterology | [facility], | Other (CT ) | | 2019 | | | BRIAN Dickson | | +--------+ + + + + | 01/02/ | Office | Gastroenterology | [facility], | Elevated liver | | [...] | 01/02/ | Documentati | Gastroenterology | [facility], | | | 2019 | [...] | 12/18/ | Office | Gastroenterology | [facility], | Diarrhea, | | 2018 | Visit [...] | + +--------+ + + + | [place] [facility] GI | Routin | 03/06/2019 | [...] | [facility] | | [facility] Grecia aBin | NICOLA | | LeeProcedure Date: 03/06/2019 12:07 PMMRN: [id number] Number: | | | [id number] of : 1970Note Status: FinalizedAttending MD: | [...] the anesthesiologist and the | | | factory maintenance technician in the endoscopy suite. Mental Status [...] PMNumber of | | | Addenda: 0 [facility] | | | - Patient has [...] |Number of Addenda: 0 | | | [facility] | | + + ----+ + [...] 01/24/2019 | [facility] | | 2:31 PMMRN: [id number] #: [id number] of : | | | 1970Admit Type: AmbulatoryAge: 48Room: Endo Room 1Gender: | | | FemaleNote Status: FinalizedAttending MD: Deny Nelson , | | | MDProcedure: Upper GI endoscopyIndications: | | | Esophageal varices, Follow-up of esophageal varices, For | | | therapy of esophageal varicesProviders: | | | Deny Nelson MD, Briana Constantino RN, Baldemar Caro, | | | Bill Of Materials Clerk, Arturo Sommers MD (Anesthesia Staff)Referring | | [...] | | | the anesthesiologist and the factory maintenance technician in the endoscopy suite. | | [...] PMScope In: 2:44:21 PMScope Out: 2:52:03 PM [facility]. | | | [facility], [address] [place] [address] | | | [phone] | | | symptoms of potential delayed [...] |Scope Out: 2:52:03 PM | | | [facility]. [facility], [address] [place], [place] | | | [address] | | + + -+ + +---------+ [...] diffusion weighted, axial T1, axial | | [id number], coronal T1 postcontrast, sagittal T1 post contrast. 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 | [address] [place] [address] | [place] | [phone] | | [facility] | | [address] | | | - LABORATORY | | [...] | | difficile, | | | [facility] | | | NAAT | | | [...] [address] | [place] | [phone] | | [facility] | | [address] | | | - LABORATORY | | [...] | | enterocolit | | | [facility] | | | ica, NAAT | | [...] ST. | [address] | [place] | [phone] | | [facility] | | [address] | | | - LABORATORY | | [...] 100-200, | REFERENCE LAB | | [place] [id number] Nut Threader: Анна Oscar MD, Phone: | [facility] | | [phone] | | + + + + + + + + | Performing | Address | City/State/Zipcode | Phone Number | | Organization | | | | + + + + + | REFERENCE LAB | [address] | [place] [address] | [phone] | | [facility] | Drive [...] [address], | REFERENCE LAB | | [place] [id number] Nut Threader: Анна Oscar MD, Phone: | [facility] | | [phone] | | + + + + + + + + | Performing | Address | City/State/Zipcode | Phone Number | | Organization | | | | + + + + + | REFERENCE LAB | [address] | [place] [address] | [phone] | | [facility] | Drive [...] + | [facility] | [address] | [place] | [phone] | | [facility] | | [address] | | | - LABORATORY | | [...] [address] | [place] | [phone] | | [facility] | | [address] | | | - LABORATORY | | [...] [address] | [place] | [phone] | | [facility] | | [address] | | | - LABORATORY | | | | + + + + + EGD (12/25/2018 10:30 AM PDT) + + | Specimen | + + | | + + + + -+ | Narrative | Performed At | + + -+ | | [facility] | | GastroenterologyPatient Name: Grecia BainTyrel Date: 12/25/2018 | [facility] | | 10:30 AMMRN: [id number] #: [id number] of : | | | 1970Admit Type: AmbulatoryAge: 48Room: Endo Room 1Gender: | | | FemaleNote Status: FinalizedAttending MD: Deny Nelson , | | | MDProcedure: Upper GI endoscopyIndications: | | | Generalized abdominal pain, DiarrheaProviders: Deny Rainey | | | MD Leslie, Vanna Castro RN, Briaan Constantino, | | | RN, Vianey Burns [...] by the physician, the nurse and the factory maintenance technician in the | | | endoscopy [...] AMScope Out: | | | 10:53:30 AM [facility], [address] [facility], | | | [place] [address] | | | - Resume previous diet [...] |Scope Out: 10:53:30 AM | | | [facility], [address] [facility], [place], [place] | | | [address] | | + + -+ + +---------+ [...] 12/25/2018 | [facility] | | 10:28 AMMRN: [id number] #: [id number] of : | | | 1970Admit Type: [...] by the physician, the nurse and the factory maintenance technician. | | | Prophylactic Antibiotics: The [...] In: 10:55:28 AMScope Out: 11:09:49 AM [facility] | | | [facility], [facility] [place] [address] | | | [phone] | | | anti-inflammatory drugs for 7 [...] |Scope Out: 11:09:49 AM | | | [facility], [address] [facility], [place], [place] | | | [address] | | + + -+ + +---------+ [...] BIOPSY SPECIMEN(S): B RANDOM COLON BIOPSY | [place] [facility] | | SPECIMEN SOURCE: A. DUODENAL [...] specific diagnostic abnormality. | | | JVR:[facility]:C2NR GROSS DESCRIPTION: Two specimens are received | [...] LABORATORY: The technical component was performed by [employer] | | | [facility] [facility], [address] [place] [address] (Butt Presser: | | | Shavonne Mathias MD; CLIA# [id number]). Professional interpretation was | | | performed by [employer], [facility] | | | [address] [address] (Medical | | | Director: Ruth Batista. [...] + +------+ | MOD[employer] | MODA | [id number] | | [phone] | [address] | PPO | | | [employer] | | [address] | 9 | [id number] | | | | [place] | | esent | | [place], | | | | [place] | | | | [place] [address] | | + +--------+ +--------+ + +------+ | [facility] | PHP | [phone] | 03/21/19 | [phone] | | PPO | | PLAN | [...] Person | Self | [birth year] | [address] | | | al/Reymundo | | 1971 | [phone] | [place] [address] | | | prabhjot | | | 7 (Home) | | | | | | | [phone] | | | | | | | 9 (Work) | | + +--------+ +--------+ + + Advance Directives + + + + + | Type | Date Recorded | Patient | Explanation | | | | Ladies' Locker Room Attendant | | + + + + + | Power of | | | | | Sealing Machine Operator | | | | + + + + + | Advance | 12/25/2018 9:30 | | | | Directive | AM | | | + + + + +
--- OUTSIDE RECORDS SUMMARY | ~2019-03-20 | XMS | Encounter Summary ---
Demographics + + + | Address | [address] | | | [place] [address] | + + + | Home Phone [...] + + | Organization | [facility] | | | and [...] Team Providers + +------+ + | Care Ocean Freight Forwarder Name | Role | Phone | + [...] | | | | liver (HCC) | AREA CAPTAIN [address] | | | | | Procedures | [place], [place] | [place], [place] | | | | | 03/15 > | [address] [place] | [address] | | | | | PENDING | [place], [place] | Phone: | | | | | STATUS | [address] | [phone] | | | | | | Phone: | Fax: | | | | | | [phone] | [phone] | | | | | | Fax: | | | | | | | [phone] | | + + + + + + + Reason for Visit + + + | Reason | Comments | + + + | Referral | | + + + Encounter Details +--------+ + + + + | Date | Type | Department | Care Team | Description | +--------+ + + + + | 01/13/ | Telephone | [facility] [place] | [facility], | Referral | | 2019 | | GASTROENTEROLOGY | BRIAN Dickson [address] | | | | | [address] [place] | [place], [place] [address] | | | | | [address] [place], [place] | [place], [place] | | | | | [address] | [address] | | | | | [phone] | | | +--------+ + + + [...]
--- OUTSIDE RECORDS SUMMARY | ~2019-03-20 | XMS | Encounter Summary ---
Demographics + + + | Address | [address] | | | [place] [address] | + + + | Home Phone | | + + + | Preferred Language | Unknown | + + + | Marital Status | | + + + | Adventism Affiliation | Unknown | + + + | Race | Unknown | + + + | Ethnic Group | Unknown | + + + Author + + + | Author | [facility] | | | and Michaelana | + + + | Organization | [facility] | | | [...] Team Providers + +------+ + | Care Manager Portable Name | Role | Phone | + [...] | | varices | | [address], | | | | | without | | [address] | | | | | bleeding, | | [place], | | | | | unspecified | | [place] [address] | | | | | esophageal | | Phone: | | | | | varices type | | [phone] | | | | | (HCC) | | Fax: | | | | | Acute | | [phone] | | | | | gastrointest | [...] + + | 01/24/ | Hospital | [facility] | Deny Nelson MD | Esophageal varices | | 2019 | Encounter | [facility] OP | [address], [place] | without bleeding, | | | | [address] | [address] [place], [place] | unspecified | | | | [place], [place] | [address] | esophageal varices | | | | [address] | | type (HCC); Acute | | | | [phone] | | gastrointestinal | | | | [...] You can't be awakened Date Last Reviewed: 01/06/201619992424-3035 [employer]. [address] [place] [address]. All righ ts reserved. This information is [...] 01/24/2019 | [facility]OVATION | | 2:31 PMMRN: [id number] #: [id number] of : | | | 1970Admit Type: AmbulatoryAge: 48Room: Endo Room 1Gender: | | | FemaleNote Status: FinalizedAttending MD: Deny Nelson , | | | MDProcedure: Upper GI endoscopyIndications: | | | Esophageal varices, Follow-up of esophageal varices, For | | | therapy of esophageal varicesProviders: | | | Deny Nelson MD, Briana Constantino RN, Baldemar Caro, | | | Supervisor Estimator And Drafter, Arturo Sommers MD (Anesthesia Staff)Referring | | [...] | | | the anesthesiologist and the veterinary surgery technician in the endoscopy suite. | | [...] PMScope In: 2:44:21 PMScope Out: 2:52:03 PM [facility]. | | | [address] [address] | | | [phone] | | | symptoms of potential delayed [...] |Scope Out: 2:52:03 PM | | | [facility], [address] [place] | | | [address] | | + + -+ + +---------+ [...]
--- OUTSIDE RECORDS SUMMARY | ~2019-03-20 | XMS | Encounter Summary ---
Demographics + + + | Address | [address] | | | [place] [address] | + + + | Home Phone | | + + + | Preferred Language | Unknown | + + + | Marital Status | | + + + | Hindu Affiliation | Unknown | + + + | Race | Unknown | + + + | Ethnic Group | Unknown | + + + Author + + + | Author | [facility] | | | and Michaelana | + + + | Organization | [facility] | | | and [...] Team Providers + +------+ + | Care Credit Collections Specialist Name | Role | Phone | [...] | | varices | | [address], | | | | | without | | [place] | | | | | bleeding, | | [place], | | | | | unspecified | | [place] [address] | | | | | esophageal | | Phone: | | | | | varices type | | [phone] | | | | | (HCC) | | Fax: | | | | | Acute | | [phone] | | | | | gastrointest | [...] | | | | | PLE IN EGD | | | | | | | BAND | | | | | | | LIGATION | | | | | | | ESOPHGEAL/GA | | | | | | | STRIC | | | | | | | VARICES IN | | | | | | [...] + + | 01/24/ | Hospital | [facility] | Deny Nelson MD | Esophageal varices | | 2019 | Encounter | MED [facility] INTRA OP | [address], [place] | without bleeding, | | | | [address] | [address] [place], [place] | unspecified | | | | [place], [place] | [address] | esophageal varices | | | | [address] | | type (HCC); Acute | | | | [phone] | | gastrointestinal | | | | [...] You can't be awakened Date Last Reviewed: 01/06/201619991267-9599 [employer]. [address] [place] [address]. All righ ts reserved. This information is [...] 01/24/2019 | [facility]OVATION | | 2:31 PMMRN: [id number] #: [id number] of : | | | 1970Admit Type: AmbulatoryAge: 48Room: Endo Room 1Gender: | | | FemaleNote Status: FinalizedAttending MD: Deny Nelson , | | | MDProcedure: Upper GI endoscopyIndications: | | | Esophageal varices, Follow-up of esophageal varices, For | | | therapy of esophageal varicesProviders: | | | Deny Nelson MD, Briana Constantino RN, Baldemar Caro, | | | Security Advisor, Arturo Sommers MD (Anesthesia Staff)Referring | | [...] | | | the anesthesiologist and the inspector technician in the endoscopy suite. | | [...] PMScope In: 2:44:21 PMScope Out: 2:52:03 PM [facility]. | | | [address] [address] | | | [phone] | | | symptoms of potential delayed [...] |Scope Out: 2:52:03 PM | | | [facility], [address] [place] | | | [address] | | + + -+ + +---------+ [...]
--- OUTSIDE RECORDS SUMMARY | ~2019-03-20 | XMS | Clinical Summary ---
Demographics + + + | Address | [address] | | | [place] [address] | + + + | Home Phone [...] + + | Author | [facility] | + + + | Organization | [facility] | + + + | Address | Unknown | + + + | Phone | Unavailable | + + + Support + + + + + | Name | Relationship | Address | Phone | + + + + + | Benedicto Bain | ECON | [address] | | | | | [place] | | | | | [address] | | + + + + + Care Team Providers + +------+ + | Care Automation Engineering Technician Name | Role | Phone | + +------+ + | Selene Francis | PCP | | + +------+ + Source Comments [facility] is fully live on both [employer] Ambulatory and [employer] InPatient.[facility] Allergies Not on File Medications Not on [...] | | | | | [address], | | | | | | [place] [address] | | | | | | [phone] | | | | | | | [...] [employer] | [employer] | [phone] | | [phone] | [address] | PPO | | | [employer] | | [address] | [address] | [address] | | | | [place] | | esent | | [place], | | | | [place] | | | | [place] [address] | | + +--------+ +--------+ + +------+ | [facility] | PROVID | [phone] | 10/20/19 | [phone] | [address] | PPO | | | ENCE | | [address] | [address] | [phone] | | | | CHOICE | | sent | | [place], | | | | [place] | | | | [place] [address] | | + +--------+ +--------+ + +------+ + +--------+ +--------+ + + | Guarantor Name | Accoun | Relation to | Date | Phone | Billing Address | | | t Type | Patient | of | | | | | | | | | | + +--------+ +--------+ + + | Grecia Bain | Person | Self | [birth year] | | [address] | | | al/Fam | | 1971 | [phone] | [place] [address] | | | prabhjot | | | 7 (Home) | | | | | | | [phone] | | | | | | | 9 (Work) | | + +--------+ +--------+ + +"
--- OUTSIDE RECORDS SUMMARY | ~2019-03-20 | XMS | Encounter Summary ---
Demographics + + + | Address | [address] | | | [place] [address] | + + + | Home Phone [...] + + | Author | [facility] | | | and Michaelana | + + + | Organization | [facility] | | | and Michaelana | + + + | Address | Unknown | + + + | Phone | Unavailable | + + + Support + + +---------+ + | Name | Relationship | Address | Phone | + + +---------+ + | Benedicto Bain | ECON | Unknown | | + + +---------+ + | Selene oChen | ECON | Unknown | | + + +---------+ + Care Team Providers + +------+ + | Care Government Operations Consultant Name | Role | Phone [...] | diarrhea | [address] | [address], | | | | | Procedures | [facility] | [address] | | | | | OTOLOGIST OFFICE | [address] | [place], | | | | | VISIT | [place], | [place] [address] | | | | | | [place] [address] | Phone: | | | | | | Phone: | [phone] | | | | | | [phone] | Fax: | | | | | | Fax: | [phone] | | | | | | [phone] | | + +--------+ + + + [...] [address] [place] | [place], [place] | (Primary Dx); Fecal | | | | [address] [place], [place] | [place], [place] | urgency; Abdominal | | | | [address] | [address] | cramping; Heartburn; | | | | [phone] | | Black stool | +--------+---------+ + [...] and pr ocedure instructions. Sent prescription to [facility] in [place]. Electronically si gned by Chelita Rodriguez RN [...]
--- OUTSIDE RECORDS SUMMARY | ~2019-03-20 | XMS | Encounter Summary ---
Demographics + + + | Address | [address] | | | [place] [address] | + + + | Home Phone | | + + + | Preferred Language | Unknown | + + + | Marital Status | | + + + | Restorationism Affiliation | Unknown | + + + | Race | Unknown | + + + | Ethnic Group | Unknown | + + + Author + + + | Author | [facility] | | | and Michaelana | + + + | Organization | [facility] | | | [...] Team Providers + +------+ + | Care Rotogravure Press Operator Name | Role | Phone | [...] | | varices | | [address], | | | | | without | | [address] | | | | | bleeding, | | [place], | | | | | unspecified | | [place] [address] | | | | | esophageal | | Phone: | | | | | varices type | | [phone] | | | | | (HCC) | | Fax: | | | | | Portal | | [phone] | | | | | hypertensive | | | | | | | gastropathy | | | | | | | (HCC) | | | | | | | Procedures | | | | | | | PA | | | | | | | ESOPHAGOGAST | | | | | | | RODUODENOSCO | | | | | | | PY TRANSORAL | | | | | | | DIAGNOSTIC | | | | | | | PA EGD | | | | | | | TRANSORAL | | | | | | | BIOPSY | | | | | | | SINGLE/MULTI | | | | | | | PLE PA EGD | | | | | | | BAND | | | | | | | LIGATION | | | | | | | ESOPHGEAL/GA | | | | | | | STRIC | | | | | | | VARICES PA | | | | | | | [...] + + | 03/06/ | Hospital | [facility] | Deny Nelson MD | Portal hypertensive | | 2019 | Encounter | MED CTR MP INTRA OP | [address], [place] | gastropathy (HCC); | | | | [address] | [address] [place], [place] | Esophageal varices | | | | [place], [place] | [id number] | without bleeding, | | | | [address] | | unspecified | | | | [phone] | | esophageal varices | | | [...] or lightheadedness Date Last Reviewed: 05/19/2017 The [employer]. [address] [place] [address]. All righ ts reserved. This information is [...] be awakened Date Last Reviewed: 01/06/2016 [employer]. [address] [place] [address]. All righ ts reserved. This information is [...] | + +--------+ + + + | [place] UPPER GI | Routin | 03/06/2019 | [...] + + ----+ | [facility] | [facility] | | [facility]Patient Name: Grecia Bain | PROVATION | | LeeProcedure Date: 03/06/2019 12:07 PMMRN: [id number] Number: | | | [id number] of : 1970Note Status: FinalizedAttending MD: | [...] the anesthesiologist and the | | | manometer technician in the endoscopy suite. Mental Status [...] PMNumber of | | | Addenda: 0 [facility] | | | - Patient has [...] |Number of Addenda: 0 | | | [facility] | | + + ----+ + [...]
--- OUTSIDE RECORDS SUMMARY | ~2019-03-20 | XMS | Encounter Summary ---
Demographics + + + | Address | [address] | | | [place] [address] | + + + | Home Phone [...] | Organization | [facility] | | | and Michaelana | [...] Team Providers + +------+ + | Care Executive Team Leader Name | Role | Phone | [...] | | varices | | [address], | | | | | without | | [address] | | | | | bleeding, | | [place], | | | | | unspecified | | [place] [address] | | | | | esophageal | | Phone: | | | | | varices type | | [phone] | | | | | (HCC) | | Fax: | | | | | Portal | | [phone] | | | | | hypertensive | | | | | | | gastropathy | | | | | | | (HCC) | | | | | | | Procedures | | | | | | | ID | | | | | | | ESOPHAGOGAST | | | | | | | RODUODENOSCO | | | | | | | PY TRANSORAL | | | | | | | DIAGNOSTIC | | | | | | | ID EGD | | | | | | | TRANSORAL | | | | | | | BIOPSY | | | | | | | SINGLE/MULTI | | | | | | | PLE ID EGD | | | | | | | BAND | | | | | | | LIGATION | | | | | | | ESOPHGEAL/GA | | | | | | | STRIC | | | | | | | VARICES ID | | | | | | | [...] + + | 03/06/ | Hospital | [facility] | Deny Nelson MD | Portal hypertensive | | 2019 | Encounter | MED CTR MP INTRA OP | [address], [place] | gastropathy (HCC); | | | | [address] | [address] [place], [place] | Esophageal varices | | | | [place], [place] | [id number] | without bleeding, | | | | [address] | | unspecified | | | | [phone] | | esophageal varices | | | [...] or lightheadedness Date Last Reviewed: 05/19/2017 [employer]. [address] [place] [address]25. All righ ts reserved. This information is [...] be awakened Date Last Reviewed: 01/06/2016 [employer]. [address] [place] [address]. All righ ts reserved. This information is [...] | + +--------+ + + + | ID UPPER GI | Routin | 03/06/2019 | [...] + + ----+ | [facility] | [facility] | | [facility]Patient Name: Grecia Bain | [facility]ATION | | LeeProcedure Date: 03/06/2019 12:07 PMMRN: [id number] Number: | | | [id number] of : 1970Note Status: FinalizedAttending MD: | [...] the anesthesiologist and the | | | extractions technician in the endoscopy suite. Mental Status [...] PMNumber of | | | Addenda: 0 [facility] | | | - Patient has [...] |Number of Addenda: 0 | | | [facility] | | + + ----+ + [...]
--- OUTSIDE RECORDS SUMMARY | ~2019-03-20 | XMS | Encounter Summary ---
Demographics + + + | Address | [address] | | | [place] [address] | + + + | Home Phone | | + + + | Preferred Language | Unknown | + + + | Marital Status | | + + + | Protestant Affiliation | Unknown | + + + | Race | Unknown | + + + | Ethnic Group | Unknown | + + + Author + + + | Author | [facility] | | | and Michaelana | + + + | Organization | [facility] [...] Team Providers + +------+ + | Care Food Cashier Name | Role | Phone | + [...] | | varices | | [address], | | | | | without | | [address] | | | | | bleeding, | | [place], | | | | | unspecified | | [place] [address] | | | | | esophageal | | Phone: | | | | | varices type | | [phone] | | | | | (HCC) | | Fax: | | | | | Portal | | [phone] | | | | | hypertensive | [...] | | | | | PLE DC EGD | | | | | | | BAND | | | | | | | LIGATION | | | | | | | ESOPHGEAL/GA | | | | | | | STRIC | | | | | | | VARICES DC | | | | | | [...] + + | 03/06/ | [facility] | Fermin [place] | | | 2019 | Event | MED CTR MP INTRA OP | MD Serg [address] | | | | | [address] | [place] | | | | | [place] | [address] | | | | | [address] | | | | | | [phone] | [place], | | | | | | Emmett Durand MD | | | | | | [address] | | | | | | [place] | | | | | | [address] | | | | | | | [...] [address] | | eral | Antecubital; [id number] | Jazzmine Felton RN | Stefani Rodriguez, [...]
--- OUTSIDE RECORDS SUMMARY | ~2019-03-20 | XMS | Encounter Summary ---
Demographics + + + | Address | [address] | | | [place] [address] | + + + | Home Phone | | + + + | Preferred Language | Unknown | + + + | Marital Status | | + + + | Sikhism Affiliation | Unknown | + + + | Race | White | + + + | Ethnic Group | Not or | + + + Author + + + | Author | [facility] | + + + | Organization | [facility] | + + + | Address | Unknown | + + + | Phone | Unavailable | + + + Support + + + + + | Name | Relationship | Address | Phone | + + + + + | Benedicto Bain | ECON | [address] | | | | | [place] | | | | | [address] | | + + + + + Care Team Providers + +------+ + | Care Field Artillery Operations Man Name | Role | Phone | + +------+ + PCP | Unavailable | + +------+ + Encounter Details +--------+ + + + + | Date | Type | Department | Care Team | Description | +--------+ + + + + | 01/17/ | Abstract | [facility] | Clinic, | | | 2019 | | [facility] [place] [facility] [address] | Gastroenterology | | | | | [place] | | | | | | Mailcode: OC8D | | | | | | [facility] [place] [facility] | | | | | | and Healing, | | | | | | Building [address] | | | | | | [place], [place] | | | | | | [address] | | | | | | [phone] | | | +--------+ + + + [...] | | | | | [place], | | | | | | [place] [address] | | | | | | [phone] | | | | | | | | +--------+---------+ + + + documented as of this encounter Visit Diagnoses Not on filedocumented in this encounter"
--- OUTSIDE RECORDS SUMMARY | ~2019-03-20 | XMS | Encounter Summary ---
Demographics + + + | Address | [address] | | | [place] [address] | + + + | Home Phone [...] + | Organization | [facility] | [...] Team Providers + +------+ + | Care Pairer Substandard Name | Role | Phone | + [...] | Elevated | [place], | [address] | | | | | liver | [place], | [place], | | | | | enzymes | POWER GENERATION ENGINEER [address] | [place] | | | | | Esophageal | [place], [place] | [address] | | | | | varices | [address] [place] | Phone: | | | | | without | [place], [place] | [phone] | | | | | bleeding, | [address] | Fax: | | | | | unspecified | Phone: | [phone] | | | | | esophageal | [phone] | | | | | | varices type | Fax: | | | | | | (HCC) | [phone] | | | | | | Portal [...] | | | | | | [place] MRI, | | | | | | [...] | varices | [place], | [address] | | | | | without | POWER GENERATION ENGINEER [address] | [place], | | | | | bleeding, | [place], [place] | [place] | | | | | unspecified | [address] [place] | [address] | | | | | esophageal | [place] | Phone: | | | | | varices type | [address] | [phone] | | | | | (HCC) | Phone: | Fax: | | | | | Portal | [phone] | [phone] | | | | | hypertension | Fax: | | | | | | (HCC) | [phone] | | | | | | Diarrhea, [...] | | | | | | LA SONO | | | | | | | GUIDE NEEDLE | | | | | | | BIOPSY [place] | | | | | | [...] | | Elevated | [place], | [address] | | | | | liver | [place], | [place], | | | | | enzymes | POWER GENERATION ENGINEER [address] | [place] [address] | | | | | Esophageal | [place], [place] | Phone: | | | | | varices | [address] [place] | [phone] | | | | | without | [place], [place] | Fax: | | | | | bleeding, | [address] | [phone] | | | | | unspecified | Phone: | | | | | | esophageal | [phone] | | | | | | varices type | Fax: | | | | | | (HCC) | [phone] | | | | | | Portal [...] | | | | | | [place] CT SCAN | | | | | [...] | diarrhea | [address] | [address], | | | | | Procedures | [place] | [address] | | | | | TALLOW REFINER OFFICE | [address] | [place], | | | | | VISIT | [place], | [place] [address] | | | | | | [place] [address] | Phone: | | | | | | Phone: | [phone] | | | | | | [phone] | Fax: | | | | | | Fax: | [phone] | | | | | | [phone] | | + +--------+ + + + [...] [address] [place] | [place], [place] | Dx); Esophageal | | | | [address] [place] | [place] | varices without | | | | [address] | [address] | bleeding, | | | | [phone] | | unspecified | | | | [...] Procedure: COLONOSCOPY; Surgeon: Deny Nelson MD; Location: [facility] KNEE SURGERY Left 2012 Partial PARTIAL HYSTERECTOMY 2013 UPPER GASTROINTESTINAL ENDOSCOPY N/A 12/25/2018 Procedure: EGD; Surgeon: Deny Nelson MD; Location: [facility] Family History Problem Relation [...] Colonoscopy Impression, External 12/25/2018 See Full Report~ [facility] Dr. Nelson Final Admission on 12/25/2018, [...] Hepatitis B Surface Ag Hepatitis C Ab Rdreg-1-Sbnokahhtlr, Total Mitochondrial Ab, M2 Antinuclear Ab, Titer [...] Hepatitis B Surface Ag Hepatitis C Ab Vaffe-1-Tafrcqbzyvu, Total Mitochondrial Ab, M2 Antinuclear Ab, Titer [...] Hepatitis B Surface Ag Hepatitis C Ab Lzfkw-1-Zoqahvpjugi, Total Mitochondrial Ab, M2 Antinuclear Ab, Titer [...] Hepatitis B Surface Ag Hepatitis C Ab Vnbee-4-Pcqizejgqeb, Total Mitochondrial Ab, M2 Antinuclear Ab, Titer [...] | | + +---------+--------+ + + | Hcfgh-5-Dwtvagtbwap, | Lab | Routin | Elevated liver [...] diffusion weighted, axial T1, axial | | D1gigmdxpjxpgd, coronal T1 postcontrast, sagittal T1 post contrast. [...]
--- OUTSIDE RECORDS SUMMARY | ~2019-03-20 | XMS | Encounter Summary ---
Demographics + + + | Address | [address] | | | [place] [address] | + + + | Home Phone | | + + + | Preferred Language | Unknown | + + + | Marital Status | | + + + | Confucianism Affiliation | Unknown | + + + | Race | Unknown | + + + | Ethnic Group | Unknown | + + + Author + + + | Author | [facility] | | | and Michaelana | + + + | Organization | [facility] | | | and [...] Team Providers + +------+ + | Care Delicatessen Department Manager Name | Role | Phone | [...] | | unspecified | | [address], | | | | | type Fecal | | [address] | | | | | urgency | | [place], | | | | | Abdominal | | [place] [address] | | | | | cramping | | Phone: | | | | | Heartburn | | [phone] | | | | | Black stool | | Fax: | | | | | Procedures | | [phone] | | | | | [place] | | | | | | | ESOPHAGOGAST | | | | | | | RODUODENOSCO | | | | | | | PY TRANSORAL | | | | | | | DIAGNOSTIC | | | | | | | FL EGD | | | | | | | TRANSORAL | | | | | | | BIOPSY | | | | | | | SINGLE/MULTI | | | | | | | PLE FL | | | | | | | COLONOSCOPY | | | | | | | FLX DX | | | | | | | W/COLLJ SPEC | | | | | | | WHEN PFRMD | | | | | | | FL | | | | | | | COLONOSCOPY | | | | | | | W/BIOPSY | | | | | | | SINGLE/MULTI | | | | | | | PLE FL | | | | | | | [...] + + | 12/25/ | Surgery | [facility] | Deny Nelson MD | EGD | | 2019 | | MED CTR MP INTRA OP | [address], [place] | | | | | [address] | [address] [place], [place] | | | | | [place], [place] | [address] | | | | | [address] | | | | | | [phone] | | | +--------+---------+ + + + [...] You can't be awakened Date Last Reviewed: 01/06/201619990455-1749 [employer]. [address] [place] [address]. All righ ts reserved. This information is [...] [address] | [place] | [phone] | | [facility] | | [address] | | | - LABORATORY | | [...] [address], | REFERENCE LAB | | [place], [place] [id number] Manager Psychology: Анна Oscar MD, Phone: | [facility] | | [phone] | | + + + + + + + + | Performing | Address | City/State/Zipcode | Phone Number | | Organization | | | | + + + + + | REFERENCE LAB | [address] | [place] [address] | [phone] | | [facility] | Drive [facility] | | | + + + + [...] [address] | [place] | [phone] | | [facility] | | [address] | | | - LABORATORY | | [...] | REFERENCE LAB | | [place] [id number] Manager Psychology: Анна Oscar MD, Phone: | [facility] | | [phone] | | + + + + + + + + | Performing | Address | City/State/Zipcode | Phone Number | | Organization | | | | + + + + + | REFERENCE LAB | [address] [facility] | [place] [address] | [phone] | | [facility] | Drive [...] + | [address] | [address] | [place] | [phone] | | [facility] | | [address] | | | - LABORATORY | | [...] + | [facility] | [address] | [place] | [phone] | | [facility] | | [address] | | | - LABORATORY | | [...] ST. | [address] | [place] | [phone] | | [facility] | | [address] | | | - LABORATORY | | [...] + | [facility] | [address] | [place] | [phone] | | [facility] | | [address] | | | - LABORATORY | | | | + + + + + EGD (12/25/2018 10:30 AM PDT) + + | Specimen | + + | | + + + + -+ | Narrative | Performed At | + + -+ | | [facility] | | GastroenterologyPatient Name: Grecia Vizcainocedalma Date: 12/25/2018 | [facility]ATION | | 10:30 AMMRN: [id number] #: [id number] of : | | | 1970Admit Type: [...] by the physician, the nurse and the service desk technician in the | | | endoscopy [...] AMScope Out: | | | 10:53:30 AM [facility], [address] [facility], | | | [place] [address] | | | - Resume previous diet [...] Out: 10:53:30 AM | | | [facility], [address] [facility] [place], [place] | | | [address] | | + + -+ + +---------+ [...] 12/25/2018 | [facility] | | 10:28 AMMRN: [id number] #: [id number] of : | | | 1970Admit Type: [...] by the physician, the nurse and the service desk technician. | | | Prophylactic Antibiotics: The [...] Scope In: 10:55:28 AMScope Out: 11:09:49 AM [facility] | | | [facility], [address] [place] [address] | | | [phone] | | | anti-inflammatory drugs for 7 [...] Out: 11:09:49 AM | | | [facility], [address] [facility] [place], [place] | | | [address] | | + + -+ + +---------+ [...] for specific diagnostic abnormality. | | | JVR:[facility]:C2NR GROSS DESCRIPTION: Two specimens [...] LABORATORY: The technical component was performed by [facility] | | | [email or web address], [address] [place] [address] ([employer]: | | | Shavonne Mathias MD; CLIA# [id number]). Professional interpretation was | | | performed by [employer], [facility] | | | [place], [address] [place] [address] (Medical | | | Director: Deonte Marquez M.D.). Diagnostician: Deonte Garcia | | | Alma RAY Pathologist Electronically Signed 12/26/2018 | | + + + + +---------+ + + | Performing | Address | City/State/[facility] | Phone Number | | Organization [...]
--- OUTSIDE RECORDS SUMMARY | ~2019-03-20 | XMS | Encounter Summary ---
Demographics + + + | Address | [address] | | | [place] [address] | + + + | Home Phone | | + + + | Preferred Language | Unknown | + + + | Marital Status | | + + + | Roman Catholic Affiliation | Unknown | + + + | Race | Unknown | + + + | Ethnic Group | Unknown | + + + Author + + + | Author | [facility] | | | and Michaelana | + + + | Organization | [facility] | | | and Michaelana [...] Team Providers + +------+ + | Care Gynecology Teacher Name | Role | Phone | [...] | Telephone | [facility] [place] [facility] | | 2019 | | GASTRO[facility]OLOGY | BRIAN Dickson [address] | | | | | [address] [place] | [place], [address] | | | | | [address] [place], [place] | [place], [place] | | | | | [address] | [address] | | | | | [phone] | | | +--------+ + + + [...]
--- OUTSIDE RECORDS SUMMARY | ~2019-03-20 | XMS | Encounter Summary ---
Demographics + + + | Address | [address] | | | [place] [address] | + + + | Home Phone [...] + | Organization | [facility] | | | and [...] Team Providers + +------+ + | Care Air Brush Operator Name | Role | Phone | [...] + | 01/25/ | Telephone | [facility] | Deny Nelson MD | Medication | | 2019 | | GASTROENTEROLOGY | [address], [place] | Management | | | | [address] [place] | [address] [place], [place] | | | | | [address] [place], [place] | [address] | | | | | [address] | | | | | | [phone] | | | +--------+ + + + [...]
--- OUTSIDE RECORDS SUMMARY | ~2019-03-20 | XMS | Encounter Summary ---
Demographics + + + | Address | [address] | | | [place] [address] | + + + | Home Phone | | + + + | Preferred Language | Unknown | + + + | Marital Status | | + + + | Scientology Affiliation | Unknown | + + + | Race | Unknown | + + + | Ethnic Group | Unknown | + + + Author + + + | Author | [facility] | | | and Michaelana | + + + | Organization | [facility] | | | and [...] Team Providers + +------+ + | Care Marketing Analytics Specialist Name | Role | Phone | [...] | | varices | | [address], | | | | | without | | [address] | | | | | bleeding, | | [place], | | | | | unspecified | | [place] [address] | | | | | esophageal | | Phone: | | | | | varices type | | [phone] | | | | | (HCC) | | Fax: | | | | | Portal | | [phone] | | | | | hypertensive | [...] | | | | | PLE [place] EGD | | | | | | | BAND | | | | | | | LIGATION | | | | | | | ESOPHGEAL/GA | | | | | | | STRIC | | | | | | | VARICES [place] | | | | | | [...] + + | 03/06/ | [facility]est[facility] | [facility] | [place] | | | 2019 | Event | MED CTR MP INTRA OP | MD Serg [address] | | | | | [address] | [place] | | | | | [place] | [address] | | | | | [address] | | | | | | [phone] | [place], | | | | | | Emmett Durand MD | | | | | | [address] | | | | | | [place] | | | | | | [address] | | | | | | | [...] [address] | | eral | Antecubital; [id number] | Jazzmine Felton RN | Stefani Rodriguez, [...]
--- OUTSIDE RECORDS SUMMARY | ~2019-03-20 | XMS | Encounter Summary ---
Demographics + + + | Address | [address] | | | [place] [address] | + + + | Home Phone | | + + + | Preferred Language | Unknown | + + + | Marital Status | | + + + | Rastafari Affiliation | Unknown | + + + | Race | Unknown | + + + | Ethnic Group | Unknown | + + + Author + + + | Author | [facility] | | | and Michaelana | + + + | Organization | [facility] | | | and Michaelana [...] Team Providers + +------+ + | Care Process Design Engineer Name | Role | Phone | [...] | | | | liver (HCC) | ASSISTANT STORE MANAGER [address] | | | | | Procedures | [place], [place] | [place], [place] | | | | | 03/15 > | [address] [place] | [address] | | | | | PENDING | [place], [place] | Phone: | | | | | STATUS | [address] | [phone] | | | | | | Phone: | Fax: | | | | | | [phone] | [phone] | | | | | | Fax: | | | | | | | [phone] | | + + + + + + + Reason for Visit + + + | Reason | Comments | + + + | Referral | | + + + Encounter Details +--------+ + + + + | Date | Type | Department | Care Team | Description | +--------+ + + + + | 01/13/ | Telephone | [facility] [place] | [facility] | | 2019 | | GASTRO[facility]OLOGY | BRIAN Dickson [address] | | | | | [address] [place] | [place], [address] | | | | | [address] [place], [place] | [place], [place] | | | | | [address] | [address] | | | | | [phone] | | | +--------+ + + + [...]
--- OUTSIDE RECORDS SUMMARY | ~2019-03-20 | XMS | Encounter Summary ---
Demographics + + + | Address | [address] | | | [place] [address] | + + + | Home Phone [...] | [facility] | [...] Providers + +------+ + | Care Manager Metrology Name | Role | Phone | + +------+ + | Selene Francis PA-C | PCP | | + +------+ + Encounter Details +--------+ + + + + | Date | Type | Department | Care Team | Description | +--------+ + + + + | 01/29/ | Documentati | [facility] | Deny Nelson MD | | | 2019 | on | GASTROENTEROLOGY | [address], [place] | | | | | [address] [place] | 210 [place], [place] | | | | | 210 [place], [place] | [address] | | | | | [address] | | | | | | [phone] | | | +--------+ + + + [...] bioc hemical or physical deterioration evaluation at [facility] before March 16 would be appropriate .Etiology [...]
--- OUTSIDE RECORDS SUMMARY | ~2019-03-20 | XMS | Encounter Summary ---
Demographics + + + | Address | [address] | | | [place] [address] | + + + | Home Phone [...] | Organization | [facility] | | [...] Team Providers + +------+ + | Care Professor Of Art History Name | Role | Phone | + [...] | | unspecified | | [address], | | | | | type Fecal | | [address] | | | | | urgency | | [place], | | | | | Abdominal | | [place] [address] | | | | | cramping | | Phone: | | | | | Heartburn | | [phone] | | | | | Black stool | | Fax: | | | | | Procedures | | [phone] | | | | | [place] | | | | | | | ESOPHAGOGAST | | | | | | | RODUODENOSCO | | | | | | | PY TRANSORAL | | | | | | | DIAGNOSTIC | | | | | | | [place] EGD | | | | | | | TRANSORAL | | | | | | | BIOPSY | | | | | | | SINGLE/MULTI | | | | | | | PLE [place] | | | | | | | COLONOSCOPY | | | | | | | FLX DX | | | | | | | W/COLLJ SPEC | | | | | | | WHEN PFRMD | | | | | | | [place] | | | | | | | COLONOSCOPY | | | | | | | W/BIOPSY | | | | | | | SINGLE/MULTI | | | | | | | PLE [place] | | | | | | | [...] + + | 12/25/ | Hospital | [facility] | Deny Nelson MD | Diarrhea, | | 2019 | Encounter | MED CTR MP INTRA OP | [address], [place] | unspecified type; | | | | [address] | [address] [place], [place] | Fecal urgency; | | | | [place], [place] | [address] | Abdominal cramping; | | | | [address] | | Heartburn; Black | | | | [phone] | | stool | +--------+ + + [...] You can't be awakened Date Last Reviewed: 01/06/201619990027-4457 [employer]. [address] [place] [address]. All righ ts reserved. This information is [...] + | [address] | [address] | [place] | [phone] | | [facility] | | [address] | | | - LABORATORY | | [...] [address], | REFERENCE LAB | | [place], [place] [id number] Underwriting Assistant: Анна Oscar MD, Phone: | [facility] | | [phone] | | + + + + + + + + | Performing | Address | City/State/Zipcode | Phone Number | | Organization | | | | + + + + + | REFERENCE LAB | [address] [facility] | [place] [address] | [phone] | | [facility] | Drive [...] [address] | [place] | [phone] | | [facility] | | [address] | | | - LABORATORY | | [...] [address], | REFERENCE LAB | | [place], [place] [address] Underwriting Assistant: Анна Oscar MD, Phone: | [facility] | | [phone] | | + + + + + + + + | Performing | Address | City/State/Zipcode | Phone Number | | Organization | | | | + + + + + | REFERENCE LAB | [address] | [place] [address] | [phone] | | [facility] | Drive [...] [address] | [place] | [phone] | | [facility] | | [address] | | | - LABORATORY | | [...] [address] | [place] | [phone] | | [facility] | | [address] | | | - LABORATORY | | [...] [address] | [place] | [phone] | | [facility] | | [address] | | | - LABORATORY | | [...] [address] | [place] | [phone] | | [facility] | | [address] | | | - LABORATORY | | | | + + + + + EGD (12/25/2018 10:30 AM PDT) + + | Specimen | + + | | + + + + -+ | Narrative | Performed At | + + -+ | | [facility] | | GastroenterologyPatient Name: Grecia BainTyrel Date: 12/25/2018 | [facility]OVATION | | 10:30 AMMRN: [id number] #: [id number] of : | | | 1970Admit Type: [...] by the physician, the nurse and the processing technician in the | | | endoscopy [...] Out: | | | 10:53:30 AM [facility], [address] [facility], | | | [place] [address] | | | - Resume previous diet [...] Out: 10:53:30 AM | | | [facility], [address] [facility], [place], [place] | | | [address] | | + + -+ + +---------+ [...] 12/25/2018 | [facility]ATION | | 10:28 AMMRN: [id number] #: [id number] of : | | | 1970Admit Type: [...] by the physician, the nurse and the processing technician. | | | Prophylactic Antibiotics: The [...] Scope In: 10:55:28 AMScope Out: 11:09:49 AM [facility] | | | [facility], [facility] [place] [address] | | | [phone] | | | anti-inflammatory drugs for 7 [...] Out: 11:09:49 AM | | | [facility], [address] [facility], [place], [place] | | | [address] | | + + -+ + +---------+ [...] for specific diagnostic abnormality. | | | JVR:[facility]:C2NR GROSS DESCRIPTION: Two specimens are received [...] LABORATORY: The technical component was performed by [facility] | | | [facility], [address] [place] [address] (Nurse Case Management: | | | Shavonne Mathias MD; IA# [id number]). Professional interpretation was | | | performed by [employer], [facility] | | | [facility], [address] [place] [address] (Medical | | | Director: Deonte Marquez M.D.). Diagnostician: Deonte Garcia | | | Alma RAY Pathologist Electronically Signed 12/26/2018 | | + + + + +---------+ + + | Performing | Address | City/State/[facility] | Phone Number | | [...]
--- OUTSIDE RECORDS SUMMARY | ~2019-03-20 | XMS | Encounter Summary ---
Demographics + + + | Address | [address] | | | [place] [address] | + + + | Home Phone | | + + + | Preferred Language | Unknown | + + + | Marital Status | | + + + | Church Affiliation | Unknown | + + + | Race | Unknown | + + + | Ethnic Group | Unknown | + + + Author + + + | Author | [facility] | | | and [place] | + + + | Organization | [facility] | | | and [...] Team Providers + +------+ + | Care Hydro Plant Operator Name | Role | Phone | + +------+ + | Selene Francis PA-C | PCP | | + +------+ + Encounter Details +--------+ + + + + | Date | Type | Department | Care Team | Description | +--------+ + + + + | 01/02/ | Documentati | [facility] [place] | [facility], | | | 2019 | on | GASTROENTEROLOGY | BRIAN Dickson [address] | | | | | [address] [place] | [place], [address] | | | | | [address] [place], [place] | [place], [place] | | | | | [address] | [address] | | | | | [phone] | | | +--------+ + + + [...] She agreed. [facility] documented in this encounter Plan of Treatment Not on filedocumented as of this encounter Visit Diagnoses Not on filedocumented in this encounter"
--- OUTSIDE RECORDS SUMMARY | ~2019-03-20 | XMS | Encounter Summary ---
Demographics + + + | Address | [address] | | | [place] [address] | + + + | Home Phone | | + + + | Preferred Language | Unknown | + + + | Marital Status | | + + + | Holiness Affiliation | Unknown | + + + | Race | White | + + + | Ethnic Group | Not or | + + + Author + + + | Author | [facility] | + + + | Organization | [facility] | + + + | Address | Unknown | + + + | Phone | Unavailable | + + + Support + + + + + | Name | Relationship | Address | Phone | + + + + + | Benedicto Bain | ECON | [address] | | | | | [place] | | | | | [address] | | + + + + + Care Team Providers + +------+ + | Care Human Resources Benefits Coordinator Name | Role | Phone | [...] Medical Records | | 2019 | | [place] at [facility] [address] | Gastroenterology | Review | | | | [place] | | | | | | Mailcode: OC8D | | | | | | [facility] | | | | | | and Healing, | | | | | | [address] | | | | | | [place], [place] | | | | | | [address] | | | | | | [phone] | | | +--------+ + + + [...] | | | | | Fara Whitten [place], | | | | | | [place] [address] | | | | | | [phone] | | | | | | | | +--------+---------+ + + + documented as of this encounter Visit Diagnoses Not on filedocumented in this encounter"
--- OUTSIDE RECORDS SUMMARY | ~2019-03-20 | XMS | Encounter Summary ---
Demographics + + + | Address | [address] | | | [place] [address] | + + + | Home Phone | | + + + | Preferred Language | Unknown | + + + | Marital Status | | + + + | Uatsdin Affiliation | Unknown | + + + | Race | White | + + + | Ethnic Group | Not or | + + + Author + + + | Author | [facility] | + + + | Organization | [facility] | + + + | Address | Unknown | + + + | Phone | Unavailable | + + + Support + + + + + | Name | Relationship | Address | Phone | + + + + + | Benedicto Bain | ECON | [address] | | | | | [place] | | | | | [address] | | + + + + + Care Team Providers + +------+ + | Care Loom Stop Checker Name | Role | Phone | + [...] Medical Records | | 2019 | | [place] at [facility] [address] | Gastroenterology | Review | | | | [place] | | | | | | Mailcode: OC8D | | | | | | [facility] | | | | | | and Healing, | | | | | | [address] | | | | | | [place], [place] | | | | | | [address] | | | | | | [phone] | | | +--------+ + + + [...] | | | | | Fara Whitten [place], | | | | | | [place] [address] | | | | | | [phone] | | | | | | | | +--------+---------+ + + + documented as of this encounter Visit Diagnoses Not on filedocumented in this encounter"
--- OUTSIDE RECORDS SUMMARY | ~2019-03-20 | XMS | Encounter Summary ---
Demographics + + + | Address | [address] | | | [place] [address] | + + + | Home Phone | | + + + | Preferred Language | Unknown | + + + | Marital Status | | + + + | Judaism Affiliation | Unknown | + + + | Race | Unknown | + + + | Ethnic Group | Unknown | + + + Author + + + | Author | [facility] | | | and [place] | + + + | Organization | [facility] | | | and Michaelana [...] Team Providers + +------+ + | Care Test Lead Name | Role | Phone | + [...] | Telephone | [facility] [place] | [facility], | MRI Recommendation | | 2019 | | GASTROENTEROLOGY | BRIAN [address] | | | | | [address] [place] | [place], [address] | | | | | [address] [place], [place] | [place], [place] | | | | | [address] | [address] | | | | | [phone] | | | +--------+ + + + [...]
--- OUTSIDE RECORDS SUMMARY | ~2019-03-20 | XMS | Encounter Summary ---
Demographics + + + | Address | [address] | | | [place] [address] | + + + | Home Phone [...] | Author | [facility] | | | and [place] | + + + | Organization | [facility] | | | and Michaelana | [...] Team Providers + +------+ + | Care Nitrator Operator Name | Role | Phone | [...] | | unspecified | | [address], | | | | | type Fecal | | [address] | | | | | urgency | | [place], | | | | | Abdominal | | [place] [address] | | | | | cramping | | Phone: | | | | | Heartburn | | [phone] | | | | | Black stool | | Fax: | | | | | Procedures | | [phone] | | | | | [place] | | | | | | | ESOPHAGOGAST | | | | | | | RODUODENOSCO | | | | | | | PY TRANSORAL | | | | | | | DIAGNOSTIC | | | | | | | [place] EGD | | | | | | | TRANSORAL | | | | | | | BIOPSY | | | | | | | SINGLE/MULTI | | | | | | | PLE [place] | | | | | | | COLONOSCOPY | | | | | | | FLX DX | | | | | | | W/COLLJ SPEC | | | | | | | WHEN PFRMD | | | | | | | [place] | | | | | | | COLONOSCOPY | | | | | | | W/BIOPSY | | | | | | | SINGLE/MULTI | | | | | | | PLE [place] | | | | | | | [...] + + | 12/25/ | Surgery | [facility] | Deny Nelson MD | EGD | | 2019 | | MED CTR MP INTRA OP | [address], [place] | | | | | [address] | [address] [place], [place] | | | | | [place], [place] | [address] | | | | | [address] | | | | | | [phone] | | | +--------+---------+ + + + [...] You can't be awakened Date Last Reviewed: 01/06/201619998060-9295 [employer]. [address] [place] [address]. All righ ts reserved. This information is [...] [address] | [place] | [phone] | | [facility] | | [address] | | | - LABORATORY | | [...] [address], | REFERENCE LAB | | [place], [place] [address] Incident Response Lead: Анна Oscar MD, Phone: | [facility] | | [phone] | | + + + + + + + + | Performing | Address | City/State/Zipcode | Phone Number | | Organization | | | | + + + + + | REFERENCE LAB | [address] | [place] [address] | [phone] | | [facility] | Drive [facility] | | [...] [address] | [place] | [phone] | | [facility] | | [address] | | | - LABORATORY | | [...] | REFERENCE LAB | | [place] [id number] Incident Response Lead: Анна sOcar MD, Phone: | [facility] | | [phone] | | + + + + + + + + | Performing | Address | City/State/Zipcode | Phone Number | | Organization | | | | + + + + + | REFERENCE LAB | [address] [facility] | [place] [address] | [phone] | | [facility] | Drive [...] + | [address] | [address] | [place] | [phone] | | [facility] | | [address] | | | - LABORATORY | | [...] + | [facility] | [address] | [place] | [phone] | | [facility] | | [address] | | | - LABORATORY | | [...] ST. | [address] | [place] | [phone] | | [facility] | | [address] | | | - LABORATORY | | [...] + | [facility] | [address] | [place] | [phone] | | [facility] | | [address] | | | - LABORATORY | | | | + + + + + EGD (12/25/2018 10:30 AM PDT) + + | Specimen | + + | | + + + + -+ | Narrative | Performed At | + + -+ | | [facility] | | GastroenterologyPatient Name: Grecia Vizcainocedalma Date: 12/25/2018 | [facility] | | 10:30 AMMRN: [id number] #: [id number] of : | | | 1970Admit Type: [...] by the physician, the nurse and the all terrain vehicle technician in the | | | endoscopy [...] 10:53:[address] [facility], [address] [facility], | | | [place] [address] | | | - Resume previous diet [...] Out: 10:53:30 AM | | | [facility], [address] [facility] [place], [place] | | | [address] | | + + -+ + +---------+ [...] 12/25/2018 | [facility] | | 10:28 AMMRN: [id number] #: [id number] of : | | | 1970Admit Type: Amb[age]Age: 48Room: Endo Room 1Gender: | | | FemaleNote Status: FinalizedAttending MD: Deny Nleson , | | | MDProcedure: ColonoscopyIndications: Chronic [...] by the physician, the nurse and the all terrain vehicle technician. | | | Prophylactic Antibiotics: The [...] Scope In: 10:55:28 AMScope Out: 11:09:49 AM [facility] | | | [facility], [address] [place] [address] | | | [phone] | | | anti-inflammatory drugs for 7 [...] Out: 11:09:49 AM | | | [facility], [address] [facility] [place], [place] | | | [address] | | + + -+ + +---------+ [...] for specific diagnostic abnormality. | | | JVR:[facility]:C2NR GROSS DESCRIPTION: Two specimens are received [...] LABORATORY: The technical component was performed by [employer] | | | [employer], [address] [place] [address] (Computer Designer: | | | Shavonne Mathias MD; CLIA# [id number]). Professional interpretation was | | | performed by [employer], [facility] | | | [place], [address] [place] [address] (Medical | | | Director: Deonte Marquez M.D.). Diagnostician: Deonte Garcia | | | Alma RAY Pathologist Electronically Signed 12/26/2018 | | + + + + +---------+ + + | Performing | Address | City/State/[facility] | Phone Number | | Organization [...]
--- OUTSIDE RECORDS SUMMARY | ~2019-03-20 | XMS | Encounter Summary ---
Demographics + + + | Address | [address] | | | [place] [address] | + + + | Home Phone | | + + + | Preferred Language | Unknown | + + + | Marital Status | | + + + | Holiness Affiliation | Unknown | + + + | Race | Unknown | + + + | Ethnic Group | Unknown | + + + Author + + + | Author | [facility] | | | and Michaelana | + + + | Organization | [facility] [...] Team Providers + +------+ + | Care Jukebox Route Driver Name | Role | Phone | [...] | | | | [address] [facility] | [place] | | | | | [address] [place] | [place] [address] | | | | | [address] | | | | | | [phone] | | | +--------+ + + + [...] + | Colonoscopy | See Full Report~ [facility] | | | | | | Dr. Nelson | | | | | Impression, | | | | | | External | | | | | + + + + + + documented in this encounter Visit Diagnoses Not on filedocumented in this encounter"
--- OUTSIDE RECORDS SUMMARY | ~2019-03-20 | XMS | Encounter Summary ---
Demographics + + + | Address | [address] | | | [place] [address] | + + + | Home Phone | | + + + | Preferred Language | Unknown | + + + | Marital Status | | + + + | Sabianism Affiliation | Unknown | + + + | Race | Unknown | + + + | Ethnic Group | Unknown | + + + Author + + + | Author | [facility] | | | and Michaelana | + + + | Organization | [facility] | | | and Michaelana [...] Team Providers + +------+ + | Care Date Night Sitter Name | Role | Phone | + +------+ + | Selene Francis PA-C | PCP | | + +------+ + Encounter Details +--------+ + + + + | Date | Type | Department | Care Team | Description | +--------+ + + + + | 01/02/ | Documentati | [facility] [place] | [facility], | | | 2019 | on | GASTROENTEROLOGY | BRIAN [address] | | | | | [address] [place] [address] | [place], [address] | | | | | [address] [place], [place] | [place], [place] | | | | | [address] | [address] | | | | | [phone] | | | +--------+ + + + [...] She agreed. [facility] documented in this encounter Plan of Treatment Not on filedocumented as of this encounter Visit Diagnoses Not on filedocumented in this encounter"
--- OUTSIDE RECORDS SUMMARY | ~2019-03-20 | XMS | Encounter Summary ---
Demographics + + + | Address | [address] | | | [place] [address] | + + + | Home Phone [...] [facility] | [...] Team Providers + +------+ + | Care Lie Detector Operator Name | Role | Phone | [...] | | varices | | [address], | | | | | without | | [place] | | | | | bleeding, | | [place], | | | | | unspecified | | [place] [address] | | | | | esophageal | | Phone: | | | | | varices type | | [phone] | | | | | (HCC) | | Fax: | | | | | Acute | | [phone] | | | | | gastrointest | [...] | | | | | | | [place] | | | | | | | ESOPHAGOGAST | | | | | | | RODUODENOSCO | | | | | | | PY TRANSORAL | | | | | | | DIAGNOSTIC | | | | | | | [place] EGD | | | | | | | TRANSORAL | | | | | | | BIOPSY | | | | | | | SINGLE/MULTI | | | | | | | PLE [place] EGD | | | | | | | BAND | | | | | | | LIGATION | | | | | | | ESOPHGEAL/GA | | | | | | | STRIC | | | | | | | VARICES [place] | | | | | | | [...] + + | 01/24/ | Anesthesia | [facility] | Arturo Sommers | | | 2019 | Event | MED CTR MP INTRA OP | [address] | | | | | [address] | [address] [facility] | | | | | [place] | [place] [address] | | | | | [address] | [phone] | | | | | [phone] | | | +--------+ + + + [...] Deanna Webb RN | | IV | mgbp-bfq-purmze catheter system; | NIKA [facility] | | [...]
--- OUTSIDE RECORDS SUMMARY | ~2019-03-20 | XMS | Encounter Summary ---
Demographics + + + | Address | [address] | | | [place] [address] | + + + | Home Phone [...] + + | Author | [facility] | | | and Michaelana | + + + | Organization | [facility] | | | and [...] Team Providers + +------+ + | Care Butadiene Converter Operator Name | Role | Phone | [...] | | varices | | [address], | | | | | without | | [place] | | | | | bleeding, | | [place], | | | | | unspecified | | [place] [address] | | | | | esophageal | | Phone: | | | | | varices type | | [phone] | | | | | (HCC) | | Fax: | | | | | Portal | | [phone] | | | | | hypertensive | | | | | | | gastropathy | | | | | | | (HCC) | | | | | | | Procedures | | | | | | | [place] | | | | | | | ESOPHAGOGAST | | | | | | | RODUODENOSCO | | | | | | | PY TRANSORAL | | | | | | | DIAGNOSTIC | | | | | | | [place] EGD | | | | | | | TRANSORAL | | | | | | | BIOPSY | | | | | | | SINGLE/MULTI | | | | | | | PLE [place] EGD | | | | | | | BAND | | | | | | | LIGATION | | | | | | | ESOPHGEAL/GA | | | | | | | STRIC | | | | | | | VARICES [place] | | | | | | | [...] + + | 03/06/ | Surgery | [facility] | Deny Nelson MD | EGD | | 2019 | | MED CTR MP INTRA OP | [address], [place] | | | | | [address] | [address] [place], [place] | | | | | [place], [place] | [address] | | | | | [address] | | | | | | [phone] | | | +--------+---------+ + + + [...] Chest pain or lightheadedness Date Last Reviewed: 05/19/201719997403-4621 [employer]. [address] [place] [address]. All righ ts reserved. This information is [...] You can't be awakened Date Last Reviewed: 01/06/201619994175-4855 [employer]. [address] [place] [address], [place] [address]. All righ ts reserved. This information is [...] | + +--------+ + + + | [facility] | Routin | 03/06/2019 | [...] + + ----+ | [facility] | [facility] | | [facility] CenterologyPatient Name: Grecia Bain | NICOLA | | LeeProcedure Date: 03/06/2019 12:07 [facility]: [id number] Number: | | | [id number] of : 1970Note Status: FinalizedAttending MD: | [...] the anesthesiologist and the | | | refinery technician in the endoscopy suite. Mental Status [...] PMNumber of | | | Addenda: [address] [facility] | | | - Patient [...] |Number of Addenda: 0 | | | [facility] | | + + ----+ [...]
--- OUTSIDE RECORDS SUMMARY | ~2019-03-20 | XMS | Encounter Summary ---
Demographics + + + | Address | [address] | | | [place] [address] | + + + | Home Phone | | + + + | Preferred Language | Unknown | + + + | Marital Status | | + + + | Judaism Affiliation | Unknown | + + + | Race | Unknown | + + + | Ethnic Group | Unknown | + + + Author + + + | Author | [facility] | | | and Michaelana | + + + | Organization | [facility] | | | and Michaelana [...] Providers + +------+ + | Care Supervisor General Name | Role | Phone | + [...] | Elevated | [place], | [address] | | | | | liver | [place], | [place], | | | | | enzymes | SLIP M[address]ER [address] | [place] | | | | | Esophageal | [place], [place] | [address] | | | | | varices | [address] [place] | Phone: | | | | | without | [place], [place] | [phone] | | | | | bleeding, | [address] | Fax: | | | | | unspecified | Phone: | [phone] | | | | | esophageal | [phone] | | | | | | varices type | Fax: | | | | | | (HCC) | [phone] | | | | | | Portal [...] | | | | | | [place] MRI, | | | | | | [...] | Elevated | [place], | [address] | | | | | liver | [place], | [place], | | | | | enzymes | [employer] | [place] | | | | | Esophageal | [place], [place] | [address] | | | | | varices | [address] [place] | Phone: | | | | | without | [place], [place] | [phone] | | | | | bleeding, | [address] | Fax: | | | | | unspecified | Phone: | [phone] | | | | | esophageal | [phone] | | | | | | varices type | Fax: | | | | | | (HCC) | [phone] | | | | | | Portal [...] | | | | | | [place] MRI, | | | | | | | ABDOMEN, | | | | | | | COMBO | | | +--------+--------+ + + + + Encounter Details +--------+ + + + + | Date | Type | Department | Care Team | Description | +--------+ + + + + | 01/12/ | Hospital | [facility] | [facility], | Elevated liver | | 2019 | Encounter | MED CTR MRI [address] | [place], [employer] M[address] | enzymes; Esophageal | | | | [address] [place], | [place], [address] | varices without | | | | [place] [address] | [place], [place] | bleeding, | | | | [phone] | [address] | unspecified | | | | | [...] diffusion weighted, axial T1, axial | | [id number], coronal T1 postcontrast, sagittal T1 post contrast. [...]
--- OUTSIDE RECORDS SUMMARY | ~2019-03-20 | XMS | Clinical Summary ---
Demographics + + + | Address | [address] | | | [place] [address] | + + + | Home Phone [...] | Organization | [facility] | | [...] Team Providers + +------+ + | Care Hospice Community Liaison Name | Role | Phone | + [...] automatically from request for surgery | | [id number] | + + + + + | Esophageal varices without bleeding, unspecified esophageal | 01/23/2019 | | varices type | | + + + + + | Overview: Added automatically from request for surgery | | [id number] | + + + + + | Acute gastrointestinal hemorrhage | 01/23/2019 | + + + + + | Overview: Added automatically from request for surgery | | [id number] | + + + + + | Portal hypertension | 01/23/2019 | + + + + + | Overview: Added automatically from request for surgery | | [id number] | + + + + + | Other diseases of stomach and duodenum | 01/23/2019 | + + + + + | Overview: Added automatically from request for surgery | | [id number] | + + + + + | Hematemesis, presence of nausea not specified | 01/23/2019 | + + + + + | Overview: Added automatically from request for surgery | | [id number] | + + + + + | Cirrhosis of liver | 01/15/2019 | + + + | Diarrhea, unspecified type | 12/18/2018 | + + + + + | Overview: Added automatically from request for surgery | | [id number] | + + + + + | Fecal urgency | 12/18/2018 | + + + + + | Overview: Added automatically from request for surgery | | [id number] | + + + + + | Abdominal cramping | 12/18/2018 | + + + + + | Overview: Added automatically from request for surgery | | [id number] | + + + + + | Heartburn | 12/18/2018 | + + + + + | Overview: Added automatically from request for surgery | | [id number] | + + + + + | Black stool | 12/18/2018 | + + + + + | Overview: Added automatically from request for surgery | | [id number] | + + Encounters +--------+ + + [...] 01/26/ | [facility] | | | BRIAN [...] | 01/15/ | Telephone | Gastroenterology | [facility], | Referral | | 2018 | | | BRIAN Dickson | | +--------+ + + + + | 01/13/ | Telephone | Gastroenterology | [facility], | Referral | | 2018 | | | BRIAN Dickson | | +--------+ + + + + | 01/12/ | Hospital | Radiology | [facility], | Elevated liver | | 2018 [...] | 01/09/ | Telephone | Gastroenterology | [facility], | MRI Recommendation | | 2018 | | | BRIAN Dickson | | +--------+ + + + + | 01/08/ | Hospital | Radiology | [facility], | Elevated liver | | 2018 [...] | 01/04/ | Telephone | Gastroenterology | [facility], | Other (CT ) | | 2019 | | | BRIAN Dickson | | +--------+ + + + + | 01/02/ | Office | Gastroenterology | [facility], | Elevated liver | | 2019 [...] | 01/02/ | Documentati | Gastroenterology | [facility], | | | 2019 | on [...] | 12/18/ | Office | Gastroenterology | [facility], | Diarrhea, | | 2018 | [...] | + +--------+ + + + | [place] [facility] | Routin | 03/06/2019 | [...] + + ----+ | [facility] | [facility] | | [facility]rec[facility]ain | NICOLA | | LeeProcedure Date: 03/06/2019 12:07 PMMRN: [id number] Number: | | | [id number] of : 1970Note Status: FinalizedAttending MD: | [...] the anesthesiologist and the | | | ammonia refrigeration technician in the endoscopy suite. Mental Status [...] PMNumber of | | | Addenda: 0 [facility] | | | - Patient has [...] |Number of Addenda: 0 | | | [facility] | | + + ----+ + [...] 01/24/2019 | [facility] | | 2:31 PMMRN: [id number] #: [id number] of : | | | 1970Admit Type: AmbulatoryAge: 48Room: Endo Room 1Gender: | | | FemaleNote Status: FinalizedAttending MD: Deny Nelson , | | | MDProcedure: Upper GI endoscopyIndications: | | | Esophageal varices, Follow-up of esophageal varices, For | | | therapy of esophageal varicesProviders: | | | Deny Nelson MD, Briana Constantino RN, Baldemar Caro, | | | Metal Engineering Process Worker, Arturo Sommers MD (Anesthesia Staff)Referring | | [...] | | | the anesthesiologist and the ammonia refrigeration technician in the endoscopy suite. | | [...] PMScope In: 2:44:21 PMScope Out: 2:52:03 PM [facility]. | | | [facility], [address] [place] [address] | | | [phone] | | | symptoms of potential delayed [...] |Scope Out: 2:52:03 PM | | | [facility]. [facility], [address], [place] | | | [address] | | + + -+ + +---------+ [...] diffusion weighted, axial T1, axial | | [id number], coronal T1 postcontrast, sagittal T1 post contrast. [...] + | [facility] | [address] | [place] | [phone] | | [facility] | | [address] | | | - LABORATORY | | [...] [address] | [place] | [phone] | | [facility] | | [address] | | | - LABORATORY | | [...] ST. | [address] | [place] | [phone] | | [facility] | | [address] | | | - LABORATORY | | [...] [address], | REFERENCE LAB | | [place] [id number] Pre Press Operator: Анна Oscar MD, Phone: | [facility] | | [phone] | | + + + + + + + + | Performing | Address | City/State/Zipcode | Phone Number | | Organization | | | | + + + + + | REFERENCE LAB | [address] | [place] [address] | [phone] | | [facility] | Drive [...] [address], | REFERENCE LAB | | [place] [id number] Pre Press Operator: Анна Oscar MD, Phone: | [facility] | | [phone] | | + + + + + + + + | Performing | Address | City/State/Zipcode | Phone Number | | Organization | | | | + + + + + | REFERENCE LAB | [address] | [place] [address] | [phone] | | [facility] | Drive [...] + | [facility] | [address] | [place] | [phone] | | [facility] | | [address] | | | - LABORATORY | | [...] [address] | [place] | [phone] | | [facility] | | [address] | | | - LABORATORY | | [...] [address] | [place] | [phone] | | [facility] | | [address] | | | - LABORATORY | | | | + + + + + EGD (12/25/2018 10:30 AM PDT) + + | Specimen | + + | | + + + + -+ | Narrative | Performed At | + + -+ | | [facility] | | GastroenterologyPatient Name: Grecia BainTyrel Date: 12/25/2018 | [facility] | | 10:30 AMMRN: [id number] #: [id number] of : | | | 1970Admit Type: [...] by the physician, the nurse and the ammonia refrigeration technician in the | | | endoscopy [...] | 10:53:30 AM [facility], [address] [facility], | | | [place] [address] | | | - Resume previous diet [...] |Scope Out: 10:53:30 AM | | | [facility], [address] [facility], [place], [place] | | | [address] | | + + -+ + +---------+ [...] 12/25/2018 | [facility] | | 10:28 AMMRN: [id number] #: [id number] of : | | | 1970Admit Type: [...] by the physician, the nurse and the ammonia refrigeration technician. | | | Prophylactic Antibiotics: The [...] Scope In: 10:55:28 AMScope Out: 11:09:[address] [facility] | | | [facility], [facility] [place] [address] | | | [phone] | | | anti-inflammatory drugs for 7 [...] |Scope Out: 11:09:49 AM | | | [facility], [address] [facility], [place], [place] | | | [address] | | + + -+ + +---------+ [...] BIOPSY SPECIMEN(S): B RANDOM COLON BIOPSY | [place] [facility] | | SPECIMEN SOURCE: A. DUODENAL [...] for specific diagnostic abnormality. | | | JVR:[facility]:C2NR GROSS DESCRIPTION: Two specimens are received [...] LABORATORY: The technical component was performed by [facility] | | | [facility], [address] [place] [address] (Composite Technician: | | | Shavonne Mathias MD; CLIA# [id number]). Professional interpretation was | | | performed by [employer] [facility] | | | [address] [address] (Medical | | | Director: Ruth Batista. [...] + +------+ | MODA | MOD[employer] | [id number] | | [phone] | [address] | PPO | | | [employer] | | [address] | [phone] | [phone] | | | | [place] | | esent | | [place], | | | | [place] | | | | [place] [address] | | + +--------+ +--------+ + +------+ | [facility] | PHP | [phone] | 03/21/19 | [phone] | | PPO | | PLAN | [...] Person | Self | [birth year] | [address] | | | al/Reymundo | | 1971 | [phone] | [place] [address] | | | prabhjot | | | 7 (Home) | | | | | | | [phone] | | | | | | | 9 (Work) | | + +--------+ +--------+ + + Advance Directives + + + + + | Type | Date Recorded | Patient | Explanation | | | | Geriatrics Physician | | + + + + + | Power of | | | | | Wood And Hardware Outfitter | | | | + + + + + | Advance | 12/25/2018 9:30 | | | | Directive | AM | | | + + + + +
--- OUTSIDE RECORDS SUMMARY | ~2019-03-20 | XMS | Encounter Summary ---
Demographics + + + | Address | [address] | | | [place] [address] | + + + | Home Phone [...] Organization | [facility] | | | and [...] Team Providers + +------+ + | Care Line Crewman Name | Role | Phone | + [...] | | Elevated | [place], | [address] | | | | | liver | [place], | [place], | | | | | enzymes | VAT HOUSE LABORER [address] | [place] [address] | | | | | Esophageal | [place], [place] | Phone: | | | | | varices | [address] [place] | [phone] | | | | | without | [place], [place] | Fax: | | | | | bleeding, | [address] | [phone] | | | | | unspecified | Phone: | | | | | | esophageal | [phone] | | | | | | varices type | Fax: | | | | | | (HCC) | [phone] | | | | | | Portal [...] | | | | | | | [facility] CT SCAN | | | | | [...] | | Elevated | [place], | [address] | | | | | liver | Y[place], | [place], | | | | | enzymes | VAT HOUSE LABORER [address] | [place] [address] | | | | | Esophageal | [place], [place] | Phone: | | | | | varices | [address] [place] | [phone] | | | | | without | [place], [place] | Fax: | | | | | bleeding, | [address] | [phone] | | | | | unspecified | Phone: | | | | | | esophageal | [phone] | | | | | | varices type | Fax: | | | | | | (HCC) | [phone] | | | | | | Portal [...] | | | | | | | UT CT SCAN | | | | | | | OF ABDOMEN | | | | | | | CONTRAST | | | +--------+--------+ + + + + Encounter Details +--------+ + + + + | Date | Type | Department | Care Team | Description | +--------+ + + + + | 01/08/ | Hospital | [facility] | [facility], | Elevated liver | | 2019 | Encounter | MED [facility] [address] | CARMEN DicksonP [address] | enzymes; Esophageal | | | | [place], | [place], [place] [address] | varices without | | | | [place] [address] | [place], [place] | bleeding, | | | | [phone] | [address] | unspecified | | | | | [...]
--- OUTSIDE RECORDS SUMMARY | ~2019-03-20 | XMS | Encounter Summary ---
Demographics + + + | Address | [address] | | | [place] [address] | + + + | Home Phone [...] | Organization | [facility] | [...] Team Providers + +------+ + | Care Low Voltage Technician Name | Role | Phone | [...] [address] [place] | [place], [place] [address] | | | | | [address] [place], [place] | [place], [place] | | | | | [address] | [address] | | | | | [phone] | | | +--------+ + + + [...]
--- OUTSIDE RECORDS SUMMARY | ~2019-03-20 | XMS | Encounter Summary ---
Demographics + + + | Address | [address] | | | [place] [address] | + + + | Home Phone [...] + + + | Author | [facility] | + + + | Organization | [facility] | + + + | Address | Unknown | + + + | Phone | Unavailable | + + + Support + + + + + | Name | Relationship | Address | Phone | + + + + + | Benedicto Bain | ECON | [address] | | | | | [place] | | | | | [address] | | + + + + + Care Team Providers + +------+ + | Care Forge Operator Name | Role | Phone | + +------+ + PCP | Unavailable | + +------+ + Encounter Details +--------+ + + + + | Date | Type | Department | Care Team | Description | +--------+ + + + + | 01/17/ | Abstract | [facility] | Clinic, | | | 2019 | | [facility] [address] | Gastroenterology | | | | | [place] | | | | | | Mailcode: OC8D | | | | | | [facility] | | | | | | and Healing, | | | | | | [address] | | | | | | [place], [place] | | | | | | [address] | | | | | | [phone] | | | +--------+ + + + [...] | | | | | Fara Whitten [place], | | | | | | [place] [address] | | | | | | [phone] | | | | | | | | +--------+---------+ + + + documented as of this encounter Visit Diagnoses Not on filedocumented in this encounter"
--- OUTSIDE RECORDS SUMMARY | ~2019-03-20 | XMS | Clinical Summary ---
Demographics + + + | Address | [address] | | | [place] [address] | + + + | Home Phone [...] + + | Author | [facility] | + + + | Organization | [facility] | + + + | Address | Unknown | + + + | Phone | Unavailable | + + + Support + + + + + | Name | Relationship | Address | Phone | + + + + + | Benedicto Bain | ECON | [address] | | | | | [place] | | | | | [address] | | + + + + + Care Team Providers + +------+ + | Care Applications Chemist Name | Role | Phone | + +------+ + | Selene Francis | PCP | | + +------+ + Source Comments [facility] is fully live on both [facility] Allergies Not on File Medications Not [...] | | | | | Fara Whitten [place], | | | | | | [place] [address] | | | | | | [phone] | | | | | | | [...] [employer] | MOD[employer] | [phone] | | [phone] | [address] | PPO | | | [employer] | | [address] | [address] | [phone] | | | | [place] | | esent | | [place], | | | | [place] | | | | [place] [address] | | + +--------+ +--------+ + +------+ | [facility] | PROVID | [phone] | 10/20/19 | [phone] | [address] | PPO | | | ENCE | | [address] | [phone] | [phone] | | | | CHOICE | | sent | | [place], | | | | [place] | | | | [place] [address] | | + +--------+ +--------+ + +------+ + +--------+ +--------+ + + | Guarantor Name | Accoun | Relation to | Date | Phone | Billing Address | | | t Type | Patient | of | | | | | | | | | | + +--------+ +--------+ + + | Grecia Bain | Person | Self | [birth year] | | [address] | | | al/Fam | | 1971 | [phone] | [place] [address] | | | prabhjot | | | 7 (Home) | | | | | | | [phone] | | | | | | | 9 (Work) | | + +--------+ +--------+ + +"
--- OUTSIDE RECORDS SUMMARY | ~2019-03-20 | XMS | Encounter Summary ---
Demographics + + + | Address | [address] | | | [place] [address] | + + + | Home Phone [...] | [facility] | [...] Team Providers + +------+ + | Care Content Administrator Name | Role | Phone | + [...] + | 01/18/ | Telephone | [facility] | Deny Nelson MD | Labs Only (Does | | 2019 | | GASTROENTEROLOGY | [address] [place], [place] | Leslie need labs | | | | [address] [place] | [address] | prior to her | | | | [address] [place] | [address] | procedure.) | | | | [address] | | | | | | [phone] | | | +--------+ + + + [...]
--- OUTSIDE RECORDS SUMMARY | ~2019-03-20 | XMS | Encounter Summary ---
Demographics + + + | Address | [address] | | | [place] [address] | + + + | Home Phone [...] Organization | [facility] | | | and [...] Team Providers + +------+ + | Care Barber Shop Operator Name | Role | Phone | [...] | Elevated | [place], | [address] [place] | | | | | liver | [place], | [place], | | | | | enzymes | LINE SUPERVISOR [address] | [place] | | | | | Esophageal | [place], [place] | [address] | | | | | varices | [address] [place] | Phone: | | | | | without | [place], [place] | [phone] | | | | | bleeding, | [address] | Fax: | | | | | unspecified | Phone: | [phone] | | | | | esophageal | [phone] | | | | | | varices type | Fax: | | | | | | (HCC) | [phone] | | | | | | Portal [...] | | | | | | | [place] MRI, | | | | | | [...] | Elevated | [place], | [address] | | | | | liver | Y[place]i, | [place], | | | | | enzymes | LINE SUPERVISOR [address] | [place] | | | | | Esophageal | [place], [place] | [address] | | | | | varices | [address] [place] | Phone: | | | | | without | [place], [place] | [phone] | | | | | bleeding, | [address] | Fax: | | | | | unspecified | Phone: | [phone] | | | | | esophageal | [phone] | | | | | | varices type | Fax: | | | | | | (HCC) | [phone] | | | | | | Portal [...] | | | | | | | [place] MRI, | | | | | | | ABDOMEN, | | | | | | | COMBO | | | +--------+--------+ + + + + Encounter Details +--------+ + + + + | Date | Type | Department | Care Team | Description | +--------+ + + + + | 01/12/ | Hospital | [facility] | [facility], | Elevated liver | | 2019 | Encounter | MED CTR MRI [address] | [place]i, LINE SUPERVISOR [address] | enzymes; Esophageal | | | | [place], | [place], [place] [address] | varices without | | | | [place] [address] | [place], [place] | bleeding, | | | | [phone] | [address] | unspecified | | | | | [...] diffusion weighted, axial T1, axial | | [id number], coronal T1 postcontrast, sagittal T1 post contrast. [...]
--- OUTSIDE RECORDS SUMMARY | ~2019-03-20 | XMS | Encounter Summary ---
Demographics + + + | Address | [address] | | | [place] [address] | + + + | Home Phone [...] [facility] | | | and Michaelana [...] Team Providers + +------+ + | Care Blade Operator Name | Role | Phone | [...] | Telephone | [facility] [place] | [facility], | MRI Recommendation | | 2019 | | GASTROENTEROLOGY | BRIAN Dickson [address] | | | | | [address] [place] | [place], [place] [address] | | | | | [address] [place], [place] | [place], [place] | | | | | [address] | [address] | | | | | [phone] | | | +--------+ + + + [...]
--- OUTSIDE RECORDS SUMMARY | ~2019-03-20 | XMS | Encounter Summary ---
Demographics + + + | Address | [address] | | | [place] [address] | + + + | Home Phone [...] Organization | [facility] | | | and Michaelana [...] Team Providers + +------+ + | Care Internet Retailer Name | Role | Phone | + [...] 2019 | | GASTROENTEROLOGY | [address] [place], [place] | with Dr. Nelson) | | | | [address] [place] | [address] [place], [place] | | | | | [address] [place], [place] | [address] | | | | | [address] | | | | | | [phone] | | | +--------+ + + + [...]
--- OUTSIDE RECORDS SUMMARY | ~2019-03-20 | XMS | Encounter Summary ---
Demographics + + + | Address | [address] | | | [place] [address] | + + + | Home Phone | | + + + | Preferred Language | Unknown | + + + | Marital Status | | + + + | Baptist Affiliation | Unknown | + + + | Race | Unknown | + + + | Ethnic Group | Unknown | + + + Author + + + | Author | [facility] | | | and Michaelana | + + + | Organization | [facility] | | | and [...] Team Providers + +------+ + | Care Mobile Home Set Up Person Name | Role | Phone | + [...] 2019 | | GASTROENTEROLOGY | [address], [place] | | | | | [address] [place] | [address] [place], [place] | | | | | [address] [place], [place] | [address] | | | | | [address] | | | | | | [phone] | | | +--------+ + + + [...]
--- OUTSIDE RECORDS SUMMARY | ~2019-03-20 | XMS | Encounter Summary ---
Demographics + + + | Address | [address] | | | [place] [address] | + + + | Home Phone [...] | Organization | [facility] | | | [...] Team Providers + +------+ + | Care Resident Programs Assistant Name | Role | Phone | [...] [address] [place] | [place], [place] [address] | | | | | 210 [place], [place] | [place], [place] | | | | | [address] | [address] | | | | | [phone] | | | +--------+ + + + [...]
--- OUTSIDE RECORDS SUMMARY | ~2019-03-20 | XMS | Encounter Summary ---
Demographics + + + | Address | [address] | | | [place] [address] | + + + | Home Phone [...] | Organization | [facility] | | | and Michaelana [...] Team Providers + +------+ + | Care Delivery Route Driver Name | Role | Phone [...] | Telephone | [facility] [place] | [facility], | Referral | | 2019 | | GASTROENTEROLOGY | BRIAN Dickson [address] | | | | | [address] [place] | [place], [place] [address] | | | | | [address] [place], [place] | [place], [place] | | | | | [address] | [address] | | | | | [phone] | | | +--------+ + + + [...]
--- OUTSIDE RECORDS SUMMARY | 2019-03-20 14:32 | XMS ---
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 - 2 Visits in 30 Days CARE PROVIDERS ELIA DIAMOND [facility] 03/19/2019-Current PHONE: [phone] MEDICINE, [facility] FAMILY PHONE: [phone] Lourdes Cooper PA-C PHONE: Unknown Kirsten has no Care Guidelines for this patient. E.D. VISIT COUNT (12 MO.) 4 [facility] TOTAL 4 NOTE: Visits indicate total known visits. ED/UCC VISIT TRACKING (12 MO.) 03/20/2019 14:31 [facility] [place] TYPE: Emergency COMPLAINT: - ABD AND BACK PAIN 03/17/2019 20:22 [facility] [place] TYPE: Emergency COMPLAINT: - FLANK PAIN 02/23/2019 07:20 [facility] [place] TYPE: Emergency COMPLAINT: - ABD PAIN DIAGNOSES: - Lower abdominal pain, unspecified - Urinary tract infection, site not specified - Other jail (current) drug therapy 01/12/2019 15:52 [facility] [place] TYPE: Emergency COMPLAINT: - VOMITING BLOOD DIAGNOSES: - Hematemesis - Other specified diseases of esophagus INPATIENT VISIT TRACKING (12 MO.) No inpatient visits to display in this time frame [email or web address]
== END ==
LOC: ED 14:30
DX: I81 Portal vein thrombosis (principal); K76.89 Other specified diseases of liver; Z79.899 Other long term (current) drug therapy; Z79.891 Long term (current) use of opiate analgesic
CPT/HCPCS: 80053; 80176; 81001; 82140; 83690; 85025; 85610; 85730; 86704; 86706; 86709; 86803; 87340; 96361; 96374; 96375; 96376; 99284-25; G0480; J1170; J2405; J7030

== ENCOUNTER 2024-07-06 12:26 | Emergency (ER) | payer OTHER ==
[~2024-07-06] VITALS: Ht 162.6 cm; Wt 112.2 kg
[~2024-07-06 12:26] MED LIST changes: +ELIQUIS5 MG PO; +JAKAFI10 MG PO; +MELOXICAM15 MG PO; +PHENTERMINE H37.5 M1 PO
[2024-07-06] MEDS ORDERED: OMEPRAZOLE40 MG PO (12:52)
[2024-07-06] MEDS ORDERED: SODIUM CHLORIDE 0.9% 1,000 ML IV ONE (13:00)
[2024-07-06] MEDS ORDERED: ondansetron HCL 4 MG/2 ML VIAL IV ONE (13:00)
[2024-07-06 13:27] LABS: HEMATOCRIT 39.1 % (35.0-50.0); HEMOGLOBIN 13.7 g/dL (12.0-18.0); MCH 32.4 (27-36); MCHC 35.1 g/dl (30-36); MCV 92.2 fl (81-99); MONOCYTES 13.5 % (0-12); NEUTROPHILS 84.5 % (39-80); RBC 4.24 M/ul (4.3-5.7); RDW 15.3 (10.5-15.0)
[2024-07-06 13:45] LABS: ALBUMIN 3.4 g/dL (3.4-5.0); ALBUMIN/GLOBULIN RATIO 1.1 (1.1-2.4); BILIRUBIN, TOTAL 1.3 mg/dL (0.2-1.0); BUN/CREATININE RATIO 8.13 (6.0-28.6); CALCIUM 8.3 mg/dL (8.5-10.1); CREATININE, SERUM 1.23 mg/dL (0.55-1.02); PROTEIN, TOTAL 6.5 g/dL (6.4-8.2)
[2024-07-06] MEDS ORDERED: POTASSIUM CHLORIDE 10 MEQ/100 ML BAG IV SCH (16:00)
[2024-07-06 18:21] LABS: BILIRUBIN, URINE NEGATIVE (negative); BLOOD/HGB, URINE MODERATE (Negative); KETONE, URINE NEGATIVE (Negative); LEUK ESTERASE, URINE NEGATIVE (negative); NITRITE, URINE NEGATIVE (negative)
[2024-07-06 18:28] LABS: BACTERIA, URINE 1+ /hpf (negative); CASTS, URINE NONE SEEN \\lpf; COLLECTION TYPE, URINE CLEAN CATCH; CRYSTALS, URINE NONE SEEN (0-1+); EPITHELIAL CELLS, URINE SQUAMOUS 2+ /lpf (0-1+); REFLEX CULTURE, URINE No (No)
[2024-07-06] MEDS ORDERED: LOPERAMIDE2 MG PO (19:15)
[2024-07-06] MEDS ORDERED: LOPERAMIDE HCL 2 MG CAP PO ONE (19:15)
[2024-07-06 19:20] VITALS: BP 103/63
== END 2024-07-06 19:20 | disposition home or self-care (01) ==
LOC: ED 12:26
PROVIDERS: Emergency Medicine
DX: A08.4 Viral intestinal infection, unspecified (principal); Z79.899 Other long term (current) drug therapy
CPT/HCPCS: 36415; 74177; 80053; 81001; 83690; 85025; 85060; 96361; 99284-25; J2405; J3480; J7030; Q9967